=== PATIENT | male | born 1970 | race Caucasian/White ===

== ENCOUNTER 2016-07-16 17:02 | Emergency (ER) | payer OTHER ==
[2016-07-16 17:39] VITALS: BP 150/98; PULSE 91; RESP 20; TEMP 98.9
--- NOTE | 2016-07-16 17:49 | ED ---
General Adult HPI - General Chief complaint: Extremity Injury, Lower Stated complaint: DVT right leg Time Seen by Provider: 07/16/16 17:35 Source: patient, RN notes reviewed Mode of arrival: wheelchair Limitations: no limitations - History of Present Illness Initial comments: Patient is a pleasant 45-year-old male presenting to the emergency Department with right calf discomfort. Patient did have surgery on his right foot to corrected toe in the beginning of the month. Patient felt some discomfort in his right calf since yesterday. Patient felt he might just a strained it. On follow-up today with his doctor ordered an outpatient ultrasound which returned positive for DVT. Patient denies any chest discomfort or difficulty in breathing. Patient would prefer to go home. Patient does have a history of DVT once previously approximately 10 years ago after a long car ride. Patient states his doctor did examine his foot and change the bandages just prior to arrival. - Related Data Previous Rx's Medication Instructions Recorded Rivaroxaban [Xarelto Starter Pack] 15 mg PO DIRECTED #42 tab 07/16/16 Allergies Allergy/AdvReac Type Severity Reaction Status Date / Time No Known Allergies Allergy Verified 07/16/16 17:39 Review of Systems ROS Statement: Those systems with pertinent positive or pertinent negative responses have been documented in the HPI. ROS Other: All systems not noted in ROS Statement are negative. Constitutional: Denies: fever Eyes: Denies: eye pain ENT: Denies: ear pain Respiratory: Denies: cough Cardiovascular: Denies: chest pain Endocrine: Denies: fatigue Gastrointestinal: Denies: abdominal pain Genitourinary: Denies: dysuria Musculoskeletal: Denies: back pain Skin: Denies: rash Neurological: Denies: weakness Past Medical History Past Medical History: CVA/TIA, Deep Vein Thrombosis (DVT) History of Any Multi-Drug Resistant Organisms: None Reported Past Surgical History: Orthopedic Surgery Additional Past Surgical History / Comment(s): kelby feet, Past Psychological History: Anxiety, Depression Smoking Status: Current every day smoker Past Alcohol Use History: Occasional Past Drug Use History: None Reported General Exam Limitations: no limitations General appearance: alert, in no apparent distress Head exam: Present: atraumatic Eye exam: Present: normal appearance, PERRL ENT exam: Present: normal oropharynx Neck exam: Present: normal inspection Respiratory exam: Present: normal lung sounds bilaterally Cardiovascular Exam: Present: regular rate, normal rhythm GI/Abdominal exam: Present: soft. Absent: tenderness Extremities exam: Present: calf tenderness (On the right), other (Right foot with bandages and postop shoe in place.) Neurological exam: Present: alert Psychiatric exam: Present: normal affect, normal mood Skin exam: Absent: rash Course Vital Signs 07/16/16 17:35 Temperature 98.9 F Pulse Rate 91 Respiratory 20 Rate Blood Pressure 150/98 O2 Sat by Pulse 96 Oximetry Medical Decision Making - Medical Decision Making Case was discussed with practitioner Shirley peña, covering for Dr. Aguilar. She is comfortable with discharge home with eliquis or xarelto prescription. - Radiology Data Radiology results: report reviewed (Ultrasound prior to arrival shows DVT of the right popliteal with extension to the calf) Disposition Clinical Impression: DVT (deep venous thrombosis) Disposition: HOME SELF-CARE Condition: Stable Instructions: Deep Venous Thrombosis (ED) Additional Instructions: Please follow-up with primary care physician tomorrow. Return for increased pain or swelling, chest pain, difficulty breathing, worsening symptoms or any other concerns. Prescriptions: Rivaroxaban [Xarelto Starter Pack] 15 mg PO DIRECTED #42 tab Referrals: Jaspal Kay DO [Primary Care Provider] - 1-2 days
[2016-07-16] MEDS ORDERED: RIVAROXABAN 15 MG TAB PO STA (17:59)
== END 2016-07-16 18:39 | disposition home or self-care (01) ==
LOC: EC 17:02
DX: I82.401 Acute embolism and thrombosis of unspecified deep veins of right lower extremity (principal); Z86.718 Personal history of other venous thrombosis and embolism; Z86.73 Personal history of transient ischemic attack (TIA), and cerebral infarction without residual deficits; F17.200 Nicotine dependence, unspecified, uncomplicated
CPT/HCPCS: 99283

== ENCOUNTER → 2016-07-16 | Outpatient (CLI) | payer OTHER ==
--- NOTE | 2016-07-16 16:28 | US ---
EXAMINATION TYPE: US venous doppler duplex LE RT DATE OF EXAM: 07/16/2016 3:43 PM COMPARISON: NONE CLINICAL HISTORY: M79.604 Pain/swelling in right lower extremity. SIDE PERFORMED: Right VESSELS IMAGED: External Iliac Vein (EIV) Common Femoral Vein Deep Femoral Vein Greater Saphenous Vein * Femoral Vein Popliteal Vein Proximal Calf Veins (* superficial vessels) TECHNOLOGIST IMPRESSION: Right Leg: Positive for DVT, non occlusive thrombus seen distal pop vein extending into the prox rimma f veins Thrombus is evident within the popliteal vein. This extends distally. Some mid right femoral vein thr ombus is not entirely excluded. Pulmonary results were called to the office at the time of imaging. IMPRESSION: 1. Positive deep venous thrombosis right lower extremity.
== END | disposition home or self-care (01) ==
LOC: RADUSWWP 15:37
PROVIDERS: ATTEND Podiatrist Foot & Ankle Surgery
DX: I82.431 Acute embolism and thrombosis of right popliteal vein (principal); I82.4Y1 Acute embolism and thrombosis of unspecified deep veins of right proximal lower extremity

== ENCOUNTER 2016-12-29 01:34 | Inpatient (IN) | payer OTHER ==
[2016-12-29] MEDS ORDERED: ACETAMINOPHEN TAB 500 MG TAB PO STA (01:56)
[2016-12-29] MEDS: SODIUM CHLORIDE 0.9% 500 ML IV SCH ×2 (02:02→02:30)
[2016-12-29] MEDS ORDERED: ALBUTEROL NEBULIZED 2.5 MG/3 ML INHALATION STA (02:09)
[2016-12-29] MEDS ORDERED: SODIUM CHLORIDE 0.9% 1,000 ML IV ONE (02:11)
[2016-12-29 02:12] LABS: Basophils # (A) 0.1 k/uL (0-0.2); Basophils % (A) 1 %; CH 34.3; CHCM 35.9; Eosinophils # (A) 0.1 k/uL (0-0.7); Eosinophils % (A) 1 %; HCT 40.3 % (39.0-53.0); HDW 2.62; HGB 14.3 gm/dL (13.0-17.5); Luc # (Auto) 0.51; Luc % (Auto) 2; Lymphocytes # (A) 4.6 k/uL (1.0-4.8); Lymphocytes % (A) 21 %; MCHC 35.5 g/dL (31.0-37.0); MCV 95.7 fL (80.0-100.0); Mean Platelet Volume 7.9; Monocytes # (A) 1.5 k/uL (0-1.0); Monocytes % (A) 7 %; Neutrophils # (A) 15.2 k/uL (1.3-7.7); Neutrophils % (A) 69 %; RBC 4.21 m/uL (4.30-5.90); WBC (Perox) 20.21
[2016-12-29 02:19] LABS: ALT 34 U/L (21-72); AST 16 U/L (17-59); Alkaline Phosphatase 99 U/L (38-126); Anion Gap 12 mmol/L; Blood Urea Nitrogen 11 mg/dL (9-20); Carbon Dioxide 26 mmol/L (22-30); Chloride 101 mmol/L (98-107); Glucose 111 mg/dL (74-99); Magnesium 1.6 mg/dL (1.6-2.3); Non-African American GFR(MDRD) >60 (>60 ml/min/1.73 sqM); Potassium 3.9 mmol/L (3.5-5.1); Sodium 139 mmol/L (137-145); Total Bilirubin 0.6 mg/dL (0.2-1.3); Total Protein 6.8 g/dL (6.3-8.2)
[2016-12-29 02:21] LABS: INR 1.1 (<1.2); Partial Thromboplastin Time 31.8 sec (22.0-30.0); Prothrombin Time 11.4 sec (9.0-12.0)
[2016-12-29 02:27] LABS: Appearance,Urine Clear (Clear); Bilirubin,Urine Negative (Negative); Glucose,Urine (UA) Negative (Negative); Ketones,Urine Negative (Negative); Leukocyte Esterase,Urine Negative (Negative); Mucus,Urine Rare /hpf; Nitrite,Urine Negative (Negative); PH, Urine 5.5 (5.0-8.0); Particle Count 2344; Protein,Urine Negative (Negative); RBC,Urine 2 /hpf (0-5); Squamous Epithelial Cell,Urine <1 /hpf (0-4); UA Billing (MACRO vs. MICRO) MICRO; Urobilinogen,Urine <2.0 mg/dL (<2.0); WBC,Urine <1 /hpf (0-5)
[2016-12-29 02:30] LABS: Creatine Kinase 31 U/L (55-170)
[2016-12-29] MEDS ORDERED: LEVOFLOXACIN 750MG-D5W PMX 750 MG in DEXTROSE/WATER 1 150ML.BAG IVPB SCH (02:30)
[2016-12-29] MEDS ORDERED: LEVOFLOXACIN 750MG-D5W PMX 750 MG in DEXTROSE/WATER 1 150ML.BAG IVPB STA (02:30)
[2016-12-29] MEDS ORDERED: IV VANCOMYCIN PER PHARMACY 1 EACH MISC MISCELLANE PRN (02:30)
[2016-12-29 02:42] LABS: Creatine Kinase MB <0.2 ng/mL (0.0-2.4); Troponin I <0.012 ng/mL (0.000-0.034)
[2016-12-29] MEDS ORDERED: VANCOMYCIN 1,500 MG in SODIUM CHLORIDE 0.9% 250 ML IVPB STA (02:42)
--- NOTE | 2016-12-29 03:04 | XR ---
EXAM: XR Chest, 2 Views CLINICAL HISTORY: Reason: Chest Pain TECHNIQUE: Frontal and lateral views of the chest. COMPARISON: No relevant prior studies available. FINDINGS: Lungs: Dense airspace disease at the right lower lung. Small moderate right pleural effusion. Discoid atelectasis and/or scarring at the left base. Pleural space: Bullous emphysematous inspected at the right upper lobe. No pneumothorax. Heart: Unremarkable. No cardiomegaly. Mediastinum: Unremarkable. Bones/joints: Unremarkable. IMPRESSION: Right lower lung airspace disease and small to moderate perfusion. Correlate clinically to exclude infectious etiology. Follow to resolution.
[2016-12-29] MEDS ORDERED: PNEUMONIA PROTOCOL UTILIZED 1 EACH MISC PO PRN (03:21)
--- NOTE | 2016-12-29 03:33 | ED ---
General Adult HPI - General Chief complaint: Chest Pain Stated complaint: Chest Pains Time Seen by Provider: 12/29/16 01:53 Source: patient, family, RN notes reviewed Mode of arrival: ambulatory Limitations: no limitations - History of Present Illness Initial comments: 46-year-old male presents for evaluation of fever and cough. Patient states that today he had a temperature of 100.3. Also states he has had a cough for the past 24 hours with no sputum. Also reports right-sided chest pain and shortness of breath. Patient states the chest pain does radiate to his right flank. Denies dysuria. Denies abdominal pain. Denies nausea vomiting or diarrhea. Patient has past medical history of DVT, on xarelto, he is also a current tobacco user, no history of COPD or asthma. - Related Data Home Medications Medication Instructions Recorded Confirmed Aspirin EC [Ecotrin Low Dose] 81 mg PO DAILY 07/16/16 12/29/16 Baclofen 10 mg PO BID 07/16/16 12/29/16 Citalopram Hydrobromide [CeleXA] 40 mg PO DAILY 07/16/16 12/29/16 Esomeprazole Magnesium [NexIUM] 40 mg PO DAILY 07/16/16 12/29/16 Gabapentin [Neurontin] 200 mg PO TID PRN 07/16/16 12/29/16 HYDROcodone/APAP 10-325MG [[place] 1 tab PO Q8H PRN 07/16/16 12/29/16 10-325] Multivitamins, Thera [Multivitamin] 1 tab PO DAILY 07/16/16 12/29/16 Naproxen Sodium [Naproxen Sodium 550 mg PO BID 07/16/16 12/29/16 DS] SUMAtriptan SUCCINATE [Imitrex] 50 mg PO DAILY PRN 07/16/16 12/29/16 Previous Rx's Medication Instructions Recorded Rivaroxaban [Xarelto Starter Pack] 15 mg PO DIRECTED #42 tab 07/16/16 Allergies Allergy/AdvReac Type Severity Reaction Status Date / Time No Known Allergies Allergy Verified 12/29/16 01:40 Review of Systems ROS Statement: Those systems with pertinent positive or pertinent negative responses have been documented in the HPI. ROS Other: All systems not noted in ROS Statement are negative. Past Medical History Past Medical History: CVA/TIA, Deep Vein Thrombosis (DVT) History of Any Multi-Drug Resistant Organisms: None Reported Past Surgical History: Orthopedic Surgery Additional Past Surgical History / Comment(s): kelby feet, Past Psychological History: Anxiety, Depression Smoking Status: Current every day smoker Past Alcohol Use History: Occasional Past Drug Use History: None Reported General Exam Limitations: no limitations General appearance: alert, in distress Head exam: Present: atraumatic, normocephalic Eye exam: Present: normal appearance, PERRL ENT exam: Present: normal exam, mucous membranes dry, other (No pharyngeal erythema) Neck exam: Present: normal inspection, full ROM. Absent: meningismus Respiratory exam: Present: respiratory distress, wheezes Cardiovascular Exam: Present: normal rhythm, tachycardia GI/Abdominal exam: Present: soft, distended, tenderness Extremities exam: Present: normal inspection, normal capillary refill. Absent: pedal edema Back exam: Present: normal inspection, tenderness (Tenderness over the right posterior chest wall) Neurological exam: Present: alert, oriented X3 Psychiatric exam: Present: normal affect, normal mood Skin exam: Present: warm, dry Course Vital Signs 12/29/16 12/29/16 12/29/16 01:37 02:05 02:44 Temperature 101.6 F H Pulse Rate 113 H 105 H 92 Respiratory 20 22 18 Rate Blood Pressure 109/64 105/70 O2 Sat by Pulse 84 L 94 L Oximetry 12/29/16 12/29/16 02:57 03:05 Temperature 98.8 F Pulse Rate 95 93 Respiratory 18 18 Rate Blood Pressure 102/70 O2 Sat by Pulse 94 L Oximetry EKG Findings - EKG Comments: EKG Findings:: EKG shows sinus tachycardia with a ventricular rate of 106, IL interval 136, castration 78, QTC 424 Medical Decision Making - Medical Decision Making 46-year-old male presenting with a one-day history of fever, cough, and difficulty breathing. Patient has pain over the right posterior chest wall. On examination he does have bilateral wheezing, no history of asthma COPD. Laboratory studies reveal episode, 22,000, liver enzymes are unremarkable, urinalysis are no signs of infection. Cardiac enzymes are negative. Patient is febrile, tachycardic, and hypotensive and hypoxic on initial presentation. He is given supplemental oxygen, IV fluids, and Tylenol for his fever. Repeat vital signs have improved. Patient is started on broad-spectrum antibiotics. Sputum culture, blood culture, and culture are pending. Patient will be admitted for IV antibiotics and further evaluation treatment. Diagnosis: Right lower lobe pneumonia, sepsis - Lab Data Result diagrams: 12/29/16 01:50 12/29/16 01:50 Lab Results 12/29/16 12/29/16 12/29/16 Range/Units 01:50 01:50 01:50 WBC 22.0 H (3.8-10.6) k/uL RBC 4.21 L (4.30-5.90) m/uL Hgb 14.3 (13.0-17.5) gm/dL Hct 40.3 (39.0-53.0) % MCV 95.7 (80.0-100.0) fL MCH 34.0 (25.0-35.0) pg MCHC 35.5 (31.0-37.0) g/dL RDW 13.0 (11.5-15.5) % Plt Count 312 (150-450) k/uL Neutrophils % 69 % Lymphocytes % 21 % Monocytes % 7 % Eosinophils % 1 % Basophils % 1 % Neutrophils # 15.2 H (1.3-7.7) k/uL Lymphocytes # 4.6 (1.0-4.8) k/uL Monocytes # 1.5 H (0-1.0) k/uL Eosinophils # 0.1 (0-0.7) k/uL Basophils # 0.1 (0-0.2) k/uL PT (9.0-12.0) sec INR (<1.2) APTT (22.0-30.0) sec Sodium 139 (137-145) mmol/L Potassium 3.9 (3.5-5.1) mmol/L Chloride 101 (98-107) mmol/L Carbon Dioxide 26 (22-30) mmol/L Anion Gap 12 mmol/L BUN 11 (9-20) mg/dL Creatinine 0.90 (0.66-1.25) mg/dL Est GFR (MDRD) Af Amer >60 (>60 ml/min/1.73 sqM) Est GFR (MDRD) Non-Af >60 (>60 ml/min/1.73 sqM) Glucose 111 H (74-99) mg/dL Plasma Lactic Acid Michael (0.7-2.0) mmol/L Calcium 9.0 (8.4-10.2) mg/dL Magnesium 1.6 (1.6-2.3) mg/dL Total Bilirubin 0.6 (0.2-1.3) mg/dL AST 16 L (17-59) U/L ALT 34 (21-72) U/L Alkaline Phosphatase 99 (38-126) U/L Total Creatine Kinase 31 L (55-170) U/L CK-MB (CK-2) <0.2 (0.0-2.4) ng/mL CK-MB (CK-2) Rel Index Troponin I <0.012 (0.000-0.034) ng/mL Total Protein 6.8 (6.3-8.2) g/dL Albumin 3.8 (3.5-5.0) g/dL Urine Color Urine Appearance (Clear) Urine pH (5.0-8.0) Ur Specific [place] (1.001-1.035) Urine Protein (Negative) Urine Glucose (UA) (Negative) Urine Ketones (Negative) Urine Blood (Negative) Urine Nitrite (Negative) Urine Bilirubin (Negative) Urine Urobilinogen (<2.0) mg/dL Ur Leukocyte Esterase (Negative) Urine RBC (0-5) /hpf Urine WBC (0-5) /hpf Ur Squamous Epith Cells (0-4) /hpf Urine Mucus (None) /hpf 12/29/16 12/29/16 12/29/16 Range/Units 01:50 01:50 02:10 WBC (3.8-10.6) k/uL RBC (4.30-5.90) m/uL Hgb (13.0-17.5) gm/dL Hct (39.0-53.0) % MCV (80.0-100.0) fL MCH (25.0-35.0) pg MCHC (31.0-37.0) g/dL RDW (11.5-15.5) % Plt Count (150-450) k/uL Neutrophils % % Lymphocytes % % Monocytes % % Eosinophils % % Basophils % % Neutrophils # (1.3-7.7) k/uL Lymphocytes # (1.0-4.8) k/uL Monocytes # (0-1.0) k/uL Eosinophils # (0-0.7) k/uL Basophils # (0-0.2) k/uL PT 11.4 (9.0-12.0) sec INR 1.1 (<1.2) APTT 31.8 H (22.0-30.0) sec Sodium (137-145) mmol/L Potassium (3.5-5.1) mmol/L Chloride (98-107) mmol/L Carbon Dioxide (22-30) mmol/L Anion Gap mmol/L BUN (9-20) mg/dL Creatinine (0.66-1.25) mg/dL Est GFR (MDRD) Af Amer (>60 ml/min/1.73 sqM) Est GFR (MDRD) Non-Af (>60 ml/min/1.73 sqM) Glucose (74-99) mg/dL Plasma Lactic Acid Michael 1.1 (0.7-2.0) mmol/L Calcium (8.4-10.2) mg/dL Magnesium (1.6-2.3) mg/dL Total Bilirubin (0.2-1.3) mg/dL AST (17-59) U/L ALT (21-72) U/L Alkaline Phosphatase (38-126) U/L Total Creatine Kinase (55-170) U/L CK-MB (CK-2) (0.0-2.4) ng/mL CK-MB (CK-2) Rel Index Troponin I (0.000-0.034) ng/mL Total Protein (6.3-8.2) g/dL Albumin (3.5-5.0) g/dL Urine Color Yellow Urine Appearance Clear (Clear) Urine pH 5.5 (5.0-8.0) Ur Specific [place] 1.010 (1.001-1.035) Urine Protein Negative (Negative) Urine Glucose (UA) Negative (Negative) Urine Ketones Negative (Negative) Urine Blood Small H (Negative) Urine Nitrite Negative (Negative) Urine Bilirubin Negative (Negative) Urine Urobilinogen <2.0 (<2.0) mg/dL Ur Leukocyte Esterase Negative (Negative) Urine RBC 2 (0-5) /hpf Urine WBC <1 (0-5) /hpf Ur Squamous Epith Cells <1 (0-4) /hpf Urine Mucus Rare H (None) /hpf Critical Care Time Critical Care Time: Yes Total Critical Care Time: 35 Disposition Clinical Impression: Pneumonia, Sepsis Disposition: ADMITTED IP TO THIS [facility] Condition: Stable Referrals: Jaspal Kay DO [Primary Care Provider] - 1-2 days Decision to Admit Reason: Admit from EC Decision Date: 12/29/16 Decision Time: 03:33
[2016-12-29] MEDS: HYDROcodone/APAP 10-325MG 1 EACH TAB PO PRN (04:44)
[2016-12-29] MEDS: SODIUM CHLORIDE 0.9% 1,000 ML IV SCH ×2 (07:10→21:54)
[2016-12-29] MEDS: ALBUTEROL NEBULIZED 2.5 MG/3 ML INHALATION PRN ×2 (07:30→11:15)
[2016-12-29] MEDS: VANCOMYCIN 1,750 MG in SODIUM CHLORIDE 0.9% 250 ML IVPB SCH ×2 (08:35→21:55)
[2016-12-29] MEDS: CITALOPRAM HYDROBROMIDE 20 MG TAB PO SCH (08:36)
[2016-12-29] MEDS: ASPIRIN 81 MG CHEW PO SCH ×2 (08:36→10:05)
[2016-12-29] MEDS ORDERED: traMADol 50 MG TAB PO PRN (09:51)
[2016-12-29] MEDS: HYDROmorphone 1 MG/ML 1 ML SYRINGE IVP PRN ×2 (11:01→12:51)
[2016-12-29 11:40] LABS: Glucose,Whole Blood 121 mg/dL (75-99)
[2016-12-29] MEDS ORDERED: RX INFO: IV CONTRAST WAS GIVEN 1 EACH MISC MISCELLANE PRN (11:41)
[2016-12-29 11:57] LABS: Basophils # (A) 0.1 k/uL (0-0.2); Basophils % (A) 0 %; CH 33.6; CHCM 34.6; Eosinophils # (A) 0.1 k/uL (0-0.7); Eosinophils % (A) 1 %; HCT 38.7 % (39.0-53.0); HDW 2.69; HGB 13.6 gm/dL (13.0-17.5); Luc # (Auto) 0.39; Luc % (Auto) 2; Lymphocytes # (A) 2.3 k/uL (1.0-4.8); Lymphocytes % (A) 13 %; MCH 34.4 pg (25.0-35.0); MCHC 35.2 g/dL (31.0-37.0); MCV 97.7 fL (80.0-100.0); Mean Platelet Volume 8.1; Monocytes # (A) 1.2 k/uL (0-1.0); Monocytes % (A) 7 %; Neutrophils # (A) 13.6 k/uL (1.3-7.7); Neutrophils % (A) 77 %; RBC 3.96 m/uL (4.30-5.90); RDW 12.9 % (11.5-15.5); WBC 17.7 k/uL (3.8-10.6)
--- NOTE | 2016-12-29 11:57 | XR ---
EXAMINATION TYPE: XR chest 1V portable DATE OF EXAM: 12/29/2016 Comparison: 12/29/2016 Clinical History: 46-year-old male sob Findings: The heart is normal size. There is bullous emphysema particularly in the right upper lobe. A convexly marginated edge projecting at the right mid lung suspected to be a skinfold and can BE reassessed at short interval follow-up. Increasing small right pleural effusion and continued right greater than l eft bibasilar infiltrates. Impression: 1. A small convexly marginated edge projecting at the right midlung is suspected to represent a skinf old. This can be reassessed at short interval follow-up. 2. Bullous emphysema particularly involving the right upper lobe. 3. Increasing small right pleural effusion with continued right greater than left bibasilar infiltrat es.
[2016-12-29 12:02] LABS: Anion Gap 8 mmol/L; Blood Urea Nitrogen 9 mg/dL (9-20); Calcium 8.7 mg/dL (8.4-10.2); Carbon Dioxide 27 mmol/L (22-30); Chloride 106 mmol/L (98-107); Glucose 111 mg/dL (74-99); Non-African American GFR(MDRD) >60 (>60 ml/min/1.73 sqM); Potassium 4.2 mmol/L (3.5-5.1); Sodium 141 mmol/L (137-145)
[2016-12-29 12:21] LABS: Glucose,Whole Blood 125 mg/dL (75-99)
[2016-12-29 12:29] LABS: ABG Base Excess -1.4 mmol/L; ABG HCO3 23 mmol/L (21-25); ABG Oxygen Saturation 97.5 % (94-97); ABG PCO2 38 mmHg (35-45); ABG PH 7.39 (7.35-7.45); ABG PO2 97 mmHg (83-108); ABG TCO2 24 mmol/L (19-24)
--- NOTE | 2016-12-29 12:33 | CT ---
EXAMINATION TYPE: CT angio thoracic/abd aorta DATE OF EXAM: 12/29/2016 COMPARISON: NONE HISTORY: SOB, severe back pain. PE vs dissection CT DLP: 1780.1 mGycm CONTRAST: CTA thoracic and abdominal aorta with 3-D reconstruction is performed and without and with IV Contras t, patient injected with 100 mL of Omnipaque 350. Contrast CTA of the thoracic and abdominal aorta was performed from the lung apex through the base of the pelvis. 3-D reconstruction imaging obtained at a separate workstation. CT Chest: THORACIC AORTA: There is no evidence for aneurysm. No dissection or mediastinal hematoma. Mild ath eromatous changes are seen. LUNGS: Moderately severe upper lobe emphysematous changes right greater than left. Moderate right-chris ed pleural effusion measuring 7.2 cm AP dimension with associated compressive atelectasis or infiltra te. 1.1 cm nonspecific pulmonary nodule left upper lobe. Basilar parenchymal scar atelectasis. Small left basilar effusion. MEDIASTINUM: The heart is not enlarged. No evidence for mediastinal mass or adenopathy. HILAR STRUCTURES: No evidence for mass. No hilar adenopathy is appreciated. OTHER: No significant abnormality. CONTRAST CT ABDOMEN AND PELVIS ABDOMENAL AORTA: No evidence for abdominal aortic aneurysm. No dissection. Iliac vessels are symmet alicia and patent. LIVER/GB- No significant abnormality is seen. PANCREAS- No significant abnormality is seen. SPLEEN- No significant abnormality is seen. ADRENALS- No significant abnormality is seen. KIDNEYS/BLADDER-2 mm nonobstructing calculus right kidney. BOWEL- No Significant abnormality GENITAL ORGANS: No gross abnormality seen. LYMPH NODES- No greater than 1cm abdominal or pelvic lymph nodes areappreciated. OSSEOUS STRUCTURES- No significant abnormality is seen. OTHER- No significant abnormality is seen. IMPRESSION- 1. No evidence for aneurysm of the thoracic or abdominal aorta. 2. Moderately severe emphysematous changes with a large right-sided pleural effusion and basilar atel ectasis or infiltrate. 3. Nonspecific left upper lobe pulmonary nodule. Follow-up in 4-6 months is advised.
[2016-12-29] MEDS ORDERED: LORazepam 2 MG/ML SYRINGE IV STA (13:07)
[2016-12-29] MEDS: methylPREDNISolone SOD SUCCI 125 MG/2 ML VIAL IV SCH ×2 (13:20→21:54)
[2016-12-29] MEDS ORDERED: PROPOFOL 1,000 MG/100 ML VIAL IV ONE (13:29)
[2016-12-29] MEDS ORDERED: SUCCINYLCHOLINE CHLORIDE 100 MG/5 ML SYR IV ONE (13:32)
[2016-12-29] MEDS ORDERED: PROPOFOL 10 MG/ML 20 ML VIAL IV ONE (13:32)
[2016-12-29] MEDS ORDERED: CISATRACURIUM 2 MG/ML 5 ML VIAL IV ONE ×3 (13:54→14:41)
--- NOTE | 2016-12-29 14:41 | XR ---
EXAMINATION TYPE: XR chest 1V portable DATE OF EXAM: 12/29/2016 Comparison: 12/29/2016 radiograph Clinical History: 46-year-old male intubated Findings: ET tube is satisfactory. NG tube courses below the diaphragm. Slight leftward patient rotation. Increasing opacity at the right mid and lower lung as well as at the left base. A moderate right pleu ral effusion is now evident. Bullous emphysema particularly in the right upper lobe. A convexly jina nated is again noted within right midline. This is compatible with artifact as no pneumothorax was se en on the patient's CT of the same day. Impression: 1. Worsening, moderate right and small left pleural effusions. 2. Worsening bibasilar atelectasis and/or consolidation. 3. Bullous emphysema. 4. Satisfactory ET tube.
[2016-12-29] MEDS ORDERED: IPRATROPIUM-ALBUTEROL 3 ML NEB INHALATION PRN (14:43)
[2016-12-29 14:51] LABS: ABG Base Excess -3.8 mmol/L; ABG HCO3 22 mmol/L (21-25); ABG PCO2 50 mmHg (35-45); ABG PH 7.27 (7.35-7.45); ABG PO2 80 mmHg (83-108); ABG TCO2 24 mmol/L (19-24)
[2016-12-29] MEDS: HYDROmorphone 1 MG/ML 1 ML SYRINGE IM PRN (15:08)
--- NOTE | 2016-12-29 15:12 | XR ---
EXAMINATION TYPE: XR abdomen 1V DATE OF EXAM: 12/29/2016 CLINICAL DATA: 46 year-old male abdominal distention, [facility] COMPARISON: Correlation CT today FINDINGS: Effusions and opacities at the lung bases, right greater than left. NG tube is down. Supine imaging limited for assessment of free air. Scattered air seen throughout small and large bowel. Prominent but nondilated air-filled small bowel loops in the left abdomen measure up to 2.9 cm. A Neely catheter in place. Excreted contrast seen within the distal ureters and bladder. IMPRESSION: 1. Some prominent air-filled small bowel loops in the left abdomen. Correlate for a regional ileus or enteritis. 2. Overall nonobstructive bowel gas pattern.
[2016-12-29] MEDS: CISATRACURIUM 200 MG in SODIUM CHLORIDE 0.9% 180 ML IV SCH (15:29)
[2016-12-29] MEDS: IPRATROPIUM-ALBUTEROL 3 ML NEB INHALATION SCH ×3 (15:50→23:28)
[2016-12-29] MEDS ORDERED: Magnesium Replacement Protocol 1 EACH MISC MISCELLANE PRN (15:57)
[2016-12-29] MEDS ORDERED: RIVAROXABAN 10 MG TAB PO SCH (17:30)
--- NOTE | 2016-12-29 18:06 | P.CNPUL ---
History of Present Illness Consult date: 12/29/16 Reason for consult: pneumonia History of present illness: A 46-year-old male patient who presented emergency department this morning because of severe pleuritic right-sided chest pain, fever and cough that's been going on for the past few days. His temperature today was 100.3. He also stated that he has been having cough for the past 24-48 hours without any significant sputum production. He started of her way having some pleuritic chest pain on the right and the pain got severely worse as the day went by to the point where he was having apparent there was 10 out of 10 this this morning. The patient denies having any hemoptysis. No previous history of pneumonia. The patient has history of DVT and the patient has been maintained on Xarelto on outpatient basis. He is a chronic every day smoker. In the emergency department, the patient was found to have a temperature over 1.6. He was tachycardic with a heart rate of 113. He is supposed pulse ox on 4 L was around 94 percent. He had significant leukocytosis with a white cell count 22, 000 and his chest x-ray showed bullous emphysema involving the right upper lobe and extensive right lung consolidation and possibly a small right-sided pleural effusion. Some limited left basilar infiltrates was also seen. The patient was started on broad-spectrum antibiotics. He was given IV Levaquin and vancomycin and subsequently was admitted to the medical floor. I was asked to develop this patient by Dr. Palma 90 the patient was getting increasingly short of breath and he was having pain over the right side of the chest. He was given Dilaudid for pain control with limited success. Subsequently became more tachypneic, diaphoretic, abdomen was getting progressively more distended, he was brought into the intensive care unit and subsequently was intubated and placed on a mechanical ventilator. At this point in time the patient is sedated with Diprivan, paralyzed on Nimbex, on assist control mode of ventilation at the rate of 26, tidal volume 400, FiO2 of 100% and a PEEP of 5. His blood gases show a pH of 7.27 with a pCO2 of 50 and pO2 of 80. This was done and FiO2 of 100% with a PEEP of 5. His chest x-ray post intubation showed worsening of the right lung consolidation with increased atelectasis and possibly effusion. There is also some infiltration and effusion the left lung base. Bullous emphysema can be seen bilaterally more so on the right upper lobe. A CAT scan of the chest was also done and showed moderate to severe upper lobe emphysematous changes right more than left. A moderate-sized right- sided pleural effusion measuring 7.2 cm in size with compressive atelectasis of the right lung base and consolidation of the right lower lobe. Another 1.1 cm nonspecific pulmonary nodules seen in the left upper lobe and there is a small left-sided pleural effusion. I interviewed the and the mother. Apparently the patient was having a tooth abscess and he had seen a dentist approximately 4 weeks ago. He was placed on antibiotics for total of 2 weeks and he was supposed to have a tooth extraction following that. His been off antibiotics for another 2 weeks for now. He denied having any facial swelling or pain recently. No travel history. No exposure to hot tubs or any other contaminated water sources. No sensory of substance abuse. No alcoholism. No immunosuppression. He has history of depression and possibly component of PTSD as the patient is a . No skin rashes. No other sick contacts. He lives with his and he has no children, dogs at home. Review of Systems ROS unobtainable: due to endotracheal tube Past Medical History Past Medical History: CVA/TIA, Deep Vein Thrombosis (DVT) Additional Past Medical History / Comment(s): 6 TIA approximately 6 years ago without any residual deficits, and recent right foot surgery that was further Combigan by development of a DVT in July 2016 and the patient is been maintained on Xarelto, COPD, chronic smoker, depression, PTSD, tooth abscess treated with antibiotics approximately 4-5 weeks ago, chronic back and neck pain being followed up by Dr. Streeter apparently the patient has had undergone nerve ablation in his neck area for pain control. History of Any Multi-Drug Resistant Organisms: None Reported Past Surgical History: Orthopedic Surgery Additional Past Surgical History / Comment(s): Bilateral feet surgery, cervical and lumbar nerve ablation, injection for pain control. Past Anesthesia/Blood Transfusion Reactions: No Reported Reaction Past Psychological History: Anxiety, Depression Smoking Status: Current every day smoker Past Alcohol Use History: Occasional Additional Past Alcohol Use History / Comment(s): smokes 1 pack a day, started when @ 12 Past Drug Use History: None Reported - Past Family History Father Additional Family Medical History / Comment(s): lung Ca Mother Additional Family Medical History / Comment(s): irregular heart beat Medications and Allergies Home Medications Medication Instructions Recorded Confirmed Type Baclofen 10 mg PO BID 07/16/16 12/29/16 History Citalopram Hydrobromide [CeleXA] 40 mg PO DAILY 07/16/16 12/29/16 History Esomeprazole Magnesium [NexIUM] 40 mg PO DAILY 07/16/16 12/29/16 History Gabapentin [Neurontin] 200 mg PO TID PRN 07/16/16 12/29/16 History HYDROcodone/APAP 10-325MG [Callahan 1 tab PO Q8H PRN 07/16/16 12/29/16 History 10-325] Multivitamins, Thera [Multivitamin] 1 tab PO DAILY 07/16/16 12/29/16 History Acetaminophen [Tylenol Extra 500 mg PO DAILY PRN 12/29/16 12/29/16 History Strength] Ammonium Lactate Cream [Lac-Hydrin 1 applic TOPICAL DAILY PRN 12/29/16 12/29/16 History 12% Cream] Clotrimazole Cream [Lotrimin Cream] 1 applic TOPICAL BID 12/29/16 12/29/16 History Mirtazapine [Remeron] 30 mg PO DAILY 12/29/16 12/29/16 History Rivaroxaban [Xarelto] 20 mg PO DAILY 12/29/16 12/29/16 History Allergies Allergy/AdvReac Type Severity Reaction Status Date / Time No Known Allergies Allergy Verified 12/29/16 09:19 Physical Exam Vitals: Vital Signs Temp Pulse Pulse Resp BP BP Pulse Ox 12/29/16 16:10 97 26 H 99/55 89 L 12/29/16 16:01 100 12/29/16 16:00 100 35 H 83/56 89 L 12/29/16 15:51 100 12/29/16 15:50 100 26 H 97/55 87 L 12/29/16 15:40 101 H 25 H 100/57 87 L 12/29/16 15:30 103 H 25 H 98/54 87 L 12/29/16 15:20 102 H 25 H 99/52 86 L 12/29/16 15:16 103 H 25 H 100/49 86 L 12/29/16 15:00 102 H 25 H 131/59 86 L 12/29/16 14:50 109 H 29 H 107/54 86 L 12/29/16 14:40 119 H 23 100/53 87 L 12/29/16 14:30 112 H 25 H 107/56 92 L 12/29/16 14:20 109 H 26 H 109/56 90 L 12/29/16 14:10 109 H 26 H 113/61 90 L 12/29/16 14:00 112 H 26 H 130/64 91 L 12/29/16 13:50 116 H 23 114/65 93 L 12/29/16 13:40 114 H 18 112/82 94 L 12/29/16 13:30 114 H 39 H 141/80 91 L 12/29/16 13:20 114 H 50 H 141/80 93 L 12/29/16 11:31 100 12/29/16 11:15 100 12/29/16 08:00 97.3 F L 89 20 113/65 90 L 12/29/16 07:46 88 12/29/16 07:31 84 12/29/16 06:30 24 12/29/16 04:16 97.9 F 88 24 108/71 93 L 12/29/16 03:05 98.8 F 93 18 102/70 94 L 12/29/16 02:57 95 18 12/29/16 02:44 92 18 12/29/16 02:05 105 H 22 105/70 94 L 12/29/16 01:37 101.6 F H 113 H 20 109/64 84 L Intake and Output 12/29/16 12/29/16 12/29/16 06:59 14:59 22:59 Intake Total 550 Output Total 250 325 Balance 300 -325 Intake: Intake, IV Titration 550 Amount Levofloxacin 750Mg-D5w 150 Pmx 750 mg In Dextrose/ Water 1 150ml.bag @ 100 mls/hr IVPB Q24H [facility] Rx#: [id number] Sodium Chloride 0.9% 1, 150 000 ml @ 75 mls/hr IV . [id number] [facility] Rx#:[id number] Vancomycin 1,750 mg In 250 Sodium Chloride 0.9% 250 ml @ 125 mls/hr IVPB Q12H [facility] Rx#:[id number] Output: Urine 250 325 Other: Voiding Method Indwelling Catheter Weight 88.9 kg 88.9 kg Patient Weight 12/30/16 06:59 Weight 88.9 kg Intubated on a mechanical ventilator, sedated, paralyzed, orogastric and orotracheal tube are both in place.Head exam was generally normal. There was no scleral icterus or corneal arcus. Mucous membranes were moist.Neck was supple and without jugular venous distension, thyromegaly, or carotid bruits. Carotids were easily palpable bilaterally. There was no adenopathy. Lung sounds are markedly diminished in the right lung base. Breath sounds are within normal and the left lung. No wheezes or rhonchi.Cardiac exam revealed the PMI to be normally situated and sized. The rhythm was regular and no extrasystoles were noted during several minutes of auscultation. The first and second heart sounds were normal and physiologic splitting of the second heart sound was noted. There were no murmurs, rubs, clicks, or gallops.Abdominal exam revealed normal bowel sounds. The abdomen was soft, non-tender, and without masses, organomegaly , or appreciable enlargement of the abdominal aorta. Extremities are nonswollen. Pulses are diminished at the present. No cyanosis or clubbing at this point. Neurologically the patient is sedated. Results - Laboratory Findings CBC and BMP: 12/29/16 11:35 12/29/16 11:35 ABG ABG pH 7.27 (7.35-7.45) L 12/29/16 14:29 ABG pCO2 50 mmHg (35-45) H 12/29/16 14:29 ABG pO2 80 mmHg (83-108) L 12/29/16 14:29 ABG O2 Saturation 94.0 % (94-97) 12/29/16 14:29 PT/INR, D-dimer PT 11.4 sec (9.0-12.0) 12/29/16 01:50 INR 1.1 (<1.2) 12/29/16 01:50 D-Dimer 0.82 mg/L FEU (<0.60) H 12/29/16 11:36 Abnormal lab findings: Abnormal Labs 12/29/16 12/29/16 12/29/16 01:50 01:50 01:50 WBC 22.0 H RBC 4.21 L Hct Neutrophils # 15.2 H Monocytes # 1.5 H APTT D-Dimer ABG pH ABG pCO2 ABG pO2 ABG O2 Saturation Glucose 111 H POC Glucose (mg/dL) AST 16 L Total Creatine Kinase 31 L Urine Blood Urine Mucus 12/29/16 12/29/16 12/29/16 01:50 02:10 11:35 WBC 17.7 H RBC 3.96 L Hct 38.7 L Neutrophils # 13.6 H Monocytes # 1.2 H APTT 31.8 H D-Dimer ABG pH ABG pCO2 ABG pO2 ABG O2 Saturation Glucose POC Glucose (mg/dL) AST Total Creatine Kinase Urine Blood Small H Urine Mucus Rare H 12/29/16 12/29/16 12/29/16 11:35 11:36 11:39 WBC RBC Hct Neutrophils # Monocytes # APTT D-Dimer 0.82 H ABG pH ABG pCO2 ABG pO2 ABG O2 Saturation Glucose 111 H POC Glucose (mg/dL) 121 H AST Total Creatine Kinase Urine Blood Urine Mucus 12/29/16 12/29/16 12/29/16 12:16 12:18 14:29 WBC RBC Hct Neutrophils # Monocytes # APTT D-Dimer ABG pH 7.27 L ABG pCO2 50 H ABG pO2 80 L ABG O2 Saturation 97.5 H Glucose POC Glucose (mg/dL) 125 H AST Total Creatine Kinase Urine Blood Urine Mucus - Diagnostic Findings Chest x-ray: image reviewed CT scan - chest: image reviewed Assessment and Plan Plan: Assessment 1 right lung pneumonia, severe, rapid interval progression with progressive worsening of the consolidation development of a small right-sided pleural effusion with subsequent acute hypoxic respiratory failure, currently intubated on a mechanical ventilator. Rule out pneumococcal pneumonia. Rule out anaerobic pneumonia possibly from a tooth abscess/aspiration. 2 acute hypoxic respiratory failure, intubated on mechanical ventilator. 3 bullous emphysema with upper lobe emphysematous changes right more than left 4 sepsis secondary to right lung pneumonia, leukocytosis, on no pressors and hemodynamically stable at this point 5 nonspecific left upper lobe pulmonary nodule measuring 1.1 cm in size 6 recent DVT post-orthopedic intervention on the foot, maintained on Xarelto 7 TIA, history of without any neurological deficits 8 chronic neck and back pain, under the care of pain management 9 tooth abscess, treated with antibiotics on outpatient basis, being followed up by a local dentist, has not undergone tooth extraction Plan Keep the patient sedated and paralyzed for the next 24 hours. Necessary vent changes were done. The PEEP was increased up to 10 and we'll repeat the blood gas and if possible we'll gradually wean down the FiO2. The peak pressures around 24 static pressures around 16. No significant mucus plugging at this point. A bronchoscopy will be done and the bronchioloalveolar lavage of the right lower lobe will be done for microbial analysis. Blood cultures. Legionella urine antigen. Breasts recommended by his including a combination of Zosyn and Levaquin and vancomycin. A total of 3 L of IV fluid in order been given and the patient was maintained on a maintenance fluid of normal saline at the rate of 100 mL an hour. Urine output is adequate. No pressors. ID consultation. We will insert a triple lumen catheter. We'll insert an outlying catheter. Discontinue the Xarelto and switch this patient on Lovenox 1 mg per KG every 12 hours. Continue bronchodilators. Continue systemic steroids. She'll feeds will be initiated in a.m. Lactic acid levels are not elevated. Echocardiogram in a.m. Computed tomography scan of the jaw and sinuses, rule out tooth abscess. We'll continue to follow. The patient is critical. The family has been updated on his status.
--- NOTE | 2016-12-29 18:12 | P.PCN ---
Date of Procedure: 12/29/16 Preoperative Diagnosis: Right lung pneumonia, respiratory failure Postoperative Diagnosis: Right lung pneumonia, respiratory failure Procedure(s) Performed: Arterial line catheter insertion, right radial artery Implants: Surgeon: Jennifer Riley Analysis Engineer #1: Ada Reeves Condition: critical Disposition: ICU Indications for Procedure: Blood pressure monitoring Operative Findings: Description of Procedure: This procedure was done in the intensive care unit under sterile techniques. The right arm was placed on a bedside table with the rest being extended. The right radial artery was palpated. The area was cleaned using ChloraPrep. The Lalo test was performed also prior to the procedure. Following that, and outline needle was used to cannulate the right radial artery and a guidewire was inserted successfully. The needle was removed and following that an outlying catheter was inserted using the Seldinger technique into the right radial artery. It was removed and the blood return was adequate. The Artline was connected to the monitor and arterial waveform the blood pressure was obtained. The catheter was secured in place and sutured and there was no bedside complications or bleeding.
[2016-12-29 18:37] LABS: ABG Base Excess -2.3 mmol/L; ABG HCO3 24 mmol/L (21-25); ABG PCO2 61 mmHg (35-45); ABG PH 7.23 (7.35-7.45); ABG PO2 72 mmHg (83-108); ABG TCO2 26 mmol/L (19-24)
--- NOTE | 2016-12-29 18:45 | XR ---
EXAMINATION TYPE: XR chest 1V portable DATE OF EXAM: 12/29/2016 COMPARISON: 12/29/2016 at 2:12 PM HISTORY: Line placement TECHNIQUE: Single upright frontal view of the chest is obtained. FINDINGS: Endotracheal tube tip superimposed over the mid trachea. NG tube present. Right IJ central line has been placed in the interim, with tip superimposed over the distal SVC. There is no definite pneumothorax. However, it is noted that there are large bleb formations in the r ight hemithorax; noncontrast CT can be best utilized to characterize the lung parenchyma versus the p leural spaces if and when clinically indicated. There again appears to be moderate pleural effusion on the right, similar to the prior study. Neither the right lower lobe nor the left lower lobe are well inflated on the current study. Cardiomediastinal silhouette and soft tissues and skeletal structures are unremarkable. IMPRESSION: STATUS POST CENTRAL LINE PLACEMENT WITHOUT DEFINITE PNEUMOTHORAX, DISCUSSED ABOVE.
[2016-12-29] MEDS: PIPERACILLIN-TAZOBACTAM 3.375 GM in DEXTROSE/WATER 1 50ML.BAG IVPB SCH (19:13)
[2016-12-29] MEDS: ENOXAPARIN 100 MG/ML SYRINGE SQ SCH (19:14)
[2016-12-29] MEDS: MAGNESIUM SULFATE-D5W PMX 1 GM in DEXTROSE/WATER 1 100ML.BAG IVPB SCH ×2 (21:54→23:09)
[2016-12-29] MEDS: CHLORHEXIDINE GLUCONATE 15 ML CUP MUCOUS MEM SCH (21:55)
--- NOTE | 2016-12-29 22:27 | P.CONS ---
History of Present Illness - Reason for Consult Consult date: 12/29/16 - Chief Complaint Shortness of breath - History of Present Illness 46-year-old male who has a presumptive diagnosis of underlying emphysema presents to the hospital with a relatively short-term of increasing shortness of breath. The patient relates over the weekend he started to get short of breath. He developed cough and increasing shortness of breath. He then had significant fever and increasing pain to his right chest. The pain became so severe that he no longer was able to hold out at home and presented to the emergency center. There he was evidence of a pain a 10 out of 10 and evidence of significant respiratory distress. Imaging studies revealed evidence of a significant pneumonia as well as a large bleb to the right chest. Effusion was seen. No evidence of pulmonary embolus or of aortic dissection was seen. The patient was brought to the intensive care unit where he is required some sedation for placement of BiPAP. BiPAP has been placed the patient appears to be feeling this. We'll likely be intubated soon. The patient had a significant AA gradient despite the BiPAP. The family does relate to the difficulty with his oral cavity. He apparently has been antibiotic therapy was that of a tooth extraction for an abscess the family denies a history of injection drug use. Significant alcohol use. PTSD from his experience in [place]. No severe illnesses while he was overseas. Review of Systems Review of systems slightly limited due to his significant shortness of breath HEENT:Denies headache or acute visual change. Denies sinus or mouth discomforts. Denies neck stiffness or pain. Denies significant oral cavity pain. Denies difficulty on swallowing. Lungs: Very short of breath cough severe pleuritic right-sided chest pain Cardiovascular: Denies syncope profound dyspnea Gastrointestinal:Denies nausea, vomiting, diarrhea, constipation, hematemesis, melena, hematochezia. No no significant change of bowel habit noticed. Musculoskeletal: denies significant myalgias or arthralgias. No new joint swelling. Denies new back pain. Skin: Denies new rash or lesions. No new ulcers or wounds are related.. Neuro: Denies headache or visual change. Denies any new onset weakness or difficulty with ambulation. Denies falls or seizures. Psychiatric:Denies anxiety or depression. Endocrine: Denies significant fatigue, denies significant weight loss or weight gain. Past Medical History Past Medical History: CVA/TIA, Deep Vein Thrombosis (DVT) Additional Past Medical History / Comment(s): 6 TIA approximately 6 years ago without any residual deficits, and recent right foot surgery that was further [place] by development of a DVT in July 2016 and the patient is been maintained on Xarelto, COPD, chronic smoker, depression, PTSD, tooth abscess treated with antibiotics approximately 4-5 weeks ago, chronic back and neck pain being followed up by Dr. Streeter apparently the patient has had undergone nerve ablation in his neck area for pain control. History of Any Multi-Drug Resistant Organisms: None Reported Past Surgical History: Orthopedic Surgery Additional Past Surgical History / Comment(s): Bilateral feet surgery, cervical and lumbar nerve ablation, injection for pain control. 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 No alcohol or recreational drug use. Was in the in [place]. No specific illnesses while he was overseas. No change in the current home environment. 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 Smoking Status: Current every day smoker Past Alcohol Use History: Occasional Additional Past Alcohol Use History / Comment(s): smokes 1 pack a day, started when @ 12 Past Drug Use History: None Reported - Past Family History Father Additional Family Medical History / Comment(s): lung Ca Mother Additional Family Medical History / Comment(s): irregular heart beat Medications and Allergies Home Medications and Allergies Comment(s): Current Medications Hydrocodone Bitart/Acetaminophen ([place] 10) 1 each PO Q8H PRN PRN Reason: Pain Last Admin: 12/29/16 04:44 Dose: 1 each Albuterol Sulfate (Ventolin Nebulized) 2.5 mg INHALATION RT-Q4H PRN PRN Reason: Shortness Of Breath Or Wheezing Last Admin: 12/29/16 11:15 Dose: 2.5 mg Albuterol/Ipratropium (Duoneb 0.5 Mg-3 Mg/3 Ml Soln) 3 ml INHALATION RT-Q4H [facility] Last Admin: 12/29/16 20:29 Dose: 3 ml Albuterol/Ipratropium (Duoneb 0.5 Mg-3 Mg/3 Ml Soln) 3 ml INHALATION RT-Q2H PRN PRN Reason: Shortness Of Breath Or Wheezing Aspirin (Aspirin) 81 mg PO DAILY [facility] Last Admin: 12/29/16 10:05 Dose: Not Given Chlorhexidine Gluconate (Peridex) 15 ml MUCOUS MEM BID [facility] Last Admin: 12/29/16 21:55 Dose: 15 ml Citalopram Hydrobromide (Celexa) 40 mg PO DAILY [facility] Last Admin: 12/29/16 08:36 Dose: 40 mg Enoxaparin Sodium (Lovenox) 90 mg SQ Q12HR [facility] Last Admin: 12/29/16 19:14 Dose: 90 mg Hydromorphone HCl (Dilaudid) 0.5 mg IVP Q4HR PRN PRN Reason: Breakthrough Pain Last Admin: 12/29/16 12:51 Dose: 0.5 mg Hydromorphone HCl (Dilaudid) 1 mg IM Q3HR PRN PRN Reason: Pain Last Admin: 12/29/16 15:08 Dose: 1 mg Sodium Chloride (Saline 0.9%) 1,000 mls @ 100 mls/hr IV .Q10H [facility] Last Admin: 12/29/16 21:54 Dose: 100 mls/hr Levofloxacin 750 mg/ IV (Solution) 150 mls @ 100 mls/hr IVPB Q24H [facility] Vancomycin HCl 1,750 mg/ (Sodium Chloride) 250 mls @ 125 mls/hr IVPB Q12H [facility] Last Admin: 12/29/16 21:55 Dose: 125 mls/hr Piperacillin/Tazobactam/ (Dextrose 3.375 gm/ IV Solution) 50 mls @ 12.5 mls/hr IVPB Q8HR [facility] Last Admin: 12/29/16 19:13 Dose: 12.5 mls/hr Cisatracurium Besylate 200 mg/ (Sodium Chloride) 200 mls @ 5.33 mls/hr IV .Q24H [facility]; 1 MCG/KG/MIN PRN Reason: Protocol Last Admin: 12/29/16 15:29 Dose: 2 mcg/kg/min, 10.66 mls/hr Propofol (Diprivan) 1,000 mg in 100 mls @ 0 mls/hr IV .Q0M [facility]; Titrate PRN Reason: Protocol Methylprednisolone Sodium Succinate (Solu-Medrol) 60 mg IV Q6HR [facility] Last Admin: 12/29/16 21:54 Dose: 60 mg Miscellaneous Information (Pneumonia Protocol Utilized) 1 each PO ONCE PRN PRN Reason: Per Protocol Miscellaneous Information (Rx Info: Iv Contrast Was Given) 1 each MISCELLANE DAILY PRN PRN Reason: Per Protocol Stop: 12/31/16 11:42 Miscellaneous Information (Magnesium Per Protocol) 1 each MISCELLANE DAILY PRN ; Protocol PRN Reason: Per Protocol Tramadol HCl (Ultram) 50 mg PO Q6H PRN PRN Reason: Moderate Pain Home Medications Medication Instructions Recorded Confirmed Type Baclofen 10 mg PO BID 07/16/16 12/29/16 History Citalopram Hydrobromide [CeleXA] 40 mg PO DAILY 07/16/16 12/29/16 History Esomeprazole Magnesium [NexIUM] 40 mg PO DAILY 07/16/16 12/29/16 History Gabapentin [Neurontin] 200 mg PO TID PRN 07/16/16 12/29/16 History HYDROcodone/APAP 10-325MG [[place] 1 tab PO Q8H PRN 07/16/16 12/29/16 History 10-325] Multivitamins, Thera [Multivitamin] 1 tab PO DAILY 07/16/16 12/29/16 History Acetaminophen [Tylenol Extra 500 mg PO DAILY PRN 12/29/16 12/29/16 History Strength] Ammonium Lactate Cream [Lac-Hydrin 1 applic TOPICAL DAILY PRN 12/29/16 12/29/16 History 12% Cream] Clotrimazole Cream [Lotrimin Cream] 1 applic TOPICAL BID 12/29/16 12/29/16 History Mirtazapine [Remeron] 30 mg PO DAILY 12/29/16 12/29/16 History Rivaroxaban [Xarelto] 20 mg PO DAILY 12/29/16 12/29/16 History Allergies Allergy/AdvReac Type Severity Reaction Status Date / Time No Known Allergies Allergy Verified 12/29/16 09:19 Physical Exam Vitals: Vital Signs Temp Pulse Pulse Resp BP BP Pulse Ox 12/29/16 20:44 102 H 12/29/16 20:35 100 12/29/16 19:00 93 25 H 119/73 88 L 12/29/16 18:50 95 25 H 119/73 88 L 12/29/16 18:40 89 25 H 124/68 88 L 12/29/16 18:30 90 25 H 124/68 88 L 12/29/16 18:20 92 25 H 124/68 89 L 12/29/16 18:10 91 25 H 113/68 89 L 12/29/16 18:00 89 25 H 113/68 89 L 12/29/16 17:50 83 25 H 113/68 91 L 12/29/16 17:40 84 25 H 108/67 92 L 12/29/16 17:30 88 25 H 124/59 95 12/29/16 17:20 87 23 94/56 92 L 12/29/16 17:10 91 25 H 100/61 89 L 12/29/16 17:00 91 26 H 106/55 90 L 12/29/16 16:50 91 26 H 97/55 90 L 12/29/16 16:40 94 25 H 99/55 89 L 12/29/16 16:30 94 26 H 93/55 89 L 12/29/16 16:20 96 25 H 100/51 89 L 12/29/16 16:10 97 26 H 99/55 89 L 12/29/16 16:01 100 12/29/16 16:00 100 35 H 83/56 89 L 12/29/16 15:51 100 12/29/16 15:50 100 26 H 97/55 87 L 12/29/16 15:40 101 H 25 H 100/57 87 L 12/29/16 15:30 103 H 25 H 98/54 87 L 12/29/16 15:20 102 H 25 H 99/52 86 L 12/29/16 15:16 103 H 25 H 100/49 86 L 12/29/16 15:00 102 H 25 H 131/59 86 L 12/29/16 14:50 109 H 29 H 107/54 86 L 12/29/16 14:40 119 H 23 100/53 87 L 12/29/16 14:30 112 H 25 H 107/56 92 L 12/29/16 14:20 109 H 26 H 109/56 90 L 12/29/16 14:10 109 H 26 H 113/61 90 L 12/29/16 14:00 112 H 26 H 130/64 91 L 12/29/16 13:50 116 H 23 114/65 93 L 12/29/16 13:40 114 H 18 112/82 94 L 07/25/17 13:30 114 H 39 H 141/80 91 L 12/29/16 13:20 114 H 50 H 141/80 93 L 12/29/16 13:00 26 H 12/29/16 11:31 100 12/29/16 11:15 100 12/29/16 08:00 97.3 F L 89 20 113/65 90 L 12/29/16 07:46 88 12/29/16 07:31 84 12/29/16 06:30 24 12/29/16 04:16 97.9 F 88 24 108/71 93 L 12/29/16 03:05 98.8 F 93 18 102/70 94 L 12/29/16 02:57 95 18 12/29/16 02:44 92 18 12/29/16 02:05 105 H 22 105/70 94 L 12/29/16 01:37 101.6 F H 113 H 20 109/64 84 L Intake and Output 12/29/16 12/29/16 12/29/16 06:59 14:59 22:59 Intake Total 550 1100 500 Output Total 250 325 910 Balance 300 775 -410 Intake: IV 500 Sodium Chloride 0.9% 1, 500 000 ml @ 100 mls/hr IV . Q10H [facility] Rx#:[id number] Intake, IV Titration 550 1100 Amount Levofloxacin 750Mg-D5w 150 Pmx 750 mg In Dextrose/ Water 1 150ml.bag @ 100 mls/hr IVPB Q24H [facility] Rx#: [id number] Levofloxacin 750Mg-D5w 1000 Pmx 750 mg In Dextrose/ Water 1 150ml.bag @ 100 mls/hr IVPB Q24H [facility] Rx#: [id number] Sodium Chloride 0.9% 1, 150 000 ml @ 100 mls/hr IV . Q10H [facility] Rx#:[id number] Sodium Chloride 0.9% 1, 100 000 ml @ 999 mls/hr IV . Q1H1M [facility] Rx#:[id number] Vancomycin 1,750 mg In 250 Sodium Chloride 0.9% 250 ml @ 125 mls/hr IVPB Q12H [facility] Rx#:[id number] Output: Urine 250 325 910 Other: Voiding Method Indwelling Catheter Indwelling Catheter Weight 88.9 kg 88.9 kg Patient Weight 12/30/16 06:59 Weight 88.9 kg ABP, PAP, CO, CI - Last 8 Hours Arterial Blood Pressure 150/73 Arterial Blood Pressure 150/72 Arterial Blood Pressure 149/73 Arterial Blood Pressure 151/71 Arterial Blood Pressure 154/77 Arterial Blood Pressure 165/81 46-year-old male who is profoundly short of breath respiratory rate is 50. BiPAP is being applied HEENT: Anicteric conjunctiva are pink and moist nasal mucosa grossly intact without significant lesions, there is no thrush. Neck: The neck is supple without significant lymphadenopathy or thyromegaly. Lungs: There is symmetrical air entry. Markedly diminished breath sounds in the right base. Dullness the right base. Severe tenderness to the right lateral chest. Minimal right upper quadrant tenderness Heart: Regular rate and rhythm with an audible S1-S2, no S3 no S4. There is no significant murmur click or rub, PMI was nondisplaced. Abdomen: Positive bowel sounds soft and nontender without palpable masses or organomegaly. There was no guarding or rebound. Abdomen is not rigid Extremities: The upper extremities have excellent pulses they are symmetric, no significant petechiae or telangiectasia. No splinter hemorrhages were noted. The lower extremities are free from significant edema. The peripheral pulses were 2+ and symmetric. Neuro: Awake alert oriented to person place and time. There are no acute new gross focal sensory motor deficits. Patient however in respiratory distress Results CBC & Chem 7: 12/29/16 11:35 12/29/16 11:35 Labs: Abnormal Lab Results - Last 24 Hours (Table) 12/29/16 12/29/16 12/29/16 Range/Units 01:50 01:50 01:50 WBC 22.0 H (3.8-10.6) k/uL RBC 4.21 L (4.30-5.90) m/uL Hct (39.0-53.0) % Neutrophils # 15.2 H (1.3-7.7) k/uL Monocytes # 1.5 H (0-1.0) k/uL APTT (22.0-30.0) sec D-Dimer (<0.60) mg/L FEU ABG pH (7.35-7.45) ABG pCO2 (35-45) mmHg ABG pO2 (83-108) mmHg ABG Total CO2 (19-24) mmol/L ABG O2 Saturation (94-97) % Glucose 111 H (74-99) mg/dL POC Glucose (mg/dL) (75-99) mg/dL AST 16 L (17-59) U/L Total Creatine Kinase 31 L (55-170) U/L Urine Blood (Negative) Urine Mucus (None) /hpf 12/29/16 12/29/16 12/29/16 Range/Units 01:50 02:10 11:35 WBC 17.7 H (3.8-10.6) k/uL RBC 3.96 L (4.30-5.90) m/uL Hct 38.7 L (39.0-53.0) % Neutrophils # 13.6 H (1.3-7.7) k/uL Monocytes # 1.2 H (0-1.0) k/uL APTT 31.8 H (22.0-30.0) sec D-Dimer (<0.60) mg/L FEU ABG pH (7.35-7.45) ABG pCO2 (35-45) mmHg ABG pO2 (83-108) mmHg ABG Total CO2 (19-24) mmol/L ABG O2 Saturation (94-97) % Glucose (74-99) mg/dL POC Glucose (mg/dL) (75-99) mg/dL AST (17-59) U/L Total Creatine Kinase (55-170) U/L Urine Blood Small H (Negative) Urine Mucus Rare H (None) /hpf 12/29/16 12/29/16 12/29/16 Range/Units 11:35 11:36 11:39 WBC (3.8-10.6) k/uL RBC (4.30-5.90) m/uL Hct (39.0-53.0) % Neutrophils # (1.3-7.7) k/uL Monocytes # (0-1.0) k/uL APTT (22.0-30.0) sec D-Dimer 0.82 H (<0.60) mg/L FEU ABG pH (7.35-7.45) ABG pCO2 (35-45) mmHg ABG pO2 (83-108) mmHg ABG Total CO2 (19-24) mmol/L ABG O2 Saturation (94-97) % Glucose 111 H (74-99) mg/dL POC Glucose (mg/dL) 121 H (75-99) mg/dL AST (17-59) U/L Total Creatine Kinase (55-170) U/L Urine Blood (Negative) Urine Mucus (None) /hpf 12/29/16 12/29/16 12/29/16 Range/Units 12:16 12:18 14:29 WBC (3.8-10.6) k/uL RBC (4.30-5.90) m/uL Hct (39.0-53.0) % Neutrophils # (1.3-7.7) k/uL Monocytes # (0-1.0) k/uL APTT (22.0-30.0) sec D-Dimer (<0.60) mg/L FEU ABG pH 7.27 L (7.35-7.45) ABG pCO2 50 H (35-45) mmHg ABG pO2 80 L (83-108) mmHg ABG Total CO2 (19-24) mmol/L ABG O2 Saturation 97.5 H (94-97) % Glucose (74-99) mg/dL POC Glucose (mg/dL) 125 H (75-99) mg/dL AST (17-59) U/L Total Creatine Kinase (55-170) U/L Urine Blood (Negative) Urine Mucus (None) /hpf 12/29/16 Range/Units 18:18 WBC (3.8-10.6) k/uL RBC (4.30-5.90) m/uL Hct (39.0-53.0) % Neutrophils # (1.3-7.7) k/uL Monocytes # (0-1.0) k/uL APTT (22.0-30.0) sec D-Dimer (<0.60) mg/L FEU ABG pH 7.23 L (7.35-7.45) ABG pCO2 61 H (35-45) mmHg ABG pO2 72 L (83-108) mmHg ABG Total CO2 26 H (19-24) mmol/L ABG O2 Saturation 90.0 L (94-97) % Glucose (74-99) mg/dL POC Glucose (mg/dL) (75-99) mg/dL AST (17-59) U/L Total Creatine Kinase (55-170) U/L Urine Blood (Negative) Urine Mucus (None) /hpf Microbiology - Last 24 Hours (Table) 12/29/16 14:42 Sputum Culture - Preliminary Sputum 12/29/16 02:10 Urine Culture - Preliminary Urine,Voided Laboratory Results WBC 17.7 k/uL (3.8-10.6) H 12/29/16 11:35 RBC 3.96 m/uL (4.30-5.90) L 12/29/16 11:35 Hgb 13.6 gm/dL (13.0-17.5) 12/29/16 11:35 Hct 38.7 % (39.0-53.0) L 12/29/16 11:35 MCV 97.7 fL (80.0-100.0) 12/29/16 11:35 MCH 34.4 pg (25.0-35.0) 12/29/16 11:35 MCHC 35.2 g/dL (31.0-37.0) 12/29/16 11:35 RDW 12.9 % (11.5-15.5) 12/29/16 11:35 Plt Count 279 k/uL (150-450) 12/29/16 11:35 Neutrophils % 77 % 12/29/16 11:35 Lymphocytes % 13 % 12/29/16 11:35 Monocytes % 7 % 12/29/16 11:35 Eosinophils % 1 % 12/29/16 11:35 Basophils % 0 % 12/29/16 11:35 Neutrophils # 13.6 k/uL (1.3-7.7) H 12/29/16 11:35 Lymphocytes # 2.3 k/uL (1.0-4.8) 12/29/16 11:35 Monocytes # 1.2 k/uL (0-1.0) H 12/29/16 11:35 Eosinophils # 0.1 k/uL (0-0.7) 12/29/16 11:35 Basophils # 0.1 k/uL (0-0.2) 12/29/16 11:35 PT 11.4 sec (9.0-12.0) 12/29/16 01:50 INR 1.1 (<1.2) 12/29/16 01:50 APTT 31.8 sec (22.0-30.0) H 12/29/16 01:50 D-Dimer 0.82 mg/L FEU (<0.60) H 12/29/16 11:36 Sample Site CHARLA 12/29/16 18:18 ABG pH 7.23 (7.35-7.45) L 12/29/16 18:18 ABG pCO2 61 mmHg (35-45) H 12/29/16 18:18 ABG pO2 72 mmHg (83-108) L 12/29/16 18:18 ABG HCO3 24 mmol/L (21-25) 12/29/16 18:18 ABG Total CO2 26 mmol/L (19-24) H 12/29/16 18:18 ABG O2 Saturation 90.0 % (94-97) L 12/29/16 18:18 ABG Base Excess -2.3 mmol/L 12/29/16 18:18 FiO2 100 % 12/29/16 18:18 Sodium 141 mmol/L (137-145) 12/29/16 11:35 Potassium 4.2 mmol/L (3.5-5.1) 12/29/16 11:35 Chloride 106 mmol/L (98-107) 12/29/16 11:35 Carbon Dioxide 27 mmol/L (22-30) 12/29/16 11:35 Anion Gap 8 mmol/L 12/29/16 11:35 BUN 9 mg/dL (9-20) 12/29/16 11:35 Creatinine 0.70 mg/dL (0.66-1.25) 12/29/16 11:35 Est GFR (MDRD) Af Amer >60 (>60 ml/min/1.73 sqM) 12/29/16 11:35 Est GFR (MDRD) Non-Af >60 (>60 ml/min/1.73 sqM) 12/29/16 11:35 Glucose 111 mg/dL (74-99) H 12/29/16 11:35 POC Glucose (mg/dL) 125 mg/dL (75-99) H 12/29/16 12:18 POC Glu [employer] Super[employer] ID Keisha Logan 12/29/16 12:18 Plasma Lactic Acid Michael 1.5 mmol/L (0.7-2.0) 12/29/16 11:35 Calcium 8.7 mg/dL (8.4-10.2) 12/29/16 11:35 Magnesium 1.6 mg/dL (1.6-2.3) 12/29/16 01:50 Total Bilirubin 0.6 mg/dL (0.2-1.3) 12/29/16 01:50 AST 16 U/L (17-59) L 12/29/16 01:50 ALT 34 U/L (21-72) 12/29/16 01:50 Alkaline Phosphatase 99 U/L (38-126) 12/29/16 01:50 Total Creatine Kinase 31 U/L (55-170) L 12/29/16 01:50 CK-MB (CK-2) <0.2 ng/mL (0.0-2.4) 12/29/16 01:50 CK-MB (CK-2) Rel Index 12/29/16 01:50 Troponin I <0.012 ng/mL (0.000-0.034) 12/29/16 01:50 Total Protein 6.8 g/dL (6.3-8.2) 12/29/16 01:50 Albumin 3.8 g/dL (3.5-5.0) 12/29/16 01:50 Urine Color Yellow 12/29/16 02:10 Urine Appearance Clear (Clear) 12/29/16 02:10 Urine pH 5.5 (5.0-8.0) 12/29/16 02:10 Ur Specific Melba 1.010 (1.001-1.035) 12/29/16 02:10 Urine Protein Negative (Negative) 12/29/16 02:10 Urine Glucose (UA) Negative (Negative) 12/29/16 02:10 Urine Ketones Negative (Negative) 12/29/16 02:10 Urine Blood Small (Negative) H 12/29/16 02:10 Urine Nitrite Negative (Negative) 12/29/16 02:10 Urine Bilirubin Negative (Negative) 12/29/16 02:10 Urine Urobilinogen <2.0 mg/dL (<2.0) 12/29/16 02:10 Ur Leukocyte Esterase Negative (Negative) 12/29/16 02:10 Urine RBC 2 /hpf (0-5) 12/29/16 02:10 Urine WBC <1 /hpf (0-5) 12/29/16 02:10 Ur Squamous Epith Cells <1 /hpf (0-4) 12/29/16 02:10 Urine Mucus Rare /hpf (None) H 12/29/16 02:10 Microbiology 12/29/16 14:42 Sputum Sputum Culture - Preliminary 12/29/16 02:10 Urine,Voided Urine Culture - Preliminary Assessment and Plan (1) Pneumonia Narrative/Plan: 46-year-old male with history of heavy tobacco use who by imaging studies has a large bleb to the right upper zone is evidence of a significant effusion to the right side and pneumonic infiltration. Patient presents with respiratory failure and sepsis from his pneumonia. Cultures are in process. Broad-spectrum antibiotic therapy with Zosyn and Levaquin and vancomycin are given until cultures are available. The patient does have a history of the recent dental work and concerns to a lung abscess or putrid empyema. The patient has respiratory failure likely be intubated soon since appears to be failing BiPAP. Legionella and Mycoplasma evaluations of be performed given respiratory disease If he is intubated deep specimens will be ideal for culture Blood cultures in process Significant leukocytosis due to his current sepsis Physical exam does not show evidence of significant oral infection. Status: Acute (2) Respiratory failure Status: Acute (3) Empyema of right pleural space Status: Acute
[2016-12-29] MEDS: PROPOFOL 1,000 MG/100 ML VIAL IV SCH (23:49)
[2016-12-30] MEDS: SODIUM CHLORIDE 0.9% 1,000 ML IV SCH ×3 (01:00→23:00)
[2016-12-30] MEDS: PIPERACILLIN-TAZOBACTAM 3.375 GM in DEXTROSE/WATER 1 50ML.BAG IVPB SCH ×3 (01:00→16:42)
[2016-12-30] MEDS: ARTIFICIAL TEARS-HYPROMELLOSE DROPS 15 ML BTL BOTH EYES SCH ×6 (01:01→20:27)
[2016-12-30] MEDS: methylPREDNISolone SOD SUCCI 125 MG/2 ML VIAL IV SCH ×4 (01:02→18:05)
--- NOTE | 2016-12-30 02:31 | CT ---
INDICATION: Clinical concern for tooth abscess TECHNIQUE: CT acquisition is performed through the facial bones. Sagittal and coronal reformatted images provided. No IV contrast is administered. DOSE INFORMATION: CTDIvol 36.60 mGy; DLP 605.90 mGy-cm. One or more of the following dose reduction techniques were used: automated exposure control, adjustment of the mA and/or kV according to patient size, use of iterative reconstruction technique. COMPARISON: None. FINDINGS: Evaluation is limited without intravenous contrast. There is minor mucosal thickening in the ethmoid air cells. The visualized paranasal sinuses and mastoid air cells are otherwise clear. There is no evidence of acute fracture of the facial bones. The orbits, nasal bones, paranasal quevedo, zygomatic arches, pterygoid plates, and mandible are intact. There is mild periapical lucency involving the right first maxillary molar without evidence of adjacent soft tissue abscess. There is thickening of the adenoidal tissues. Endotracheal tube is in place. IMPRESSION: 1. Mild periapical lucency involving the right first maxillary molar, possible periapical abscess. This is confined to the bone. No evidence of adjacent soft tissue abscess.
[2016-12-30 03:07] LABS: Glucose,Whole Blood 202 mg/dL (75-99)
[2016-12-30] MEDS: LEVOFLOXACIN 750MG-D5W PMX 750 MG in DEXTROSE/WATER 1 150ML.BAG IVPB SCH (03:20)
[2016-12-30] MEDS: IPRATROPIUM-ALBUTEROL 3 ML NEB INHALATION SCH ×6 (03:37→23:39)
[2016-12-30] MEDS: PROPOFOL 1,000 MG/100 ML VIAL IV SCH ×6 (03:51→22:56)
[2016-12-30 04:34] LABS: ABG HCO3 25 mmol/L (21-25); ABG PCO2 62 mmHg (35-45); ABG PH 7.24 (7.35-7.45); ABG PO2 76 mmHg (83-108); ABG TCO2 27 mmol/L (19-24)
[2016-12-30 04:35] LABS: ABG Base Excess -1.1 mmol/L; ABG Oxygen Saturation 91.9 % (94-97)
[2016-12-30] MEDS: HYDROmorphone 1 MG/ML 1 ML SYRINGE IM PRN ×4 (04:49→21:05)
--- NOTE | 2016-12-30 05:16 | XR ---
INDICATION: Pneumonia COMPARISON: CXR 12/29/16 FINDINGS: Single frontal view of the chest is provided. Endotracheal tube terminates 4 cm above the heath. Right internal jugular central venous catheter extends to the SVC. Endogastric tube extends to the stomach. No evidence of pneumothorax. Bullous emphysematous changes are suggested in the right lung. Moderate right and small left pleural effusions are again demonstrated. There are bibasilar opacities, similar to prior exam. Heart size and pulmonary vascularity are normal. Regional skeleton is intact. IMPRESSION: 1. Stable support lines and tubes. 2. Persistent moderate right and small left pleural effusions with bibasilar airspace disease, atelectasis versus infiltrates.
[2016-12-30 06:06] LABS: Basophils # (A) 0.1 k/uL (0-0.2); Basophils % (A) 0 %; CH 33.2; CHCM 33.4; Eosinophils # (A) 0.1 k/uL (0-0.7); Eosinophils % (A) 0 %; HCT 29.4 % (39.0-53.0); HDW 2.88; Luc # (Auto) 0.14; Luc % (Auto) 1; Lymphocytes # (A) 0.8 k/uL (1.0-4.8); Lymphocytes % (A) 3 %; MCH 33.7 pg (25.0-35.0); MCHC 33.7 g/dL (31.0-37.0); MCV 99.9 fL (80.0-100.0); Mean Platelet Volume 7.6; Monocytes # (A) 0.8 k/uL (0-1.0); Monocytes % (A) 4 %; Neutrophils # (A) 21.8 k/uL (1.3-7.7); Neutrophils % (A) 92 %; RBC 2.94 m/uL (4.30-5.90); RDW 12.9 % (11.5-15.5); WBC 23.7 k/uL (3.8-10.6); WBC (Perox) 25.17
[2016-12-30 06:07] LABS: Glucose,Whole Blood 208 mg/dL (75-99)
[2016-12-30 06:20] LABS: ALT 32 U/L (21-72); AST 13 U/L (17-59); Alkaline Phosphatase 89 U/L (38-126); Anion Gap 8 mmol/L; Blood Urea Nitrogen 5 mg/dL (9-20); Calcium 8.3 mg/dL (8.4-10.2); Carbon Dioxide 26 mmol/L (22-30); Chloride 102 mmol/L (98-107); Glucose 208 mg/dL (74-99); Magnesium 2.3 mg/dL (1.6-2.3); Non-African American GFR(MDRD) >60 (>60 ml/min/1.73 sqM); Phosphorous 2.8 mg/dL (2.5-4.5); Potassium 4.7 mmol/L (3.5-5.1); Sodium 136 mmol/L (137-145); Total Bilirubin 0.2 mg/dL (0.2-1.3); Total Protein 5.9 g/dL (6.3-8.2)
[2016-12-30 06:27] LABS: HGB 9.9 gm/dL (13.0-17.5)
[2016-12-30] MEDS: INSULIN LISPRO (humaLOG) 300 UNIT/3 ML VIAL SQ SCH ×3 (06:33→18:01)
--- NOTE | 2016-12-30 08:58 | HP ---
DATE OF ADMISSION: 12/29/16 CHIEF COMPLAINT: Chest pain, cough and sputum. HISTORY OF PRESENT ILLNESS: This 46-year-old gentleman with a past medical history of CVA/TIA, history of DVT, history of anxiety, depression, being followed by Dr. Jaspal Kay in the outpatient setting, was admitted with fever, cough, difficulty bleeding. The patient was found to have COPD, exacerbation with right lower lobe pneumonia while in the hospital. The patient took a turn for the worse. The patient became more diaphoretic and the patient emergent CT scan was done showing no evidence of aneurysm, or bleeding but however, right pleural effusion with right pneumonia was suspected. The patient transferred to ICU at this time. There is no history of fever, rigors or chills. No history of headache. There is no history of loss of consciousness or seizures at this time. Past medical history of CVA, TIA, history of DVT, history of DJD. Anxiety, depression. Medications prior to admission are: Home medications are reviewed and include: 1. Tylenol 500 mg prn 2. Xarelto 20 mg daily. 3. Multivitamins one po daily. 4. Remeron 30 mg po daily. 5. [place] 10 mg q8h prn. 6. Neurontin 200 mg t.i.d. 7. Nexium 40 mg po daily. 8. Lotrimin one application b.i.d. 9. Celexa 10 mg daily. 10. Baclofen 10 mg b.i.d. 11. Ammonium lactate. ALLERGIES: None. FAMILY HISTORY: History of lung cancer in the family. SOCIAL HISTORY: History of smoking. No history of alcohol intake. REVIEW OF SYSTEMS: HEENT: No diminished vision. No diminished hearing. Cardiovascular system: No angina or palpitations. Respiratory: As mentioned earlier. GI: Nausea or vomiting. : No dysuria. Nervous system: No numbness, weakness. Allergy/Immunology: No asthma or hayfever. Musculoskeletal: As mentioned earlier. Hematology/oncology: No history of anemia. Endocrine. No history of diabetes. Constitutional: As mentioned earlier. Dermatology: Negative. Rheumatology: Negative. Psychiatry: As mentioned earlier. PHYSICAL EXAMINATION: The patient is alert and oriented times three. Pulse 100. Blood pressure 97/52. Respiratory rate 20, temperature normal. Pulse ox 97% on room air. Breathing efforts markedly increased. HEENT: Conjunctivae normal. NECK: No JVD. Cardiovascular: S1, S2 muffled. Respiratory: Breath sounds diminished at the bases. A few scattered rhonchi and crackles. Respiratory wheezing also present. Abdomen is soft. Mild diffuse distention and also diffuse tenderness in the upper part of the abdomen. Otherwise no masses. No hepatosplenomegaly. No ascites. Legs: No edema. No swelling. Nervous system: Higher functions as mentioned earlier. Moves all four limbs. No focal deficits. Lymphatics: No lymph nodes palpable in the neck, axillae or groin. SKIN: No ulcer, rash or bleeding. LABS: WBC 7.7, hemoglobin 13.7. ABGs noted. ASSESSMENT: 1. Chronic obstructive pulmonary disease exacerbation with right lower lobe pneumonia, possibly gram negative with severe sepsis and acute hypoxic respiratory failure with septic shock. 2. History of nicotine dependence. 3. History of cerebrovascular accident. 4. History of deep venous thrombosis. 6. Anxiety, depression. 7. Continued ongoing nicotine dependence. RECOMMENDATIONS AND DISCUSSION: In this 46-year-old gentleman who presented with multiple complex medical issues, we will monitor the patient closely. Continue the current medications. Continue symptomatic treatment. Otherwise , at this time, I recommend continue current medications. Continue symptomatic treatment. We will recommend IV antibiotics. Pressor support. Transfer to ICU. Possible mechanical ventilation. Dr. Riley will be consulted. ABGs noted. CT scan of the abdomen and pelvis will be done on an emergent basis to rule out possibility of pulmonary embolism, aortic dissection. Otherwise, prognosis is guarded because of the multiple complex medical issues. Further recommendations to follow. CHASTITYD
[2016-12-30] MEDS: VANCOMYCIN 1,750 MG in SODIUM CHLORIDE 0.9% 250 ML IVPB SCH (09:56)
[2016-12-30] MEDS: ASPIRIN 81 MG CHEW PO SCH (09:57)
[2016-12-30] MEDS: ENOXAPARIN 100 MG/ML SYRINGE SQ SCH ×2 (09:57→21:01)
[2016-12-30] MEDS: CITALOPRAM HYDROBROMIDE 20 MG TAB PO SCH (09:57)
[2016-12-30] MEDS: CHLORHEXIDINE GLUCONATE 15 ML CUP MUCOUS MEM SCH ×2 (09:57→21:01)
[2016-12-30 10:23] LABS: Hemoglobin A1C 5.7 % (4.2-6.1)
--- NOTE | 2016-12-30 10:44 | ECHOF ---
Referral Reason:rule out endocarditis MEASUREMENTS -------- HEIGHT: 175.3 cm WEIGHT: 87.1 kg BP: 124/65 RVIDd: 3.4 cm (< 3.3) IVSd: 1.3 cm (0.6 - 1.1) LVIDd: 4.1 cm (3.9 - 5.3) LVPWd: 1.2 cm (0.6 - 1.1) IVSs: 1.5 cm LVIDs: 2.3 cm LVPWs: 1.6 cm LA Diam: 2.5 cm (2.7 - 3.8) Ao Diam: 3.0 cm (2.0 - 3.7) AV Cusp: 2.4 cm (1.5 - 2.6) MV EXCURSION: 19.176 mm (> 18.000) MV EF SLOPE: 77 mm/s (70 - 150) EPSS: 0.6 cm MV E Sonny: 0.96 m/s MV DecT: 193 ms MV A Sonny: 0.75 m/s MV E/A Ratio: 1.29 RAP: 5.00 mmHg RVSP: 28.15 mmHg FINDINGS -------- Sinus rhythm. This was a technically good study. Pt. on a vent. The left ventricular size is normal. There is mild concentric left ventricular hypertrophy. Overall left ventricular systolic function is normal with, an EF between 60 - 65 %. The right ventricle is mildly enlarged. The left atrial size is normal. The right atrium is normal in size. Aortic valve is trileaflet and is mildly thickened. The mitral valve is normal. Mild tricuspid regurgitation present. Right ventricular systolic pressure is normal at < 35 mmHg. The pulmonic valve is normal. The aortic root size is normal. The inferior vena cava is mildly dilated. There is no pericardial effusion. CONCLUSIONS -------- 1. Sinus rhythm. 2. Aortic valve is trileaflet and is mildly thickened. 3. The mitral valve is normal. 4. Mild tricuspid regurgitation present. 5. Right ventricular systolic pressure is normal at < 35 mmHg. 6. The pulmonic valve is normal. 7. The aortic root size is normal. 8. The inferior vena cava is mildly dilated. 9. There is no pericardial effusion. 10. This was a technically good study. 11. Pt. on a vent. 12. The left ventricular size is normal. 13. There is mild concentric left ventricular hypertrophy. 14. Overall left ventricular systolic function is normal with, an EF between 60 - 65 %. 15. The right ventricle is mildly enlarged. 16. The left atrial size is normal. 17. The right atrium is normal in size. HOG GRADER: Grisel Mcintosh RDCS
[2016-12-30 12:32] LABS: Glucose,Whole Blood 201 mg/dL (75-99)
--- NOTE | 2016-12-30 12:34 | PCN ---
PROCEDURE: Insertion of triple lumen catheter. PREOPERATIVE DIAGNOSIS; Pneumonia with sepsis and respiratory failure. POSTOPERATIVE DIAGNOSIS: Pneumonia with sepsis and respiratory failure. SITE OF INSERTION: Right internal jugular vein. No bedside complications or bleeding. Indication: Hemodynamic monitoring/Intravenous access. A time-out was completed verifying correct patient, procedure, site, positioning , and implant(s) or special equipment if applicable. The patient was placed in a dependent position appropriate for triple lumen catheter placement based on the vein to be cannulated. The patients right neck was prepped and draped in sterile fashion. 1% Lidocaine was used to anesthetize the surrounding skin area. A triple lumen 9F Cordis catheter was introduced into the subclavian or internal jugular or common femoral vein using Seldinger technique. The catheter was threaded smoothly over the guide wire and appropriate blood return was obtained. Each lumen of the catheter was evacuated of air and flushed with sterile saline. The catheter was then sutured in place to the skin and a sterile dressing applied. Perfusion to the extremity distal to the point of catheter insertion was checked and found to be adequate. [facility]
--- NOTE | 2016-12-30 12:44 | PCN ---
PREOPERATIVE DIAGNOSIS: Pneumonia, sepsis and respiratory failure. POSTOPERATIVE DIAGNOSIS: Pneumonia, sepsis and respiratory failure. PROCEDURE: Flexible bronchoscopy and bronchoalveolar lavage. This procedure was done in the intensive care unit. The patient was already intubated on mechanical ventilator, sedated and paralyzed with a combination of Diprivan and Nimbex. An adaptor was attached to the orotracheal tube and the patient was placed on 100% FIO2 with a PEEP of 10. As the patient was being oxygenated and ventilated, the flexible bronchoscope was inserted through the orotracheal tube and it was advanced to the lower trachea. The tip of the ET tube was seen around 2 cm above the heath. Airway inspection was completed and the distal trachea was within normal. Heath was sharp in the midline. Bilateral mainstem bronchi were within normal limits and the rest of the airway which was visualized including the right upper lobe bronchus, bronchus intermedius, right middle lobe bronchus, right lower lobe bronchus, left upper lobe bronchus and left lower bronchus along with various segments and subsegments. All of these airways were patent within normal limits. At this point, the bronchoscope was moved to the right lower lobe and bronchoalveolar lavage of the anterior segment of the right lower lobe was done. A total of 120 mL of fluid was infused and around 20 mL was suctioned back. To my surprise , there was not a whole lot of respiratory secretions. The aspirate from the bronchoalveolar lavage was around 20-27 mL. It was nonbloody. No other bronchial tumors, lesions or abnormalities were identified. The bronchoscope was removed and the procedure was terminated and samples were sent for micro analysis. No bedside complications or bleeding and the patient's pulse ox remained above 90% throughout the procedure. [facility]
--- NOTE | 2016-12-30 13:59 | P.PN ---
Subjective A 46-year-old male patient who presented emergency department this morning because of severe pleuritic right-sided chest pain, fever and cough that's been going on for the past few days. His temperature today was 100.3. He also stated that he has been having cough for the past 24-48 hours without any significant sputum production. He started of her way having some pleuritic chest pain on the right and the pain got severely worse as the day went by to the point where he was having apparent there was 10 out of 10 this this morning. The patient denies having any hemoptysis. No previous history of pneumonia. The patient has history of DVT and the patient has been maintained on Xarelto on outpatient basis. He is a chronic every day smoker. In the emergency department, the patient was found to have a temperature over 1.6. He was tachycardic with a heart rate of 113. He is supposed pulse ox on 4 L was around 94 percent. He had significant leukocytosis with a white cell count 22, 000 and his chest x-ray showed bullous emphysema involving the right upper lobe and extensive right lung consolidation and possibly a small right-sided pleural effusion. Some limited left basilar infiltrates was also seen. The patient was started on broad-spectrum antibiotics. He was given IV Levaquin and vancomycin and subsequently was admitted to the medical floor. I was asked to develop this patient by Dr. Palma 90 the patient was getting increasingly short of breath and he was having pain over the right side of the chest. He was given Dilaudid for pain control with limited success. Subsequently became more tachypneic, diaphoretic, abdomen was getting progressively more distended, he was brought into the intensive care unit and subsequently was intubated and placed on a mechanical ventilator. At this point in time the patient is sedated with Diprivan, paralyzed on Nimbex, on assist control mode of ventilation at the rate of 26, tidal volume 400, FiO2 of 100% and a PEEP of 5. His blood gases show a pH of 7.27 with a pCO2 of 50 and pO2 of 80. This was done and FiO2 of 100% with a PEEP of 5. His chest x-ray post intubation showed worsening of the right lung consolidation with increased atelectasis and possibly effusion. There is also some infiltration and effusion the left lung base. Bullous emphysema can be seen bilaterally more so on the right upper lobe. A CAT scan of the chest was also done and showed moderate to severe upper lobe emphysematous changes right more than left. A moderate-sized right- sided pleural effusion measuring 7.2 cm in size with compressive atelectasis of the right lung base and consolidation of the right lower lobe. Another 1.1 cm nonspecific pulmonary nodules seen in the left upper lobe and there is a small left-sided pleural effusion. I interviewed the and the mother. Apparently the patient was having a tooth abscess and he had seen a dentist approximately 4 weeks ago. He was placed on antibiotics for total of 2 weeks and he was supposed to have a tooth extraction following that. His been off antibiotics for another 2 weeks for now. He denied having any facial swelling or pain recently. No travel history. No exposure to hot tubs or any other contaminated water sources. No sensory of substance abuse. No alcoholism. No immunosuppression. He has history of depression and possibly component of PTSD as the patient is a . No skin rashes. No other sick contacts. He lives with his and he has no children, dogs at home. On 12/30/2016 I'm seeing this patient in follow-up. As mentioned earlier, the patient came in with an extensive right lung pneumonia currently is intubated on a mechanical ventilator and is sedated and paralyzed. Earlier this morning the patient was in a Diprivan drip at 50 mics and the patient was also on a Nimbex drip for paralysis. He is an assist-control mode of ventilation at the rate of 26, tidal volume 400, FiO2 was at 100% PEEP at 12. The blood gases from this morning showed a pH of 7.24 with pCO2 of 62 and pO2 of 76. Chest x- ray shows extensive consolidation of the right lower lobe and early pneumonic changes in the left lower lobe. ET tube was in a good location. OG tube was in a good location. Triple-lumen catheter was also noted that location. No evidence of any pneumothorax. Peak pressures around 28. Based on this, increase the PEEP up to 14 and gradually wean down the FiO2 down to 80% and currently is down to 70%. Pulse ox is in the order of 91-92%. Hemodynamically the patient is on normal saline infusion rate of 100 mL an hour. Urine output is adequate in the order of 60 mL an hour, white cell count is elevated at 23.7. Bronchoscopy and bronchial lavage of the right lung was done and the results are still pending for now. Meanwhile, the patient is covered with a combination of Zosyn, vancomycin and Levaquin. ID is on the case. All of the blood cultures are negative for now. He is on no pressors. Artline cath is inserted in the right radial artery. He is on and off requiring Dilaudid for pain control. Objective - Vital Signs Vital signs: Vital Signs Temp 97.8 F 12/30/16 04:00 Pulse 84 12/30/16 13:00 Resp 23 12/30/16 13:00 BP 112/80 12/30/16 13:00 Pulse Ox 94 L 12/30/16 13:00 Intake & Output 12/29/16 12/30/16 12/30/16 18:59 06:59 18:59 Intake Total 1500 2050 1100 Output Total 1235 1845 825 Balance 265 205 275 Weight 88.9 kg 87.2 kg 87.2 kg Intake: IV 400 1950 800 Levofloxacin 750Mg-D5w 150 Pmx 750 mg In Dextrose/ Water 1 150ml.bag @ 100 mls/hr IVPB Q24H [facility] Rx#: [id number] Magnesium Sulfate-D5w Pmx 200 1 gm In Dextrose/Water 1 100ml.bag @ 100 mls/hr IVPB Q1H [facility] Rx#: [id number] Piperacillin-Tazobactam 3 50 50 .375 gm In Dextrose/Water 1 50ml.bag @ 12.5 mls/hr IVPB Q8HR [facility] Rx#: [id number] Sodium Chloride 0.9% 1, 400 1300 500 000 ml @ 50 mls/hr IV . Q20H [facility] Rx#:[id number] Vancomycin 1,750 mg In 250 250 Sodium Chloride 0.9% 250 ml @ 125 mls/hr IVPB Q12H [facility] Rx#:[id number] Intake, IV Titration 1100 100 300 Amount Cisatracurium 200 mg In 200 Sodium Chloride 0.9% 180 ml @ 1 MCG/KG/MIN 5.33 mls/hr IV .Q24H [facility] Rx#: [id number] Levofloxacin 750Mg-D5w 1000 Pmx 750 mg In Dextrose/ Water 1 150ml.bag @ 100 mls/hr IVPB Q24H [facility] Rx#: [id number] Propofol 1,000 mg In 100 100 100 ml @ Titrate IV .Q0M [facility] Rx#:[id number] Sodium Chloride 0.9% 1, 100 000 ml @ 999 mls/hr IV . Q1H1M [facility] Rx#:[id number] Output: Gastric Drainage 650 Urine 1235 1195 825 Other: Voiding Method Indwelling Catheter Indwelling Catheter Indwelling Catheter ABP, PAP, CO, CI - Last Documented Arterial Blood Pressure 101/61 - Exam Sedated, intubated, paralyzed, nonacute distress.Head exam was generally normal. There was no scleral icterus or corneal arcus. Mucous membranes were moist. Neck is supple and the patient has no JVDs no goiter or neck masses. The right IJ triple catheter in place. Orogastric and tracheal tube are both in place. Lung sounds are markedly diminished in lung bases pressure the right lung base. No significant wheezes or rhonchi. No significant orotracheal secretions.Cardiac exam revealed the PMI to be normally situated and sized. The rhythm was regular and no extrasystoles were noted during several minutes of auscultation. The first and second heart sounds were normal and physiologic splitting of the second heart sound was noted. There were no murmurs, rubs, clicks, or gallops.Abdominal exam revealed normal bowel sounds. The abdomen was soft, non-tender, and without masses, organomegaly, or appreciable enlargement of the abdominal aorta.Examination of the extremities revealed easily palpable radial, femoral and pedal pulses. There was no cyanosis, clubbing or edema. - Labs CBC & Chem 7: 12/30/16 06:00 12/30/16 06:00 Labs: Abnormal Lab Results - Last 24 Hours (Table) 12/29/16 12/29/16 12/30/16 Range/Units 14:29 18:18 03:06 WBC (3.8-10.6) k/uL RBC (4.30-5.90) m/uL Hgb (13.0-17.5) gm/dL Hct (39.0-53.0) % Neutrophils # (1.3-7.7) k/uL Lymphocytes # (1.0-4.8) k/uL ABG pH 7.27 L 7.23 L (7.35-7.45) ABG pCO2 50 H 61 H (35-45) mmHg ABG pO2 80 L 72 L (83-108) mmHg ABG Total CO2 26 H (19-24) mmol/L ABG O2 Saturation 90.0 L (94-97) % Sodium (137-145) mmol/L BUN (9-20) mg/dL Creatinine (0.66-1.25) mg/dL Glucose (74-99) mg/dL POC Glucose (mg/dL) 202 H (75-99) mg/dL Calcium (8.4-10.2) mg/dL AST (17-59) U/L Total Protein (6.3-8.2) g/dL Albumin (3.5-5.0) g/dL 12/30/16 12/30/16 12/30/16 Range/Units 04:25 06:00 06:00 WBC 23.7 H (3.8-10.6) k/uL RBC 2.94 L (4.30-5.90) m/uL Hgb 9.9 L D (13.0-17.5) gm/dL Hct 29.4 L (39.0-53.0) % Neutrophils # 21.8 H (1.3-7.7) k/uL Lymphocytes # 0.8 L (1.0-4.8) k/uL ABG pH 7.24 L (7.35-7.45) ABG pCO2 62 H (35-45) mmHg ABG pO2 76 L (83-108) mmHg ABG Total CO2 27 H (19-24) mmol/L ABG O2 Saturation 91.9 L (94-97) % Sodium 136 L (137-145) mmol/L BUN 5 L (9-20) mg/dL Creatinine 0.54 L (0.66-1.25) mg/dL Glucose 208 H (74-99) mg/dL POC Glucose (mg/dL) (75-99) mg/dL Calcium 8.3 L (8.4-10.2) mg/dL AST 13 L (17-59) U/L Total Protein 5.9 L (6.3-8.2) g/dL Albumin 3.0 L (3.5-5.0) g/dL 12/30/16 12/30/16 Range/Units 06:06 12:26 WBC (3.8-10.6) k/uL RBC (4.30-5.90) m/uL Hgb (13.0-17.5) gm/dL Hct (39.0-53.0) % Neutrophils # (1.3-7.7) k/uL Lymphocytes # (1.0-4.8) k/uL ABG pH (7.35-7.45) ABG pCO2 (35-45) mmHg ABG pO2 (83-108) mmHg ABG Total CO2 (19-24) mmol/L ABG O2 Saturation (94-97) % Sodium (137-145) mmol/L BUN (9-20) mg/dL Creatinine (0.66-1.25) mg/dL Glucose (74-99) mg/dL POC Glucose (mg/dL) 208 H 201 H (75-99) mg/dL Calcium (8.4-10.2) mg/dL AST (17-59) U/L Total Protein (6.3-8.2) g/dL Albumin (3.5-5.0) g/dL Microbiology - Last 24 Hours (Table) 12/29/16 14:42 Gram Stain - Final Sputum Sputum Culture - Final 12/29/16 18:42 Gram Stain - Preliminary Sputum Sputum Culture - Preliminary 12/29/16 01:50 Blood Culture - Preliminary Blood No Growth after 24 hours 12/29/16 02:10 Urine Culture - Preliminary Urine,Voided Assessment and Plan Plan: Assessment 1 right lung pneumonia, severe, rapid interval progression with progressive worsening of the consolidation development of a small right-sided pleural effusion with subsequent acute hypoxic respiratory failure, currently intubated on a mechanical ventilator. Rule out pneumococcal pneumonia. Rule out anaerobic pneumonia possibly from a tooth abscess/aspiration. On 12/30/2016 the patient is being seen in follow-up. The patient remains intubated on a mechanical ventilator, sedated and paralyzed. He is on broad- spectrum antibiotics. No microbial diagnoses been established thus far. The patient is post bronchoscopy and bronchial lavage of the right lower lobe. Cultures of been all negative including the bronchioloalveolar lavage and the blood cultures. Necessary vent changes were done. 2 acute hypoxic respiratory failure, intubated on mechanical ventilator. 3 bullous emphysema with upper lobe emphysematous changes right more than left 4 sepsis secondary to right lung pneumonia, leukocytosis, on no pressors and hemodynamically stable at this point 5 nonspecific left upper lobe pulmonary nodule measuring 1.1 cm in size 6 recent DVT post-orthopedic intervention on the foot, maintained on Xarelto 7 TIA, history of without any neurological deficits 8 chronic neck and back pain, under the care of pain management 9 tooth abscess, treated with antibiotics on outpatient basis, being followed up by a local dentist, has not undergone tooth extraction. The patient had a CAT scan of the facial bones that showed mild periapical lucency involving the right first maxillary molar tooth and possibly periapical abscess. This is confined to the bone. No evidence of any soft tissue abscess at this point. Plan We will gradually increase the PEEP and try to wean down the FiO2. The PEEP was raised up to 14. The FiO2 has been drop down to 80% and then down to 70% and when the process of weaning down the FiO2 as tolerated to maintain a saturation above 90%. Meanwhile, keep the patient sedated yet give the patient a paralytic holiday and discontinued the protective the patient is able to tolerate and maintains adequate synchrony with the mechanical ventilator without compromising his oxygenation and ventilation. Broad-spectrum antibiotics will be kept unchanged. Awaiting blood cultures. Awaiting cultures from the bronchioloalveolar lavage. Continue IV fluids at the rate of 100 mL an hour. Continue Diprivan and add Dilaudid for pain control knowing that the patient was having extensive amount of pleuritic chest pain on the right. Initiate tube feeds. Dietary consultation will be updated in that regard. Would also consult dental surgery in regards to the tooth abscess for any further advice or potential management. Continue Lovenox. Continue bronchodilators. Continue systemic steroids. Sliding scale insulin coverage. We'll continue to follow make further conditions based on his progress. I met with the family again including the mother and the and updated them on the condition. Critically care evaluation that was done more than 30 minutes. Time with Patient: Greater than 30
[2016-12-30] MEDS ORDERED: FUROSEMIDE 10 MG/ML 4 ML VIAL IV STA (14:44)
[2016-12-30] MEDS: CISATRACURIUM 200 MG in SODIUM CHLORIDE 0.9% 180 ML IV SCH (14:53)
[2016-12-30] MEDS ORDERED: VANCOMYCIN 1,500 MG in SODIUM CHLORIDE 0.9% 250 ML IVPB SCH (16:00)
--- NOTE | 2016-12-30 16:03 | P.CRDCN ---
History of Present Illness Consult date: 12/30/16 History of present illness: This is a 46-year-old gentleman who was admitted to the hospital with a severe right-sided chest pain, fever and cough that was going on for several days. The chest pain apparently was pleuritic in nature. Patient has history of COPD and also history of previous pulmonary emboli. Patient was noted to have right- sided pneumonia. It appears that patient ventricle respiratory failure and needed intubation. His EKG showed sinus tachycardia. We're asked to see the patient to assess his cardiac status. Patient had an echocardiogram that showed normal LV function . 1 troponin values within normal limits. He and it appears that patient doesn't have any acute cardiac issues at this time. Most of his problems are pulmonary in nature. We'll be seeing him on when necessary basis Review of Systems As per the chart Past Medical History Past Medical History: CVA/TIA, Deep Vein Thrombosis (DVT) Additional Past Medical History / Comment(s): 6 TIA approximately 6 years ago without any residual deficits, and recent right foot surgery that was further [place] by development of a DVT in July 2016 and the patient is been maintained on Xarelto, COPD, chronic smoker, depression, PTSD, tooth abscess treated with antibiotics approximately 4-5 weeks ago, chronic back and neck pain being followed up by Dr. Streeter apparently the patient has had undergone nerve ablation in his neck area for pain control. History of Any Multi-Drug Resistant Organisms: None Reported Past Surgical History: Orthopedic Surgery Additional Past Surgical History / Comment(s): Bilateral feet surgery, cervical and lumbar nerve ablation, injection for pain control. 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 No alcohol or recreational drug use. Was in the in [place]. No specific illnesses while he was overseas. No change in the current home environment. 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 Smoking Status: Current every day smoker Past Alcohol Use History: Occasional Additional Past Alcohol Use History / Comment(s): smokes 1 pack a day, started when @ 12 Past Drug Use History: None Reported - Past Family History Father Additional Family Medical History / Comment(s): lung Ca Mother Additional Family Medical History / Comment(s): irregular heart beat Medications and Allergies Home Medications Medication Instructions Recorded Confirmed Type Baclofen 10 mg PO BID 07/16/16 12/29/16 History Citalopram Hydrobromide [CeleXA] 40 mg PO DAILY 07/16/16 12/29/16 History Esomeprazole Magnesium [NexIUM] 40 mg PO DAILY 07/16/16 12/29/16 History Gabapentin [Neurontin] 200 mg PO TID PRN 07/16/16 12/29/16 History HYDROcodone/APAP 10-325MG [[place] 1 tab PO Q8H PRN 07/16/16 12/29/16 History 10-325] Multivitamins, Thera [Multivitamin] 1 tab PO DAILY 07/16/16 12/29/16 History Acetaminophen [Tylenol Extra 500 mg PO DAILY PRN 12/29/16 12/29/16 History Strength] Ammonium Lactate Cream [Lac-Hydrin 1 applic TOPICAL DAILY PRN 12/29/16 12/29/16 History 12% Cream] Clotrimazole Cream [Lotrimin Cream] 1 applic TOPICAL BID 12/29/16 12/29/16 History Mirtazapine [Remeron] 30 mg PO DAILY 12/29/16 12/29/16 History Rivaroxaban [Xarelto] 20 mg PO DAILY 12/29/16 12/29/16 History Allergies Allergy/AdvReac Type Severity Reaction Status Date / Time No Known Allergies Allergy Verified 12/29/16 09:19 Physical Exam Vitals: Vital Signs Temp Pulse Resp BP Pulse Ox 12/30/16 15:47 90 12/30/16 14:30 85 23 97/45 94 L 12/30/16 14:00 92 21 83/56 92 L 12/30/16 13:30 89 20 113/69 93 L 12/30/16 13:00 84 23 112/80 94 L 12/30/16 12:30 84 24 82/48 95 12/30/16 12:00 89 26 H 81/56 94 L 12/30/16 11:30 85 25 H 102/60 89 L 12/30/16 11:14 83 12/30/16 11:00 91 25 H 164/89 91 L 12/30/16 10:30 84 25 H 126/70 92 L 12/30/16 10:00 80 25 H 134/80 93 L 12/30/16 09:30 83 26 H 114/69 93 L 12/30/16 09:00 81 26 H 94 L 12/30/16 08:30 83 26 H 93 L 12/30/16 08:00 81 26 H 92 L 12/30/16 07:50 82 12/30/16 07:30 84 17 90 L 12/30/16 07:26 80 12/30/16 07:00 80 26 H 91 L 12/30/16 06:30 78 25 H 91 L 12/30/16 06:00 81 25 H 91 L 12/30/16 05:30 81 26 H 90 L 12/30/16 05:00 80 26 H 90 L 12/30/16 04:30 82 25 H 93 L 12/30/16 04:00 97.8 F 85 25 H 92 L 12/30/16 03:59 85 12/30/16 03:38 85 12/30/16 03:30 98 25 H 93 L 12/30/16 03:00 82 26 H 138/69 93 L 12/30/16 02:30 85 26 H 138/69 93 L 12/30/16 02:00 84 26 H 138/69 92 L 12/30/16 01:30 84 26 H 138/69 93 L 12/30/16 01:00 87 26 H 131/74 90 L 12/30/16 00:30 88 25 H 150/78 90 L 12/30/16 00:00 97.8 F 91 25 H 135/77 91 L 12/29/16 23:41 94 12/29/16 23:32 94 12/29/16 23:30 91 25 H 136/81 90 L 12/29/16 23:02 93 25 H 133/69 90 L 12/29/16 23:00 96 25 H 133/69 90 L 12/29/16 22:30 96 25 H 135/72 89 L 12/29/16 22:00 98 26 H 133/79 89 L 12/29/16 21:30 98 25 H 137/72 89 L 12/29/16 21:00 100 25 H 123/71 89 L 12/29/16 20:44 102 H 12/29/16 20:35 100 12/29/16 20:30 97 25 H 132/68 88 L 12/29/16 20:00 97 26 H 129/70 88 L 12/29/16 19:30 92 25 H 124/66 88 L 12/29/16 19:00 93 25 H 119/73 88 L 12/29/16 18:50 95 25 H 119/73 88 L 12/29/16 18:40 89 25 H 124/68 88 L 12/29/16 18:30 90 25 H 124/68 88 L 12/29/16 18:20 92 25 H 124/68 89 L 12/29/16 18:10 91 25 H 113/68 89 L 12/29/16 18:00 89 25 H 113/68 89 L 12/29/16 17:50 83 25 H 113/68 91 L 12/29/16 17:40 84 25 H 108/67 92 L 12/29/16 17:30 88 25 H 124/59 95 12/29/16 17:20 87 23 94/56 92 L 12/29/16 17:10 91 25 H 100/61 89 L 12/29/16 17:00 91 26 H 106/55 90 L 12/29/16 16:50 91 26 H 97/55 90 L 12/29/16 16:40 94 25 H 99/55 89 L 12/29/16 16:30 94 26 H 93/55 89 L 12/29/16 16:20 96 25 H 100/51 89 L 12/29/16 16:10 97 26 H 99/55 89 L 12/29/16 16:01 100 12/29/16 16:00 100 35 H 83/56 89 L Intake and Output 12/30/16 12/30/16 12/30/16 06:59 14:59 22:59 Intake Total 1100 1500.000 9.601 Output Total 1360 940 Balance -260 560.000 9.601 Intake: IV 1000 1100 Levofloxacin 750Mg-D5w 150 Pmx 750 mg In Dextrose/ Water 1 150ml.bag @ 100 mls/hr IVPB Q24H [facility] Rx#: [id number] Magnesium Sulfate-D5w Pmx 100 1 gm In Dextrose/Water 1 100ml.bag @ 100 mls/hr IVPB Q1H [facility] Rx#: [id number] Piperacillin-Tazobactam 3 50 50 .375 gm In Dextrose/Water 1 50ml.bag @ 12.5 mls/hr IVPB Q8HR [facility] Rx#: [id number] Sodium Chloride 0.9% 1, 700 800 000 ml @ 50 mls/hr IV . Q20H [facility] Rx#:[id number] Vancomycin 1,750 mg In 250 Sodium Chloride 0.9% 250 ml @ 125 mls/hr IVPB Q12H [facility] Rx#:[id number] Intake, IV Titration 100 400.000 9.601 Amount Cisatracurium 200 mg In 200 Sodium Chloride 0.9% 180 ml @ 1 MCG/KG/MIN 5.33 mls/hr IV .Q24H [facility] Rx#: [id number] Propofol 1,000 mg In 100 100 200.000 9.601 ml @ Titrate IV .Q0M [facility] Rx#:[id number] Output: Gastric Drainage 650 Urine 710 940 Other: Voiding Method Indwelling Catheter Indwelling Catheter Weight 87.2 kg 87.2 kg Patient Weight 12/31/16 06:59 Weight 87.2 kg ABP, PAP, CO, CI - Last 8 Hours Arterial Blood Pressure 108/61 Arterial Blood Pressure 107/62 Arterial Blood Pressure 110/63 Arterial Blood Pressure 101/61 Arterial Blood Pressure 103/58 Arterial Blood Pressure 99/58 Arterial Blood Pressure 113/60 Arterial Blood Pressure 180/86 Arterial Blood Pressure 161/78 Arterial Blood Pressure 169/81 Arterial Blood Pressure 153/68 Arterial Blood Pressure 122/63 Arterial Blood Pressure 129/65 Arterial Blood Pressure 125/60 GENERAL EXAM: Patient intubated and sedated HEENT: Normocephalic. N NECK: No masses, no nuchal rigidity. CHEST: No chest wall deformity. LUNGS: Diminished breath sounds and some wheezes HEART: S1 and S2 . Distant heart sounds.. ABDOMEN: No hepatosplenomegaly, normal bowel sounds, no guarding or rigidity. SKIN: No rashes CENTRAL NERVOUS SYSTEM: Deferred EXTREMITIES: No cyanosis, clubbing or edema. Results 12/30/16 06:00 12/30/16 06:00 Cardiac Enzymes 12/30/16 Range/Units 06:00 AST 13 L (17-59) U/L CBC 12/30/16 Range/Units 06:00 WBC 23.7 H (3.8-10.6) k/uL RBC 2.94 L (4.30-5.90) m/uL Hgb 9.9 L D (13.0-17.5) gm/dL Hct 29.4 L (39.0-53.0) % Plt Count 218 (150-450) k/uL Comprehensive Metabolic Panel 12/30/16 Range/Units 06:00 Sodium 136 L (137-145) mmol/L Potassium 4.7 (3.5-5.1) mmol/L Chloride 102 (98-107) mmol/L Carbon Dioxide 26 (22-30) mmol/L BUN 5 L (9-20) mg/dL Creatinine 0.54 L (0.66-1.25) mg/dL Glucose 208 H (74-99) mg/dL Calcium 8.3 L (8.4-10.2) mg/dL AST 13 L (17-59) U/L ALT 32 (21-72) U/L Alkaline Phosphatase 89 (38-126) U/L Total Protein 5.9 L (6.3-8.2) g/dL Albumin 3.0 L (3.5-5.0) g/dL Current Medications Generic Name Dose Route Start Last Admin Trade Name Freq PRN Reason Stop Dose Admin Hydrocodone Bitart/Acetaminophen 1 each 12/29/16 03:25 12/29/16 04:44 [place] 10 PO 1 each Q8H PRN Administration Pain Albuterol Sulfate 2.5 mg 12/29/16 03:21 12/29/16 11:15 Ventolin Nebulized INHALATION 2.5 mg RT-Q4H PRN Administration Shortness Of Breath Or Wheezing Albuterol/Ipratropium 3 ml 12/29/16 16:00 12/30/16 15:41 Duoneb 0.5 Mg-3 Mg/3 Ml Soln INHALATION 3 ml RT-Q4H [facility] Administration Albuterol/Ipratropium 3 ml 12/29/16 14:43 Duoneb 0.5 Mg-3 Mg/3 Ml Soln INHALATION RT-Q2H PRN Shortness Of Breath Or Wheezing Artificial Tears 2 drops 12/30/16 00:00 12/30/16 11:41 Artificial Tear Drops BOTH EYES 2 drops Q4HR [facility] Administration Aspirin 81 mg 12/29/16 09:00 12/30/16 09:57 Aspirin PO 81 mg DAILY [facility] Administration Chlorhexidine Gluconate 15 ml 12/29/16 21:00 12/30/16 09:57 Peridex MUCOUS MEM 15 ml BID [facility] Administration Citalopram Hydrobromide 40 mg 12/29/16 09:00 12/30/16 09:57 Celexa PO 40 mg DAILY [facility] Administration Enoxaparin Sodium 90 mg 12/29/16 21:00 12/30/16 09:57 Lovenox SQ 90 mg Q12HR [facility] Administration Hydromorphone HCl 0.5 mg 12/29/16 10:51 12/29/16 12:51 Dilaudid IVP 0.5 mg Q4HR PRN Administration Breakthrough Pain Hydromorphone HCl 1 mg 12/29/16 14:48 12/30/16 10:58 Dilaudid IM 1 mg Q3HR PRN Administration Pain Levofloxacin 750 mg/ IV 150 mls @ 100 mls/hr 12/30/16 03:00 12/30/16 03:20 Solution IVPB 100 mls/hr Q24H [facility] Administration Piperacillin/Tazobactam/ 50 mls @ 12.5 mls/hr 12/29/16 16:00 12/30/16 09:55 Dextrose 3.375 gm/ IV Solution IVPB 12.5 mls/hr Q8HR [facility] Administration Cisatracurium Besylate 200 mg/ 200 mls @ 5.33 mls/hr 12/29/16 14:41 12/30/16 14:53 Sodium Chloride IV Not Given .Q24H [facility] Protocol 1 MCG/KG/MIN Propofol 1,000 mg in 100 mls @ 0 mls/hr 12/29/16 14:45 12/30/16 15:06 Diprivan IV 55 mcg/kg/min .Q0M [facility] 29.337 mls/hr Protocol Titration Titrate Sodium Chloride 1,000 mls @ 100 mls/hr 12/30/16 13:00 12/30/16 13:59 Saline 0.9% IV 100 mls/hr .Q10H [facility] Administration Vancomycin HCl 1,500 mg/ 250 mls @ 125 mls/hr 12/30/16 20:00 Sodium Chloride IVPB Q8H [facility] Insulin Human Lispro 0 unit 12/30/16 06:00 12/30/16 12:27 Humalog SQ 6 unit Q6H [facility] Administration Protocol Lorazepam 1 mg 12/30/16 14:16 Ativan IV Q2HR PRN Anxiety Methylprednisolone Sodium Succinate 60 mg 12/29/16 13:15 12/30/16 11:41 Solu-Medrol IV 60 mg Q6HR [facility] Administration Miscellaneous Information 1 each 12/29/16 03:21 Pneumonia Protocol Utilized PO ONCE PRN Per Protocol Miscellaneous Information 1 each 12/29/16 11:41 Rx Info: Iv Contrast Was Given MISCELLANE 12/31/16 11:42 DAILY PRN Per Protocol Miscellaneous Information 1 each 12/29/16 15:57 Magnesium Per Protocol MISCELLANE DAILY PRN Per Protocol Protocol Miscellaneous Information 0 each 12/31/16 11:00 Vancomycin Trough Due MISCELLANE 12/31/16 11:01 DIRECTED ONE Tramadol HCl 50 mg 12/29/16 09:51 Ultram PO Q6H PRN Moderate Pain Intake and Output 12/30/16 12/30/16 12/30/16 06:59 14:59 22:59 Intake Total 1100 1500.000 9.601 Output Total 1360 940 Balance -260 560.000 9.601 Intake: IV 1000 1100 Levofloxacin 750Mg-D5w 150 Pmx 750 mg In Dextrose/ Water 1 150ml.bag @ 100 mls/hr IVPB Q24H [facility] Rx#: [id number] Magnesium Sulfate-D5w Pmx 100 1 gm In Dextrose/Water 1 100ml.bag @ 100 mls/hr IVPB Q1H [facility] Rx#: [id number] Piperacillin-Tazobactam 3 50 50 .375 gm In Dextrose/Water 1 50ml.bag @ 12.5 mls/hr IVPB Q8HR [facility] Rx#: [id number] Sodium Chloride 0.9% 1, 700 800 000 ml @ 50 mls/hr IV . Q20H [facility] Rx#:[id number] Vancomycin 1,750 mg In 250 Sodium Chloride 0.9% 250 ml @ 125 mls/hr IVPB Q12H [facility] Rx#:[id number] Intake, IV Titration 100 400.000 9.601 Amount Cisatracurium 200 mg In 200 Sodium Chloride 0.9% 180 ml @ 1 MCG/KG/MIN 5.33 mls/hr IV .Q24H [facility] Rx#: [id number] Propofol 1,000 mg In 100 100 200.000 9.601 ml @ Titrate IV .Q0M [facility] Rx#:[id number] Output: Gastric Drainage 650 Urine 710 940 Other: Voiding Method Indwelling Catheter Indwelling Catheter Weight 87.2 kg 87.2 kg Patient Weight 12/31/16 06:59 Weight 87.2 kg 12/30/16 06:00 12/30/16 06:00 EKG Interpretations (text) Sinus tachycardia Assessment and Plan (1) Empyema of right pleural space Status: Acute (2) Pneumonia Status: Acute (3) Respiratory failure Status: Acute (4) Sepsis Status: Acute Plan: Patient doesn't have any acute cardiac issues at this time. Most of his issues are related to pulmonary problems. We'll be seeing him as needed basis
[2016-12-30] MEDS: HYDROmorphone 1 MG/ML 1 ML SYRINGE IVP PRN (17:51)
[2016-12-30 18:04] LABS: Glucose,Whole Blood 197 mg/dL (75-99)
--- NOTE | 2016-12-30 18:10 | CONS ---
HISTORY OF PRESENT ILLNESS: The patient is a 46 -year-old male who presented to the emergency room on 12/29 complaining of difficulty breathing and chest pain in addition to fever and cough. He was admitted to the floor and started on IV antibiotics. The patients condition subsequently worsened and he was admitted to the ICU where he was then intubated and is on the vent. The patient is currently on IV antibiotics which include Levaquin, Vancomycin and Zosyn. A Ct scan of the chest revealed a consolidation and he is currently being treated for pneumonia. In addition, CT scan of the head and neck revealed a small abscess associated with the upper right molar. Reading the chart, it appears the patient had history of pain to the upper right molar in the past and received oral antibiotics for two weeks. Recently he has not complained of any dental pain prior to this acute episode. Review of systems is unobtainable due to the patients sedation and intubation. Past medical history is significant for CVA/TIA, COPD, DVT, anxiety, depression. PAST SURGICAL HISTORY: Significant for orthopedic surgery. He previous had foot surgery in addition to cervical nerve ablation and injections for pain management. PAST SOCIAL HISTORY: The patient is currently a smoker with occasional alcohol use. He smokes approximately one pack per day. His medications include: 1. Baclofen. 2. Celexa. 3. Nexium. 4. Neurontin. 5. Hydrocodone 10 mg. 6. Xarelto. 7. Remeron. 8. Tylenol extra strength. 9. Multivitamins. Physical examination: Vital signs are stable. He is on the vent currently. His white count today was 23,000 which is elevated from the 17.7 on 12/29. Radiographically the CT of the head and neck revealed a small periapical lesion associated with tooth #3. There is no significant swelling associated with this chronic abscess. Physical examination reveals the patient to be on the vent, unresponsive. Head and neck exam revealed no soft tissue swelling of the face or the right buccal space. There is no submandibular space or neck swelling. Intraoral examination reveals no vestibular swelling adjacent to tooth #3. There is no active drainage. There is no pharyngeal swelling. There are no other oral lesions noted. The examination is somewhat limited due to the endotracheal tube. ASSESSMENT: 1. Right lung pneumonia with acute respiratory failure. 2. Leukocytosis secondary to pneumonia. 3. History of transient ischemic attack and deep venous thrombosis. 4. Chronic neck and back pain. 5. Chronic abscess on tooth #3. PLAN: Tooth #3 has a chronic periapical lesion. I do not believe this is contributing to his current pneumonia. The IV antibiotics that he is currently on should help manage the dental infection. Once the patient is stable, tooth # 3 can be extracted in the outpatient setting. [place]
[2016-12-30] MEDS: VANCOMYCIN 1,500 MG in SODIUM CHLORIDE 0.9% 250 ML IVPB SCH (20:28)
--- NOTE | 2016-12-30 20:42 | P.PN ---
Subjective Principal diagnosis: respiratory failure 46-year-old male who has a presumptive diagnosis of underlying emphysema presents to the hospital with a relatively short-term of increasing shortness of breath. The patient relates over the weekend he started to get short of breath. He developed cough and increasing shortness of breath. He then had significant fever and increasing pain to his right chest. The pain became so severe that he no longer was able to hold out at home and presented to the emergency center. There he was evidence of a pain a 10 out of 10 and evidence of significant respiratory distress. Imaging studies revealed evidence of a significant pneumonia as well as a large bleb to the right chest. Effusion was seen. No evidence of pulmonary embolus or of aortic dissection was seen. The patient was brought to the intensive care unit where he is required some sedation for placement of BiPAP. BiPAP has been placed the patient appears to be feeling this. We'll likely be intubated soon. The patient had a significant AA gradient despite the BiPAP. The family does relate to the difficulty with his oral cavity. He apparently has been antibiotic therapy was that of a tooth extraction for an abscess the family denies a history of injection drug use. Significant alcohol use. PTSD from his experience in [place]. No severe illnesses while he was overseas. He has noted the patient developed respiratory failure. Required intubation sedation and mechanical ventilation. He remains intubated he is on a PEEP of 14 and70%FIO2 for his acute lung injury and serious pneumonia Is having some training for a lower blood pressure. Objective - Vital Signs Vital signs: Vital Signs Temp 98.3 F 12/30/16 20:00 Pulse 93 12/30/16 20:00 Resp 21 12/30/16 20:00 BP 74/44 12/30/16 20:00 Pulse Ox 96 12/30/16 20:00 Intake & Output 12/30/16 12/30/16 12/31/16 06:59 18:59 06:59 Intake Total 2049 2089.000 200 Output Total 184 2425 83 Balance 205 -335.000 117 Weight 87.2 kg 89.8 kg Intake: IV 1950 1450 180 Levofloxacin 750Mg-D5w 150 Pmx 750 mg In Dextrose/ Water 1 150ml.bag @ 100 mls/hr IVPB Q24H [facility] Rx#: [id number] Magnesium Sulfate-D5w Pmx 200 1 gm In Dextrose/Water 1 100ml.bag @ 100 mls/hr IVPB Q1H [facility] Rx#: [id number] Piperacillin-Tazobactam 3 50 100 .375 gm In Dextrose/Water 1 50ml.bag @ 12.5 mls/hr IVPB Q8HR [facility] Rx#: [id number] Sodium Chloride 0.9% 1, 1300 1100 180 000 ml @ 50 mls/hr IV . Q20H [facility] Rx#:[id number] Vancomycin 1,750 mg In 250 250 Sodium Chloride 0.9% 250 ml @ 125 mls/hr IVPB Q12H [facility] Rx#:[id number] Intake, IV Titration 100 600.000 Amount Cisatracurium 200 mg In 200 Sodium Chloride 0.9% 180 ml @ 1 MCG/KG/MIN 5.33 mls/hr IV .Q24H [facility] Rx#: [id number] Propofol 1,000 mg In 100 100 300.000 ml @ Titrate IV .Q0M [facility] Rx#:[id number] Sodium Chloride 0.9% 1, 100 000 ml @ 50 mls/hr IV . Q20H [facility] Rx#:[id number] Tube Feeding 40 20 Output: Gastric Drainage 650 Urine 1195 2425 83 Other: Voiding Method Indwelling Catheter Indwelling Catheter ABP, PAP, CO, CI - Last Documented Arterial Blood Pressure 96/53 - Exam 46-year-old male who is now intubated sedated and mechanically ventilated HEENT: Anicteric conjunctiva are pink and moist nasal mucosa grossly intact without significant lesions, there is no thrush. Neck: The neck is supple without significant lymphadenopathy or thyromegaly. Lungs: There is symmetrical air entry. Markedly diminished breath sounds in the right base. Dullness the right base. Heart: Regular rate and rhythm with an audible S1-S2, no S3 no S4. There is no significant murmur click or rub, PMI was nondisplaced. Abdomen: Positive bowel sounds soft and nontender without palpable masses or organomegaly. There was no guarding or rebound. Abdomen is not rigid Extremities: The upper extremities have excellent pulses they are symmetric, no significant petechiae or telangiectasia. No splinter hemorrhages were noted. The lower extremities are free from significant edema. The peripheral pulses were 2+ and symmetric. Neuro: Patient is sedated and mechanically ventilated, was paralyzed but no longer is synchronous with the ventilator - Labs CBC & Chem 7: 12/30/16 06:00 12/30/16 06:00 Labs: Abnormal Lab Results - Last 24 Hours (Table) 12/30/16 12/30/16 12/30/16 Range/Units 03:06 04:25 06:00 WBC (3.8-10.6) k/uL RBC (4.30-5.90) m/uL Hgb (13.0-17.5) gm/dL Hct (39.0-53.0) % Neutrophils # (1.3-7.7) k/uL Lymphocytes # (1.0-4.8) k/uL ABG pH 7.24 L (7.35-7.45) ABG pCO2 62 H (35-45) mmHg ABG pO2 76 L (83-108) mmHg ABG Total CO2 27 H (19-24) mmol/L ABG O2 Saturation 91.9 L (94-97) % Sodium 136 L (137-145) mmol/L BUN 5 L (9-20) mg/dL Creatinine 0.54 L (0.66-1.25) mg/dL Glucose 208 H (74-99) mg/dL POC Glucose (mg/dL) 202 H (75-99) mg/dL Calcium 8.3 L (8.4-10.2) mg/dL AST 13 L (17-59) U/L Total Protein 5.9 L (6.3-8.2) g/dL Albumin 3.0 L (3.5-5.0) g/dL 12/30/16 12/30/16 12/30/16 Range/Units 06:00 06:06 12:26 WBC 23.7 H (3.8-10.6) k/uL RBC 2.94 L (4.30-5.90) m/uL Hgb 9.9 L D (13.0-17.5) gm/dL Hct 29.4 L (39.0-53.0) % Neutrophils # 21.8 H (1.3-7.7) k/uL Lymphocytes # 0.8 L (1.0-4.8) k/uL ABG pH (7.35-7.45) ABG pCO2 (35-45) mmHg ABG pO2 (83-108) mmHg ABG Total CO2 (19-24) mmol/L ABG O2 Saturation (94-97) % Sodium (137-145) mmol/L BUN (9-20) mg/dL Creatinine (0.66-1.25) mg/dL Glucose (74-99) mg/dL POC Glucose (mg/dL) 208 H 201 H (75-99) mg/dL Calcium (8.4-10.2) mg/dL AST (17-59) U/L Total Protein (6.3-8.2) g/dL Albumin (3.5-5.0) g/dL 12/30/16 Range/Units 18:01 WBC (3.8-10.6) k/uL RBC (4.30-5.90) m/uL Hgb (13.0-17.5) gm/dL Hct (39.0-53.0) % Neutrophils # (1.3-7.7) k/uL Lymphocytes # (1.0-4.8) k/uL ABG pH (7.35-7.45) ABG pCO2 (35-45) mmHg ABG pO2 (83-108) mmHg ABG Total CO2 (19-24) mmol/L ABG O2 Saturation (94-97) % Sodium (137-145) mmol/L BUN (9-20) mg/dL Creatinine (0.66-1.25) mg/dL Glucose (74-99) mg/dL POC Glucose (mg/dL) 197 H (75-99) mg/dL Calcium (8.4-10.2) mg/dL AST (17-59) U/L Total Protein (6.3-8.2) g/dL Albumin (3.5-5.0) g/dL Microbiology - Last 24 Hours (Table) 12/29/16 02:10 Urine Culture - Final Urine,Voided 12/29/16 14:42 Gram Stain - Final Sputum Sputum Culture - Final 12/29/16 18:42 Gram Stain - Preliminary Sputum Sputum Culture - Preliminary 12/29/16 01:50 Blood Culture - Preliminary Blood No Growth after 24 hours Laboratory Results WBC 23.7 k/uL (3.8-10.6) H 12/30/16 06:00 RBC 2.94 m/uL (4.30-5.90) L 12/30/16 06:00 Hgb 9.9 gm/dL (13.0-17.5) L D 12/30/16 06:00 Hct 29.4 % (39.0-53.0) L 12/30/16 06:00 MCV 99.9 fL (80.0-100.0) 12/30/16 06:00 MCH 33.7 pg (25.0-35.0) 12/30/16 06:00 MCHC 33.7 g/dL (31.0-37.0) 12/30/16 06:00 RDW 12.9 % (11.5-15.5) 12/30/16 06:00 Plt Count 218 k/uL (150-450) 12/30/16 06:00 Neutrophils % 92 % 12/30/16 06:00 Lymphocytes % 3 % 12/30/16 06:00 Monocytes % 4 % 12/30/16 06:00 Eosinophils % 0 % 12/30/16 06:00 Basophils % 0 % 12/30/16 06:00 Neutrophils # 21.8 k/uL (1.3-7.7) H 12/30/16 06:00 Lymphocytes # 0.8 k/uL (1.0-4.8) L 12/30/16 06:00 Monocytes # 0.8 k/uL (0-1.0) 12/30/16 06:00 Eosinophils # 0.1 k/uL (0-0.7) 12/30/16 06:00 Basophils # 0.1 k/uL (0-0.2) 12/30/16 06:00 PT 11.4 sec (9.0-12.0) 12/29/16 01:50 INR 1.1 (<1.2) 12/29/16 01:50 APTT 31.8 sec (22.0-30.0) H 12/29/16 01:50 D-Dimer 0.82 mg/L FEU (<0.60) H 12/29/16 11:36 Sample Site A-LINE 12/30/16 04:25 ABG pH 7.24 (7.35-7.45) L 12/30/16 04:25 ABG pCO2 62 mmHg (35-45) H 12/30/16 04:25 ABG pO2 76 mmHg (83-108) L 12/30/16 04:25 ABG HCO3 25 mmol/L (21-25) 12/30/16 04:25 ABG Total CO2 27 mmol/L (19-24) H 12/30/16 04:25 ABG O2 Saturation 91.9 % (94-97) L 12/30/16 04:25 ABG Base Excess -1.1 mmol/L 12/30/16 04:25 FiO2 100 % 12/30/16 04:25 Sodium 136 mmol/L (137-145) L 12/30/16 06:00 Potassium 4.7 mmol/L (3.5-5.1) 12/30/16 06:00 Chloride 102 mmol/L (98-107) 12/30/16 06:00 Carbon Dioxide 26 mmol/L (22-30) 12/30/16 06:00 Anion Gap 8 mmol/L 12/30/16 06:00 BUN 5 mg/dL (9-20) L 12/30/16 06:00 Creatinine 0.54 mg/dL (0.66-1.25) L 12/30/16 06:00 Est GFR (MDRD) Af Amer >60 (>60 ml/min/1.73 sqM) 12/30/16 06:00 Est GFR (MDRD) Non-Af >60 (>60 ml/min/1.73 sqM) 12/30/16 06:00 Glucose 208 mg/dL (74-99) H 12/30/16 06:00 POC Glucose (mg/dL) 197 mg/dL (75-99) H 12/30/16 18:01 POC Glu [employer] ID Caty Vargas Dal 12/30/16 18:[address] Glu mg/dL 117 mg/dL 12/30/16 06:00 Hemoglobin A1c 5.7 % (4.2-6.1) 12/30/16 06:00 Plasma Lactic Acid M[place] 1.5 mmol/L (0.7-2.0) 12/29/16 11:35 Calcium 8.3 mg/dL (8.4-10.2) L 12/30/16 06:00 Phosphorus 2.8 mg/dL (2.5-4.5) 12/30/16 06:00 Magnesium 2.3 mg/dL (1.6-2.3) 12/30/16 06:00 Total Bilirubin 0.2 mg/dL (0.2-1.3) 12/30/16 06:00 AST 13 U/L (17-59) L 12/30/16 06:00 ALT 32 U/L (21-72) 12/30/16 06:00 Alkaline Phosphatase 89 U/L (38-126) 12/30/16 06:00 Total Creatine Kinase 31 U/L (55-170) L 12/29/16 01:50 CK-MB (CK-2) <0.2 ng/mL (0.0-2.4) 12/29/16 01:50 CK-MB (CK-2) Rel Index 12/29/16 01:50 Troponin I <0.012 ng/mL (0.000-0.034) 12/29/16 01:50 Total Protein 5.9 g/dL (6.3-8.2) L 12/30/16 06:00 Albumin 3.0 g/dL (3.5-5.0) L 12/30/16 06:00 [id number] 212.0 mg/dL (99.0-242.0) 12/29/16 11:36 Urine Color Yellow 12/29/16 02:10 Urine Appearance Clear (Clear) 12/29/16 02:10 Urine pH 5.5 (5.0-8.0) 12/29/16 02:10 Ur Specific [place] 1.010 (1.001-1.035) 12/29/16 02:10 Urine Protein Negative (Negative) 12/29/16 02:10 Urine Glucose (UA) Negative (Negative) 12/29/16 02:10 Urine Ketones Negative (Negative) 12/29/16 02:10 Urine Blood Small (Negative) H 12/29/16 02:10 Urine Nitrite Negative (Negative) 12/29/16 02:10 Urine Bilirubin Negative (Negative) 12/29/16 02:10 Urine Urobilinogen <2.0 mg/dL (<2.0) 12/29/16 02:10 Ur Leukocyte Esterase Negative (Negative) 12/29/16 02:10 Urine RBC 2 /hpf (0-5) 12/29/16 02:10 Urine WBC <1 /hpf (0-5) 12/29/16 02:10 Ur Squamous Epith Cells <1 /hpf (0-4) 12/29/16 02:10 Urine Mucus Rare /hpf (None) H 12/29/16 02:10 Urine Legionella Ag Not detected (Not detected) 12/29/16 14:45 Microbiology 12/29/16 02:10 Urine,Voided Urine Culture - Final 12/29/16 14:42 Sputum Gram Stain - Final 12/29/16 14:42 Sputum Sputum Culture - Final 12/29/16 18:42 Sputum Gram Stain - Preliminary 12/29/16 18:42 Sputum Sputum Culture - Preliminary 12/29/16 01:50 Blood Blood Culture - Preliminary No Growth after 24 hours Assessment and Plan (1) Pneumonia Narrative/Plan: 46-year-old male with history of heavy tobacco use who by imaging studies has a large bleb to the right upper zone is evidence of a significant effusion to the right side and pneumonic infiltration. Patient presents with respiratory failure and sepsis from his pneumonia. Cultures are in process. Broad-spectrum antibiotic therapy with Zosyn and Levaquin and vancomycin are given until cultures are available. The patient does have a history of the recent dental work and concerns to a lung abscess or putrid empyema. The patient has respiratory failure has been intubated and is mechanically ventilated. He has and a high PEEP and high FiO2 Legionella has come back as negative Mycoplasma evaluations in process. Sputum culture in process after his intubation Blood cultures in process Significant leukocytosis due to his current sepsis Physical exam does not show evidence of significant oral infection. Status: Acute (2) Respiratory failure Status: Acute (3) Empyema of right pleural space Status: Acute
[2016-12-30] MEDS ORDERED: NOREPINEPHRIN 16 MG-0.9%NS PMX 16 MG/250 ML ML IV SCH (21:30)
[2016-12-30] MEDS: LORazepam 2 MG/ML SYRINGE IV PRN (22:56)
[2016-12-30 23:41] LABS: Glucose,Whole Blood 196 mg/dL (75-99)
[2016-12-31] MEDS: methylPREDNISolone SOD SUCCI 125 MG/2 ML VIAL IV SCH ×4 (00:01→18:20)
[2016-12-31] MEDS: INSULIN LISPRO (humaLOG) 300 UNIT/3 ML VIAL SQ SCH ×6 (00:01→21:20)
[2016-12-31] MEDS: ARTIFICIAL TEARS-HYPROMELLOSE DROPS 15 ML BTL BOTH EYES SCH ×6 (00:01→21:20)
[2016-12-31] MEDS: PIPERACILLIN-TAZOBACTAM 3.375 GM in DEXTROSE/WATER 1 50ML.BAG IVPB SCH ×3 (00:02→16:33)
[2016-12-31] MEDS: HYDROmorphone 1 MG/ML 1 ML SYRINGE IM PRN ×2 (00:49→03:49)
[2016-12-31] MEDS: PROPOFOL 1,000 MG/100 ML VIAL IV SCH ×7 (02:22→22:24)
[2016-12-31] MEDS: LEVOFLOXACIN 750MG-D5W PMX 750 MG in DEXTROSE/WATER 1 150ML.BAG IVPB SCH (02:28)
[2016-12-31] MEDS: LORazepam 2 MG/ML SYRINGE IV PRN ×4 (03:03→21:55)
[2016-12-31] MEDS: IPRATROPIUM-ALBUTEROL 3 ML NEB INHALATION SCH ×6 (03:18→23:18)
[2016-12-31] MEDS: VANCOMYCIN 1,500 MG in SODIUM CHLORIDE 0.9% 250 ML IVPB SCH ×2 (03:55→16:37)
[2016-12-31 05:14] LABS: ABG PCO2 44 mmHg (35-45); ABG PH 7.35 (7.35-7.45)
[2016-12-31 05:15] LABS: Basophils % (A) 0 %; CH 33.1; Eosinophils % (A) 0 %; HCT 31.6 % (39.0-53.0); HDW 2.92; HGB 11.2 gm/dL (13.0-17.5); Luc # (Auto) 0.26; Luc % (Auto) 1; Lymphocytes # (A) 0.8 k/uL (1.0-4.8); Lymphocytes % (A) 3 %; MCH 34.6 pg (25.0-35.0); MCHC 35.4 g/dL (31.0-37.0); MCV 97.7 fL (80.0-100.0); Mean Platelet Volume 8.4; Monocytes # (A) 1.4 k/uL (0-1.0); Monocytes % (A) 5 %; Neutrophils # (A) 25.3 k/uL (1.3-7.7); Neutrophils % (A) 91 %; RBC 3.23 m/uL (4.30-5.90); RDW 12.5 % (11.5-15.5); WBC (Perox) 29.02
[2016-12-31 05:15] LABS: ABG Base Excess -0.8 mmol/L; ABG HCO3 24 mmol/L (21-25); ABG Oxygen Saturation 96.4 % (94-97); ABG PO2 89 mmHg (83-108); ABG TCO2 25 mmol/L (19-24)
[2016-12-31 05:18] LABS: WBC 27.9 k/uL (3.8-10.6)
[2016-12-31 05:35] LABS: ALT 27 U/L (21-72); AST 12 U/L (17-59); Alkaline Phosphatase 78 U/L (38-126); Blood Urea Nitrogen 20 mg/dL (9-20); Calcium 8.7 mg/dL (8.4-10.2); Carbon Dioxide 23 mmol/L (22-30); Chloride 103 mmol/L (98-107); Glucose 196 mg/dL (74-99); Non-African American GFR(MDRD) 59 (>60 ml/min/1.73 sqM); Total Bilirubin 0.2 mg/dL (0.2-1.3); Total Protein 5.4 g/dL (6.3-8.2)
[2016-12-31 05:36] LABS: Anion Gap 10 mmol/L; Potassium 3.7 mmol/L (3.5-5.1); Sodium 136 mmol/L (137-145)
[2016-12-31 06:26] LABS: Glucose,Whole Blood 181 mg/dL (75-99)
[2016-12-31] MEDS ORDERED: POTASSIUM CHLORIDE ORAL LIQUID 40 MEQ/30 ML CUP NG-TUBE SCH (07:00)
--- NOTE | 2016-12-31 07:03 | XR ---
EXAMINATION TYPE: XR chest 1V DATE OF EXAM: 12/31/2016 CLINICAL HISTORY: Difficulty breathing progress study. Pneumonia and sepsis. TECHNIQUE: Single AP portable upright view of the chest is obtained. COMPARISON: Chest x-ray from one day earlier. CTA aorta 2 days earlier. FINDINGS: An endotracheal tube, orogastric tube, and right internal jugular central venous catheter are all stable in appearance. There is persistent small to moderate-sized right pleural effusion. There is persistent right greater than left bibasilar atelectasis and/or infiltrate. There is persistent emphysematous change with lar ge bulla and blebs in the right upper lung. Cardiac silhouette size is stable and within normal limit s. Osseous structures are intact. IMPRESSION: Overall stable findings, chronic emphysematous change with small to moderate-sized righ t pleural effusion and right greater than left bibasilar infiltrate and/or atelectasis all redemonstr ated.
--- NOTE | 2016-12-31 07:59 | PN ---
DATE OF SERVICE: 12/30/2016 This 46 -year-old gentleman who was admitted with pneumonia also had septic shock and change in mental status and multiple other medical problems with acute hypoxic respiratory failure also. The patient on mechanical ventilator at this time, 450 70% FIO2 with 40 of PEEP. The patient is being closely monitored in the ICU at this time. The patient on broad spectrum IV antibiotics. The patient also had some right sided pleural effusion also and bolus also. CT scan of the face was also done. Possible right maxillary abscess was suspected. A 2D echo done by cardiology showed ejection fraction 60 -65%. The patient is mechanically sedated. Past medical history reviewed. Review of system could not be taken, the patient is mechanically sedated. Current medications include: 1. Sauquoit 10 mg. 2. Ventolin. 3. DuoNeb. 4. Aspirin. 5. Peridex. 6. Lovenox. 7. Celexa. 8. Dilaudid. 9. Levaquin. 10. Solu-Medrol. 11. Zosyn IV. PHYSICAL EXAMINATION: The patient is mechanically sedated. Pulse 96. Blood pressure 119/76. Respiratory rate 20. Temperature normal. Pulse ox 98% on mechanical ventilation. Settings are noted. HEENT: Conjunctivae normal. NECK: No JVD. Cardiovascular: S1, S2 muffled. Respiratory: Breath sounds diminished at the bases. A few scattered rhonchi and crackles. Abdomen soft. Nontender. Legs, no edema. No swelling. Nervous system: Mechanically sedated. Labs: WBC ntd , hemoglobin 9.9, ABGs are noted. ASSESSMENT: 1. Chronic obstructive pulmonary disease acute exacerbation with right lower lobe pneumonia, possibly gram negative. Possible aspiration with severe sepsis and acute hypoxic respiratory failure and septic shock present on admission. 2. Change in mental status, metabolic encephalopathy. 3. History of nicotine dependence. 4. History of cerebrovascular incident. 5. History of deep venous thrombosis. 6. History of anxiety, depression. 7. Continued, ongoing nicotine dependence. RECOMMENDATIONS AND DISCUSSION: Recommend to continue the current medications. Continue with symptomatic treatment. Continue bronchodilators and empiric antibiotics. Continue with mechanical ventilation. Prognosis guarded. Follow with cultures. Further recommendations to follow. Discussed with staff. [facility]
[2016-12-31] MEDS: ENOXAPARIN 100 MG/ML SYRINGE SQ SCH (09:00)
[2016-12-31] MEDS: CHLORHEXIDINE GLUCONATE 15 ML CUP MUCOUS MEM SCH ×2 (09:00→21:19)
[2016-12-31] MEDS: ASPIRIN 81 MG CHEW PO SCH (09:00)
[2016-12-31] MEDS: CITALOPRAM HYDROBROMIDE 20 MG TAB PO SCH (09:00)
[2016-12-31 09:14] LABS: Glucose,Whole Blood 175 mg/dL (75-99)
[2016-12-31] MEDS: HYDROmorphone 1 MG/ML 1 ML SYRINGE IVP PRN ×4 (09:50→22:22)
[2016-12-31] MEDS: fentaNYL (PF) 2,500 MCG in SODIUM CHLORIDE 0.9% 200 ML IV SCH (10:43)
[2016-12-31] MEDS: SODIUM CHLORIDE 0.9% 1,000 ML IV SCH ×2 (10:53→18:20)
[2016-12-31 11:57] LABS: Glucose,Whole Blood 173 mg/dL (75-99)
--- NOTE | 2016-12-31 12:27 | P.PN ---
Subjective A 46-year-old male patient who presented emergency department this morning because of severe pleuritic right-sided chest pain, fever and cough that's been going on for the past few days. His temperature today was 100.3. He also stated that he has been having cough for the past 24-48 hours without any significant sputum production. He started of her way having some pleuritic chest pain on the right and the pain got severely worse as the day went by to the point where he was having apparent there was 10 out of 10 this this morning. The patient denies having any hemoptysis. No previous history of pneumonia. The patient has history of DVT and the patient has been maintained on Xarelto on outpatient basis. He is a chronic every day smoker. In the emergency department, the patient was found to have a temperature over 1.6. He was tachycardic with a heart rate of 113. He is supposed pulse ox on 4 L was around 94 percent. He had significant leukocytosis with a white cell count 22, 000 and his chest x-ray showed bullous emphysema involving the right upper lobe and extensive right lung consolidation and possibly a small right-sided pleural effusion. Some limited left basilar infiltrates was also seen. The patient was started on broad-spectrum antibiotics. He was given IV Levaquin and vancomycin and subsequently was admitted to the medical floor. I was asked to develop this patient by Dr. Palma 90 the patient was getting increasingly short of breath and he was having pain over the right side of the chest. He was given Dilaudid for pain control with limited success. Subsequently became more tachypneic, diaphoretic, abdomen was getting progressively more distended, he was brought into the intensive care unit and subsequently was intubated and placed on a mechanical ventilator. At this point in time the patient is sedated with Diprivan, paralyzed on Nimbex, on assist control mode of ventilation at the rate of 26, tidal volume 400, FiO2 of 100% and a PEEP of 5. His blood gases show a pH of 7.27 with a pCO2 of 50 and pO2 of 80. This was done and FiO2 of 100% with a PEEP of 5. His chest x-ray post intubation showed worsening of the right lung consolidation with increased atelectasis and possibly effusion. There is also some infiltration and effusion the left lung base. Bullous emphysema can be seen bilaterally more so on the right upper lobe. A CAT scan of the chest was also done and showed moderate to severe upper lobe emphysematous changes right more than left. A moderate-sized right- sided pleural effusion measuring 7.2 cm in size with compressive atelectasis of the right lung base and consolidation of the right lower lobe. Another 1.1 cm nonspecific pulmonary nodules seen in the left upper lobe and there is a small left-sided pleural effusion. I interviewed the and the mother. Apparently the patient was having a tooth abscess and he had seen a dentist approximately 4 weeks ago. He was placed on antibiotics for total of 2 weeks and he was supposed to have a tooth extraction following that. His been off antibiotics for another 2 weeks for now. He denied having any facial swelling or pain recently. No travel history. No exposure to hot tubs or any other contaminated water sources. No sensory of substance abuse. No alcoholism. No immunosuppression. He has history of depression and possibly component of PTSD as the patient is a . No skin rashes. No other sick contacts. He lives with his and he has no children, dogs at home. On 12/30/2016 I'm seeing this patient in follow-up. As mentioned earlier, the patient came in with an extensive right lung pneumonia currently is intubated on a mechanical ventilator and is sedated and paralyzed. Earlier this morning the patient was in a Diprivan drip at 50 mics and the patient was also on a Nimbex drip for paralysis. He is an assist-control mode of ventilation at the rate of 26, tidal volume 400, FiO2 was at 100% PEEP at 12. The blood gases from this morning showed a pH of 7.24 with pCO2 of 62 and pO2 of 76. Chest x- ray shows extensive consolidation of the right lower lobe and early pneumonic changes in the left lower lobe. ET tube was in a good location. OG tube was in a good location. Triple-lumen catheter was also noted that location. No evidence of any pneumothorax. Peak pressures around 28. Based on this, increase the PEEP up to 14 and gradually wean down the FiO2 down to 80% and currently is down to 70%. Pulse ox is in the order of 91-92%. Hemodynamically the patient is on normal saline infusion rate of 100 mL an hour. Urine output is adequate in the order of 60 mL an hour, white cell count is elevated at 23.7. Bronchoscopy and bronchial lavage of the right lung was done and the results are still pending for now. Meanwhile, the patient is covered with a combination of Zosyn, vancomycin and Levaquin. ID is on the case. All of the blood cultures are negative for now. He is on no pressors. Artline cath is inserted in the right radial artery. He is on and off requiring Dilaudid for pain control. On 12/31/2016 the patient is being seen in follow-up. Not much of a change in his condition in general over the past 24 hours. He did have a drop in his urine output and his creatinine doubled it up to 1.3. Note that his blood pressure was also fluctuating and he became borderline hypotensive. Based on that, the patient was given levo fed and currently norepinephrine infusion is running at 1-2 mics to maintain a mean artery pressure above 65. Meanwhile, his urine output improved and is currently producing more than 30 mL an hour. He is still on mechanical ventilator on assist control with the same vent settings. The FiO2 was dropped down to 60% and is still on a tidal volume 400 today rate of 26 and a PEEP of 14. The chest x-ray a is essentially unchanged. There is an extensive consolidation of the right lower lobe, limited infiltration of the left lung base, a large bullous disease involving the right upper lobe and its tube is in a good location. The patient's became a pressures ranging between 28-32. No significant orotracheal secretions. Legionella urine antigen was negative. Bronchioloalveolar lavage and the blood cultures of been all negative thus far. The patient remains on a combination of Zosyn, Levaquin and vancomycin. Lactic acid level from this morning's at 2.6. White cell count is at 27.9. He remains on bronchodilators and systemic steroids. Is tolerating his tube feeds. He is sedated with Diprivan. On and off he becomes asynchronous with a mechanical ventilator and for that reason he was given Dilaudid 1 mg which is requiring every 1-2 hours. Based on that I have ordered a fentanyl drip. We'll try to avoid paralytics if possible. Objective - Vital Signs Vital signs: Vital Signs Temp 98.9 F 12/31/16 08:00 Pulse 79 12/31/16 12:00 Resp 11 L 12/31/16 12:00 BP 95/59 12/31/16 12:00 Pulse Ox 92 L 12/31/16 12:00 Intake & Output 12/30/16 12/31/16 12/31/16 18:59 06:59 18:59 Intake Total 2090.000 2223.675 1030 Output Total 2425 538 230 Balance -753.666 2125.675 800 Weight 89.8 kg 90.5 kg Intake: IV 1450 1505 550 Levofloxacin 750Mg-D5w 150 Pmx 750 mg In Dextrose/ Water 1 150ml.bag @ 100 mls/hr IVPB Q24H [facility] Rx#: [id number] Piperacillin-Tazobactam 3 100 50 50 .375 gm In Dextrose/Water 1 50ml.bag @ 12.5 mls/hr IVPB Q8HR [facility] Rx#: [id number] Sodium Chloride 0.9% 1, 1100 1180 500 000 ml @ 50 mls/hr IV . Q20H [facility] Rx#:[id number] Vancomycin 1,750 mg In 250 125 Sodium Chloride 0.9% 250 ml @ 125 mls/hr IVPB Q12H [facility] Rx#:[id number] Intake, IV Titration 600.000 318.675 250 Amount Cisatracurium 200 mg In 200 Sodium Chloride 0.9% 180 ml @ 1 MCG/KG/MIN 5.33 mls/hr IV .Q24H [facility] Rx#: [id number] Norepinephrin 16 mg-0.9% 18.675 0 Ns Pmx 16 mg In 250 ml @ Titrate IV .Q0M [facility] Rx#: [id number] Propofol 1,000 mg In 100 300.000 300 200 ml @ Titrate IV .Q0M [facility] Rx#:[id number] Sodium Chloride 0.9% 1, 100 000 ml @ 50 mls/hr IV . Q20H [facility] Rx#:[id number] fentaNYL (PF) 2,500 mcg 50 In Sodium Chloride 0.9% 200 ml @ 50 MCG/HR 5 mls/ hr IV .Q24H [facility] Rx#: [id number] Tube Feeding 40 320 200 Other 80 30 Output: Urine 2425 538 230 Other: Voiding Method Indwelling Catheter Indwelling Catheter Indwelling Catheter ABP, PAP, CO, CI - Last Documented Arterial Blood Pressure 132/71 - Exam Sedated, intubated, paralyzed, nonacute distress.Head exam was generally normal. There was no scleral icterus or corneal arcus. Mucous membranes were moist. Neck is supple and the patient has no JVDs no goiter or neck masses. The right IJ triple catheter in place. Orogastric and tracheal tube are both in place. Lung sounds are markedly diminished in lung bases pressure the right lung base. No significant wheezes or rhonchi. No significant orotracheal secretions.Cardiac exam revealed the PMI to be normally situated and sized. The rhythm was regular and no extrasystoles were noted during several minutes of auscultation. The first and second heart sounds were normal and physiologic splitting of the second heart sound was noted. There were no murmurs, rubs, clicks, or gallops.Abdominal exam revealed normal bowel sounds. The abdomen was soft, non-tender, and without masses, organomegaly, or appreciable enlargement of the abdominal aorta.Examination of the extremities revealed easily palpable radial, femoral and pedal pulses. There was no cyanosis, clubbing or edema. - Labs CBC & Chem 7: 12/31/16 05:00 12/31/16 05:00 Labs: Abnormal Lab Results - Last 24 Hours (Table) 12/30/16 12/30/16 12/30/16 Range/Units 12:26 18:01 23:30 WBC (3.8-10.6) k/uL RBC (4.30-5.90) m/uL Hgb (13.0-17.5) gm/dL Hct (39.0-53.0) % Neutrophils # (1.3-7.7) k/uL Lymphocytes # (1.0-4.8) k/uL Monocytes # (0-1.0) k/uL ABG Total CO2 (19-24) mmol/L ABG Lactic Acid (0.5-1.6) mmol/L Sodium (137-145) mmol/L Creatinine (0.66-1.25) mg/dL Glucose (74-99) mg/dL POC Glucose (mg/dL) 201 H 197 H 196 H (75-99) mg/dL AST (17-59) U/L Total Protein (6.3-8.2) g/dL Albumin (3.5-5.0) g/dL 12/31/16 12/31/16 12/31/16 Range/Units 04:58 05:00 05:00 WBC 27.9 H* (3.8-10.6) k/uL RBC 3.23 L (4.30-5.90) m/uL Hgb 11.2 L (13.0-17.5) gm/dL Hct 31.6 L (39.0-53.0) % Neutrophils # 25.3 H (1.3-7.7) k/uL Lymphocytes # 0.8 L (1.0-4.8) k/uL Monocytes # 1.4 H (0-1.0) k/uL ABG Total CO2 25 H (19-24) mmol/L ABG Lactic Acid (0.5-1.6) mmol/L Sodium 136 L (137-145) mmol/L Creatinine 1.30 H (0.66-1.25) mg/dL Glucose 196 H (74-99) mg/dL POC Glucose (mg/dL) (75-99) mg/dL AST 12 L (17-59) U/L Total Protein 5.4 L (6.3-8.2) g/dL Albumin 2.6 L (3.5-5.0) g/dL 12/31/16 12/31/16 12/31/16 Range/Units 05:30 06:24 09:06 WBC (3.8-10.6) k/uL RBC (4.30-5.90) m/uL Hgb (13.0-17.5) gm/dL Hct (39.0-53.0) % Neutrophils # (1.3-7.7) k/uL Lymphocytes # (1.0-4.8) k/uL Monocytes # (0-1.0) k/uL ABG Total CO2 (19-24) mmol/L ABG Lactic Acid 2.6 H* (0.5-1.6) mmol/L Sodium (137-145) mmol/L Creatinine (0.66-1.25) mg/dL Glucose (74-99) mg/dL POC Glucose (mg/dL) 181 H 175 H (75-99) mg/dL AST (17-59) U/L Total Protein (6.3-8.2) g/dL Albumin (3.5-5.0) g/dL 12/31/16 Range/Units 11:54 WBC (3.8-10.6) k/uL RBC (4.30-5.90) m/uL Hgb (13.0-17.5) gm/dL Hct (39.0-53.0) % Neutrophils # (1.3-7.7) k/uL Lymphocytes # (1.0-4.8) k/uL Monocytes # (0-1.0) k/uL ABG Total CO2 (19-24) mmol/L ABG Lactic Acid (0.5-1.6) mmol/L Sodium (137-145) mmol/L Creatinine (0.66-1.25) mg/dL Glucose (74-99) mg/dL POC Glucose (mg/dL) 173 H (75-99) mg/dL AST (17-59) U/L Total Protein (6.3-8.2) g/dL Albumin (3.5-5.0) g/dL Microbiology - Last 24 Hours (Table) 12/29/16 18:42 Gram Stain - Preliminary Sputum Sputum Culture - Preliminary 12/29/16 14:42 Gram Stain - Final Sputum Sputum Culture - Final 12/29/16 01:50 Blood Culture - Preliminary Blood No Growth after 48 hours 12/29/16 02:10 Urine Culture - Final Urine,Voided Assessment and Plan Plan: Assessment 1 right lung pneumonia, severe, rapid interval progression with progressive worsening of the consolidation development of a small right-sided pleural effusion with subsequent acute hypoxic respiratory failure, currently intubated on a mechanical ventilator. Rule out pneumococcal pneumonia. Rule out anaerobic pneumonia possibly from a tooth abscess/aspiration. On 12/30/2016 the patient is being seen in follow-up. The patient remains intubated on a mechanical ventilator, sedated and paralyzed. He is on broad- spectrum antibiotics. No microbial diagnoses been established thus far. The patient is post bronchoscopy and bronchial lavage of the right lower lobe. Cultures of been all negative including the bronchioloalveolar lavage and the blood cultures. Necessary vent changes were done. On 12/31/2016, the patient is in a PEEP of 14 with an FiO2 of 60%. There has been only a modest improvement in his oxygenation and the chest x-ray findings remains essentially unchanged over the cultures of been negative thus far. Remains sedated yet not paralyzed. 2 acute hypoxic respiratory failure, intubated on mechanical ventilator. 3 bullous emphysema with upper lobe emphysematous changes right more than left 4 sepsis secondary to right lung pneumonia, leukocytosis, 5 nonspecific left upper lobe pulmonary nodule measuring 1.1 cm in size 6 recent DVT post-orthopedic intervention on the foot, maintained on Xarelto, currently on Lovenox and Xarelto is on hold 7 TIA, history of without any neurological deficits 8 chronic neck and back pain, under the care of pain management 9 tooth abscess, treated with antibiotics on outpatient basis, being followed up by a local dentist, has not undergone tooth extraction. The patient had a CAT scan of the facial bones that showed mild periapical lucency involving the right first maxillary molar tooth and possibly periapical abscess. This is confined to the bone. No evidence of any soft tissue abscess at this point. This was further checked by the dental surgeon and there is no need for any intervention at this point 10 acute kidney injury, nonoliguric. Creatinine is up to 1.3. Next 11 enteral feeding for nutritional support which the patient is tolerating without any major difficulties. Plan Continue sedation with Diprivan. At fentanyl drip for sedation and secondarily mechanical ventilation. We'll try to avoid paralytics if possible. Drop the FiO2 as tolerated to maintain a saturation above 90%. Continue same antibiotic coverage. We will consider repeating the CAT scan of the chest to further correct at abnormalities in the right lower lobe and assess for development of any pleural effusion or abscess. Continue tube feeds. Monitor renal function. Pressors as needed to maintain a mean artery pressure above 65. Continue rest of the supportive care. ID is on the case. We'll continue to follow. Critical care evaluation. Family has been updated on his condition. More than 30 minutes.
[2016-12-31 13:28] LABS: ABG Base Excess -1.5 mmol/L; ABG HCO3 23 mmol/L (21-25); ABG PCO2 38 mmHg (35-45); ABG PH 7.39 (7.35-7.45); ABG PO2 66 mmHg (83-108); ABG TCO2 24 mmol/L (19-24)
--- NOTE | 2016-12-31 14:18 | CT ---
EXAMINATION TYPE: CT ChestAbdPelvis wo con DATE OF EXAM: 12/31/2016 COMPARISON: 12/29/2016 HISTORY: Short of breath-vented CT DLP: 1334.80mGycm Unenhanced CT of the Chest, Abdomen and Pelvis Unenhanced CT of the chest ,abdomen and pelvis is performed. The lack of intravenous contrast limits evaluation of the solid and hollow viscera. Oral contrast: None CT Chest: Endotracheal and NG tubes are unchanged in position. LUNGS: Severe emphysematous changes greatest within the right lung apex. Large right sided pleural ef fusion extending to the right lung apex. Right basilar atelectasis and/or infiltrate. Persistent nodu lar density periphery left upper lobe. Small left-sided effusion and left basilar compressive atelect asis. MEDIASTINUM: Thoracic aorta is of normal caliber. The heart is not enlarged. No evidence for mediastinal mass or adenopathy. HILAR STRUCTURES: No evidence for mass. No hilar adenopathy is appreciated. OTHER: No significant abnormality. CONTRAST CT ABDOMEN AND PELVIS: LIVER/GB: No calcified gallstones. No space occupying hepatic lesion. Biliary tree is of normal ca liber. PANCREAS: No inflammation. No distinct mass. SPLEEN: No splenic enlargement. No lesion seen. ADRENALS: No nodule. No thickening. KIDNEYS/BLADDER: No hydronephrosis. Tiny nonobstructing renal calculi noted. No disctinct renal mass . BOWEL: Normal appendix. Normal bowel caliber. No inflammation. GENITAL ORGANS: No gross abnormality. LYMPH NODES: No greater than 1cm abdominal or pelvic lymph nodes areappreciated. AORTA: Scattered atheromatous change of the bowel aorta without evidence for aneurysm. OSSEOUS STRUCTURES: No significant abnormality is seen. OTHER: No significant additional abnormality is seen. IMPRESSION: 1. No significant interval change is appreciated. 2. Emphysematous changes with large right-sided pleural effusion and moderately large area of atelect asis or infiltrate right lower lobe. Trace left-sided pleural effusion. 2. No evidence for acute intra-abdominal or intrapelvic process.
--- NOTE | 2016-12-31 15:49 | PN ---
DATE OF SERVICE: 12/31/16 This 46-year-old gentleman admitted with pneumonia, septic shock and change in mental status being closely monitored. The patient has acute hypoxic respiratory failure also. The patient is on mechanical ventilation. The patient also has a bullae on the right upper chest. Infectious disease as well pulmonology following the patient closely. Dr. Gregorio from dental also saw the patient. CT scan of the and pelvis showed emphysematous changes with large right subpleural effusion, moderate, large area of consolidation and infiltrate. No evidence of any acute intraabdominal process noted. Past medical history reviewed. REVIEW OF SYSTEMS: Could not be obtained. The patient is mechanically ventilated and sedated. Current medications are reviewed and include: 1. [place] 10 mg q8h prn. 2. Ventolin 2.5 q.i.d. and prn. 3. DuoNeb. 4. Peridex. 5. Celexa. 6. Fentanyl patch. 7. Humalog. 8. Levaquin. 9. Solu-Medrol. 10. Zosyn. PHYSICAL EXAMINATION: The patient is alert and oriented times three. Pulse 80. Blood pressure 107/60. Respiratory rate 7. Temperature normal. Pulse ox 91 % 50% mechanical ventilation. Vent settings noted. PEEP 14. HEENT: Conjunctivae normal. Oral mucosa moist. NECK: No JVD. No carotid bruit. No lymph node enlargement. No thyroid enlargement. Cardiovascular: S1, S2 muffled. Respiratory: Breath sounds diminished at the bases. Bilateral scattered rhonchi and crackles. The patient is on mechanical ventilation. Abdomen soft. Nontender. Mild diffuse distention. Legs, no edema. No swelling. Nervous system: The patient is mechanically ventilated and sedated. Labs: ABGs noted. Otherwise, WBC 27.9. Hemoglobin 11.2. ASSESSMENT: 1. Chronic obstructive pulmonary disease, acute exacerbation with right lower lobe pneumonia, possibly gram negative with severe sepsis and acute hypoxic respiratory failure, possibly aspiration. 2. Right pleural effusion. 3. Change in mental status, metabolic encephalopathy. 4. History of nicotine dependence. 5. Cerebrovascular incident. 6. History of deep venous thrombosis. 7. History of anxiety/depression. 8. Continued ongoing nicotine dependence. RECOMMENDATIONS AND DISCUSSION: Recommend to continue the current medications. Continue with monitoring and symptomatic treatment. Otherwise, at this time , I would recommend continue the broad spectrum IV antibiotics. Continue lactic acid 2.6. CT scan reviewed. Discussed at length with the family. Closely follow with Dr. Riley. Continue to follow the cultures. Continue to monitor with infectious disease and pulmonary. Prognosis guarded because of multiple complex medical issues. Further recommendations to follow. MTDD
[2016-12-31] MEDS ORDERED: CISATRACURIUM 2 MG/ML 5 ML VIAL IV ONE (15:56)
[2016-12-31] MEDS ORDERED: CISATRACURIUM 10 MG/ML 20 ML VIAL IV SCH (16:00)
[2016-12-31] MEDS: CISATRACURIUM 200 MG in SODIUM CHLORIDE 0.9% 180 ML IV SCH (16:35)
[2016-12-31 16:54] LABS: Glucose,Whole Blood 145 mg/dL (75-99)
[2016-12-31 21:16] LABS: Glucose,Whole Blood 180 mg/dL (75-99)
--- NOTE | 2016-12-31 21:23 | P.PN ---
Subjective Principal diagnosis: respiratory failure 46-year-old male who has a presumptive diagnosis of underlying emphysema presents to the hospital with a relatively short-term of increasing shortness of breath. The patient relates over the weekend he started to get short of breath. He developed cough and increasing shortness of breath. He then had significant fever and increasing pain to his right chest. The pain became so severe that he no longer was able to hold out at home and presented to the emergency center. There he was evidence of a pain a 10 out of 10 and evidence of significant respiratory distress. Imaging studies revealed evidence of a significant pneumonia as well as a large bleb to the right chest. Effusion was seen. No evidence of pulmonary embolus or of aortic dissection was seen. The patient was brought to the intensive care unit where he is required some sedation for placement of BiPAP. BiPAP has been placed the patient appears to be feeling this. We'll likely be intubated soon. The patient had a significant AA gradient despite the BiPAP. The family does relate to the difficulty with his oral cavity. He apparently has been antibiotic therapy was that of a tooth extraction for an abscess the family denies a history of injection drug use. Significant alcohol use. PTSD from his experience in [place]. No severe illnesses while he was overseas. He has noted the patient developed respiratory failure. Required intubation sedation and mechanical ventilation. He remains intubated he is on a PEEP of 14 and50%FIO2 for his acute lung injury and serious pneumonia The patient is now paralyzed. He required vasopressor therapy. He is also required fentanyl intravenous. The nursing staff relates to a very anxious today. More settled this time. Objective - Vital Signs Vital signs: Vital Signs Temp 97.5 F L 12/31/16 20:00 Pulse 90 12/31/16 21:00 Resp 26 H 12/31/16 21:00 BP 132/76 12/31/16 21:00 Pulse Ox 91 L 12/31/16 21:00 Intake & Output 12/31/16 12/31/16 01/01/17 06:59 18:59 06:59 Intake Total 2223.675 2396.437 566.688 Output Total 538 835 250 Balance 3473.146 0365.437 316.688 Weight 90.5 kg Intake: IV 1505 1300 300 Levofloxacin 750Mg-D5w 150 Pmx 750 mg In Dextrose/ Water 1 150ml.bag @ 100 mls/hr IVPB Q24H [facility] Rx#: [id number] Piperacillin-Tazobactam 3 50 100 .375 gm In Dextrose/Water 1 50ml.bag @ 12.5 mls/hr IVPB Q8HR [facility] Rx#: [id number] Sodium Chloride 0.9% 1, 200 000 ml @ 100 mls/hr IV . Q10H [facility] Rx#:[id number] Sodium Chloride 0.9% 1, 1180 1200 100 000 ml @ 50 mls/hr IV . Q20H [facility] Rx#:[id number] Vancomycin 1,750 mg In 125 Sodium Chloride 0.9% 250 ml @ 125 mls/hr IVPB Q12H [facility] Rx#:[id number] Intake, IV Titration 318.675 588.437 116.688 Amount Cisatracurium 200 mg In 0.089 Sodium Chloride 0.9% 180 ml @ 1 MCG/KG/MIN 5.33 mls/hr IV .Q24H [facility] Rx#: [id number] Norepinephrin 16 mg-0.9% 18.675 28.348 16.688 Ns Pmx 16 mg In 250 ml @ Titrate IV .Q0M [facility] Rx#: [id number] Propofol 1,000 mg In 100 300 300 100 ml @ Titrate IV .Q0M [facility] Rx#:[id number] Vancomycin 1,500 mg In 250 Sodium Chloride 0.9% 250 ml @ 125 mls/hr IVPB Q8H [facility] Rx#:[id number] fentaNYL (PF) 2,500 mcg 10 In Sodium Chloride 0.9% 200 ml @ 50 MCG/HR 5 mls/ hr IV .Q24H [facility] Rx#: [id number] Tube Feeding 320 478 120 Other 80 30 30 Output: Urine 538 835 250 Other: Voiding Method Indwelling Catheter Indwelling Catheter ABP, PAP, CO, CI - Last Documented Arterial Blood Pressure 159/80 - Exam 46-year-old male who is now intubated sedated and mechanically ventilated HEENT: Anicteric conjunctiva are pink and moist nasal mucosa grossly intact without significant lesions, there is no thrush. Neck: The neck is supple without significant lymphadenopathy or thyromegaly. Lungs: There is symmetrical air entry. Markedly diminished breath sounds in the right base. Dullness the right base. Heart: Regular rate and rhythm with an audible S1-S2, no S3 no S4. There is no significant murmur click or rub, PMI was nondisplaced. Abdomen: Positive bowel sounds soft and nontender without palpable masses or organomegaly. There was no guarding or rebound. Abdomen is not rigid Extremities: The upper extremities have excellent pulses they are symmetric, no significant petechiae or telangiectasia. No splinter hemorrhages were noted. The lower extremities are free from significant edema. The peripheral pulses were 2+ and symmetric. Neuro: Patient is sedated and mechanically ventilated, was paralyzed but no longer is synchronous with the ventilator - Labs CBC & Chem 7: 12/31/16 05:00 12/31/16 05:00 Labs: Abnormal Lab Results - Last 24 Hours (Table) 12/30/16 12/31/16 12/31/16 Range/Units 23:30 04:58 05:00 WBC (3.8-10.6) k/uL RBC (4.30-5.90) m/uL Hgb (13.0-17.5) gm/dL Hct (39.0-53.0) % Neutrophils # (1.3-7.7) k/uL Lymphocytes # (1.0-4.8) k/uL Monocytes # (0-1.0) k/uL ABG pO2 (83-108) mmHg ABG Total CO2 25 H (19-24) mmol/L ABG O2 Saturation (94-97) % ABG Lactic Acid (0.5-1.6) mmol/L Sodium 136 L (137-145) mmol/L Creatinine 1.30 H (0.66-1.25) mg/dL Glucose 196 H (74-99) mg/dL POC Glucose (mg/dL) 196 H (75-99) mg/dL AST 12 L (17-59) U/L Total Protein 5.4 L (6.3-8.2) g/dL Albumin 2.6 L (3.5-5.0) g/dL 12/31/16 12/31/16 12/31/16 Range/Units 05:00 05:30 06:24 WBC 27.9 H* (3.8-10.6) k/uL RBC 3.23 L (4.30-5.90) m/uL Hgb 11.2 L (13.0-17.5) gm/dL Hct 31.6 L (39.0-53.0) % Neutrophils # 25.3 H (1.3-7.7) k/uL Lymphocytes # 0.8 L (1.0-4.8) k/uL Monocytes # 1.4 H (0-1.0) k/uL ABG pO2 (83-108) mmHg ABG Total CO2 (19-24) mmol/L ABG O2 Saturation (94-97) % ABG Lactic Acid 2.6 H* (0.5-1.6) mmol/L Sodium (137-145) mmol/L Creatinine (0.66-1.25) mg/dL Glucose (74-99) mg/dL POC Glucose (mg/dL) 181 H (75-99) mg/dL AST (17-59) U/L Total Protein (6.3-8.2) g/dL Albumin (3.5-5.0) g/dL 12/31/16 12/31/16 12/31/16 Range/Units 09:06 11:54 13:20 WBC (3.8-10.6) k/uL RBC (4.30-5.90) m/uL Hgb (13.0-17.5) gm/dL Hct (39.0-53.0) % Neutrophils # (1.3-7.7) k/uL Lymphocytes # (1.0-4.8) k/uL Monocytes # (0-1.0) k/uL ABG pO2 66 L (83-108) mmHg ABG Total CO2 (19-24) mmol/L ABG O2 Saturation 93.0 L (94-97) % ABG Lactic Acid (0.5-1.6) mmol/L Sodium (137-145) mmol/L Creatinine (0.66-1.25) mg/dL Glucose (74-99) mg/dL POC Glucose (mg/dL) 175 H 173 H (75-99) mg/dL AST (17-59) U/L Total Protein (6.3-8.2) g/dL Albumin (3.5-5.0) g/dL 12/31/16 12/31/16 Range/Units 16:51 21:14 WBC (3.8-10.6) k/uL RBC (4.30-5.90) m/uL Hgb (13.0-17.5) gm/dL Hct (39.0-53.0) % Neutrophils # (1.3-7.7) k/uL Lymphocytes # (1.0-4.8) k/uL Monocytes # (0-1.0) k/uL ABG pO2 (83-108) mmHg ABG Total CO2 (19-24) mmol/L ABG O2 Saturation (94-97) % ABG Lactic Acid (0.5-1.6) mmol/L Sodium (137-145) mmol/L Creatinine (0.66-1.25) mg/dL Glucose (74-99) mg/dL POC Glucose (mg/dL) 145 H 180 H (75-99) mg/dL AST (17-59) U/L Total Protein (6.3-8.2) g/dL Albumin (3.5-5.0) g/dL Microbiology - Last 24 Hours (Table) 12/29/16 18:42 Gram Stain - Preliminary Sputum Sputum Culture - Preliminary 12/29/16 14:42 Gram Stain - Final Sputum Sputum Culture - Final 12/29/16 01:50 Blood Culture - Preliminary Blood No Growth after 48 hours Laboratory Results WBC 27.9 k/uL (3.8-10.6) H* 12/31/16 05:00 RBC 3.23 m/uL (4.30-5.90) L 12/31/16 05:00 Hgb 11.2 gm/dL (13.0-17.5) L 12/31/16 05:00 Hct 31.6 % (39.0-53.0) L 12/31/16 05:00 MCV 97.7 fL (80.0-100.0) 12/31/16 05:00 MCH 34.6 pg (25.0-35.0) 12/31/16 05:00 MCHC 35.4 g/dL (31.0-37.0) 12/31/16 05:00 RDW 12.5 % (11.5-15.5) 12/31/16 05:00 Plt Count 277 k/uL (150-450) 12/31/16 05:00 Neutrophils % 91 % 12/31/16 05:00 Lymphocytes % 3 % 12/31/16 05:00 Monocytes % 5 % 12/31/16 05:00 Eosinophils % 0 % 12/31/16 05:00 Basophils % 0 % 12/31/16 05:00 Neutrophils # 25.3 k/uL (1.3-7.7) H 12/31/16 05:00 Lymphocytes # 0.8 k/uL (1.0-4.8) L 12/31/16 05:00 Monocytes # 1.4 k/uL (0-1.0) H 12/31/16 05:00 Eosinophils # 0.0 k/uL (0-0.7) 12/31/16 05:00 Basophils # 0.0 k/uL (0-0.2) 12/31/16 05:00 PT 11.4 sec (9.0-12.0) 12/29/16 01:50 INR 1.1 (<1.2) 12/29/16 01:50 APTT 31.8 sec (22.0-30.0) H 12/29/16 01:50 D-Dimer 0.82 mg/L FEU (<0.60) H 12/29/16 11:36 Sample Site CHARLA 12/31/16 13:20 ABG pH 7.39 (7.35-7.45) 12/31/16 13:20 ABG pCO2 38 mmHg (35-45) 12/31/16 13:20 ABG pO2 66 mmHg (83-108) L 12/31/16 13:20 ABG HCO3 23 mmol/L (21-25) 12/31/16 13:20 ABG Total CO2 24 mmol/L (19-24) 12/31/16 13:20 ABG O2 Saturation 93.0 % (94-97) L 12/31/16 13:20 ABG Base Excess -1.5 mmol/L 12/31/16 13:20 ABG Lactic Acid 2.6 mmol/L (0.5-1.6) H* 12/31/16 05:30 FiO2 50 % 12/31/16 13:20 Sodium 136 mmol/L (137-145) L 12/31/16 05:00 Potassium 3.7 mmol/L (3.5-5.1) 12/31/16 05:00 Chloride 103 mmol/L (98-107) 12/31/16 05:00 Carbon Dioxide 23 mmol/L (22-30) 12/31/16 05:00 Anion Gap 10 mmol/L 12/31/16 05:00 BUN 20 mg/dL (9-20) 12/31/16 05:00 Creatinine 1.30 mg/dL (0.66-1.25) H 12/31/16 05:00 Est GFR (MDRD) Af Amer >60 (>60 ml/min/1.73 sqM) 12/31/16 05:00 Est GFR (MDRD) Non-Af 59 (>60 ml/min/1.73 sqM) 12/31/16 05:00 Glucose 196 mg/dL (74-99) H 12/31/16 05:00 POC Glucose (mg/dL) 180 mg/dL (75-99) H 12/31/16 21:14 POC Glu Pediatric Clinical Dietician ID Crow Baptiste 12/31/16 21:[address] Glu mg/dL 117 mg/dL 12/30/16 06:00 Hemoglobin A1c 5.7 % (4.2-6.1) 12/30/16 06:00 Plasma Lactic Acid Michael 1.5 mmol/L (0.7-2.0) 12/29/16 11:35 Calcium 8.7 mg/dL (8.4-10.2) 12/31/16 05:00 Phosphorus 2.8 mg/dL (2.5-4.5) 12/30/16 06:00 Magnesium 2.3 mg/dL (1.6-2.3) 12/30/16 06:00 Total Bilirubin 0.2 mg/dL (0.2-1.3) 12/31/16 05:00 AST 12 U/L (17-59) L 12/31/16 05:00 ALT 27 U/L (21-72) 12/31/16 05:00 Alkaline Phosphatase 78 U/L (38-126) 12/31/16 05:00 Total Creatine Kinase 31 U/L (55-170) L 12/29/16 01:50 CK-MB (CK-2) <0.2 ng/mL (0.0-2.4) 12/29/16 01:50 CK-MB (CK-2) Rel Index 12/29/16 01:50 Troponin I <0.012 ng/mL (0.000-0.034) 12/29/16 01:50 Total Protein 5.4 g/dL (6.3-8.2) L 12/31/16 05:00 Albumin 2.6 g/dL (3.5-5.0) L 12/31/16 05:00 [id number] 212.0 mg/dL (99.0-242.0) 12/29/16 11:36 Urine Color Yellow 12/29/16 02:10 Urine Appearance Clear (Clear) 12/29/16 02:10 Urine pH 5.5 (5.0-8.0) 12/29/16 02:10 Ur Specific Rector 1.010 (1.001-1.035) 12/29/16 02:10 Urine Protein Negative (Negative) 12/29/16 02:10 Urine Glucose (UA) Negative (Negative) 12/29/16 02:10 Urine Ketones Negative (Negative) 12/29/16 02:10 Urine Blood Small (Negative) H 12/29/16 02:10 Urine Nitrite Negative (Negative) 12/29/16 02:10 Urine Bilirubin Negative (Negative) 12/29/16 02:10 Urine Urobilinogen <2.0 mg/dL (<2.0) 12/29/16 02:10 Ur Leukocyte Esterase Negative (Negative) 12/29/16 02:10 Urine RBC 2 /hpf (0-5) 12/29/16 02:10 Urine WBC <1 /hpf (0-5) 12/29/16 02:10 Ur Squamous Epith Cells <1 /hpf (0-4) 12/29/16 02:10 Urine Mucus Rare /hpf (None) H 12/29/16 02:10 Urine Legionella Ag Not detected (Not detected) 12/29/16 14:45 Microbiology 12/29/16 18:42 Sputum Gram Stain - Preliminary 12/29/16 18:42 Sputum Sputum Culture - Preliminary 12/29/16 14:42 Sputum Gram Stain - Final 12/29/16 14:42 Sputum Sputum Culture - Final 12/29/16 01:50 Blood Blood Culture - Preliminary No Growth after 48 hours 07/25/17 02:10 Urine,Voided Urine Culture - Final Assessment and Plan (1) Pneumonia Narrative/Plan: 46-year-old male with history of heavy tobacco use who by imaging studies has a large bleb to the right upper zone is evidence of a significant effusion to the right side and pneumonic infiltration. Patient presents with respiratory failure and sepsis from his pneumonia. Cultures are in process. Broad-spectrum antibiotic therapy with Zosyn and Levaquin and vancomycin are given until cultures are available. The patient does have a history of the recent dental work and concerns to a lung abscess or putrid empyema. The patient has respiratory failure has been intubated and is mechanically ventilated. He has and a high PEEP and high FiO2 Legionella has come back as negative Mycoplasma evaluations in process. Sputum culture in process after his intubation and is negative at this time. Blood cultures in process and are negative at this time. Significant leukocytosis due to his current sepsis and the utilization of Solu- Medrol for his pulmonary status. Physical exam does not show evidence of significant oral infection. Status: Acute (2) Respiratory failure Status: Acute (3) Empyema of right pleural space Status: Acute
[2017-01-01] MEDS: ARTIFICIAL TEARS-HYPROMELLOSE DROPS 15 ML BTL BOTH EYES SCH ×7 (00:06→23:19)
[2017-01-01] MEDS: PIPERACILLIN-TAZOBACTAM 3.375 GM in DEXTROSE/WATER 1 50ML.BAG IVPB SCH ×4 (00:07→23:25)
[2017-01-01] MEDS: methylPREDNISolone SOD SUCCI 125 MG/2 ML VIAL IV SCH ×5 (00:07→23:20)
[2017-01-01] MEDS: INSULIN LISPRO (humaLOG) 300 UNIT/3 ML VIAL SQ SCH ×6 (00:08→20:44)
[2017-01-01 00:09] LABS: Glucose,Whole Blood 174 mg/dL (75-99)
[2017-01-01] MEDS: PROPOFOL 1,000 MG/100 ML VIAL IV SCH ×8 (00:46→22:27)
[2017-01-01] MEDS: HYDROmorphone 1 MG/ML 1 ML SYRINGE IVP PRN ×5 (02:26→23:19)
[2017-01-01] MEDS: LEVOFLOXACIN 750MG-D5W PMX 750 MG in DEXTROSE/WATER 1 150ML.BAG IVPB SCH (03:25)
[2017-01-01] MEDS: IPRATROPIUM-ALBUTEROL 3 ML NEB INHALATION SCH ×6 (03:56→23:30)
[2017-01-01] MEDS: VANCOMYCIN 1,500 MG in SODIUM CHLORIDE 0.9% 250 ML IVPB SCH ×2 (04:21→10:38)
[2017-01-01 04:30] LABS: Glucose,Whole Blood 186 mg/dL (75-99)
[2017-01-01 05:02] LABS: Basophils % (A) 0 %; CH 32.9; CHCM 33.3; Eosinophils # (A) 0.1 k/uL (0-0.7); Eosinophils % (A) 0 %; HCT 29.8 % (39.0-53.0); HDW 2.97; HGB 10.4 gm/dL (13.0-17.5); Luc # (Auto) 0.22; Luc % (Auto) 1; Lymphocytes # (A) 0.9 k/uL (1.0-4.8); Lymphocytes % (A) 4 %; MCH 34.7 pg (25.0-35.0); MCHC 34.9 g/dL (31.0-37.0); MCV 99.5 fL (80.0-100.0); Mean Platelet Volume 7.4; Monocytes % (A) 4 %; Neutrophils # (A) 21.7 k/uL (1.3-7.7); Neutrophils % (A) 91 %; RDW 12.7 % (11.5-15.5); WBC 23.9 k/uL (3.8-10.6); WBC (Perox) 24.89
[2017-01-01] MEDS: SODIUM CHLORIDE 0.9% 1,000 ML IV SCH ×2 (05:22→17:09)
[2017-01-01 05:32] LABS: ABG HCO3 22 mmol/L (21-25); ABG PCO2 41 mmHg (35-45); ABG PH 7.36 (7.35-7.45); ABG PO2 74 mmHg (83-108); ABG TCO2 24 mmol/L (19-24)
[2017-01-01 05:33] LABS: ALT 27 U/L (21-72); AST 18 U/L (17-59); Alkaline Phosphatase 79 U/L (38-126); Anion Gap 9 mmol/L; Blood Urea Nitrogen 29 mg/dL (9-20); Calcium 8.9 mg/dL (8.4-10.2); Carbon Dioxide 21 mmol/L (22-30); Chloride 110 mmol/L (98-107); Glucose 182 mg/dL (74-99); Non-African American GFR(MDRD) >60 (>60 ml/min/1.73 sqM); Sodium 140 mmol/L (137-145); Total Bilirubin 0.3 mg/dL (0.2-1.3); Total Protein 5.3 g/dL (6.3-8.2)
[2017-01-01 05:33] LABS: ABG Base Excess -2.3 mmol/L
[2017-01-01 05:57] LABS: Mycoplasma IgG Antibody (EIA) 1.65 INDEX (<=0.90); Mycoplasma IgM Antibody 0.56 INDEX (<=0.90)
[2017-01-01 06:46] LABS: INR 0.9 (<1.2); Prothrombin Time 9.5 sec (9.0-12.0)
--- NOTE | 2017-01-01 07:26 | XR ---
EXAMINATION TYPE: XR chest 1V DATE OF EXAM: 01/01/2017 HISTORY: pneumonia. REFERENCE: Previous study dated 12/31/2016. FINDINGS: The patient's NG tube, ET tube and right internal jugular catheter remain in place, unchang ed in appearance. There is continuing right basilar airspace disease. There is a right-sided effusion. The left lung is clear. The heart size is obscured. IMPRESSION: 1. RIGHT BASILAR AIRSPACE DISEASE. 2. RIGHT-SIDED EFFUSION. THESE FINDINGS ARE ESSENTIALLY UNCHANGED FROM PREVIOUS.
[2017-01-01 08:48] LABS: Glucose,Whole Blood 151 mg/dL (75-99)
[2017-01-01] MEDS: CITALOPRAM HYDROBROMIDE 20 MG TAB PO SCH (09:16)
[2017-01-01] MEDS: CHLORHEXIDINE GLUCONATE 15 ML CUP MUCOUS MEM SCH ×2 (09:16→20:31)
[2017-01-01] MEDS: CISATRACURIUM 200 MG in SODIUM CHLORIDE 0.9% 180 ML IV SCH (10:39)
--- NOTE | 2017-01-01 11:27 | US ---
FLUOROSCOPY 36 seconds of fluoroscopy time were utilized during internal fixation of the right shoulder. 2 images document the procedure.
--- NOTE | 2017-01-01 11:31 | P.PN ---
Subjective A 46-year-old male patient who presented emergency department this morning because of severe pleuritic right-sided chest pain, fever and cough that's been going on for the past few days. His temperature today was 100.3. He also stated that he has been having cough for the past 24-48 hours without any significant sputum production. He started of her way having some pleuritic chest pain on the right and the pain got severely worse as the day went by to the point where he was having apparent there was 10 out of 10 this this morning. The patient denies having any hemoptysis. No previous history of pneumonia. The patient has history of DVT and the patient has been maintained on Xarelto on outpatient basis. He is a chronic every day smoker. In the emergency department, the patient was found to have a temperature over 1.6. He was tachycardic with a heart rate of 113. He is supposed pulse ox on 4 L was around 94 percent. He had significant leukocytosis with a white cell count 22, 000 and his chest x-ray showed bullous emphysema involving the right upper lobe and extensive right lung consolidation and possibly a small right-sided pleural effusion. Some limited left basilar infiltrates was also seen. The patient was started on broad-spectrum antibiotics. He was given IV Levaquin and vancomycin and subsequently was admitted to the medical floor. I was asked to develop this patient by Dr. Palma 90 the patient was getting increasingly short of breath and he was having pain over the right side of the chest. He was given Dilaudid for pain control with limited success. Subsequently became more tachypneic, diaphoretic, abdomen was getting progressively more distended, he was brought into the intensive care unit and subsequently was intubated and placed on a mechanical ventilator. At this point in time the patient is sedated with Diprivan, paralyzed on Nimbex, on assist control mode of ventilation at the rate of 26, tidal volume 400, FiO2 of 100% and a PEEP of 5. His blood gases show a pH of 7.27 with a pCO2 of 50 and pO2 of 80. This was done and FiO2 of 100% with a PEEP of 5. His chest x-ray post intubation showed worsening of the right lung consolidation with increased atelectasis and possibly effusion. There is also some infiltration and effusion the left lung base. Bullous emphysema can be seen bilaterally more so on the right upper lobe. A CAT scan of the chest was also done and showed moderate to severe upper lobe emphysematous changes right more than left. A moderate-sized right- sided pleural effusion measuring 7.2 cm in size with compressive atelectasis of the right lung base and consolidation of the right lower lobe. Another 1.1 cm nonspecific pulmonary nodules seen in the left upper lobe and there is a small left-sided pleural effusion. I interviewed the and the mother. Apparently the patient was having a tooth abscess and he had seen a dentist approximately 4 weeks ago. He was placed on antibiotics for total of 2 weeks and he was supposed to have a tooth extraction following that. His been off antibiotics for another 2 weeks for now. He denied having any facial swelling or pain recently. No travel history. No exposure to hot tubs or any other contaminated water sources. No sensory of substance abuse. No alcoholism. No immunosuppression. He has history of depression and possibly component of PTSD as the patient is a . No skin rashes. No other sick contacts. He lives with his and he has no children, dogs at home. On 12/30/2016 I'm seeing this patient in follow-up. As mentioned earlier, the patient came in with an extensive right lung pneumonia currently is intubated on a mechanical ventilator and is sedated and paralyzed. Earlier this morning the patient was in a Diprivan drip at 50 mics and the patient was also on a Nimbex drip for paralysis. He is an assist-control mode of ventilation at the rate of 26, tidal volume 400, FiO2 was at 100% PEEP at 12. The blood gases from this morning showed a pH of 7.24 with pCO2 of 62 and pO2 of 76. Chest x- ray shows extensive consolidation of the right lower lobe and early pneumonic changes in the left lower lobe. ET tube was in a good location. OG tube was in a good location. Triple-lumen catheter was also noted that location. No evidence of any pneumothorax. Peak pressures around 28. Based on this, increase the PEEP up to 14 and gradually wean down the FiO2 down to 80% and currently is down to 70%. Pulse ox is in the order of 91-92%. Hemodynamically the patient is on normal saline infusion rate of 100 mL an hour. Urine output is adequate in the order of 60 mL an hour, white cell count is elevated at 23.7. Bronchoscopy and bronchial lavage of the right lung was done and the results are still pending for now. Meanwhile, the patient is covered with a combination of Zosyn, vancomycin and Levaquin. ID is on the case. All of the blood cultures are negative for now. He is on no pressors. Artline cath is inserted in the right radial artery. He is on and off requiring Dilaudid for pain control. On 12/31/2016 the patient is being seen in follow-up. Not much of a change in his condition in general over the past 24 hours. He did have a drop in his urine output and his creatinine doubled it up to 1.3. Note that his blood pressure was also fluctuating and he became borderline hypotensive. Based on that, the patient was given levo fed and currently norepinephrine infusion is running at 1-2 mics to maintain a mean artery pressure above 65. Meanwhile, his urine output improved and is currently producing more than 30 mL an hour. He is still on mechanical ventilator on assist control with the same vent settings. The FiO2 was dropped down to 60% and is still on a tidal volume 400 today rate of 26 and a PEEP of 14. The chest x-ray a is essentially unchanged. There is an extensive consolidation of the right lower lobe, limited infiltration of the left lung base, a large bullous disease involving the right upper lobe and its tube is in a good location. The patient's became a pressures ranging between 28-32. No significant orotracheal secretions. Legionella urine antigen was negative. Bronchioloalveolar lavage and the blood cultures of been all negative thus far. The patient remains on a combination of Zosyn, Levaquin and vancomycin. Lactic acid level from this morning's at 2.6. White cell count is at 27.9. He remains on bronchodilators and systemic steroids. Is tolerating his tube feeds. He is sedated with Diprivan. On and off he becomes asynchronous with a mechanical ventilator and for that reason he was given Dilaudid 1 mg which is requiring every 1-2 hours. Based on that I have ordered a fentanyl drip. We'll try to avoid paralytics if possible. On 01/01/2017 I'm seeing this patient in follow-up. He remains intubated on a mechanical ventilator. He is on a PEEP of 14 and FiO2 of 50% with unable to wean down the FiO2 any further. Based on that I performed another CAT scan of the chest yesterday and it showed severe emphysematous changes greater in the right lung apex. In addition there is a large right-sided pleural effusion extending to the right apex. Right basilar atelectasis/infiltrates still seen. Nodular density in the left upper lobe. Based on this, I discussed the case with interventional radiology and this morning the patient will be having a pigtail catheter inserted into the right hemithorax to evacuate the right-sided pleural effusion. Unfortunately no microbial culture has been established on this patient and all of the cultures of been negative. He remains on broad- spectrum antibiotics. On his blood gases there is no much room to wean down his FiO2 or his PEEP any further. His blood gases was reviewed. Chest x-ray stable and showing was emphysema in the right upper lobe and persistent chronic right-sided pleural effusion/infiltrate in the right lung base. Limited infiltration seen in the left which is unchanged. Tolerating tube feeds. Unfortunately is been asynchronous with a mechanical ventilator. He had been sedated aggressively with a combination of Diprivan, fentanyl got added and overnight he had to be also paralyzed to improve his synchrony. At this point in time he remains sedated and paralyzed. Urine output is adequate. On no pressors. Tolerating his tube feeds. Objective - Vital Signs Vital signs: Vital Signs Temp 97.2 F L 01/01/17 08:00 Pulse 94 01/01/17 10:00 Resp 26 H 01/01/17 10:00 BP 153/82 01/01/17 10:00 Pulse Ox 90 L 01/01/17 10:00 Intake & Output 12/31/16 01/01/17 01/01/17 18:59 06:59 18:59 Intake Total 2396.437 2262.709 1109.824 Output Total 835 1115 470 Balance 0128.786 2773.709 639.824 Weight 93.1 kg 93.1 kg Intake: IV 1300 1250 400 Piperacillin-Tazobactam 3 100 50 .375 gm In Dextrose/Water 1 50ml.bag @ 12.5 mls/hr IVPB Q8HR [facility] Rx#: [id number] Sodium Chloride 0.9% 1, 1100 400 000 ml @ 100 mls/hr IV . Q10H [facility] Rx#:[id number] Sodium Chloride 0.9% 1, 1200 100 000 ml @ 50 mls/hr IV . Q20H [facility] Rx#:[id number] Intake, IV Titration 588.437 482.709 549.824 Amount Cisatracurium 200 mg In 0.089 174.824 Sodium Chloride 0.9% 180 ml @ 1 MCG/KG/MIN 5.33 mls/hr IV .Q24H [facility] Rx#: [id number] Norepinephrin 16 mg-0.9% 28.348 16.688 Ns Pmx 16 mg In 250 ml @ Titrate IV .Q0M [facility] Rx#: [id number] Propofol 1,000 mg In 100 300 466.021 ml @ Titrate IV .Q0M [facility] Rx#:[id number] Propofol 1,000 mg In 100 225 ml As IV .[facility] Rx# :[id number] Vancomycin 1,500 mg In 250 Sodium Chloride 0.9% 250 ml @ 125 mls/hr IVPB Q8H [facility] Rx#:[id number] fentaNYL (PF) 2,500 mcg 10 150 In Sodium Chloride 0.9% 200 ml @ 50 MCG/HR 5 mls/ hr IV .Q24H [facility] Rx#: [id number] Tube Feeding 478 440 160 Other 30 90 Output: Urine 835 1115 470 Other: Voiding Method Indwelling Catheter Indwelling Catheter Indwelling Catheter # Bowel Movements 0 ABP, PAP, CO, CI - Last Documented Arterial Blood Pressure 152/69 - Exam Sedated, intubated, paralyzed, nonacute distress.Head exam was generally normal. There was no scleral icterus or corneal arcus. Mucous membranes were moist. Neck is supple and the patient has no JVDs no goiter or neck masses. The right IJ triple catheter in place. Orogastric and tracheal tube are both in place. Lung sounds are markedly diminished in lung bases pressure the right lung base. No significant wheezes or rhonchi. No significant orotracheal secretions.Cardiac exam revealed the PMI to be normally situated and sized. The rhythm was regular and no extrasystoles were noted during several minutes of auscultation. The first and second heart sounds were normal and physiologic splitting of the second heart sound was noted. There were no murmurs, rubs, clicks, or gallops.Abdominal exam revealed normal bowel sounds. The abdomen was soft, non-tender, and without masses, organomegaly, or appreciable enlargement of the abdominal aorta.Examination of the extremities revealed easily palpable radial, femoral and pedal pulses. There was no cyanosis, clubbing or edema. - Labs CBC & Chem 7: 01/01/17 04:55 01/01/17 04:55 Labs: Abnormal Lab Results - Last 24 Hours (Table) 12/29/16 12/31/16 12/31/16 Range/Units 11:36 11:54 13:20 WBC (3.8-10.6) k/uL RBC (4.30-5.90) m/uL Hgb (13.0-17.5) gm/dL Hct (39.0-53.0) % Neutrophils # (1.3-7.7) k/uL Lymphocytes # (1.0-4.8) k/uL ABG pO2 66 L (83-108) mmHg ABG O2 Saturation 93.0 L (94-97) % Chloride (98-107) mmol/L Carbon Dioxide (22-30) mmol/L BUN (9-20) mg/dL Glucose (74-99) mg/dL POC Glucose (mg/dL) 173 H (75-99) mg/dL Magnesium (1.6-2.3) mg/dL Total Protein (6.3-8.2) g/dL Albumin (3.5-5.0) g/dL Mycoplasma pneumon IgG 1.65 H (<=0.90) INDEX 12/31/16 12/31/16 01/01/17 Range/Units 16:51 21:14 00:07 WBC (3.8-10.6) k/uL RBC (4.30-5.90) m/uL Hgb (13.0-17.5) gm/dL Hct (39.0-53.0) % Neutrophils # (1.3-7.7) k/uL Lymphocytes # (1.0-4.8) k/uL ABG pO2 (83-108) mmHg ABG O2 Saturation (94-97) % Chloride (98-107) mmol/L Carbon Dioxide (22-30) mmol/L BUN (9-20) mg/dL Glucose (74-99) mg/dL POC Glucose (mg/dL) 145 H 180 H 174 H (75-99) mg/dL Magnesium (1.6-2.3) mg/dL Total Protein (6.3-8.2) g/dL Albumin (3.5-5.0) g/dL Mycoplasma pneumon IgG (<=0.90) INDEX 01/01/17 01/01/17 01/01/17 Range/Units 04:27 04:55 04:55 WBC 23.9 H (3.8-10.6) k/uL RBC 3.00 L (4.30-5.90) m/uL Hgb 10.4 L (13.0-17.5) gm/dL Hct 29.8 L (39.0-53.0) % Neutrophils # 21.7 H (1.3-7.7) k/uL Lymphocytes # 0.9 L (1.0-4.8) k/uL ABG pO2 (83-108) mmHg ABG O2 Saturation (94-97) % Chloride 110 H (98-107) mmol/L Carbon Dioxide 21 L (22-30) mmol/L BUN 29 H (9-20) mg/dL Glucose 182 H (74-99) mg/dL POC Glucose (mg/dL) 186 H (75-99) mg/dL Magnesium (1.6-2.3) mg/dL Total Protein 5.3 L (6.3-8.2) g/dL Albumin 2.6 L (3.5-5.0) g/dL Mycoplasma pneumon IgG (<=0.90) INDEX 01/01/17 01/01/17 01/01/17 Range/Units 04:55 05:00 08:46 WBC (3.8-10.6) k/uL RBC (4.30-5.90) m/uL Hgb (13.0-17.5) gm/dL Hct (39.0-53.0) % Neutrophils # (1.3-7.7) k/uL Lymphocytes # (1.0-4.8) k/uL ABG pO2 74 L (83-108) mmHg ABG O2 Saturation (94-97) % Chloride (98-107) mmol/L Carbon Dioxide (22-30) mmol/L BUN (9-20) mg/dL Glucose (74-99) mg/dL POC Glucose (mg/dL) 151 H (75-99) mg/dL Magnesium 2.7 H (1.6-2.3) mg/dL Total Protein (6.3-8.2) g/dL Albumin (3.5-5.0) g/dL Mycoplasma pneumon IgG (<=0.90) INDEX Microbiology - Last 24 Hours (Table) 12/29/16 18:42 Gram Stain - Final Sputum Sputum Culture - Final 12/29/16 01:50 Blood Culture - Preliminary Blood No Growth after 72 hours 12/29/16 14:42 Gram Stain - Final Sputum Sputum Culture - Final Assessment and Plan Plan: Assessment 1 right lung pneumonia, severe, rapid interval progression with progressive worsening of the consolidation development of a small right-sided pleural effusion with subsequent acute hypoxic respiratory failure, currently intubated on a mechanical ventilator. Rule out pneumococcal pneumonia. Rule out anaerobic pneumonia possibly from a tooth abscess/aspiration. On 12/30/2016 the patient is being seen in follow-up. The patient remains intubated on a mechanical ventilator, sedated and paralyzed. He is on broad- spectrum antibiotics. No microbial diagnoses been established thus far. The patient is post bronchoscopy and bronchial lavage of the right lower lobe. Cultures of been all negative including the bronchioloalveolar lavage and the blood cultures. Necessary vent changes were done. On 12/31/2016, the patient is in a PEEP of 14 with an FiO2 of 60%. There has been only a modest improvement in his oxygenation and the chest x-ray findings remains essentially unchanged over the cultures of been negative thus far. Remains sedated yet not paralyzed. On 01/01/2017, the patient remains intubated sedated and paralyzed. The plan is to proceed with a pigtail catheter insertion and evacuation of a right-sided pleural effusion with seems to be somewhat loculated. The pleural fluid will be also sent for analysis and I'm hoping that it can be some improvement in his oxygenation and expansion of the right lung with the evacuation of right-sided pleural fluid. He remains on broad-spectrum antibiotics to no microbial cultures of been established at this point. Lovenox is on hold pending the procedure. 2 acute hypoxic respiratory failure, intubated on mechanical ventilator. 3 bullous emphysema with upper lobe emphysematous changes right more than left 4 sepsis secondary to right lung pneumonia, leukocytosis, 5 nonspecific left upper lobe pulmonary nodule measuring 1.1 cm in size 6 recent DVT post-orthopedic intervention on the foot, on Lovenox 7 TIA, history of without any neurological deficits 8 chronic neck and back pain, under the care of pain management 9 tooth abscess, treated with antibiotics on outpatient basis, being followed up by a local dentist, has not undergone tooth extraction. The patient had a CAT scan of the facial bones that showed mild periapical lucency involving the right first maxillary molar tooth and possibly periapical abscess. This is confined to the bone. No evidence of any soft tissue abscess at this point. This was further checked by the dental surgeon and there is no need for any intervention at this point 10 acute kidney injury, nonoliguric. Creatinine is stable at 1.2 Plan Continue sedation with Diprivan. Continue the fentanyl drip. May try to give this patient another paralytic holiday. We'll insert the pigtail catheter. We' ll evacuated the right-sided pleural effusion. We'll send the fluid for Gram stain and culture. Repeat chest x-ray post tube insertion. Assess today lung expansion. Continue antibiotics. Continue steroids. Continue bronchodilators. We'll continue tube feeds. Continue supportive care. Condition remains quite critical at this point. Evaluation was done and more than 30 minutes and the family has been updated on his condition. Lovenox will be restarted after insertion of a pigtail catheter. Time with Patient: Greater than 30
[2017-01-01 12:50] LABS: Glucose,Whole Blood 119 mg/dL (75-99)
[2017-01-01] MEDS: ASPIRIN 81 MG CHEW PO SCH (13:14)
[2017-01-01] MEDS: fentaNYL (PF) 2,500 MCG in SODIUM CHLORIDE 0.9% 200 ML IV SCH (13:14)
--- NOTE | 2017-01-01 13:15 | XR ---
EXAMINATION TYPE: XR chest 1V DATE OF EXAM: 01/01/2017 HISTORY: chest tube placement. REFERENCE: Previous study dated 01/01/2017. FINDINGS: The patient is ET tube, NG tube and right internal jugular catheter remain in place, unchan ged in appearance. There has been interval placement of a pigtail catheter in the right pleural space . The heart remains enlarged. There continues to be right basilar airspace disease. There is a right-si ded effusion. There may be slight improved aeration at the right lung base. IMPRESSION: 1. INTERVAL PLACEMENT OF A PIGTAIL CATHETER IN THE RIGHT PLEURAL SPACE. 2. CONTINUING RIGHT BASILAR AIRSPACE DISEASE. 3. RIGHT-SIDED EFFUSION. 4. CARDIOMEGALY.
[2017-01-01 14:14] LABS: RBC, Body Fluid 15650 /uL
[2017-01-01] MEDS ORDERED: VANCOMYCIN TROUGH DUE 1 EACH MISC MISCELLANE ONE (15:00)
[2017-01-01 16:43] LABS: Glucose,Whole Blood 149 mg/dL (75-99)
--- NOTE | 2017-01-01 17:05 | P.PN ---
Subjective Principal diagnosis: respiratory failure 46-year-old male who has a presumptive diagnosis of underlying emphysema presents to the hospital with a relatively short-term of increasing shortness of breath. The patient relates over the weekend he started to get short of breath. He developed cough and increasing shortness of breath. He then had significant fever and increasing pain to his right chest. The pain became so severe that he no longer was able to hold out at home and presented to the emergency center. There he was evidence of a pain a 10 out of 10 and evidence of significant respiratory distress. Imaging studies revealed evidence of a significant pneumonia as well as a large bleb to the right chest. Effusion was seen. No evidence of pulmonary embolus or of aortic dissection was seen. The patient was brought to the intensive care unit where he is required some sedation for placement of BiPAP. BiPAP has been placed the patient appears to be feeling this. We'll likely be intubated soon. The patient had a significant AA gradient despite the BiPAP. The family does relate to the difficulty with his oral cavity. He apparently has been antibiotic therapy was that of a tooth extraction for an abscess the family denies a history of injection drug use. Significant alcohol use. PTSD from his experience in [place]. No severe illnesses while he was overseas. He has noted the patient developed respiratory failure. Required intubation sedation and mechanical ventilation. He remains intubated he is on a PEEP of 14 and50%FIO2 for his acute lung injury and serious pneumonia The patient is now paralyzed. He required vasopressor therapy that has now resolved. Overall he is with more stability but continues to have extensive pulmonary illness. He is also required fentanyl intravenous. With his pulmonary issues requires significant sedation and paralysis for adequate ventilation. Objective - Vital Signs Vital signs: Vital Signs Temp 97.0 F L 01/01/17 13:00 Pulse 103 H 01/01/17 16:30 Resp 25 H 01/01/17 16:30 BP 164/92 01/01/17 16:30 Pulse Ox 95 01/01/17 16:30 Intake & Output 12/31/16 01/01/17 01/01/17 18:59 06:59 18:59 Intake Total 2396.437 2262.709 2918.723 Output Total 835 1115 2004 Balance 3190.311 7380.709 913.723 Weight 93.1 kg 93.1 kg Intake: IV 1300 1250 1300 Piperacillin-Tazobactam 3 100 50 50 .375 gm In Dextrose/Water 1 50ml.bag @ 12.5 mls/hr IVPB Q8HR [facility] Rx#: [id number] Sodium Chloride 0.9% 1, 1100 1000 000 ml @ 100 mls/hr IV . Q10H [facility] Rx#:[id number] Sodium Chloride 0.9% 1, 1200 100 000 ml @ 50 mls/hr IV . Q20H [facility] Rx#:[id number] Vancomycin 1,500 mg In 250 Sodium Chloride 0.9% 250 ml @ 125 mls/hr IVPB Q12H [facility] Rx#:[id number] Intake, IV Titration 588.437 738.428 4729.723 Amount Cisatracurium 200 mg In 0.089 189.304 Sodium Chloride 0.9% 180 ml @ 1 MCG/KG/MIN 5.33 mls/hr IV .Q24H [facility] Rx#: [id number] Norepinephrin 16 mg-0.9% 28.348 16.688 Ns Pmx 16 mg In 250 ml @ Titrate IV .Q0M [facility] Rx#: [id number] Propofol 1,000 mg In 100 300 466.021 116.669 ml @ Titrate IV .Q0M [facility] Rx#:[id number] Propofol 1,000 mg In 100 600 ml As IV .[facility] Rx# :[id number] Vancomycin 1,500 mg In 250 Sodium Chloride 0.9% 250 ml @ 125 mls/hr IVPB Q8H [facility] Rx#:[id number] fentaNYL (PF) 2,500 mcg 10 332.750 In Sodium Chloride 0.9% 200 ml @ 50 MCG/HR 5 mls/ hr IV .Q24H [facility] Rx#: [id number] Tube Feeding 478 440 320 Other 30 90 60 Output: Chest Tube Drainage 820 Chest Tube Right Lateral 820 Chest Urine 835 1115 1185 Other: Voiding Method Indwelling Catheter Indwelling Catheter Indwelling Catheter # Bowel Movements 0 ABP, PAP, CO, CI - Last Documented Arterial Blood Pressure 152/69 - Exam 46-year-old male who is now intubated sedated and mechanically ventilated HEENT: Anicteric conjunctiva are pink and moist nasal mucosa grossly intact without significant lesions, there is no thrush. Neck: The neck is supple without significant lymphadenopathy or thyromegaly. Lungs: There is symmetrical air entry. Markedly diminished breath sounds in the right base. Dullness the right base. Heart: Regular rate and rhythm with an audible S1-S2, no S3 no S4. There is no significant murmur click or rub, PMI was nondisplaced. Abdomen: Positive bowel sounds soft and nontender without palpable masses or organomegaly. There was no guarding or rebound. Abdomen is not rigid Extremities: The upper extremities have excellent pulses they are symmetric, no significant petechiae or telangiectasia. No splinter hemorrhages were noted. The lower extremities are free from significant edema. The peripheral pulses were 2+ and symmetric. Neuro: Patient is sedated and mechanically ventilated, is again paralyzed with extensive sedation. - Labs CBC & Chem 7: 01/01/17 04:55 01/01/17 04:55 Labs: Abnormal Lab Results - Last 24 Hours (Table) 12/29/16 12/31/16 01/01/17 Range/Units 11:36 21:14 00:07 WBC (3.8-10.6) k/uL RBC (4.30-5.90) m/uL Hgb (13.0-17.5) gm/dL Hct (39.0-53.0) % Neutrophils # (1.3-7.7) k/uL Lymphocytes # (1.0-4.8) k/uL ABG pO2 (83-108) mmHg Chloride (98-107) mmol/L Carbon Dioxide (22-30) mmol/L BUN (9-20) mg/dL Glucose (74-99) mg/dL POC Glucose (mg/dL) 180 H 174 H (75-99) mg/dL Magnesium (1.6-2.3) mg/dL Total Protein (6.3-8.2) g/dL Albumin (3.5-5.0) g/dL Mycoplasma pneumon IgG 1.65 H (<=0.90) INDEX 01/01/17 01/01/17 01/01/17 Range/Units 04:27 04:55 04:55 WBC 23.9 H (3.8-10.6) k/uL RBC 3.00 L (4.30-5.90) m/uL Hgb 10.4 L (13.0-17.5) gm/dL Hct 29.8 L (39.0-53.0) % Neutrophils # 21.7 H (1.3-7.7) k/uL Lymphocytes # 0.9 L (1.0-4.8) k/uL ABG pO2 (83-108) mmHg Chloride 110 H (98-107) mmol/L Carbon Dioxide 21 L (22-30) mmol/L BUN 29 H (9-20) mg/dL Glucose 182 H (74-99) mg/dL POC Glucose (mg/dL) 186 H (75-99) mg/dL Magnesium (1.6-2.3) mg/dL Total Protein 5.3 L (6.3-8.2) g/dL Albumin 2.6 L (3.5-5.0) g/dL Mycoplasma pneumon IgG (<=0.90) INDEX 01/01/17 01/01/17 01/01/17 Range/Units 04:55 05:00 08:46 WBC (3.8-10.6) k/uL RBC (4.30-5.90) m/uL Hgb (13.0-17.5) gm/dL Hct (39.0-53.0) % Neutrophils # (1.3-7.7) k/uL Lymphocytes # (1.0-4.8) k/uL ABG pO2 74 L (83-108) mmHg Chloride (98-107) mmol/L Carbon Dioxide (22-30) mmol/L BUN (9-20) mg/dL Glucose (74-99) mg/dL POC Glucose (mg/dL) 151 H (75-99) mg/dL Magnesium 2.7 H (1.6-2.3) mg/dL Total Protein (6.3-8.2) g/dL Albumin (3.5-5.0) g/dL Mycoplasma pneumon IgG (<=0.90) INDEX 01/01/17 01/01/17 Range/Units 12:47 16:41 WBC (3.8-10.6) k/uL RBC (4.30-5.90) m/uL Hgb (13.0-17.5) gm/dL Hct (39.0-53.0) % Neutrophils # (1.3-7.7) k/uL Lymphocytes # (1.0-4.8) k/uL ABG pO2 (83-108) mmHg Chloride (98-107) mmol/L Carbon Dioxide (22-30) mmol/L BUN (9-20) mg/dL Glucose (74-99) mg/dL POC Glucose (mg/dL) 119 H 149 H (75-99) mg/dL Magnesium (1.6-2.3) mg/dL Total Protein (6.3-8.2) g/dL Albumin (3.5-5.0) g/dL Mycoplasma pneumon IgG (<=0.90) INDEX Microbiology - Last 24 Hours (Table) 12/29/16 18:42 Gram Stain - Final Sputum Sputum Culture - Final 12/29/16 01:50 Blood Culture - Preliminary Blood No Growth after 72 hours Laboratory Results WBC 23.9 k/uL (3.8-10.6) H 01/01/17 04:55 RBC 3.00 m/uL (4.30-5.90) L 01/01/17 04:55 Hgb 10.4 gm/dL (13.0-17.5) L 01/01/17 04:55 Hct 29.8 % (39.0-53.0) L 01/01/17 04:55 MCV 99.5 fL (80.0-100.0) 01/01/17 04:55 MCH 34.7 pg (25.0-35.0) 01/01/17 04:55 MCHC 34.9 g/dL (31.0-37.0) 01/01/17 04:55 RDW 12.7 % (11.5-15.5) 01/01/17 04:55 Plt Count 300 k/uL (150-450) 01/01/17 04:55 Neutrophils % 91 % 01/01/17 04:55 Lymphocytes % 4 % 01/01/17 04:55 Monocytes % 4 % 01/01/17 04:55 Eosinophils % 0 % 01/01/17 04:55 Basophils % 0 % 01/01/17 04:55 Neutrophils # 21.7 k/uL (1.3-7.7) H 01/01/17 04:55 Lymphocytes # 0.9 k/uL (1.0-4.8) L 01/01/17 04:55 Monocytes # 1.0 k/uL (0-1.0) 01/01/17 04:55 Eosinophils # 0.1 k/uL (0-0.7) 01/01/17 04:55 Basophils # 0.0 k/uL (0-0.2) 01/01/17 04:55 PT 9.5 sec (9.0-12.0) 01/01/17 06:15 INR 0.9 (<1.2) 01/01/17 06:15 APTT 31.8 sec (22.0-30.0) H 12/29/16 01:50 D-Dimer 0.82 mg/L FEU (<0.60) H 12/29/16 11:36 Sample Site A-LINE 01/01/17 05:00 ABG pH 7.36 (7.35-7.45) 01/01/17 05:00 ABG pCO2 41 mmHg (35-45) 01/01/17 05:00 ABG pO2 74 mmHg (83-108) L 01/01/17 05:00 ABG HCO3 22 mmol/L (21-25) 01/01/17 05:00 ABG Total CO2 24 mmol/L (19-24) 01/01/17 05:00 ABG O2 Saturation 94.0 % (94-97) 01/01/17 05:00 ABG Base Excess -2.3 mmol/L 01/01/17 05:00 ABG Lactic Acid 2.6 mmol/L (0.5-1.6) H* 12/31/16 05:30 FiO2 50 % 01/01/17 05:00 Sodium 140 mmol/L (137-145) 01/01/17 04:55 Potassium 4.0 mmol/L (3.5-5.1) 01/01/17 04:55 Chloride 110 mmol/L (98-107) H 01/01/17 04:55 Carbon Dioxide 21 mmol/L (22-30) L 01/01/17 04:55 Anion Gap 9 mmol/L 01/01/17 04:55 BUN 29 mg/dL (9-20) H 01/01/17 04:55 Creatinine 1.20 mg/dL (0.66-1.25) 01/01/17 04:55 Est GFR (MDRD) Af Amer >60 (>60 ml/min/1.73 sqM) 01/01/17 04:55 Est GFR (MDRD) Non-Af >60 (>60 ml/min/1.73 sqM) 01/01/17 04:55 Glucose 182 mg/dL (74-99) H 01/01/17 04:55 POC Glucose (mg/dL) 149 mg/dL (75-99) H 01/01/17 16:41 POC Glu Crank Hand ID [email or web address] [email or web address] 01/01/17 16:[address] Glu mg/dL 117 mg/dL 12/30/16 06:00 Hemoglobin A1c 5.7 % (4.2-6.1) 12/30/16 06:00 Plasma Lactic Acid Michael 1.5 mmol/L (0.7-2.0) 12/29/16 11:35 Calcium 8.9 mg/dL (8.4-10.2) 01/01/17 04:55 Phosphorus 3.0 mg/dL (2.5-4.5) 01/01/17 04:55 Magnesium 2.7 mg/dL (1.6-2.3) H 01/01/17 04:55 Total Bilirubin 0.3 mg/dL (0.2-1.3) 01/01/17 04:55 AST 18 U/L (17-59) 01/01/17 04:55 ALT 27 U/L (21-72) 01/01/17 04:55 Alkaline Phosphatase 79 U/L (38-126) 01/01/17 04:55 Total Creatine Kinase 31 U/L (55-170) L 12/29/16 01:50 CK-MB (CK-2) <0.2 ng/mL (0.0-2.4) 12/29/16 01:50 CK-MB (CK-2) Rel Index 12/29/16 01:50 Troponin I <0.012 ng/mL (0.000-0.034) 12/29/16 01:50 Total Protein 5.3 g/dL (6.3-8.2) L 01/01/17 04:55 Albumin 2.6 g/dL (3.5-5.0) L 01/01/17 04:55 [id number] 212.0 mg/dL (99.0-242.0) 12/29/16 11:36 Urine Color Yellow 12/29/16 02:10 Urine Appearance Clear (Clear) 12/29/16 02:10 Urine pH 5.5 (5.0-8.0) 12/29/16 02:10 Ur Specific [place] 1.010 (1.001-1.035) 12/29/16 02:10 Urine Protein Negative (Negative) 12/29/16 02:10 Urine Glucose (UA) Negative (Negative) 12/29/16 02:10 Urine Ketones Negative (Negative) 12/29/16 02:10 Urine Blood Small (Negative) H 12/29/16 02:10 Urine Nitrite Negative (Negative) 12/29/16 02:10 Urine Bilirubin Negative (Negative) 12/29/16 02:10 Urine Urobilinogen <2.0 mg/dL (<2.0) 12/29/16 02:10 Ur Leukocyte Esterase Negative (Negative) 12/29/16 02:10 Urine RBC 2 /hpf (0-5) 12/29/16 02:10 Urine WBC <1 /hpf (0-5) 12/29/16 02:10 Ur Squamous Epith Cells <1 /hpf (0-4) 12/29/16 02:10 Urine Mucus Rare /hpf (None) H 12/29/16 02:10 Fluid Source Pleural 01/01/17 11:15 Fluid Appearance Blood Tinged 01/01/17 11:15 Fluid RBC 52480 /uL 01/01/17 11:15 Fluid Nucleated Cells 71948 /uL 01/01/17 11:15 Fluid Polynuclear WBCs 82 % 01/01/17 11:15 Fluid Mononuclear WBCs 18 % 01/01/17 11:15 Urine Legionella Ag Not detected (Not detected) 12/29/16 14:45 Mycoplasma pneumon IgG 1.65 INDEX (<=0.90) H 12/29/16 11:36 Mycoplasma pneumon IgM 0.56 INDEX (<=0.90) 12/29/16 11:36 Microbiology 12/29/16 18:42 Sputum Gram Stain - Final 12/29/16 18:42 Sputum Sputum Culture - Final 12/29/16 01:50 Blood Blood Culture - Preliminary No Growth after 72 hours 12/29/16 14:42 Sputum Gram Stain - Final 12/29/16 14:42 Sputum Sputum Culture - Final 12/29/16 02:10 Urine,Voided Urine Culture - Final Assessment and Plan (1) Pneumonia Narrative/Plan: 46-year-old male with history of heavy tobacco use who by imaging studies has a large bleb to the right upper zone is evidence of a significant effusion to the right side and pneumonic infiltration. Patient presents with respiratory failure and sepsis from his pneumonia. Cultures are in process. Broad-spectrum antibiotic therapy with Zosyn and Levaquin and vancomycin are given until cultures are available. The patient does have a history of the recent dental work and concerns to a lung abscess or putrid empyema. The patient has had a chest tube placed and is draining a large amount of effusion The patient has respiratory failure has been intubated and is mechanically ventilated. 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 Sputum culture in process after his intubation and is negative at this time. Blood cultures in process and are negative at this time. Significant leukocytosis due to his current sepsis and the utilization of Solu- Medrol for his pulmonary status. Physical exam does not show evidence of significant oral infection. Status: Acute (2) Respiratory failure Status: Acute (3) Empyema of right pleural space Status: Acute
[2017-01-01 19:12] LABS: Cholesterol,BF Source Pleural Fluid; Glucose, BF Source Pleural Fluid
--- NOTE | 2017-01-01 19:45 | PN ---
DATE OF SERVICE: 01/01/2017 This 46-year-old gentleman who was admitted with pneumonia and sepsis also had right pleural effusion. The patient underwent chest tube drainage by Interventional Radiology. The post-procedure chest x-ray showed continuing right basilar airspace disease and right-sided pleural effusion also. Past medical history reviewed. Review of systems could not be taken. Current medications are reviewed and include: 1. [place] 10 mg q.8. 2. Ventolin 2.5 q.i.d. and p.r.n. 3. Aspirin 81 mg daily. 4. Peridex. 5. Celexa. 6. Fentanyl patch. 7. Dilaudid. 8. Ativan. 9. Solu-Medrol 60 IV q.6. 10. Zosyn IV. 11. Vancomycin IV. PHYSICAL EXAM: Patient is mechanically ventilated and sedated. Pulse 100, blood pressure 158/97, respiration 20, temperature normal, pulse ox 95% on 50% FIO2. HEENT: Conjunctivae normal. Oral mucosa moist. NECK: No jugular venous distention. No carotid bruit. No lymph node enlargement. CARDIOVASCULAR: S1, S2 muffled. RESPIRATORY: Breath sounds diminished at the bases. A few scattered rhonchi and crackles. Patient is on mechanical ventilation. ABDOMEN: Soft, non-tender. No mass palpable. LEGS: No edema. No swelling. NERVOUS SYSTEM: Patient is mechanically ventilated and sedated. SKIN: No ulcer, rash, bleeding. LABS AT THIS TIME: WBC 23.9, hemoglobin 10.4. The pleural fluid is mostly WBC. Mycoplasma IgG is elevated. ASSESSMENT: 1. Chronic obstructive pulmonary disease, acute exacerbation, with right lobe pneumonia, possibly mycoplasma pneumonia with severe sepsis and acute hypoxic respiratory failure, possibly aspiration. 2. Acute right pleural effusion, possibly empyema. 3. Status post chest tube drainage. 4. Change in mental status, metabolic encephalopathy. 5. History of nicotine dependence. 6. Cerebrovascular accident history. 7. History of deep vein thrombosis. 8. History of anxiety, depression. 9. Continued ongoing nicotine dependence. RECOMMENDATIONS AND DISCUSSION: I recommend to continue the current medications , continue the monitoring and symptomatic treatment. Continue the chest tube drainage. Continue with mechanical ventilation. Continue with the broad- spectrum IV antibiotics. Prognosis guarded. Discussed with Dr. Riley. Discussed with family. See orders for further details. Further recommendations to follow. MTDD
[2017-01-01 20:34] LABS: Glucose,Whole Blood 173 mg/dL (75-99)
[2017-01-01] MEDS ORDERED: VANCOMYCIN 1,500 MG in SODIUM CHLORIDE 0.9% 250 ML IVPB SCH (22:00)
[2017-01-01 23:46] LABS: Glucose,Whole Blood 140 mg/dL (75-99)
[2017-01-02] MEDS: PROPOFOL 1,000 MG/100 ML VIAL IV SCH ×10 (01:43→23:42)
[2017-01-02] MEDS: SODIUM CHLORIDE 0.9% 1,000 ML IV SCH ×3 (01:44→13:58)
[2017-01-02] MEDS: INSULIN LISPRO (humaLOG) 300 UNIT/3 ML VIAL SQ SCH ×7 (01:44→23:42)
[2017-01-02] MEDS: fentaNYL (PF) 2,500 MCG in SODIUM CHLORIDE 0.9% 200 ML IV SCH (02:16)
[2017-01-02] MEDS: LEVOFLOXACIN 750MG-D5W PMX 750 MG in DEXTROSE/WATER 1 150ML.BAG IVPB SCH (02:19)
[2017-01-02] MEDS: IPRATROPIUM-ALBUTEROL 3 ML NEB INHALATION SCH ×6 (03:17→23:12)
[2017-01-02] MEDS: HYDROmorphone 1 MG/ML 1 ML SYRINGE IVP PRN ×10 (03:28→23:02)
[2017-01-02] MEDS: ARTIFICIAL TEARS-HYPROMELLOSE DROPS 15 ML BTL BOTH EYES SCH ×6 (03:35→23:42)
[2017-01-02 03:37] LABS: Glucose,Whole Blood 160 mg/dL (75-99)
[2017-01-02] MEDS: methylPREDNISolone SOD SUCCI 125 MG/2 ML VIAL IV SCH ×4 (05:07→23:43)
[2017-01-02 05:18] LABS: CH 32.6; CHCM 32.1; HCT 34.3 % (39.0-53.0); HDW 2.93; HGB 11.9 gm/dL (13.0-17.5); Immature Gran Flag Moderate; MCH 35.3 pg (25.0-35.0); MCHC 34.6 g/dL (31.0-37.0); Macrocytosis Slight; Mean Platelet Volume 7.3; RBC 3.36 m/uL (4.30-5.90); RDW 12.9 % (11.5-15.5); WBC (Perox) 27.93
[2017-01-02 05:21] LABS: WBC 27.1 k/uL (3.8-10.6)
[2017-01-02 05:29] LABS: ALT 44 U/L (21-72); AST 25 U/L (17-59); Alkaline Phosphatase 94 U/L (38-126); Anion Gap 10 mmol/L; Blood Urea Nitrogen 36 mg/dL (9-20); Carbon Dioxide 23 mmol/L (22-30); Chloride 110 mmol/L (98-107); Glucose 148 mg/dL (74-99); Magnesium 2.7 mg/dL (1.6-2.3); Non-African American GFR(MDRD) >60 (>60 ml/min/1.73 sqM); Potassium 4.9 mmol/L (3.5-5.1); Sodium 143 mmol/L (137-145); Total Bilirubin 0.4 mg/dL (0.2-1.3)
[2017-01-02 05:30] LABS: INR 0.9 (<1.2); Partial Thromboplastin Time 25.1 sec (22.0-30.0); Prothrombin Time 9.5 sec (9.0-12.0)
[2017-01-02 05:35] LABS: Add Differential Manual Differential
[2017-01-02 05:36] LABS: ABG Base Excess -0.8 mmol/L; ABG HCO3 26 mmol/L (21-25); ABG PCO2 63 mmHg (35-45); ABG PH 7.23 (7.35-7.45); ABG PO2 79 mmHg (83-108); ABG TCO2 28 mmol/L (19-24)
[2017-01-02 05:39] LABS: Manual Review Performed; Nucleated Red Blood Cells 0 /100 WBC (0-0); Total Cells Counted 200
[2017-01-02 05:41] LABS: Toxic Granulation Present
[2017-01-02] MEDS ORDERED: IV VANCOMYCIN PER PHARMACY 1 EACH MISC MISCELLANE PRN (06:35)
--- NOTE | 2017-01-02 07:34 | XR ---
EXAMINATION TYPE: XR chest 1V DATE OF EXAM: 01/02/2017 COMPARISON: Prior chest x-ray 01/01/2017 HISTORY: Chest tube, pneumonia TECHNIQUE: Single frontal view of the chest is obtained. FINDINGS: Endotracheal tube, right jugular central venous catheter, NG tube, right-sided pigtail cat heter are all again noted and are overlying appropriate positions. Emphysematous changes are noted, a s are atelectatic changes again seen. Heart size is stable. Patient is rotated. IMPRESSION: Basilar atelectasis versus pneumonia.
[2017-01-02 08:16] LABS: Glucose,Whole Blood 149 mg/dL (75-99)
[2017-01-02] MEDS: ASPIRIN 81 MG CHEW PO SCH (08:55)
[2017-01-02] MEDS: PIPERACILLIN-TAZOBACTAM 3.375 GM in DEXTROSE/WATER 1 50ML.BAG IVPB SCH ×3 (08:55→23:44)
[2017-01-02] MEDS: CITALOPRAM HYDROBROMIDE 20 MG TAB PO SCH (08:56)
[2017-01-02] MEDS: CHLORHEXIDINE GLUCONATE 15 ML CUP MUCOUS MEM SCH ×2 (08:56→20:17)
[2017-01-02] MEDS ORDERED: VANCOMYCIN TROUGH DUE 1 EACH MISC MISCELLANE ONE (09:00)
[2017-01-02] MEDS: LORazepam 2 MG/ML SYRINGE IV PRN ×2 (09:21→15:07)
--- NOTE | 2017-01-02 11:46 | P.GSCN ---
History of Present Illness Consult date: 01/02/17 Reason for Consult: Placement of tracheostomy and percutaneous endoscopic gastrostomy tube. Requesting physician: Jennifer Riley History of present illness: This is a 46-year-old gentleman who is followed by Dr. Jaspal Sharpe on an outpatient basis. Patient has a past medical history of DVT and takes Xarelto, CVA/TIA, depression, posttraumatic stress disorder and chronic nicotine dependence. He presented to the emergency department here at [facility] on December 24 with complaints of fever of 100.3, a persistent nonproductive cough, right-sided chest pain and shortness of breath. The patient underwent a 2 view chest x-ray which showed right lower lung airspace disease and a small to moderate right pleural effusion. For further evaluation the patient underwent a CT angiogram of his thoracic/abdominal aorta. The CTA showed no evidence of aneurysm of the Thoracic or abdominal aorta, a moderately severe emphysematous changes with a large right sided pleural effusion and basilar atelectasis, and a nonspecific left upper lobe pulmonary nodule measuring 1.1 cm. The patient was subsequently admitted to the hospital for further workup and evaluation and was started on IV antibiotic treatment. The patient became diaphoretic and developed some acute respiratory distress and was subsequently intubated and transferred to the intensive care unit for further medical management and observation. The patient remains intubated at this time and is sedated and paralyzed with propofol, Nimbex and fentanyl drips. The patient also has a history of a tooth abscess and was seen by a dentist about 4 weeks prior to his hospitalization. On an outpatient basis the patient was on oral antibiotics and was scheduled for a tooth extraction. The patient was seen and examined by Dr. Gregorio from oral surgery. The patient also had a pigtail catheter placed to his right pleural space and a right-sided pleural effusion was evacuated. A consultation has been placed for Dr. Gutierrez from cardiothoracic surgery to place a tracheostomy and PEG tube. Review of Systems Review of systems is unobtainable to to the patients sedation and intubation with mechanical ventilator support. Past Medical History Past Medical History: CVA/TIA, Deep Vein Thrombosis (DVT) Additional Past Medical History / Comment(s): 5 TIA approximately 6 years ago without any residual deficits, and recent right foot surgery that was further [place] by development of a DVT in July 2016 and the patient is been maintained on Xarelto, COPD, chronic smoker, depression, PTSD, tooth abscess treated with antibiotics approximately 4-5 weeks ago, chronic back and neck pain being followed up by Dr. Streeter apparently the patient has had undergone nerve ablation in his neck area for pain control. History of Any Multi-Drug Resistant Organisms: None Reported Past Surgical History: Orthopedic Surgery Additional Past Surgical History / Comment(s): Bilateral feet surgery, cervical and lumbar nerve ablation, injection for pain control. 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 No alcohol or recreational drug use. Was in the in [place]. No specific illnesses while he was overseas. No change in the current home environment. 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 Smoking Status: Current every day smoker Past Alcohol Use History: Occasional Additional Past Alcohol Use History / Comment(s): smokes 1 pack a day, started when @ 12 Past Drug Use History: None Reported - Past Family History Father Additional Family Medical History / Comment(s): lung Ca Mother Additional Family Medical History / Comment(s): irregular heart beat Medications and Allergies Home Medications Medication Instructions Recorded Confirmed Type Baclofen 10 mg PO BID 07/16/16 12/29/16 History Citalopram Hydrobromide [CeleXA] 40 mg PO DAILY 07/16/16 12/29/16 History Esomeprazole Magnesium [NexIUM] 40 mg PO DAILY 07/16/16 12/29/16 History Gabapentin [Neurontin] 200 mg PO TID PRN 07/16/16 12/29/16 History HYDROcodone/APAP 10-325MG [[place] 1 tab PO Q8H PRN 07/16/16 12/29/16 History 10-325] Multivitamins, Thera [Multivitamin] 1 tab PO DAILY 07/16/16 12/29/16 History Acetaminophen [Tylenol Extra 500 mg PO DAILY PRN 12/29/16 12/29/16 History Strength] Ammonium Lactate Cream [Lac-Hydrin 1 applic TOPICAL DAILY PRN 12/29/16 12/29/16 History 12% Cream] Clotrimazole Cream [Lotrimin Cream] 1 applic TOPICAL BID 12/29/16 12/29/16 History Mirtazapine [Remeron] 30 mg PO DAILY 12/29/16 12/29/16 History Rivaroxaban [Xarelto] 20 mg PO DAILY 12/29/16 12/29/16 History Allergies Allergy/AdvReac Type Severity Reaction Status Date / Time No Known Allergies Allergy Verified 12/29/16 09:19 Surgical - Exam Vital Signs Temp Pulse Resp BP Pulse Ox 101.6 F H 113 H 20 109/64 84 L 12/29/16 01:37 12/29/16 01:37 12/29/16 01:37 12/29/16 01:37 12/29/16 01:37 - General Patient is currently intubated with mechanical ventilator support. He sedated and paralyzed with Diprivan, fentanyl, and Nimbex. Last documented train-of- four was 2 out of 4. well developed, well nourished - Eyes PERRL - Neck Right IJ triple-lumen in place. no masses, no bruits, trachea midline, no lymphadectomy, no venous distension - Respiratory Lungs are essentially clear throughout, diminished bilateral bases right greater than left. Respirations are symmetrical and unlabored with mechanical ventilator support. Patient remains intubated his current mechanical ventilator settings are AC 26, TV 400, FiO2 50%, PEEP 12. Oxygen saturations are 96% with mechanical ventilator support. Right pigtail catheter in placed to his right chest evacuating thin serosanguineous drainage to a bedside oasis collection device. - Cardiovascular S1-S2, negative for S3, gallop or murmur. Regular rhythm and rate, bedside telemetry showing normal sinus rhythm heart rate 93. - Abdomen Soft, nondistended, no masses or organomegaly. Bowel sounds were positive and hypoactive in all 4 abdominal quadrants. OG tube in place with vital 1.2 Case tube feeding infusing at 40 mL per hour. - Genitourinary Urine is clear yellow, Neely catheter in place for accurate I&O. - Rectum Deferred - Integumentary No cyanosis clubbing or edema. Knee-high DANIEL hose and sequential compression devices in place to his bilateral lower extremities. no rash, no growths, no abnormal pigmentation - Neurologic Currently sedated on propofol and fentanyl drips. Results - Labs 01/02/17 04:55 01/02/17 04:55 Abnormal Lab Results - Last 24 Hours (Table) 01/01/17 01/01/17 01/01/17 Range/Units 12:47 16:41 20:33 WBC (3.8-10.6) k/uL RBC (4.30-5.90) m/uL Hgb (13.0-17.5) gm/dL Hct (39.0-53.0) % MCV (80.0-100.0) fL MCH (25.0-35.0) pg Neutrophils # (Manual) (1.3-7.7) k/uL Monocytes # (Manual) (0-1.0) k/uL ABG pH (7.35-7.45) ABG pCO2 (35-45) mmHg ABG pO2 (83-108) mmHg ABG HCO3 (21-25) mmol/L ABG Total CO2 (19-24) mmol/L ABG O2 Saturation (94-97) % Chloride (98-107) mmol/L BUN (9-20) mg/dL Glucose (74-99) mg/dL POC Glucose (mg/dL) 119 H 149 H 173 H (75-99) mg/dL Phosphorus (2.5-4.5) mg/dL Magnesium (1.6-2.3) mg/dL Total Protein (6.3-8.2) g/dL Albumin (3.5-5.0) g/dL Vancomycin Trough ug/mL 01/01/17 01/02/17 01/02/17 Range/Units 23:43 03:36 04:55 WBC (3.8-10.6) k/uL RBC (4.30-5.90) m/uL Hgb (13.0-17.5) gm/dL Hct (39.0-53.0) % MCV (80.0-100.0) fL MCH (25.0-35.0) pg Neutrophils # (Manual) (1.3-7.7) k/uL Monocytes # (Manual) (0-1.0) k/uL ABG pH (7.35-7.45) ABG pCO2 (35-45) mmHg ABG pO2 (83-108) mmHg ABG HCO3 (21-25) mmol/L ABG Total CO2 (19-24) mmol/L ABG O2 Saturation (94-97) % Chloride 110 H (98-107) mmol/L BUN 36 H (9-20) mg/dL Glucose 148 H (74-99) mg/dL POC Glucose (mg/dL) 140 H 160 H (75-99) mg/dL Phosphorus (2.5-4.5) mg/dL Magnesium 2.7 H (1.6-2.3) mg/dL Total Protein 6.0 L (6.3-8.2) g/dL Albumin 2.9 L (3.5-5.0) g/dL Vancomycin Trough ug/mL 01/02/17 01/02/17 01/02/17 Range/Units 04:55 04:55 04:55 WBC 27.1 H* (3.8-10.6) k/uL RBC 3.36 L (4.30-5.90) m/uL Hgb 11.9 L (13.0-17.5) gm/dL Hct 34.3 L (39.0-53.0) % MCV 102.0 H (80.0-100.0) fL MCH 35.3 H (25.0-35.0) pg Neutrophils # (Manual) 22.0 H (1.3-7.7) k/uL Monocytes # (Manual) 1.9 H (0-1.0) k/uL ABG pH (7.35-7.45) ABG pCO2 (35-45) mmHg ABG pO2 (83-108) mmHg ABG HCO3 (21-25) mmol/L ABG Total CO2 (19-24) mmol/L ABG O2 Saturation (94-97) % Chloride (98-107) mmol/L BUN (9-20) mg/dL Glucose (74-99) mg/dL POC Glucose (mg/dL) (75-99) mg/dL Phosphorus 4.6 H (2.5-4.5) mg/dL Magnesium (1.6-2.3) mg/dL Total Protein (6.3-8.2) g/dL Albumin (3.5-5.0) g/dL Vancomycin Trough 41.0 H* ug/mL 01/02/17 01/02/17 Range/Units 05:26 08:14 WBC (3.8-10.6) k/uL RBC (4.30-5.90) m/uL Hgb (13.0-17.5) gm/dL Hct (39.0-53.0) % MCV (80.0-100.0) fL MCH (25.0-35.0) pg Neutrophils # (Manual) (1.3-7.7) k/uL Monocytes # (Manual) (0-1.0) k/uL ABG pH 7.23 L (7.35-7.45) ABG pCO2 63 H (35-45) mmHg ABG pO2 79 L (83-108) mmHg ABG HCO3 26 H (21-25) mmol/L ABG Total CO2 28 H (19-24) mmol/L ABG O2 Saturation 93.0 L (94-97) % Chloride (98-107) mmol/L BUN (9-20) mg/dL Glucose (74-99) mg/dL POC Glucose (mg/dL) 149 H (75-99) mg/dL Phosphorus (2.5-4.5) mg/dL Magnesium (1.6-2.3) mg/dL Total Protein (6.3-8.2) g/dL Albumin (3.5-5.0) g/dL Vancomycin Trough ug/mL Microbiology - Last 24 Hours (Table) 01/01/17 11:15 Gram Stain - Preliminary Pleural Fluid Body Fluid Culture - Preliminary 12/29/16 01:50 Blood Culture - Preliminary Blood No Growth after 96 hours 01/01/17 11:24 Acid Fast Bacilli Culture - Preliminary Pleural Fluid 12/29/16 18:42 Gram Stain - Final Sputum Sputum Culture - Final Diabetes panel 01/02/17 Range/Units 04:55 Sodium 143 (137-145) mmol/L Potassium 4.9 (3.5-5.1) mmol/L Chloride 110 H (98-107) mmol/L Carbon Dioxide 23 (22-30) mmol/L BUN 36 H (9-20) mg/dL Creatinine 1.10 (0.66-1.25) mg/dL Glucose 148 H (74-99) mg/dL Calcium 9.0 (8.4-10.2) mg/dL AST 25 (17-59) U/L ALT 44 (21-72) U/L Alkaline Phosphatase 94 (38-126) U/L Total Protein 6.0 L (6.3-8.2) g/dL Albumin 2.9 L (3.5-5.0) g/dL Calcium panel 01/02/17 01/02/17 Range/Units 04:55 04:55 Calcium 9.0 (8.4-10.2) mg/dL Phosphorus 4.6 H (2.5-4.5) mg/dL Albumin 2.9 L (3.5-5.0) g/dL Pituitary panel 01/02/17 Range/Units 04:55 Sodium 143 (137-145) mmol/L Potassium 4.9 (3.5-5.1) mmol/L Chloride 110 H (98-107) mmol/L Carbon Dioxide 23 (22-30) mmol/L BUN 36 H (9-20) mg/dL Creatinine 1.10 (0.66-1.25) mg/dL Glucose 148 H (74-99) mg/dL Calcium 9.0 (8.4-10.2) mg/dL Adrenal panel 01/02/17 Range/Units 04:55 Sodium 143 (137-145) mmol/L Potassium 4.9 (3.5-5.1) mmol/L Chloride 110 H (98-107) mmol/L Carbon Dioxide 23 (22-30) mmol/L BUN 36 H (9-20) mg/dL Creatinine 1.10 (0.66-1.25) mg/dL Glucose 148 H (74-99) mg/dL Calcium 9.0 (8.4-10.2) mg/dL Total Bilirubin 0.4 (0.2-1.3) mg/dL AST 25 (17-59) U/L ALT 44 (21-72) U/L Alkaline Phosphatase 94 (38-126) U/L Total Protein 6.0 L (6.3-8.2) g/dL Albumin 2.9 L (3.5-5.0) g/dL - Imaging Chest x-ray: report reviewed, image reviewed CT scan - chest: report reviewed, image reviewed Assessment and Plan (1) Acute respiratory failure with hypoxia Status: Acute (2) History of DVT of lower extremity Status: Acute (3) History of TIA (transient ischemic attack) Status: Acute (4) Abscessed tooth Status: Acute (5) Acute kidney injury Status: Acute (6) Chronic neck and back pain Status: Acute (7) Pneumonia Status: Acute (8) Sepsis Status: Acute Plan: Patient was seen and examined. His chart and diagnostics were reviewed. We will plan for a placement of tracheostomy and PEG tube for 01/04/2017. Comorbid conditions per primary care recommendations. Antibiotic management per infectious disease and pulmonary management per pulmonary medicine recommendations. GI and DVT prophylaxis in place. We will hold his Lovenox prior to his tracheostomy and PEG tube placement on Wednesday morning 01/04/2017. We will place him nothing by mouth after midnight on Wednesday. Time with Patient: Greater than 30
[2017-01-02 12:00] LABS: Glucose,Whole Blood 150 mg/dL (75-99)
--- NOTE | 2017-01-02 12:03 | P.PN ---
Subjective A 46-year-old male patient who presented emergency department this morning because of severe pleuritic right-sided chest pain, fever and cough that's been going on for the past few days. His temperature today was 100.3. He also stated that he has been having cough for the past 24-48 hours without any significant sputum production. He started of her way having some pleuritic chest pain on the right and the pain got severely worse as the day went by to the point where he was having apparent there was 10 out of 10 this this morning. The patient denies having any hemoptysis. No previous history of pneumonia. The patient has history of DVT and the patient has been maintained on Xarelto on outpatient basis. He is a chronic every day smoker. In the emergency department, the patient was found to have a temperature over 1.6. He was tachycardic with a heart rate of 113. He is supposed pulse ox on 4 L was around 94 percent. He had significant leukocytosis with a white cell count 22, 000 and his chest x-ray showed bullous emphysema involving the right upper lobe and extensive right lung consolidation and possibly a small right-sided pleural effusion. Some limited left basilar infiltrates was also seen. The patient was started on broad-spectrum antibiotics. He was given IV Levaquin and vancomycin and subsequently was admitted to the medical floor. I was asked to develop this patient by Dr. Palma 90 the patient was getting increasingly short of breath and he was having pain over the right side of the chest. He was given Dilaudid for pain control with limited success. Subsequently became more tachypneic, diaphoretic, abdomen was getting progressively more distended, he was brought into the intensive care unit and subsequently was intubated and placed on a mechanical ventilator. At this point in time the patient is sedated with Diprivan, paralyzed on Nimbex, on assist control mode of ventilation at the rate of 26, tidal volume 400, FiO2 of 100% and a PEEP of 5. His blood gases show a pH of 7.27 with a pCO2 of 50 and pO2 of 80. This was done and FiO2 of 100% with a PEEP of 5. His chest x-ray post intubation showed worsening of the right lung consolidation with increased atelectasis and possibly effusion. There is also some infiltration and effusion the left lung base. Bullous emphysema can be seen bilaterally more so on the right upper lobe. A CAT scan of the chest was also done and showed moderate to severe upper lobe emphysematous changes right more than left. A moderate-sized right- sided pleural effusion measuring 7.2 cm in size with compressive atelectasis of the right lung base and consolidation of the right lower lobe. Another 1.1 cm nonspecific pulmonary nodules seen in the left upper lobe and there is a small left-sided pleural effusion. I interviewed the and the mother. Apparently the patient was having a tooth abscess and he had seen a dentist approximately 4 weeks ago. He was placed on antibiotics for total of 2 weeks and he was supposed to have a tooth extraction following that. His been off antibiotics for another 2 weeks for now. He denied having any facial swelling or pain recently. No travel history. No exposure to hot tubs or any other contaminated water sources. No sensory of substance abuse. No alcoholism. No immunosuppression. He has history of depression and possibly component of PTSD as the patient is a . No skin rashes. No other sick contacts. He lives with his and he has no children, dogs at home. On 12/30/2016 I'm seeing this patient in follow-up. As mentioned earlier, the patient came in with an extensive right lung pneumonia currently is intubated on a mechanical ventilator and is sedated and paralyzed. Earlier this morning the patient was in a Diprivan drip at 50 mics and the patient was also on a Nimbex drip for paralysis. He is an assist-control mode of ventilation at the rate of 26, tidal volume 400, FiO2 was at 100% PEEP at 12. The blood gases from this morning showed a pH of 7.24 with pCO2 of 62 and pO2 of 76. Chest x- ray shows extensive consolidation of the right lower lobe and early pneumonic changes in the left lower lobe. ET tube was in a good location. OG tube was in a good location. Triple-lumen catheter was also noted that location. No evidence of any pneumothorax. Peak pressures around 28. Based on this, increase the PEEP up to 14 and gradually wean down the FiO2 down to 80% and currently is down to 70%. Pulse ox is in the order of 91-92%. Hemodynamically the patient is on normal saline infusion rate of 100 mL an hour. Urine output is adequate in the order of 60 mL an hour, white cell count is elevated at 23.7. Bronchoscopy and bronchial lavage of the right lung was done and the results are still pending for now. Meanwhile, the patient is covered with a combination of Zosyn, vancomycin and Levaquin. ID is on the case. All of the blood cultures are negative for now. He is on no pressors. Artline cath is inserted in the right radial artery. He is on and off requiring Dilaudid for pain control. On 12/31/2016 the patient is being seen in follow-up. Not much of a change in his condition in general over the past 24 hours. He did have a drop in his urine output and his creatinine doubled it up to 1.3. Note that his blood pressure was also fluctuating and he became borderline hypotensive. Based on that, the patient was given levo fed and currently norepinephrine infusion is running at 1-2 mics to maintain a mean artery pressure above 65. Meanwhile, his urine output improved and is currently producing more than 30 mL an hour. He is still on mechanical ventilator on assist control with the same vent settings. The FiO2 was dropped down to 60% and is still on a tidal volume 400 today rate of 26 and a PEEP of 14. The chest x-ray a is essentially unchanged. There is an extensive consolidation of the right lower lobe, limited infiltration of the left lung base, a large bullous disease involving the right upper lobe and its tube is in a good location. The patient's became a pressures ranging between 28-32. No significant orotracheal secretions. Legionella urine antigen was negative. Bronchioloalveolar lavage and the blood cultures of been all negative thus far. The patient remains on a combination of Zosyn, Levaquin and vancomycin. Lactic acid level from this morning's at 2.6. White cell count is at 27.9. He remains on bronchodilators and systemic steroids. Is tolerating his tube feeds. He is sedated with Diprivan. On and off he becomes asynchronous with a mechanical ventilator and for that reason he was given Dilaudid 1 mg which is requiring every 1-2 hours. Based on that I have ordered a fentanyl drip. We'll try to avoid paralytics if possible. On 01/01/2017 I'm seeing this patient in follow-up. He remains intubated on a mechanical ventilator. He is on a PEEP of 14 and FiO2 of 50% with unable to wean down the FiO2 any further. Based on that I performed another CAT scan of the chest yesterday and it showed severe emphysematous changes greater in the right lung apex. In addition there is a large right-sided pleural effusion extending to the right apex. Right basilar atelectasis/infiltrates still seen. Nodular density in the left upper lobe. Based on this, I discussed the case with interventional radiology and this morning the patient will be having a pigtail catheter inserted into the right hemithorax to evacuate the right-sided pleural effusion. Unfortunately no microbial culture has been established on this patient and all of the cultures of been negative. He remains on broad- spectrum antibiotics. On his blood gases there is no much room to wean down his FiO2 or his PEEP any further. His blood gases was reviewed. Chest x-ray stable and showing was emphysema in the right upper lobe and persistent chronic right-sided pleural effusion/infiltrate in the right lung base. Limited infiltration seen in the left which is unchanged. Tolerating tube feeds. Unfortunately is been asynchronous with a mechanical ventilator. He had been sedated aggressively with a combination of Diprivan, fentanyl got added and overnight he had to be also paralyzed to improve his synchrony. At this point in time he remains sedated and paralyzed. Urine output is adequate. On no pressors. Tolerating his tube feeds. Patient is seen again today 01/02/2017 in follow-up in the intensive care unit. He remains intubated and on the mechanical ventilator. Current settings are assist control of 26, tidal volume 400, FiO2 of 50% and a PEEP of 12. Morning arterial blood gases revealed a O2 of 79, pCO2 63 and a pH of 7.23. His chest x -ray reveals basilar atelectasis. Nodular density in the left upper lobe. He remains sedated on propofol 75 mcg/kg/m, fentanyl at 75 mcg/h and Nimbex at 2 g/ kg/m. He is also requiring intermittent Dilaudid and Ativan. He has a 0.9 normal saline at 100 mL per hour. Not requiring any pressors. He's been somewhat hypertensive. He is tolerating his tube feedings of Vital at 40 mL per hour which is goal. The right chest pigtail catheter drainage at approximately 1 L in total. His urine output remains adequate greater than 100 MLS per hour. Cultures of the blood urine and sputum thus far are showing no growth. Pleural fluid results are pending. Cytology pending. White count 27.1. He has been afebrile. He is continued on Zosyn, Levaquin and vancomycin. Objective - Vital Signs Vital signs: Vital Signs Temp 98.5 F 01/02/17 09:00 Pulse 93 01/02/17 11:46 Resp 26 H 01/02/17 11:00 BP 158/84 01/02/17 11:00 Pulse Ox 95 01/02/17 11:00 Intake & Output 01/01/17 01/02/17 01/02/17 18:59 06:59 18:59 Intake Total 3498.723 2336.838 890 Output Total 2250 1882 660 Balance 1248.723 454.838 230 Weight 93.1 kg 92.7 kg Intake: IV 1550 1200 550 Piperacillin-Tazobactam 3 100 50 .375 gm In Dextrose/Water 1 50ml.bag @ 12.5 mls/hr IVPB Q8HR [facility] Rx#: [id number] Sodium Chloride 0.9% 1, 1100 1200 500 000 ml @ 100 mls/hr IV . Q10H [facility] Rx#:[id number] Sodium Chloride 0.9% 1, 100 000 ml @ 50 mls/hr IV . Q20H [facility] Rx#:[id number] Vancomycin 1,500 mg In 250 Sodium Chloride 0.9% 250 ml @ 125 mls/hr IVPB Q12H [facility] Rx#:[id number] Intake, IV Titration 1488.723 576.838 100 Amount Cisatracurium 200 mg In 189.304 23.985 Sodium Chloride 0.9% 180 ml @ 1 MCG/KG/MIN 5.33 mls/hr IV .Q24H [facility] Rx#: [id number] Propofol 1,000 mg In 100 216.669 455.353 100 ml @ Titrate IV .Q0M [facility] Rx#:[id number] Propofol 1,000 mg In 100 750 ml As IV .[facility] Rx# :[id number] fentaNYL (PF) 2,500 mcg 332.750 97.5 In Sodium Chloride 0.9% 200 ml @ 50 MCG/HR 5 mls/ hr IV .Q24H [facility] Rx#: [id number] Tube Feeding 400 560 240 Other 60 Output: Chest Tube Drainage 890 560 30 Chest Tube Right Lateral 890 560 30 Chest Urine 1360 1322 630 Other: Voiding Method Indwelling Catheter Indwelling Catheter Indwelling Catheter # Bowel Movements 0 ABP, PAP, CO, CI - Last Documented Arterial Blood Pressure 152/69 - Exam Sedated, intubated, paralyzed, nonacute distress.Head exam was generally normal. There was no scleral icterus or corneal arcus. Mucous membranes were moist. Neck is supple and the patient has no JVDs no goiter or neck masses. The right IJ triple catheter in place. Orogastric and tracheal tube are both in place. Lung sounds are markedly diminished in lung bases pressure the right lung base. No significant wheezes or rhonchi. No significant orotracheal secretions.Cardiac exam revealed the PMI to be normally situated and sized. The rhythm was regular and no extrasystoles were noted during several minutes of auscultation. The first and second heart sounds were normal and physiologic splitting of the second heart sound was noted. There were no murmurs, rubs, clicks, or gallops.Abdominal exam revealed normal bowel sounds. The abdomen was soft, non-tender, and without masses, organomegaly, or appreciable enlargement of the abdominal aorta.Examination of the extremities revealed easily palpable radial, femoral and pedal pulses. There was no cyanosis, clubbing or edema. - Labs CBC & Chem 7: 01/02/17 04:55 01/02/17 04:55 Labs: Abnormal Lab Results - Last 24 Hours (Table) 01/01/17 01/01/17 01/01/17 Range/Units 12:47 16:41 20:33 WBC (3.8-10.6) k/uL RBC (4.30-5.90) m/uL Hgb (13.0-17.5) gm/dL Hct (39.0-53.0) % MCV (80.0-100.0) fL MCH (25.0-35.0) pg Neutrophils # (Manual) (1.3-7.7) k/uL Monocytes # (Manual) (0-1.0) k/uL ABG pH (7.35-7.45) ABG pCO2 (35-45) mmHg ABG pO2 (83-108) mmHg ABG HCO3 (21-25) mmol/L ABG Total CO2 (19-24) mmol/L ABG O2 Saturation (94-97) % Chloride (98-107) mmol/L BUN (9-20) mg/dL Glucose (74-99) mg/dL POC Glucose (mg/dL) 119 H 149 H 173 H (75-99) mg/dL Phosphorus (2.5-4.5) mg/dL Magnesium (1.6-2.3) mg/dL Total Protein (6.3-8.2) g/dL Albumin (3.5-5.0) g/dL Vancomycin Trough ug/mL 01/01/17 01/02/17 01/02/17 Range/Units 23:43 03:36 04:55 WBC (3.8-10.6) k/uL RBC (4.30-5.90) m/uL Hgb (13.0-17.5) gm/dL Hct (39.0-53.0) % MCV (80.0-100.0) fL MCH (25.0-35.0) pg Neutrophils # (Manual) (1.3-7.7) k/uL Monocytes # (Manual) (0-1.0) k/uL ABG pH (7.35-7.45) ABG pCO2 (35-45) mmHg ABG pO2 (83-108) mmHg ABG HCO3 (21-25) mmol/L ABG Total CO2 (19-24) mmol/L ABG O2 Saturation (94-97) % Chloride 110 H (98-107) mmol/L BUN 36 H (9-20) mg/dL Glucose 148 H (74-99) mg/dL POC Glucose (mg/dL) 140 H 160 H (75-99) mg/dL Phosphorus (2.5-4.5) mg/dL Magnesium 2.7 H (1.6-2.3) mg/dL Total Protein 6.0 L (6.3-8.2) g/dL Albumin 2.9 L (3.5-5.0) g/dL Vancomycin Trough ug/mL 01/02/17 01/02/17 01/02/17 Range/Units 04:55 04:55 04:55 WBC 27.1 H* (3.8-10.6) k/uL RBC 3.36 L (4.30-5.90) m/uL Hgb 11.9 L (13.0-17.5) gm/dL Hct 34.3 L (39.0-53.0) % MCV 102.0 H (80.0-100.0) fL MCH 35.3 H (25.0-35.0) pg Neutrophils # (Manual) 22.0 H (1.3-7.7) k/uL Monocytes # (Manual) 1.9 H (0-1.0) k/uL ABG pH (7.35-7.45) ABG pCO2 (35-45) mmHg ABG pO2 (83-108) mmHg ABG HCO3 (21-25) mmol/L ABG Total CO2 (19-24) mmol/L ABG O2 Saturation (94-97) % Chloride (98-107) mmol/L BUN (9-20) mg/dL Glucose (74-99) mg/dL POC Glucose (mg/dL) (75-99) mg/dL Phosphorus 4.6 H (2.5-4.5) mg/dL Magnesium (1.6-2.3) mg/dL Total Protein (6.3-8.2) g/dL Albumin (3.5-5.0) g/dL Vancomycin Trough 41.0 H* ug/mL 01/02/17 01/02/17 Range/Units 05:26 08:14 WBC (3.8-10.6) k/uL RBC (4.30-5.90) m/uL Hgb (13.0-17.5) gm/dL Hct (39.0-53.0) % MCV (80.0-100.0) fL MCH (25.0-35.0) pg Neutrophils # (Manual) (1.3-7.7) k/uL Monocytes # (Manual) (0-1.0) k/uL ABG pH 7.23 L (7.35-7.45) ABG pCO2 63 H (35-45) mmHg ABG pO2 79 L (83-108) mmHg ABG HCO3 26 H (21-25) mmol/L ABG Total CO2 28 H (19-24) mmol/L ABG O2 Saturation 93.0 L (94-97) % Chloride (98-107) mmol/L BUN (9-20) mg/dL Glucose (74-99) mg/dL POC Glucose (mg/dL) 149 H (75-99) mg/dL Phosphorus (2.5-4.5) mg/dL Magnesium (1.6-2.3) mg/dL Total Protein (6.3-8.2) g/dL Albumin (3.5-5.0) g/dL Vancomycin Trough ug/mL Microbiology - Last 24 Hours (Table) 01/01/17 11:15 Gram Stain - Preliminary Pleural Fluid Body Fluid Culture - Preliminary 12/29/16 01:50 Blood Culture - Preliminary Blood No Growth after 96 hours 01/01/17 11:24 Acid Fast Bacilli Culture - Preliminary Pleural Fluid 12/29/16 18:42 Gram Stain - Final Sputum Sputum Culture - Final Assessment and Plan Plan: Assessment 1 right lung pneumonia, severe, rapid interval progression with progressive worsening of the consolidation development of a small right-sided pleural effusion with subsequent acute hypoxic respiratory failure, currently intubated on a mechanical ventilator. Rule out pneumococcal pneumonia. Rule out anaerobic pneumonia possibly from a tooth abscess/aspiration. On 12/30/2016 the patient is being seen in follow-up. The patient remains intubated on a mechanical ventilator, sedated and paralyzed. He is on broad- spectrum antibiotics. No microbial diagnoses been established thus far. The patient is post bronchoscopy and bronchial lavage of the right lower lobe. Cultures of been all negative including the bronchioloalveolar lavage and the blood cultures. Necessary vent changes were done. On 12/31/2016, the patient is in a PEEP of 14 with an FiO2 of 60%. There has been only a modest improvement in his oxygenation and the chest x-ray findings remains essentially unchanged over the cultures of been negative thus far. Remains sedated yet not paralyzed. On 01/01/2017, the patient remains intubated sedated and paralyzed. The plan is to proceed with a pigtail catheter insertion and evacuation of a right-sided pleural effusion with seems to be somewhat loculated. The pleural fluid will be also sent for analysis and I'm hoping that it can be some improvement in his oxygenation and expansion of the right lung with the evacuation of right-sided pleural fluid. He remains on broad-spectrum antibiotics to no microbial cultures of been established at this point. Lovenox is on hold pending the procedure. On 01/02/2017, the patient remains intubated sedated and paralyzed. He did receive a pigtail catheter insertion to the right sided pleural effusion with approximate 1 L removed. Fluid analysis and cytology are pending. Lovenox resumed. 2 acute hypoxic respiratory failure, intubated on mechanical ventilator. 3 bullous emphysema with upper lobe emphysematous changes right more than left 4 sepsis secondary to right lung pneumonia, leukocytosis, 5 nonspecific left upper lobe pulmonary nodule measuring 1.1 cm in size 6 recent DVT post-orthopedic intervention on the foot, on Lovenox 7 TIA, history of without any neurological deficits 8 chronic neck and back pain, under the care of pain management 9 tooth abscess, treated with antibiotics on outpatient basis, being followed up by a local dentist, has not undergone tooth extraction. The patient had a CAT scan of the facial bones that showed mild periapical lucency involving the right first maxillary molar tooth and possibly periapical abscess. This is confined to the bone. No evidence of any soft tissue abscess at this point. This was further checked by the dental surgeon and there is no need for any intervention at this point 10 acute kidney injury, nonoliguric. Creatinine is stable at 1.1 Plan The patient was seen and evaluated by Dr. Stephenson. His chest x-ray and labs were reviewed. We'll continue with his current medications for now. The patient continues to require high amounts of propofol, fentanyl and Nimbex to allow for synchrony with the vent. His pO2 is improved today as compared to yesterday. Will continue with the pigtail to suction to continue to drain the right lower lobe pleural effusion. We'll await further culture results. ID is on the case as well. If there is no significant improvement the plan is for tracheostomy tube placement and PEG tube placement. The family was updated again today. Critical care care time 35 minutes.
[2017-01-02 12:15] LABS: LDH, Body Fluid Source Pleural Fluid; T. Protein, Body Fluid Source Pleural Fluid; Total Protein, Body Fluid 3800 mg/dL
[2017-01-02] MEDS: ENOXAPARIN 40 MG/0.4 ML SYRINGE SQ SCH (13:01)
[2017-01-02] MEDS: ESOMEPRAZOLE 20 MG in SODIUM CHLORIDE 0.9% 50 ML IVPB SCH (13:02)
[2017-01-02] MEDS ORDERED: FUROSEMIDE 10 MG/ML 2 ML VIAL IV ONE (13:41)
[2017-01-02 16:17] LABS: Glucose,Whole Blood 172 mg/dL (75-99)
--- NOTE | 2017-01-02 19:04 | PN ---
DATE OF SERVICE: This 46-year-old gentleman who was admitted with pneumonia, sepsis, also had empyema also. The patient had chest tube drainage. The patient on mechanical ventilation. The patient on broad spectrum IV antibiotics. IgG is positive. Past medical history reviewed. Review of system: Could not be obtained. The patient mechanically ventilated and sedated. The patient on PEEP of 10. Current medications are reviewed and include and doses reviewed: 1. [place] 10 mg q.8h prn 2. Ventolin. 3. DuoNeb q.i.d. and prn. 4. Aspirin 81 mg daily. 5. Peridex 15 mL daily. 6. Nimbex. 7. Celexa 40 mg daily. 8. Lovenox 40 mg subcu daily. 9. Nexium 20 mg daily. 10. Fentanyl patch. 12. Dilaudid. 13. Levaquin. 14. Solu-Medrol 60 IV q6h. 15. Replacement protocols. 16. Zosyn IV. PHYSICAL EXAMINATION: The patient mechanically ventilated and sedated. Pulse 86. Blood pressure 129/74, respiratory rate 24, Temperature 97.4. Pulse ox 97 % on 50% mechanical ventilation. Vent settings noted that is 450, 10 of PEEP. HEENT: Conjunctivae normal. Oral mucosa moist. NECK: No JVD. No carotid bruit. No lymph node enlargement. Cardiovascular: S1, S2 muffled. Respiratory : Breath sounds diminished at the bases. A few scattered rhonchi and crackles. Expiratory wheezing also present. Abdomen soft. Mild diffuse distention. Legs, no edema. No swelling. Nervous system: No focal deficits. Labs: WBC 27.9, hemoglobin 11.9. ASSESSMENT: 1. Chronic obstructive pulmonary disease acute exacerbation with right lower lobe pneumonia, possibly community acquired with severe sepsis and acute hypoxic respiratory failure with possible aspiration. 2. Mechanical ventilation. 3. Acute right pleural effusion, possible empyema, status post chest tube drainage. 4. Change in mental status, metabolic encephalopathy. 5. History of nicotine dependence. 6. History of cerebrovascular accident. 7. Deep venous thrombosis. 8. Anxiety depression. 9. Continued ongoing nicotine dependence. RECOMMENDATIONS AND DISCUSSION: Recommend to continue the current medications. Continue with monitoring and symptomatic treatment. Otherwise, at this time, I would recommend continue with mechanical ventilation. Continue with antibiotics. Mycoplasma IgG is positive. Further recommendations to follow. MTDD
[2017-01-02 20:17] LABS: Glucose,Whole Blood 172 mg/dL (75-99)
[2017-01-02] MEDS: CISATRACURIUM 200 MG in SODIUM CHLORIDE 0.9% 180 ML IV SCH (20:17)
[2017-01-02] MEDS: LABETALOL 5 MG/ML VIAL MDV IVP PRN (22:59)
[2017-01-02 23:42] LABS: Glucose,Whole Blood 153 mg/dL (75-99)
[2017-01-03] MEDS: fentaNYL (PF) 2,500 MCG in SODIUM CHLORIDE 0.9% 200 ML IV SCH ×2 (00:33→22:27)
[2017-01-03] MEDS: HYDROmorphone 1 MG/ML 1 ML SYRINGE IVP PRN ×8 (01:35→21:27)
[2017-01-03] MEDS: PROPOFOL 1,000 MG/100 ML VIAL IV SCH ×9 (02:04→22:27)
[2017-01-03] MEDS: LORazepam 2 MG/ML SYRINGE IV PRN ×3 (02:19→21:27)
[2017-01-03] MEDS: LEVOFLOXACIN 750MG-D5W PMX 750 MG in DEXTROSE/WATER 1 150ML.BAG IVPB SCH (02:51)
[2017-01-03] MEDS: LABETALOL 5 MG/ML VIAL MDV IVP PRN ×4 (02:51→19:20)
[2017-01-03] MEDS: IPRATROPIUM-ALBUTEROL 3 ML NEB INHALATION SCH ×6 (03:35→23:02)
[2017-01-03 04:31] LABS: Glucose,Whole Blood 173 mg/dL (75-99)
[2017-01-03] MEDS: INSULIN LISPRO (humaLOG) 300 UNIT/3 ML VIAL SQ SCH ×5 (04:31→21:45)
[2017-01-03] MEDS: ARTIFICIAL TEARS-HYPROMELLOSE DROPS 15 ML BTL BOTH EYES SCH ×5 (04:31→21:27)
[2017-01-03 04:46] LABS: CHCM 32.6; HCT 36.1 % (39.0-53.0); HDW 2.86; HGB 12.2 gm/dL (13.0-17.5); Immature Gran Flag Marked; MCH 34.3 pg (25.0-35.0); MCHC 33.7 g/dL (31.0-37.0); MCV 101.8 fL (80.0-100.0); Macrocytosis Slight; Mean Platelet Volume 7.9; RBC 3.54 m/uL (4.30-5.90); RDW 13.4 % (11.5-15.5); WBC 24.1 k/uL (3.8-10.6); WBC (Perox) 23.58
[2017-01-03 05:01] LABS: ALT 47 U/L (21-72); AST 33 U/L (17-59); Alkaline Phosphatase 96 U/L (38-126); Anion Gap 11 mmol/L; Blood Urea Nitrogen 45 mg/dL (9-20); Calcium 9.4 mg/dL (8.4-10.2); Carbon Dioxide 24 mmol/L (22-30); Chloride 110 mmol/L (98-107); Glucose 167 mg/dL (74-99); Magnesium 2.7 mg/dL (1.6-2.3); Non-African American GFR(MDRD) >60 (>60 ml/min/1.73 sqM); Phosphorous 3.5 mg/dL (2.5-4.5); Potassium 4.6 mmol/L (3.5-5.1); Sodium 145 mmol/L (137-145); Total Bilirubin 0.4 mg/dL (0.2-1.3); Total Protein 5.9 g/dL (6.3-8.2)
[2017-01-03 05:09] LABS: ABG Base Excess 2.3 mmol/L; ABG HCO3 27 mmol/L (21-25); ABG PCO2 47 mmHg (35-45); ABG PH 7.38 (7.35-7.45); ABG PO2 66 mmHg (83-108); ABG TCO2 28 mmol/L (19-24)
[2017-01-03 05:55] LABS: Add Differential Manual Differential
[2017-01-03] MEDS: methylPREDNISolone SOD SUCCI 125 MG/2 ML VIAL IV SCH ×3 (05:56→17:57)
[2017-01-03 06:00] LABS: Band Neutrophils % 7.5 %; Myelocytes % 0.5 %; Nucleated Red Blood Cells 0 /100 WBC (0-0); Total Cells Counted 200
[2017-01-03 06:01] LABS: Polychromasia Present
[2017-01-03 06:07] LABS: Toxic Granulation Present
--- NOTE | 2017-01-03 07:19 | XR ---
EXAMINATION TYPE: XR chest 1V DATE OF EXAM: 01/03/2017 COMPARISON: Prior chest x-ray 01/02/2017 HISTORY: Chest tube, intubated TECHNIQUE: Single frontal view of the chest is obtained. FINDINGS: Endotracheal tube, NG tube, right jugular central venous catheter, right-sided pigtail cat heter all remain in place. There is some persistent increased attenuation at the right lung base. Api rimma bullous disease again noted. Interstitium is prominent on the left. No evident pneumothorax. IMPRESSION: There may be basilar pneumonia, correlate. Follow-up recommended.
[2017-01-03] MEDS: PIPERACILLIN-TAZOBACTAM 3.375 GM in DEXTROSE/WATER 1 50ML.BAG IVPB SCH ×2 (07:35→16:46)
[2017-01-03] MEDS: VANCOMYCIN 1,250 MG in SODIUM CHLORIDE 0.9% 250 ML IVPB SCH (07:46)
[2017-01-03 08:08] LABS: Glucose,Whole Blood 149 mg/dL (75-99)
[2017-01-03] MEDS: ASPIRIN 81 MG CHEW PO SCH (08:16)
[2017-01-03] MEDS: CITALOPRAM HYDROBROMIDE 20 MG TAB PO SCH (08:16)
[2017-01-03] MEDS: ENOXAPARIN 40 MG/0.4 ML SYRINGE SQ SCH (08:16)
[2017-01-03] MEDS: CHLORHEXIDINE GLUCONATE 15 ML CUP MUCOUS MEM SCH ×2 (08:40→21:28)
[2017-01-03] MEDS ORDERED: HEPARIN SODIUM,PORCINE/D5W PMX 25,000 UNIT in DEXTROSE/WATER 1 500ML.BAG IV SCH (08:44)
[2017-01-03] MEDS ORDERED: HEPARIN SODIUM,PORCINE 5,000 UNIT/ML 1 ML VIAL IV PRN (08:44)
[2017-01-03] MEDS ORDERED: HEPARIN SODIUM,PORCINE 10,000 UNIT/ML 1 ML VIAL IV ONE (08:44)
[2017-01-03] MEDS ORDERED: RX INFO: IV CONTRAST WAS GIVEN 1 EACH MISC MISCELLANE PRN (08:45)
[2017-01-03 09:01] LABS: INR 0.9 (<1.2); Prothrombin Time 9.5 sec (9.0-12.0)
[2017-01-03 09:18] LABS: Partial Thromboplastin Time 24.3 sec (22.0-30.0)
--- NOTE | 2017-01-03 09:49 | P.PN ---
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 This 46-year-old gentleman who presented to the hospital with complaints of a cough, shortness of breath, right lower chest pain, and a fever of 100.3F. Subsequently admitted to the hospital and developed some acute respiratory distress and was subsequently intubated with mechanical ventilator support. He also had a right pleural effusion and had a pigtail catheter placed to his right chest by interventional radiology. He also underwent underwent a flexible bronchoscopy with bronchoalveolar lavage by Dr. Riley. He remains intubated with mechanical ventilator support and is currently sedated on fentanyl and Diprivan drip and his nimbex is on hold this am for ventilator weaning attempt. His is at his bedside. The patient is desaturating into the mid 80s with mechanical ventilator support. Dr. Stephenson is currently at his bedside. Objective - Vital Signs Vital signs: Vital Signs Temp 97.9 F 01/03/17 08:00 Pulse 93 01/03/17 08:08 Resp 26 H 01/03/17 08:00 BP 162/97 01/03/17 08:00 Pulse Ox 90 L 01/03/17 08:00 Intake & Output 01/02/17 01/03/17 01/03/17 18:59 06:59 18:59 Intake Total 1125.979 3705.046 216.008 Output Total 2480 1355 320 Balance -575.123 121.046 -103.992 Weight 92.7 kg 94.6 kg Intake: IV 820 240 40 .9 KVO 240 40 Piperacillin-Tazobactam 3 100 .375 gm In Dextrose/Water 1 50ml.bag @ 12.5 mls/hr IVPB Q8HR [facility] Rx#: [id number] Sodium Chloride 0.9% 1, 720 000 ml @ 100 mls/hr IV . Q10H [facility] Rx#:[id number] Intake, IV Titration 534.877 466.046 66.008 Amount Cisatracurium 200 mg In 161.535 Sodium Chloride 0.9% 180 ml @ 1 MCG/KG/MIN 5.33 mls/hr IV .Q24H [facility] Rx#: [id number] Propofol 1,000 mg In 100 373.342 466.046 66.008 ml @ Titrate IV .Q0M [facility] Rx#:[id number] Tube Feeding 520 680 80 Other 30 90 30 Output: Chest Tube Drainage 100 60 Chest Tube Right Lateral 100 60 Chest Urine 2380 1355 260 Other: Voiding Method Indwelling Catheter Indwelling Catheter Indwelling Catheter ABP, PAP, CO, CI - Last Documented Arterial Blood Pressure 152/69 - Constitutional Constitutional Comment(s): He is currently sedated on Diprivan and fentanyl drips, and remains intubated on mechanical ventilator support. He is not responding to any verbal commands but does remove from noxious stimuli. - EENT Eyes: Present: PERRLA, normal appearance - Neck Details: Right IJ triple lumen in place, no JVD. - Respiratory Details: Essentially clear throughout, diminished bilateral bases right greater than left. Remains intubated with mechanical and I support, current ventilator settings are as follows: AC 26, TV 450, FiO2 60%, PEEP of 5. His current oxygen saturations are 86% on these ventilator settings. Pigtail catheter remains in place to his right chest and is draining thin cloudy serosanguineous drainage. No airleak noted, remains to continuous wall suction at -20 cm H2O. Respirations are symmetrical and unlabored with mechanical ventilator support. - Cardiovascular Details: Regular rhythm and rate, S1 and S2 present, negative for S3, gallop or murmur. Bedside telemetry showing normal sinus rhythm heart rate 93. No edema present. - Gastrointestinal Gastrointestinal Comment(s): Abdomen is soft, and nondistended. OG tube in place with vital 1.2 Case to feeding infusing at 40 mL per hour. Positive bowel sounds all 4 abdominal quadrants. - Genitourinary Genitourinary Comment(s): Neely catheter for accurate I&O, clear yellow urine. Adequate urine output. - Neurologic Neurologic Comment(s): Remains sedated on Diprivan and fentanyl drips. - Psychiatric Psychiatric Comment(s): Remians Sedated with Diprivan and Fentanyl drips. - Allied health notes Allied health notes reviewed: nursing - Labs CBC & Chem 7: 01/03/17 04:34 01/03/17 04:34 Labs: Abnormal Lab Results - Last 24 Hours (Table) 01/02/17 01/02/17 01/02/17 Range/Units 11:58 16:15 20:16 WBC (3.8-10.6) k/uL RBC (4.30-5.90) m/uL Hgb (13.0-17.5) gm/dL Hct (39.0-53.0) % MCV (80.0-100.0) fL Neutrophils # (Manual) (1.3-7.7) k/uL ABG pCO2 (35-45) mmHg ABG pO2 (83-108) mmHg ABG HCO3 (21-25) mmol/L ABG Total CO2 (19-24) mmol/L ABG O2 Saturation (94-97) % Chloride (98-107) mmol/L BUN (9-20) mg/dL Glucose (74-99) mg/dL POC Glucose (mg/dL) 150 H 172 H 172 H (75-99) mg/dL Magnesium (1.6-2.3) mg/dL Total Protein (6.3-8.2) g/dL Albumin (3.5-5.0) g/dL 01/02/17 01/03/17 01/03/17 Range/Units 23:40 04:29 04:34 WBC (3.8-10.6) k/uL RBC (4.30-5.90) m/uL Hgb (13.0-17.5) gm/dL Hct (39.0-53.0) % MCV (80.0-100.0) fL Neutrophils # (Manual) (1.3-7.7) k/uL ABG pCO2 (35-45) mmHg ABG pO2 (83-108) mmHg ABG HCO3 (21-25) mmol/L ABG Total CO2 (19-24) mmol/L ABG O2 Saturation (94-97) % Chloride 110 H (98-107) mmol/L BUN 45 H (9-20) mg/dL Glucose 167 H (74-99) mg/dL POC Glucose (mg/dL) 153 H 173 H (75-99) mg/dL Magnesium 2.7 H (1.6-2.3) mg/dL Total Protein 5.9 L (6.3-8.2) g/dL Albumin 2.8 L (3.5-5.0) g/dL 01/03/17 01/03/17 01/03/17 Range/Units 04:34 05:08 08:07 WBC 24.1 H (3.8-10.6) k/uL RBC 3.54 L (4.30-5.90) m/uL Hgb 12.2 L (13.0-17.5) gm/dL Hct 36.1 L (39.0-53.0) % MCV 101.8 H (80.0-100.0) fL Neutrophils # (Manual) 21.4 H (1.3-7.7) k/uL ABG pCO2 47 H (35-45) mmHg ABG pO2 66 L (83-108) mmHg ABG HCO3 27 H (21-25) mmol/L ABG Total CO2 28 H (19-24) mmol/L ABG O2 Saturation 92.0 L (94-97) % Chloride (98-107) mmol/L BUN (9-20) mg/dL Glucose (74-99) mg/dL POC Glucose (mg/dL) 149 H (75-99) mg/dL Magnesium (1.6-2.3) mg/dL Total Protein (6.3-8.2) g/dL Albumin (3.5-5.0) g/dL Microbiology - Last 24 Hours (Table) 12/29/16 01:50 Blood Culture - Preliminary Blood No Growth after 120 hours 01/01/17 11:24 Acid Fast Bacilli Smear - Final Pleural Fluid Acid Fast Bacilli Culture - Preliminary 01/01/17 11:15 Gram Stain - Preliminary Pleural Fluid Body Fluid Culture - Preliminary - Imaging and Cardiology Chest x-ray: report reviewed, image reviewed Assessment and Plan (1) Acute respiratory failure with hypoxia Status: Acute (2) History of DVT of lower extremity Status: Acute (3) History of TIA (transient ischemic attack) Status: Acute (4) Abscessed tooth Status: Acute (5) Acute kidney injury Status: Acute (6) Chronic neck and back pain Status: Acute (7) Pneumonia Status: Acute (8) Sepsis Status: Acute Plan: 1. If there is no sick significant improvement with pinning of his mechanical ventilator support, the plan is for tracheostomy and PEG tube placement tomorrow. 2. Pulmonary management per Dr. Stephenson's recommendations. 3. Comorbid conditions per primary care recommendations. 4. Antibiotics per infectious disease management. 5. GI and DVT prophylaxis in place. Dr. Stephenson is starting the patient on a heparin drip this a.m. 6. Patient's is at the bedside has been updated on the plan of care. 7. We will hold the heparin drip 2 hours prior to tracheostomy and PEG tube placement. Nothing by mouth after midnight for tracheostomy and PEG tube placement. 8. Further recommendations as patient progresses. Time with Patient: Greater than 30
--- NOTE | 2017-01-03 10:19 | CT ---
EXAMINATION TYPE: CT chest angio for PE DATE OF EXAM: 01/03/2017 COMPARISON: Prior chest CT 12/31/2016 HISTORY: Pneumonia, sepsis CT DLP: 795.5 mGycm Automated exposure control for dose reduction was used. CONTRAST: CT Chest for pulmonary embolism performed with with IV Contrast, patient injected with 100 mL of Omni paque 350. Three-dimensional reconstructions performed on an alternate workstation. FINDINGS: LUNGS: Bilateral lung consolidation present at the lung bases, there are associated air bronchograms. Pleural effusion present on the right. Pleural pigtail catheter present on the right. NG tube, endot ryan tube are in place in appropriate position. Extensive emphysematous changes are present, apica l bullous disease right greater than left. MEDIASTINUM: There is less than satisfactory enhancement of the segmental pulmonary arteries, some ce ntral low attenuation present in left lower lobe segmental arteries is thought to be artifactual guzman vijay difficult to exclude pulmonary embolism on the basis of this exam. There are no greater than 1 c m hilar or mediastinal lymph nodes. No pericardial effusion is seen. AORTA: Ascending aorta is 4.1 cm. No evident dissection.. OTHER: No additional significant abnormality is seen. IMPRESSION: Correlate for pneumonia. Extensive emphysema. Difficult to exclude pulmonary embolism as described. A ortic aneurysm.
[2017-01-03] MEDS: ESOMEPRAZOLE 20 MG in SODIUM CHLORIDE 0.9% 50 ML IVPB SCH (10:28)
--- NOTE | 2017-01-03 11:35 | P.PN ---
Subjective Principal diagnosis: Acute hypoxic respiratory failure secondary to pneumonia, parapneumonic effusion , COPD. A 46-year-old male patient who presented emergency department this morning because of severe pleuritic right-sided chest pain, fever and cough that's been going on for the past few days. His temperature today was 100.3. He also stated that he has been having cough for the past 24-48 hours without any significant sputum production. He started of her way having some pleuritic chest pain on the right and the pain got severely worse as the day went by to the point where he was having apparent there was 10 out of 10 this this morning. The patient denies having any hemoptysis. No previous history of pneumonia. The patient has history of DVT and the patient has been maintained on Xarelto on outpatient basis. He is a chronic every day smoker. In the emergency department, the patient was found to have a temperature over 1.6. He was tachycardic with a heart rate of 113. He is supposed pulse ox on 4 L was around 94 percent. He had significant leukocytosis with a white cell count 22, 000 and his chest x-ray showed bullous emphysema involving the right upper lobe and extensive right lung consolidation and possibly a small right-sided pleural effusion. Some limited left basilar infiltrates was also seen. The patient was started on broad-spectrum antibiotics. He was given IV Levaquin and vancomycin and subsequently was admitted to the medical floor. I was asked to develop this patient by Dr. Palma 90 the patient was getting increasingly short of breath and he was having pain over the right side of the chest. He was given Dilaudid for pain control with limited success. Subsequently became more tachypneic, diaphoretic, abdomen was getting progressively more distended, he was brought into the intensive care unit and subsequently was intubated and placed on a mechanical ventilator. At this point in time the patient is sedated with Diprivan, paralyzed on Nimbex, on assist control mode of ventilation at the rate of 26, tidal volume 400, FiO2 of 100% and a PEEP of 5. His blood gases show a pH of 7.27 with a pCO2 of 50 and pO2 of 80. This was done and FiO2 of 100% with a PEEP of 5. His chest x-ray post intubation showed worsening of the right lung consolidation with increased atelectasis and possibly effusion. There is also some infiltration and effusion the left lung base. Bullous emphysema can be seen bilaterally more so on the right upper lobe. A CAT scan of the chest was also done and showed moderate to severe upper lobe emphysematous changes right more than left. A moderate-sized right- sided pleural effusion measuring 7.2 cm in size with compressive atelectasis of the right lung base and consolidation of the right lower lobe. Another 1.1 cm nonspecific pulmonary nodules seen in the left upper lobe and there is a small left-sided pleural effusion. I interviewed the and the mother. Apparently the patient was having a tooth abscess and he had seen a dentist approximately 4 weeks ago. He was placed on antibiotics for total of 2 weeks and he was supposed to have a tooth extraction following that. His been off antibiotics for another 2 weeks for now. He denied having any facial swelling or pain recently. No travel history. No exposure to hot tubs or any other contaminated water sources. No sensory of substance abuse. No alcoholism. No immunosuppression. He has history of depression and possibly component of PTSD as the patient is a . No skin rashes. No other sick contacts. He lives with his and he has no children, dogs at home. On 12/30/2016 I'm seeing this patient in follow-up. As mentioned earlier, the patient came in with an extensive right lung pneumonia currently is intubated on a mechanical ventilator and is sedated and paralyzed. Earlier this morning the patient was in a Diprivan drip at 50 mics and the patient was also on a Nimbex drip for paralysis. He is an assist-control mode of ventilation at the rate of 26, tidal volume 400, FiO2 was at 100% PEEP at 12. The blood gases from this morning showed a pH of 7.24 with pCO2 of 62 and pO2 of 76. Chest x- ray shows extensive consolidation of the right lower lobe and early pneumonic changes in the left lower lobe. ET tube was in a good location. OG tube was in a good location. Triple-lumen catheter was also noted that location. No evidence of any pneumothorax. Peak pressures around 28. Based on this, increase the PEEP up to 14 and gradually wean down the FiO2 down to 80% and currently is down to 70%. Pulse ox is in the order of 91-92%. Hemodynamically the patient is on normal saline infusion rate of 100 mL an hour. Urine output is adequate in the order of 60 mL an hour, white cell count is elevated at 23.7. Bronchoscopy and bronchial lavage of the right lung was done and the results are still pending for now. Meanwhile, the patient is covered with a combination of Zosyn, vancomycin and Levaquin. ID is on the case. All of the blood cultures are negative for now. He is on no pressors. Artline cath is inserted in the right radial artery. He is on and off requiring Dilaudid for pain control. On 12/31/2016 the patient is being seen in follow-up. Not much of a change in his condition in general over the past 24 hours. He did have a drop in his urine output and his creatinine doubled it up to 1.3. Note that his blood pressure was also fluctuating and he became borderline hypotensive. Based on that, the patient was given levo fed and currently norepinephrine infusion is running at 1-2 mics to maintain a mean artery pressure above 65. Meanwhile, his urine output improved and is currently producing more than 30 mL an hour. He is still on mechanical ventilator on assist control with the same vent settings. The FiO2 was dropped down to 60% and is still on a tidal volume 400 today rate of 26 and a PEEP of 14. The chest x-ray a is essentially unchanged. There is an extensive consolidation of the right lower lobe, limited infiltration of the left lung base, a large bullous disease involving the right upper lobe and its tube is in a good location. The patient's became a pressures ranging between 28-32. No significant orotracheal secretions. Legionella urine antigen was negative. Bronchioloalveolar lavage and the blood cultures of been all negative thus far. The patient remains on a combination of Zosyn, Levaquin and vancomycin. Lactic acid level from this morning's at 2.6. White cell count is at 27.9. He remains on bronchodilators and systemic steroids. Is tolerating his tube feeds. He is sedated with Diprivan. On and off he becomes asynchronous with a mechanical ventilator and for that reason he was given Dilaudid 1 mg which is requiring every 1-2 hours. Based on that I have ordered a fentanyl drip. We'll try to avoid paralytics if possible. On 01/01/2017 I'm seeing this patient in follow-up. He remains intubated on a mechanical ventilator. He is on a PEEP of 14 and FiO2 of 50% with unable to wean down the FiO2 any further. Based on that I performed another CAT scan of the chest yesterday and it showed severe emphysematous changes greater in the right lung apex. In addition there is a large right-sided pleural effusion extending to the right apex. Right basilar atelectasis/infiltrates still seen. Nodular density in the left upper lobe. Based on this, I discussed the case with interventional radiology and this morning the patient will be having a pigtail catheter inserted into the right hemithorax to evacuate the right-sided pleural effusion. Unfortunately no microbial culture has been established on this patient and all of the cultures of been negative. He remains on broad- spectrum antibiotics. On his blood gases there is no much room to wean down his FiO2 or his PEEP any further. His blood gases was reviewed. Chest x-ray stable and showing was emphysema in the right upper lobe and persistent chronic right-sided pleural effusion/infiltrate in the right lung base. Limited infiltration seen in the left which is unchanged. Tolerating tube feeds. Unfortunately is been asynchronous with a mechanical ventilator. He had been sedated aggressively with a combination of Diprivan, fentanyl got added and overnight he had to be also paralyzed to improve his synchrony. At this point in time he remains sedated and paralyzed. Urine output is adequate. On no pressors. Tolerating his tube feeds. Patient is seen again today 01/02/2017 in follow-up in the intensive care unit. He remains intubated and on the mechanical ventilator. Current settings are assist control of 26, tidal volume 400, FiO2 of 50% and a PEEP of 12. Morning arterial blood gases revealed a O2 of 79, pCO2 63 and a pH of 7.23. His chest x -ray reveals basilar atelectasis. Nodular density in the left upper lobe. He remains sedated on propofol 75 mcg/kg/m, fentanyl at 75 mcg/h and Nimbex at 2 g/ kg/m. He is also requiring intermittent Dilaudid and Ativan. He has a 0.9 normal saline at 100 mL per hour. Not requiring any pressors. He's been somewhat hypertensive. He is tolerating his tube feedings of Vital at 40 mL per hour which is goal. The right chest pigtail catheter drainage at approximately 1 L in total. His urine output remains adequate greater than 100 MLS per hour. Cultures of the blood urine and sputum thus far are showing no growth. Pleural fluid results are pending. Cytology pending. White count 27.1. He has been afebrile. He is continued on Zosyn, Levaquin and vancomycin. Reevaluated today on 01/03/2017, patient remains on mechanical ventilation, in the ICU. Upon my arrival, patient was noted to be desaturating down to the mid 80s in spite of FiO2 of 60%. Hence the patient was placed on 100% FiO2, reviewed the chest x-ray which clearly shows significant airspace disease involving the right lower lobe. But considering the sudden change, and considering the patient had previous history of deep vein thrombosis, I recommended a stat CT angiogram of the chest, it came back negative for pulmonary embolism, however it showed significant airspace disease in lower lobes bilaterally right more so than left, it also showed significant emphysematous changes in the right lung more so compared to the left lung. In the meantime the patient was placed on FiO2 of 100%, PEEP was increased to 8, and I recommended restarting the patient on Nimbex. Clearly the patient is not going to be weaned easily, and he is scheduled to undergo tracheostomy in the morning. Discussed his condition with his at bedside. Patient remains on multiple drips as noted above. Remains on Nimbex, remains on propofol and on fentanyl drip. Requiring significant amount of sedation to keep him calm and saturating properly. Vent settings were reviewed again, and I will go ahead and titrate his FiO2 down to keep his saturation above 92%. Patient is not requiring any pressors, and Gram stain from the pleural effusion remains negative. WBC count is 24.1 hemoglobin is 12.2. ABG this morning showed a pO2 of 66 pCO2 of 47 pH of 7.38. And this was earlier today on 50% FiO2 and PEEP of 5. BUN is 45 creatinine is 1.0. Objective - Vital Signs Vital signs: Vital Signs Temp 97.9 F 01/03/17 08:00 Pulse 84 01/03/17 10:30 Resp 26 H 01/03/17 10:30 BP 150/88 01/03/17 10:30 Pulse Ox 99 01/03/17 10:30 Intake & Output 01/02/17 01/03/17 01/03/17 18:59 06:59 18:59 Intake Total 1871.701 8841.046 571.008 Output Total 2480 1355 590 Balance -575.123 121.046 -18.992 Weight 92.7 kg 94.6 kg Intake: IV 820 240 315.0 .9 KVO 240 40 Piperacillin-Tazobactam 3 100 25.0 .375 gm In Dextrose/Water 1 50ml.bag @ 12.5 mls/hr IVPB Q8HR [facility] Rx#: [id number] Sodium Chloride 0.9% 1, 720 000 ml @ 100 mls/hr IV . Q10H [facility] Rx#:[id number] Vancomycin 1,250 mg In 250 Sodium Chloride 0.9% 250 ml @ 125 mls/hr IVPB Q24H [facility] Rx#:[id number] Intake, IV Titration 534.877 466.046 66.008 Amount Cisatracurium 200 mg In 161.535 Sodium Chloride 0.9% 180 ml @ 1 MCG/KG/MIN 5.33 mls/hr IV .Q24H [facility] Rx#: [id number] Propofol 1,000 mg In 100 373.342 466.046 66.008 ml @ Titrate IV .Q0M [facility] Rx#:[id number] Tube Feeding 520 680 160 Other 30 90 30 Output: Chest Tube Drainage 100 130 Chest Tube Right Lateral 100 130 Chest Urine 2380 1355 460 Other: Voiding Method Indwelling Catheter Indwelling Catheter Indwelling Catheter ABP, PAP, CO, CI - Last Documented Arterial Blood Pressure 152/69 - Exam Sedated, intubated, paralyzed, nonacute distress.Head exam was generally normal. There was no scleral icterus or corneal arcus. Mucous membranes were moist. Neck is supple and the patient has no JVDs no goiter or neck masses. The right IJ triple catheter in place. Orogastric and tracheal tube are both in place. Lung sounds are markedly diminished in lung bases pressure the right lung base. No significant wheezes or rhonchi. No significant orotracheal secretions.Cardiac exam revealed the PMI to be normally situated and sized. The rhythm was regular and no extrasystoles were noted during several minutes of auscultation. The first and second heart sounds were normal and physiologic splitting of the second heart sound was noted. There were no murmurs, rubs, clicks, or gallops.Abdominal exam revealed normal bowel sounds. The abdomen was soft, non-tender, and without masses, organomegaly, or appreciable enlargement of the abdominal aorta.Examination of the extremities revealed easily palpable radial, femoral and pedal pulses. There was no cyanosis, clubbing or edema. - Labs CBC & Chem 7: 01/03/17 04:34 01/03/17 04:34 Labs: Abnormal Lab Results - Last 24 Hours (Table) 01/02/17 01/02/17 01/02/17 Range/Units 11:58 16:15 20:16 WBC (3.8-10.6) k/uL RBC (4.30-5.90) m/uL Hgb (13.0-17.5) gm/dL Hct (39.0-53.0) % MCV (80.0-100.0) fL Neutrophils # (Manual) (1.3-7.7) k/uL ABG pCO2 (35-45) mmHg ABG pO2 (83-108) mmHg ABG HCO3 (21-25) mmol/L ABG Total CO2 (19-24) mmol/L ABG O2 Saturation (94-97) % Chloride (98-107) mmol/L BUN (9-20) mg/dL Glucose (74-99) mg/dL POC Glucose (mg/dL) 150 H 172 H 172 H (75-99) mg/dL Magnesium (1.6-2.3) mg/dL Total Protein (6.3-8.2) g/dL Albumin (3.5-5.0) g/dL 01/02/17 01/03/17 01/03/17 Range/Units 23:40 04:29 04:34 WBC (3.8-10.6) k/uL RBC (4.30-5.90) m/uL Hgb (13.0-17.5) gm/dL Hct (39.0-53.0) % MCV (80.0-100.0) fL Neutrophils # (Manual) (1.3-7.7) k/uL ABG pCO2 (35-45) mmHg ABG pO2 (83-108) mmHg ABG HCO3 (21-25) mmol/L ABG Total CO2 (19-24) mmol/L ABG O2 Saturation (94-97) % Chloride 110 H (98-107) mmol/L BUN 45 H (9-20) mg/dL Glucose 167 H (74-99) mg/dL POC Glucose (mg/dL) 153 H 173 H (75-99) mg/dL Magnesium 2.7 H (1.6-2.3) mg/dL Total Protein 5.9 L (6.3-8.2) g/dL Albumin 2.8 L (3.5-5.0) g/dL 01/03/17 01/03/17 01/03/17 Range/Units 04:34 05:08 08:07 WBC 24.1 H (3.8-10.6) k/uL RBC 3.54 L (4.30-5.90) m/uL Hgb 12.2 L (13.0-17.5) gm/dL Hct 36.1 L (39.0-53.0) % MCV 101.8 H (80.0-100.0) fL Neutrophils # (Manual) 21.4 H (1.3-7.7) k/uL ABG pCO2 47 H (35-45) mmHg ABG pO2 66 L (83-108) mmHg ABG HCO3 27 H (21-25) mmol/L ABG Total CO2 28 H (19-24) mmol/L ABG O2 Saturation 92.0 L (94-97) % Chloride (98-107) mmol/L BUN (9-20) mg/dL Glucose (74-99) mg/dL POC Glucose (mg/dL) 149 H (75-99) mg/dL Magnesium (1.6-2.3) mg/dL Total Protein (6.3-8.2) g/dL Albumin (3.5-5.0) g/dL Microbiology - Last 24 Hours (Table) 12/29/16 01:50 Blood Culture - Preliminary Blood No Growth after 120 hours 01/01/17 11:24 Acid Fast Bacilli Smear - Final Pleural Fluid Acid Fast Bacilli Culture - Preliminary 01/01/17 11:15 Gram Stain - Preliminary Pleural Fluid Body Fluid Culture - Preliminary Assessment and Plan Plan: 1 right lung pneumonia, severe, rapid interval progression with progressive worsening of the consolidation development of a small right-sided pleural effusion with subsequent acute hypoxic respiratory failure, currently intubated on a mechanical ventilator. Rule out pneumococcal pneumonia. Rule out anaerobic pneumonia possibly from a tooth abscess/aspiration. On 12/30/2016 the patient is being seen in follow-up. The patient remains intubated on a mechanical ventilator, sedated and paralyzed. He is on broad- spectrum antibiotics. No microbial diagnoses been established thus far. The patient is post bronchoscopy and bronchial lavage of the right lower lobe. Cultures of been all negative including the bronchioloalveolar lavage and the blood cultures. Necessary vent changes were done. On 12/31/2016, the patient is in a PEEP of 14 with an FiO2 of 60%. There has been only a modest improvement in his oxygenation and the chest x-ray findings remains essentially unchanged over the cultures of been negative thus far. Remains sedated yet not paralyzed. On 01/01/2017, the patient remains intubated sedated and paralyzed. The plan is to proceed with a pigtail catheter insertion and evacuation of a right-sided pleural effusion with seems to be somewhat loculated. The pleural fluid will be also sent for analysis and I'm hoping that it can be some improvement in his oxygenation and expansion of the right lung with the evacuation of right-sided pleural fluid. He remains on broad-spectrum antibiotics to no microbial cultures of been established at this point. Lovenox is on hold pending the procedure. On 01/02/2017, the patient remains intubated sedated and paralyzed. He did receive a pigtail catheter insertion to the right sided pleural effusion with approximate 1 L removed. Fluid analysis and cytology are pending. Lovenox resumed. On 01/03/2017, patient desaturated down hence a stat CT angiogram of the chest was done, I reviewed the CT of the chest, and the findings are mostly findings of severe emphysema involving mostly the right lung, and significant airspace disease involving the lower lobes right more so than left. Hence patient will be placed back on Lovenox subcu, and I plan to check his venous Doppler before heparin is shut off. Considering the findings on the CT of the chest, I believe it would be best to pursue and proceed with plans of tracheostomy in a.m. 2 acute hypoxic respiratory failure, intubated on mechanical ventilator. 3 bullous emphysema with upper lobe emphysematous changes right more than left 4 sepsis secondary to right lung pneumonia, leukocytosis, 5 nonspecific left upper lobe pulmonary nodule measuring 1.1 cm in size 6 recent DVT post-orthopedic intervention on the foot, on Lovenox 7 TIA, history of without any neurological deficits 8 chronic neck and back pain, under the care of pain management 9 tooth abscess, treated with antibiotics on outpatient basis, being followed up by a local dentist, has not undergone tooth extraction. The patient had a CAT scan of the facial bones that showed mild periapical lucency involving the right first maxillary molar tooth and possibly periapical abscess. This is confined to the bone. No evidence of any soft tissue abscess at this point. This was further checked by the dental surgeon and there is no need for any intervention at this point 10 acute kidney injury, nonoliguric. Improved Recommendation: Continue present supportive care measures, discussed his clinical condition with the at bedside earlier today, continue to proceed with tracheostomy in the morning, continue antibiotics, bronchodilators, steroids, continue pigtail catheter for now. Final cultures on the fluid is pending, but the Gram stain is negative. Tracheostomy and PEG tube placement in a.m. Venous Doppler of both lower extremities was ordered. Critical care time is 35 minutes. Time with Patient: Greater than 30
[2017-01-03 12:08] LABS: Glucose,Whole Blood 150 mg/dL (75-99)
--- NOTE | 2017-01-03 12:57 | US ---
EXAMINATION TYPE: US venous doppler duplex LE BI DATE OF EXAM: 01/03/2017 11:26 AM COMPARISON: 07/16/2016 CLINICAL HISTORY: 46-year-old male rule out DVT. Leg swelling, exam done portable in ICU SIDE PERFORMED: Bilateral TECHNIQUE: The lower extremity deep venous system is examined utilizing real time linear array sonog amy with graded compression, doppler sonography and color-flow sonography. FINDINGS: VESSELS IMAGED: External Iliac Vein (EIV) Common Femoral Vein Deep Femoral Vein Greater Saphenous Vein * Femoral Vein Popliteal Vein Small Saphenous Vein * Proximal Calf Veins (* superficial vessels) Right Leg: Appears negative for DVT. Previously seen nonocclusive thrombus in the lower popliteal ve in is no longer apparent. Left Leg: Appears negative for DVT IMPRESSION: No evidence for DVT within the bilateral lower extremities imaged from the groin to the upper calves.
[2017-01-03] MEDS: CISATRACURIUM 200 MG in SODIUM CHLORIDE 0.9% 180 ML IV SCH (16:37)
[2017-01-03] MEDS: SODIUM CHLORIDE 0.9% 1,000 ML IV SCH (16:38)
[2017-01-03 16:43] LABS: Glucose,Whole Blood 160 mg/dL (75-99)
--- NOTE | 2017-01-03 19:40 | PN ---
DATE OF SERVICE: 01/03/17 This 46-year-old gentleman admitted with COPD and pneumonia, acute exacerbation , had right sided pleural effusion and also empyema also. The patient had chest tube drainage. The patient also on PEEP of 8 at this time, the patient mechanically ventilated and sedated. The patient on broad spectrum IV antibiotics. Ultrasound ordered by Dr. Stephenson did not show any acute changes at this time. Past medical history is reviewed. Review of systems could not be taken. The patient is mechanically ventilated and sedated. Current medications are reviewed and include: 1. [place] 10 mg prn. 2. Ventolin 2.5 q4h prn. 3. DuoNeb q.i.d. and prn. 4. Artificial tears. 5. Aspirin 81 mg daily. 6. Peridex. 7. Nimbex. 8. Celexa 40 mg daily. 9. Lovenox 40 mg subcu daily. 10. Dilaudid prn. 11. Humalog. 12. Trandate. 13. Levaquin. 14. Solu-Medrol 60 IV q6h. 15. Levophed drip. 16. Zosyn 3.375. 17. Ultram. 18. Vancomycin. PHYSICAL EXAMINATION: The patient is mechanically ventilated and sedated. Pulse 79. Blood pressure 158/103. Respiratory rate 25. Temperature normal. Pulse ox 93% on mechanical ventilation. Vent settings are noted. HEENT: Conjunctivae normal. Oral mucosa moist. NECK: No JVD. No carotid bruit. No lymph node enlargement. CARDIOVASCULAR: S1, S2 muffled. RESPIRATORY: Breath sounds diminished at the bases. A few scattered rhonchi and crackles. ABDOMEN: Soft, nontender. No mass palpable. LEGS: No edema. No swelling. LYMPHATICS: No lymph nodes palpable in the neck, axillae or groin. SKIN: No ulcer, rash or bleeding. LABS: WBC 24.9, hemoglobin 12.2. Glucose noted. ASSESSMENT: 1. Chronic obstructive pulmonary disease acute exacerbation with acute right lower lobe pneumonia, possible community acquired with severe sepsis, with acute hypoxic respiratory failure with possible aspiration. 2. Mechanical ventilation. 3. Acute right pleural effusion, possible status post chest tube drainage. 4. Change in mental status, metabolic encephalopathy. Acute. 5. History of nicotine dependence. 6. History of cerebrovascular accident. 7. History of deep venous thrombosis. 8. History of anxiety and depression. 9. Continued ongoing nicotine dependence. RECOMMENDATIONS AND DISCUSSION: Continue the current medications, continue with symptomatic treatment. Otherwise, at this time, we recommend continue the broad spectrum IV antibiotics. Follow the cultures. Guarded prognosis because of multiple complex medical issues. Further recommendations to follow. [facility]
[2017-01-03] MEDS ORDERED: BISACODYL 10 MG SUPP RECTAL PRN (20:08)
[2017-01-03 21:45] LABS: Glucose,Whole Blood 148 mg/dL (75-99)
[2017-01-04 00:33] LABS: Glucose,Whole Blood 128 mg/dL (75-99)
[2017-01-04] MEDS: PIPERACILLIN-TAZOBACTAM 3.375 GM in DEXTROSE/WATER 1 50ML.BAG IVPB SCH ×3 (00:37→15:45)
[2017-01-04] MEDS: INSULIN LISPRO (humaLOG) 300 UNIT/3 ML VIAL SQ SCH ×6 (00:37→20:35)
[2017-01-04] MEDS: methylPREDNISolone SOD SUCCI 125 MG/2 ML VIAL IV SCH ×4 (00:37→17:07)
[2017-01-04] MEDS: ARTIFICIAL TEARS-HYPROMELLOSE DROPS 15 ML BTL BOTH EYES SCH ×6 (00:37→21:09)
[2017-01-04] MEDS: PROPOFOL 1,000 MG/100 ML VIAL IV SCH ×7 (01:09→21:16)
[2017-01-04] MEDS: LABETALOL 5 MG/ML VIAL MDV IVP PRN ×5 (01:10→18:11)
[2017-01-04] MEDS: HYDROmorphone 1 MG/ML 1 ML SYRINGE IVP PRN ×8 (01:12→21:31)
[2017-01-04] MEDS: IPRATROPIUM-ALBUTEROL 3 ML NEB INHALATION SCH ×6 (03:06→23:13)
[2017-01-04] MEDS ORDERED: FUROSEMIDE 10 MG/ML 4 ML VIAL IV STA (03:29)
[2017-01-04] MEDS: LEVOFLOXACIN 750MG-D5W PMX 750 MG in DEXTROSE/WATER 1 150ML.BAG IVPB SCH (03:54)
[2017-01-04 04:00] LABS: Glucose,Whole Blood 123 mg/dL (75-99)
[2017-01-04 04:57] LABS: CH 32.7; CHCM 32.1; HCT 39.7 % (39.0-53.0); HDW 2.68; HGB 12.8 gm/dL (13.0-17.5); Immature Gran Flag Marked; MCH 33.1 pg (25.0-35.0); MCHC 32.3 g/dL (31.0-37.0); MCV 102.5 fL (80.0-100.0); Macrocytosis Slight; Mean Platelet Volume 8.2; RBC 3.87 m/uL (4.30-5.90); RDW 13.7 % (11.5-15.5); WBC (Perox) 26.66
[2017-01-04 05:00] LABS: Anion Gap 10 mmol/L; Calcium 9.4 mg/dL (8.4-10.2); Carbon Dioxide 26 mmol/L (22-30); Chloride 109 mmol/L (98-107); Glucose 117 mg/dL (74-99); Non-African American GFR(MDRD) >60 (>60 ml/min/1.73 sqM); Sodium 145 mmol/L (137-145); Total Bilirubin 0.5 mg/dL (0.2-1.3); WBC 26.2 k/uL (3.8-10.6)
[2017-01-04 05:22] LABS: Blood Urea Nitrogen 51 mg/dL (9-20); Magnesium 2.9 mg/dL (1.6-2.3); Phosphorous 5.2 mg/dL (2.5-4.5); Potassium 5.7 mmol/L (3.5-5.1)
[2017-01-04 05:23] LABS: ALT 50 U/L (21-72); AST 27 U/L (17-59); Alkaline Phosphatase 71 U/L (38-126)
[2017-01-04 05:27] LABS: Add Differential Manual Differential
[2017-01-04 05:37] LABS: Manual Review Performed; Nucleated Red Blood Cells 0 /100 WBC (0-0); Total Cells Counted 200
--- NOTE | 2017-01-04 07:34 | XR ---
EXAMINATION TYPE: XR chest 1V portable DATE OF EXAM: 01/04/2017 CLINICAL HISTORY: Difficulty breathing and chest tube progress study. TECHNIQUE: Single AP portable semiupright view of the chest is obtained. COMPARISON: Chest x-ray and CTA chest from one day earlier FINDINGS: There is persistent small caliber right-sided chest tube. There is an endotracheal tube, o rogastric tube, and right internal jugular central venous catheter are all redemonstrated. There is background chronic emphysematous change most prominent right upper lobe. There is persistent right basilar infiltrate and/or atelectasis with small right pleural fluid collection. There is pers istent diffuse left lung infiltrate and/or edema increased in prominence in the left lung base, new s mall left effusion is not excluded. No sizable pneumothorax or mediastinal shift is seen. IMPRESSION: Overall stable findings, advanced emphysematous change with bibasilar infiltrate and/or atelectasis and small bilateral pleural effusions with right-sided chest tube and diffuse left lung edema and/or infiltrates all redemonstrated.
[2017-01-04 08:18] LABS: Glucose,Whole Blood 145 mg/dL (75-99)
[2017-01-04] MEDS: CISATRACURIUM 200 MG in SODIUM CHLORIDE 0.9% 180 ML IV SCH (08:20)
[2017-01-04 08:23] LABS: Prothrombin Time 10.1 sec (9.0-12.0)
[2017-01-04] MEDS: VANCOMYCIN 1,250 MG in SODIUM CHLORIDE 0.9% 250 ML IVPB SCH (08:23)
[2017-01-04 08:40] LABS: ABG PCO2 51 mmHg (35-45); ABG PH 7.36 (7.35-7.45); ABG PO2 71 mmHg (83-108)
[2017-01-04 08:41] LABS: ABG Base Excess 3.4 mmol/L; ABG HCO3 28 mmol/L (21-25); ABG TCO2 30 mmol/L (19-24)
[2017-01-04] MEDS: CHLORHEXIDINE GLUCONATE 15 ML CUP MUCOUS MEM SCH ×2 (08:58→21:10)
[2017-01-04] MEDS ORDERED: MIDAZOLAM 2 MG/2 ML VIAL ONE (09:39)
[2017-01-04] MEDS ORDERED: fentaNYL (PF) 50 MCG/ML 2 ML AMP ONE (09:39)
[2017-01-04] MEDS ORDERED: CISATRACURIUM 2 MG/ML 5 ML VIAL IV ONE (09:39)
--- NOTE | 2017-01-04 10:20 | P.PCN ---
Date of Procedure: 01/04/17 Preoperative Diagnosis: Respiratory failure, inability to wean from vent Postoperative Diagnosis: Same Procedure(s) Performed: Tracheostomy Implants: Anesthesia: ANDRADEA Surgeon: Devan Gutierrez Estimated Blood Loss (ml): 20 Pathology: none sent Condition: stable Disposition: no change Indications for Procedure: Patient has multiple medical comorbidities and is unable to wean from the vent Operative Findings: No abnormalities were seen on tracheostomy Description of Procedure: With the patient supine position, under benefit of IV sedation, we prepped and draped in standard fashion. We made a transverse incision 2 fingerbreadths above the sternal notch. We incised suprafascial fascias transversely and split strap muscles in midline. We divided the isthmus of the thyroid with electrocautery. We established that hemostasis at this point was excellent. We incised the second through fourth tracheal rings longitudinally. We dilated the opening and inserted a #8 Bivona foam cuff tube. The balloon auto inflated. The ET tube had already been taken above this opening. We ventilated through the trach tube easily. We then removed the ET tube the rest of the way. We closed the corners of the incision with 3-0 nylon. These sutures were also used to secure the wings of the flange. Sterile dressings were applied. The patient tolerated the procedure well. We then proceeded with PEG tube placement.
--- NOTE | 2017-01-04 10:23 | P.PCN ---
Date of Procedure: 01/04/17 Preoperative Diagnosis: Inability to swallow secondary to vent dependency Postoperative Diagnosis: Same Procedure(s) Performed: Insertion of PEG tube Implants: Anesthesia: ANDRADEA Surgeon: Devan Gutierrez Estimated Blood Loss (ml): 5 Pathology: none sent Condition: stable Disposition: ICU Indications for Procedure: The patient is unable to swallow secondary to that dependency. He requires nutrition. Operative Findings: No abnormalities were seen on placing the PEG Description of Procedure: With the patient supine position, under benefit of IV sedation, we prepped and draped in standard fashion. We passed the endoscope under direct visualization. We traversed the esophagus and entered the stomach. It was insufflated. We isolated an area on the anterior abdominal wall corresponding the anterior wall of stomach. We made a quarter inch transverse incision here. Needle and trocar were placed through this is incision and into the stomach. A guidewire was placed through this after removing the trocar. It was grasped with a snare and brought out through the mouth. Retrograde over this we placed the PEG tube. We followed it down as we varun it and with traction. We follow with the scope until it abutted the gastric mucosa. We removed all possible air and removed the scope. Appropriate adapters were placed on the PEG tube. Sterile dressings were applied. The patient tolerated the procedure well. He was then taken to intensive care in stable condition.
[2017-01-04] MEDS: ENOXAPARIN 40 MG/0.4 ML SYRINGE SQ SCH (11:35)
[2017-01-04] MEDS: ASPIRIN 81 MG CHEW PO SCH (11:35)
[2017-01-04] MEDS: CITALOPRAM HYDROBROMIDE 20 MG TAB PO SCH (11:35)
[2017-01-04] MEDS: ESOMEPRAZOLE 20 MG in SODIUM CHLORIDE 0.9% 50 ML IVPB SCH (11:36)
--- NOTE | 2017-01-04 11:44 | XR ---
EXAMINATION TYPE: XR chest 1V portable DATE OF EXAM: 01/04/2017 CLINICAL HISTORY: Hypoxia. TECHNIQUE: Single AP portable semiupright view of the chest is obtained. COMPARISON: Chest x-ray from earlier today FINDINGS: There is interval removal of endotracheal and orogastric tubes. New tracheostomy tube is n oted. Position is felt satisfactory. There is right midlung small caliber chest tube redemonstrated. There is stable right internal jugular central venous catheter. Patient is more rotated on current study making evaluation suboptimal. There is underlying emphysemat ous change redemonstrated most prominent right upper lobe. There is diffuse mild left lung edema and/ or infiltrates with more prominent bibasilar infiltrate and/or atelectasis and probable small bilater al pleural effusions all redemonstrated. Cardiac silhouette size is stable and within normal limits. No sizable pneumothorax is evident bilaterally. IMPRESSION: Interval tracheostomy. Other findings stable as there is advanced emphysematous change wi th bibasilar infiltrate and/or atelectasis and suspected small bilateral pleural effusions with right -sided chest tube and mild diffuse left lung edema and/or infiltrates all redemonstrated.
[2017-01-04 12:08] LABS: Glucose,Whole Blood 122 mg/dL (75-99)
--- NOTE | 2017-01-04 13:22 | PN ---
This patient was admitted way back on the 29 of December and intubated on the 29 of December. This is a patient with the history of severe hypoxemic respiratory failure secondary to pneumonia as well as a history of bolus emphysema, sepsis, left upper lobe pulmonary nodule, recent DVT, TIA, chronic neck and back pain, dental abscess and acute kidney injury. The patient is actually going for a trach and PEG today with Dr. Gutierrez on [id number] of January. He has really made no progress and actually had some steps backward. [facility] specialty needs to be consulted on him. The patient is currently on the assist control mode rate of 26, tidal volume 450 , FIO2 100%, PEEP of 10. Blood gases on those settings show a PO2 of 74, PCO2 of 41, pH 7.36. The patient is getting an IV of 0.9 at 20 mL an hour, Diprivan at 75 mcg/kg/minute, Nimbex at 2 mcg/kg/minute, Fentanyl at 100 mcg/hr and tube feeds which are on hold for the trach and PEG. He was on Vital 1.2 at 40 with a goal of 40. The patient was briefly examined prior to him going down for his trach and PEG. Currently sedated, paralyzed. Current vital signs include temperature 97.2, heart rate 77, respiratory rate 26 , blood pressure 172/103 and a saturation of 98%. The patient is currently sedated and paralyzed. Appears in no acute distress. HEENT: Grossly unremarkable. There is an orally placed endotracheal tube and NG tube. NECK: Supple. CARDIOVASCULAR: Reveals regular rhythm and rate. Heart rate about 70. LUNGS: Reveal coarse rhonchi. Breath sounds diminished. There are some wheezes noted. ABDOMEN: Soft. Bowel sounds are heard. EXTREMITIES: Intact. Mild edema. SKIN: Without rash. NEUROLOGIC: Could not be performed given the fact that he is heavily sedated and paralyzed. Current laboratory data is reviewed. White count 26.2, hemoglobin 12.8, hematocrit 39.7, platelet count 300,000. PT and INR was 10.1 and 1.0 respectively. Blood gases today show a PO2 of 71, PCO2 51, pH 7.36. Sodium 145 , potassium 5.7, chloride 109, CO2 of 26, anion gap of 10. BUN and creatinine were 51 and 1.0. The rest of the labs are reviewed. Chest x-ray shows stable findings with advanced emphysematous changes and bibasilar infiltrates. There are bilateral pleural effusions. Microbiology is reviewed. Everything thus far is negative. Medications are reviewed. Venous Dopplers of the lower extremities done yesterday reveal negative for DVT bilaterally. IMPRESSION: 1. Hypoxemic respiratory failure with lobsterman intubation mechanical ventilation beginning on December 29 without any significant progress. This was caused primarily by severe emphysema, pneumonia with significant bibasilar air space disease and pleural effusion status post pigtail catheter insertion. 2. Bullous emphysema. 3. Pneumonia with sepsis. 4. Nonspecific left upper lobe pulmonary nodule. 5. Recent deep venous thrombosis. 6. Transient ischemic attack. 7. Chronic neck and back pain. 8. Dental abscess. 9. Acute kidney injury. PLAN: The patient is going for a tracheostomy and PEG tube placement today. It will be done by Dr. Gutierrez. We will see if we can't lessen some of his sedatives, hypnotics and other medications including paralytics. Additional recommendations and suggestions are forthcoming. We will see if we can't get the patient evaluated by select specialty. Will continue to follow. Prognosis is poor. All meds, labs, x-rays are all reviewed. Critical care time 42 minutes. CASPER
[2017-01-04] MEDS: SODIUM CHLORIDE 0.9% 1,000 ML IV SCH (14:10)
[2017-01-04 15:48] LABS: Glucose,Whole Blood 117 mg/dL (75-99)
--- NOTE | 2017-01-04 19:06 | P.PN ---
Subjective Principal diagnosis: respiratory failure 46-year-old male who has a presumptive diagnosis of underlying emphysema presents to the hospital with a relatively short-term of increasing shortness of breath. The patient relates over the weekend he started to get short of breath. He developed cough and increasing shortness of breath. He then had significant fever and increasing pain to his right chest. The pain became so severe that he no longer was able to hold out at home and presented to the emergency center. There he was evidence of a pain a 10 out of 10 and evidence of significant respiratory distress. Imaging studies revealed evidence of a significant pneumonia as well as a large bleb to the right chest. Effusion was seen. No evidence of pulmonary embolus or of aortic dissection was seen. The patient was brought to the intensive care unit where he is required some sedation for placement of BiPAP. BiPAP has been placed the patient appears to be feeling this. We'll likely be intubated soon. The patient had a significant AA gradient despite the BiPAP. The family does relate to the difficulty with his oral cavity. He apparently has been antibiotic therapy was that of a tooth extraction for an abscess the family denies a history of injection drug use. Significant alcohol use. PTSD from his experience in [place]. No severe illnesses while he was overseas. He has noted the patient developed respiratory failure. Required intubation sedation and mechanical ventilation. He remains intubated he is on a PEEP of 14 and50%FIO2 for his acute lung injury and serious pneumonia The patient is now paralyzed. He required vasopressor therapy that has now resolved. Overall he is with more stability but continues to have extensive pulmonary illness. He is also required fentanyl intravenous. With his pulmonary issues requires significant sedation and paralysis for adequate ventilation. Trach and PEG now placed. Objective - Vital Signs Vital signs: Vital Signs Temp 98.1 F 01/04/17 12:00 Pulse 89 01/04/17 18:00 Resp 26 H 01/04/17 18:00 BP 188/114 01/04/17 18:00 Pulse Ox 95 01/04/17 18:00 Intake & Output 01/04/17 01/04/17 01/05/17 06:59 18:59 06:59 Intake Total 1490.243 972.336 Output Total 1492 3116 Balance -1.214 -6314.781 Weight 91.2 kg 91.2 kg Intake: IV 405.0 570 .9 KVO 230 220 Levofloxacin 750Mg-D5w 100 Pmx 750 mg In Dextrose/ Water 1 150ml.bag @ 100 mls/hr IVPB Q24H [facility] Rx#: [id number] Piperacillin-Tazobactam 3 75.0 100 .375 gm In Dextrose/Water 1 50ml.bag @ 12.5 mls/hr IVPB Q8HR [facility] Rx#: [id number] Vancomycin 1,250 mg In 250 Sodium Chloride 0.9% 250 ml @ 125 mls/hr IVPB Q24H [facility] Rx#:[id number] Intake, IV Titration 705.243 402.336 Amount Cisatracurium 200 mg In 61.561 102.336 Sodium Chloride 0.9% 180 ml @ 1 MCG/KG/MIN 5.33 mls/hr IV .Q24H [facility] Rx#: [id number] Propofol 1,000 mg In 100 424.682 300 ml @ Titrate IV .Q0M [facility] Rx#:[id number] fentaNYL (PF) 2,500 mcg 219 In Sodium Chloride 0.9% 200 ml @ 100 MCG/HR 10 mls/hr IV .Q24H [facility] Rx#: [id number] Tube Feeding 320 0 Other 60 Output: Chest Tube Drainage 10 30 Chest Tube Right Lateral 10 30 Chest Urine 1480 3075 Stool 2 1 Estimated Blood Loss 10 Other: Voiding Method Indwelling Catheter Indwelling Catheter # Bowel Movements 1 1 ABP, PAP, CO, CI - Last Documented Arterial Blood Pressure 152/69 - Exam 46-year-old male who had trach sedated and mechanically ventilated HEENT: Anicteric conjunctiva are pink and moist nasal mucosa grossly intact without significant lesions, there is no thrush. Neck: The neck is supple without significant lymphadenopathy or thyromegaly. trach site without bleeding Lungs: There is symmetrical air entry. Markedly diminished breath sounds in the right base. Dullness the right base. Heart: Regular rate and rhythm with an audible S1-S2, no S3 no S4. There is no significant murmur click or rub, PMI was nondisplaced. Abdomen: Positive bowel sounds soft and nontender without palpable masses or organomegaly. There was no guarding or rebound. Abdomen is not rigid Extremities: The upper extremities have excellent pulses they are symmetric, no significant petechiae or telangiectasia. No splinter hemorrhages were noted. The lower extremities are free from significant edema. The peripheral pulses were 2+ and symmetric. Neuro: Patient is sedated and mechanically ventilated, is again paralyzed with extensive sedation. - Labs CBC & Chem 7: 01/04/17 04:21 01/04/17 04:21 Labs: Abnormal Lab Results - Last 24 Hours (Table) 01/01/17 01/03/17 01/04/17 Range/Units 11:20 21:44 00:31 WBC (3.8-10.6) k/uL RBC (4.30-5.90) m/uL Hgb (13.0-17.5) gm/dL MCV (80.0-100.0) fL Neutrophils # (Manual) (1.3-7.7) k/uL ABG pCO2 (35-45) mmHg ABG pO2 (83-108) mmHg ABG HCO3 (21-25) mmol/L ABG Total CO2 (19-24) mmol/L ABG O2 Saturation (94-97) % Potassium (3.5-5.1) mmol/L Chloride (98-107) mmol/L BUN (9-20) mg/dL Glucose (74-99) mg/dL POC Glucose (mg/dL) 148 H 128 H (75-99) mg/dL Phosphorus (2.5-4.5) mg/dL Magnesium (1.6-2.3) mg/dL Total Protein (6.3-8.2) g/dL Albumin (3.5-5.0) g/dL Pleur Adenosine Deamin 16.4 H (0.0-9.4) U/L 01/04/17 01/04/17 01/04/17 Range/Units 03:58 04:21 04:21 WBC 26.2 H* (3.8-10.6) k/uL RBC 3.87 L (4.30-5.90) m/uL Hgb 12.8 L (13.0-17.5) gm/dL MCV 102.5 H (80.0-100.0) fL Neutrophils # (Manual) 20.7 H (1.3-7.7) k/uL ABG pCO2 (35-45) mmHg ABG pO2 (83-108) mmHg ABG HCO3 (21-25) mmol/L ABG Total CO2 (19-24) mmol/L ABG O2 Saturation (94-97) % Potassium 5.7 H (3.5-5.1) mmol/L Chloride 109 H (98-107) mmol/L BUN 51 H (9-20) mg/dL Glucose 117 H (74-99) mg/dL POC Glucose (mg/dL) 123 H (75-99) mg/dL Phosphorus 5.2 H (2.5-4.5) mg/dL Magnesium 2.9 H (1.6-2.3) mg/dL Total Protein 6.0 L (6.3-8.2) g/dL Albumin 3.0 L (3.5-5.0) g/dL Pleur Adenosine Deamin (0.0-9.4) U/L 01/04/17 01/04/17 01/04/17 Range/Units 07:34 08:16 12:06 WBC (3.8-10.6) k/uL RBC (4.30-5.90) m/uL Hgb (13.0-17.5) gm/dL MCV (80.0-100.0) fL Neutrophils # (Manual) (1.3-7.7) k/uL ABG pCO2 51 H (35-45) mmHg ABG pO2 71 L (83-108) mmHg ABG HCO3 28 H (21-25) mmol/L ABG Total CO2 30 H (19-24) mmol/L ABG O2 Saturation 93.0 L (94-97) % Potassium (3.5-5.1) mmol/L Chloride (98-107) mmol/L BUN (9-20) mg/dL Glucose (74-99) mg/dL POC Glucose (mg/dL) 145 H 122 H (75-99) mg/dL Phosphorus (2.5-4.5) mg/dL Magnesium (1.6-2.3) mg/dL Total Protein (6.3-8.2) g/dL Albumin (3.5-5.0) g/dL Pleur Adenosine Deamin (0.0-9.4) U/L 01/04/17 Range/Units 15:46 WBC (3.8-10.6) k/uL RBC (4.30-5.90) m/uL Hgb (13.0-17.5) gm/dL MCV (80.0-100.0) fL Neutrophils # (Manual) (1.3-7.7) k/uL ABG pCO2 (35-45) mmHg ABG pO2 (83-108) mmHg ABG HCO3 (21-25) mmol/L ABG Total CO2 (19-24) mmol/L ABG O2 Saturation (94-97) % Potassium (3.5-5.1) mmol/L Chloride (98-107) mmol/L BUN (9-20) mg/dL Glucose (74-99) mg/dL POC Glucose (mg/dL) 117 H (75-99) mg/dL Phosphorus (2.5-4.5) mg/dL Magnesium (1.6-2.3) mg/dL Total Protein (6.3-8.2) g/dL Albumin (3.5-5.0) g/dL Pleur Adenosine Deamin (0.0-9.4) U/L Microbiology - Last 24 Hours (Table) 01/01/17 11:15 Gram Stain - Preliminary Pleural Fluid Body Fluid Culture - Preliminary 12/29/16 01:50 Blood Culture - Final Blood No Growth after 144 hours Laboratory Results WBC 26.2 k/uL (3.8-10.6) H* 01/04/17 04:21 RBC 3.87 m/uL (4.30-5.90) L 01/04/17 04:21 Hgb 12.8 gm/dL (13.0-17.5) L 01/04/17 04:21 Hct 39.7 % (39.0-53.0) 01/04/17 04:21 MCV 102.5 fL (80.0-100.0) H 01/04/17 04:21 MCH 33.1 pg (25.0-35.0) 01/04/17 04:21 MCHC 32.3 g/dL (31.0-37.0) 01/04/17 04:21 RDW 13.7 % (11.5-15.5) 01/04/17 04:21 Plt Count 300 k/uL (150-450) 01/04/17 04:21 Neutrophils % 91 % 01/01/17 04:55 Neutrophils % (Manual) 75.0 % 01/04/17 04:21 Band Neutrophils % 4.0 % 01/04/17 04:21 Lymphocytes % 4 % 01/01/17 04:55 Lymphocytes % (Manual) 4.0 % 01/04/17 04:21 Monocytes % 4 % 01/01/17 04:55 Monocytes % (Manual) 4.0 % 01/04/17 04:21 Eosinophils % 0 % 01/01/17 04:55 Eosinophils % (Manual) 1.0 % 01/04/17 04:21 Basophils % 0 % 01/01/17 04:55 Metamyelocytes % 8.0 % 01/04/17 04:21 Myelocytes % 3.0 % 01/04/17 04:21 Promyelocytes % 1.0 % 01/04/17 04:21 Neutrophils # 21.7 k/uL (1.3-7.7) H 01/01/17 04:55 Neutrophils # (Manual) 20.7 k/uL (1.3-7.7) H 01/04/17 04:21 Lymphocytes # 0.9 k/uL (1.0-4.8) L 01/01/17 04:55 Lymphocytes # (Manual) 1.0 k/uL (1.0-4.8) 01/04/17 04:21 Monocytes # 1.0 k/uL (0-1.0) 01/01/17 04:55 Monocytes # (Manual) 1.0 k/uL (0-1.0) 01/04/17 04:21 Eosinophils # 0.1 k/uL (0-0.7) 01/01/17 04:55 Eosinophils # (Manual) 0.3 k/uL (0-0.7) 01/04/17 04:21 Basophils # 0.0 k/uL (0-0.2) 01/01/17 04:55 Nucleated RBCs 0 /100 WBC (0-0) 01/04/17 04:21 Manual Slide Review Performed 01/04/17 04:21 Toxic Granulation Present 01/03/17 04:34 Polychromasia Present 01/03/17 04:34 Poikilocytosis (manual Present 01/03/17 04:34 Anisocytosis (manual) Present 01/03/17 04:34 Macrocytosis Slight 01/04/17 04:21 PT 10.1 sec (9.0-12.0) 01/04/17 04:21 INR 1.0 (<1.2) 01/04/17 04:21 APTT 24.3 sec (22.0-30.0) 01/03/17 04:34 D-Dimer 0.82 mg/L FEU (<0.60) H 12/29/16 11:36 Sample Site lrad 01/04/17 07:34 ABG pH 7.36 (7.35-7.45) 01/04/17 07:34 ABG pCO2 51 mmHg (35-45) H 01/04/17 07:34 ABG pO2 71 mmHg (83-108) L 01/04/17 07:34 ABG HCO3 28 mmol/L (21-25) H 01/04/17 07:34 ABG Total CO2 30 mmol/L (19-24) H 01/04/17 07:34 ABG O2 Saturation 93.0 % (94-97) L 01/04/17 07:34 ABG Base Excess 3.4 mmol/L 01/04/17 07:34 ABG Lactic Acid 2.6 mmol/L (0.5-1.6) H* 12/31/16 05:30 FiO2 100 % 01/04/17 07:34 Sodium 145 mmol/L (137-145) 01/04/17 04:21 Potassium 5.7 mmol/L (3.5-5.1) H 01/04/17 04:21 Chloride 109 mmol/L (98-107) H 01/04/17 04:21 Carbon Dioxide 26 mmol/L (22-30) 01/04/17 04:21 Anion Gap 10 mmol/L 01/04/17 04:21 BUN 51 mg/dL (9-20) H 01/04/17 04:21 Creatinine 1.00 mg/dL (0.66-1.25) 01/04/17 04:21 Est GFR (MDRD) Af Amer >60 (>60 ml/min/1.73 sqM) 01/04/17 04:21 Est GFR (MDRD) Non-Af >60 (>60 ml/min/1.73 sqM) 01/04/17 04:21 Glucose 117 mg/dL (74-99) H 01/04/17 04:21 POC Glucose (mg/dL) 117 mg/dL (75-99) H 01/04/17 15:46 POC Glu Mohel Meghna Leiva 01/04/17 15:[address] Glu mg/dL 117 mg/dL 12/30/16 06:00 Hemoglobin A1c 5.7 % (4.2-6.1) 12/30/16 06:00 Plasma Lactic Acid Michael 1.5 mmol/L (0.7-2.0) 12/29/16 11:35 Calcium 9.4 mg/dL (8.4-10.2) 01/04/17 04:21 Phosphorus 5.2 mg/dL (2.5-4.5) H 01/04/17 04:21 Magnesium 2.9 mg/dL (1.6-2.3) H 01/04/17 04:21 Total Bilirubin 0.5 mg/dL (0.2-1.3) 01/04/17 04:21 AST 27 U/L (17-59) 01/04/17 04:21 ALT 50 U/L (21-72) 01/04/17 04:21 Alkaline Phosphatase 71 U/L (38-126) 01/04/17 04:21 Total Creatine Kinase 31 U/L (55-170) L 12/29/16 01:50 CK-MB (CK-2) <0.2 ng/mL (0.0-2.4) 12/29/16 01:50 CK-MB (CK-2) Rel Index 12/29/16 01:50 Troponin I <0.012 ng/mL (0.000-0.034) 12/29/16 01:50 Total Protein 6.0 g/dL (6.3-8.2) L 01/04/17 04:21 Albumin 3.0 g/dL (3.5-5.0) L 01/04/17 04:21 [id number] 212.0 mg/dL (99.0-242.0) 12/29/16 11:36 Urine Color Yellow 12/29/16 02:10 Urine Appearance Clear (Clear) 12/29/16 02:10 Urine pH 5.5 (5.0-8.0) 12/29/16 02:10 Ur Specific [place] 1.010 (1.001-1.035) 12/29/16 02:10 Urine Protein Negative (Negative) 12/29/16 02:10 Urine Glucose (UA) Negative (Negative) 12/29/16 02:10 Urine Ketones Negative (Negative) 12/29/16 02:10 Urine Blood Small (Negative) H 12/29/16 02:10 Urine Nitrite Negative (Negative) 12/29/16 02:10 Urine Bilirubin Negative (Negative) 12/29/16 02:10 Urine Urobilinogen <2.0 mg/dL (<2.0) 12/29/16 02:10 Ur Leukocyte Esterase Negative (Negative) 12/29/16 02:10 Urine RBC 2 /hpf (0-5) 12/29/16 02:10 Urine WBC <1 /hpf (0-5) 12/29/16 02:10 Ur Squamous Epith Cells <1 /hpf (0-4) 12/29/16 02:10 Urine Mucus Rare /hpf (None) H 12/29/16 02:10 Fluid Source Pleural 01/01/17 11:15 Fluid Appearance Blood Tinged 01/01/17 11:15 Fluid RBC 39783 /uL 01/01/17 11:15 Fluid Nucleated Cells 24987 /uL 01/01/17 11:15 Fluid Polynuclear WBCs 82 % 01/01/17 11:15 Fluid Mononuclear WBCs 18 % 01/01/17 11:15 Body Fluid Glucose Source Pleural Fluid 01/01/17 11:15 Fluid Glucose 65 mg/dL 01/01/17 11:15 Body Fluid Protein Source Pleural Fluid 01/01/17 11:15 Fluid Total Protein 3800 mg/dL 01/01/17 11:15 Body Fluid LDH Source Pleural Fluid 01/01/17 11:15 Fluid LDH 1483 U/L 01/01/17 11:15 Body Fluid Amylase Source Pleural Fluid 01/01/17 11:15 Fluid Amylase 18 U/L 01/01/17 11:15 Fluid Cholesterol 105 mg/dL 01/01/17 11:15 Fl Cholesterol Source Pleural Fluid 01/01/17 11:15 Pleur Adenosine Deamin 16.4 U/L (0.0-9.4) H 01/01/17 11:20 Vancomycin Trough 41.0 ug/mL H* 01/02/17 04:55 Random Vancomycin 19.8 ug/mL 01/03/17 04:34 Urine Legionella Ag Not detected (Not detected) 12/29/16 14:45 Mycoplasma pneumon IgG 1.65 INDEX (<=0.90) H 12/29/16 11:36 Mycoplasma pneumon IgM 0.56 INDEX (<=0.90) 12/29/16 11:36 Microbiology 01/01/17 11:15 Pleural Fluid Gram Stain - Preliminary 01/01/17 11:15 Pleural Fluid Body Fluid Culture - Preliminary 12/29/16 01:50 Blood Blood Culture - Final No Growth after 144 hours 01/01/17 11:24 Pleural Fluid Acid Fast Bacilli Smear - Final 01/01/17 11:24 Pleural Fluid Acid Fast Bacilli Culture - Preliminary 12/29/16 18:42 Sputum Gram Stain - Final 12/29/16 18:42 Sputum Sputum Culture - Final 12/29/16 14:42 Sputum Gram Stain - Final 12/29/16 14:42 Sputum Sputum Culture - Final 12/29/16 02:10 Urine,Voided Urine Culture - Final Assessment and Plan (1) Pneumonia Narrative/Plan: 46-year-old male with history of heavy tobacco use who by imaging studies has a large bleb to the right upper zone is evidence of a significant effusion to the right side and pneumonic infiltration. Patient presents with respiratory failure and sepsis from his pneumonia. Cultures are in process. Broad-spectrum antibiotic therapy with Zosyn and Levaquin and vancomycin are given until cultures are available. The patient does have a history of the recent dental work and concerns to a lung abscess or putrid empyema. The patient has had a chest tube placed and is draining a large amount of effusion The patient has respiratory failure has been intubated and is mechanically ventilated. 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 Sputum culture in process after his intubation and is negative at this time. Blood cultures in process and are negative at this time. Significant leukocytosis due to his current sepsis and the utilization of Solu- Medrol for his pulmonary status. Trach and PEG tube and placed and he is hemodynamically stable at this time. Status: Acute (2) Respiratory failure Status: Acute (3) Empyema of right pleural space Status: Acute
[2017-01-04 20:32] LABS: Glucose,Whole Blood 122 mg/dL (75-99)
[2017-01-04] MEDS: fentaNYL (PF) 2,500 MCG in SODIUM CHLORIDE 0.9% 200 ML IV SCH (23:06)
[2017-01-05] MEDS: PROPOFOL 1,000 MG/100 ML VIAL IV SCH ×9 (00:01→22:58)
[2017-01-05] MEDS: HYDROmorphone 1 MG/ML 1 ML SYRINGE IVP PRN ×14 (01:06→22:42)
[2017-01-05] MEDS: ARTIFICIAL TEARS-HYPROMELLOSE DROPS 15 ML BTL BOTH EYES SCH ×3 (01:10→07:48)
[2017-01-05] MEDS: methylPREDNISolone SOD SUCCI 125 MG/2 ML VIAL IV SCH ×4 (01:11→17:02)
[2017-01-05] MEDS: PIPERACILLIN-TAZOBACTAM 3.375 GM in DEXTROSE/WATER 1 50ML.BAG IVPB SCH ×3 (01:12→17:07)
[2017-01-05] MEDS: INSULIN LISPRO (humaLOG) 300 UNIT/3 ML VIAL SQ SCH ×6 (01:17→20:24)
[2017-01-05 01:18] LABS: Glucose,Whole Blood 106 mg/dL (75-99)
[2017-01-05] MEDS: LABETALOL 5 MG/ML VIAL MDV IVP PRN ×2 (03:01→09:14)
[2017-01-05] MEDS: IPRATROPIUM-ALBUTEROL 3 ML NEB INHALATION SCH ×6 (03:04→22:55)
[2017-01-05] MEDS: LEVOFLOXACIN 750MG-D5W PMX 750 MG in DEXTROSE/WATER 1 150ML.BAG IVPB SCH (03:12)
[2017-01-05 04:40] LABS: Glucose,Whole Blood 105 mg/dL (75-99)
[2017-01-05] MEDS: LORazepam 2 MG/ML SYRINGE IV PRN (04:53)
[2017-01-05 06:01] LABS: ABG Base Excess 2.5 mmol/L; ABG HCO3 27 mmol/L (21-25); ABG PCO2 49 mmHg (35-45); ABG PH 7.37 (7.35-7.45); ABG PO2 77 mmHg (83-108); ABG TCO2 29 mmol/L (19-24)
[2017-01-05] MEDS: CISATRACURIUM 200 MG in SODIUM CHLORIDE 0.9% 180 ML IV SCH (06:03)
[2017-01-05] MEDS ORDERED: VANCOMYCIN TROUGH DUE 1 EACH MISC MISCELLANE ONE (07:00)
[2017-01-05 07:41] LABS: Anion Gap 8 mmol/L; Blood Urea Nitrogen 58 mg/dL (9-20); Calcium 8.6 mg/dL (8.4-10.2); Carbon Dioxide 26 mmol/L (22-30); Chloride 109 mmol/L (98-107); Glucose 103 mg/dL (74-99); Magnesium 2.8 mg/dL (1.6-2.3); Non-African American GFR(MDRD) 57 (>60 ml/min/1.73 sqM); Phosphorous 5.4 mg/dL (2.5-4.5); Potassium 5.6 mmol/L (3.5-5.1); Sodium 143 mmol/L (137-145)
[2017-01-05] MEDS: VANCOMYCIN 1,250 MG in SODIUM CHLORIDE 0.9% 250 ML IVPB SCH (07:52)
--- NOTE | 2017-01-05 08:36 | PN ---
DATE OF SERVICE: 01/04/2017 This 46-year-old gentleman admitted with chronic obstructive pulmonary disease acute exacerbation, pneumonia acute respiratory failure, is being closely monitored. Patient is on mechanical ventilation. The patient underwent PEG tube and tracheostomy by Dr. Gutierrez. The patient has been closely monitored at this time in ICU. PAST MEDICAL HISTORY: Reviewed. Review of systems could not be taken because the patient is mechanically ventilated and sedated. PHYSICAL EXAMINATION: The patient mechanically ventilated and sedated. Pulse is 77, blood pressure 144/99, respirations 26, temperature is normal, pulse ox 93% on mechanical ventilation. Vent settings noted. HEENT: Conjunctivae normal. NECK: Tracheostomy present. CARDIOVASCULAR: S1, S2. No S3 or S4. RESPIRATORY: Breath sounds diminished at the bases. Bilateral scattered rhonchi and crackles. ABDOMEN: Soft, obese, nontender, no mass palpable. LEGS: No edema, no swelling. NERVOUS SYSTEM: Higher function as mentioned. Moves all four limbs. No focal motor sensory deficits. LYMPHATICS: No lymphadenopathy in the neck, axillae or groin. SKIN: No rash, ulcer or bleeding. LABS: WBC 10.6, hemoglobin 12.8, and potassium 5.7. ASSESSMENT: 1. Chronic obstructive pulmonary disease acute exacerbation with acute right lower lobe pneumonia possibly community acquired with severe sepsis with acute hypoxic respiratory failure and possible aspiration on mechanical ventilation. 2. History of PEG tube and tracheostomy. 3. Acute right pleural effusion, possibly empyema status post chest tube drainage. 4. Change in mental, status metabolic encephalopathy acute. 5. History of nicotine dependence. RECOMMENDATIONS AND DISCUSSION: In this 46-year-old gentleman who presented with multiple complex medical issues, we well monitor the patient closely. Continue the current medications. Continue symptomatic treatment. Continue bronchodilators, continue empiric antibiotics. Follow the cultures. Continue the chest tube drainage. Dr. Elliott input appreciated. We will continue to monitor. Cultures are negative so far. Continue to monitor. Further weaning attempts per Dr. Patel. Further recommendations to follow. [facility]
[2017-01-05] MEDS: ENOXAPARIN 40 MG/0.4 ML SYRINGE SQ SCH (09:26)
[2017-01-05] MEDS: CHLORHEXIDINE GLUCONATE 15 ML CUP MUCOUS MEM SCH ×2 (09:26→20:25)
[2017-01-05] MEDS: ESOMEPRAZOLE 20 MG in SODIUM CHLORIDE 0.9% 50 ML IVPB SCH (09:27)
[2017-01-05] MEDS: CITALOPRAM HYDROBROMIDE 20 MG TAB PO SCH (09:27)
[2017-01-05] MEDS: ASPIRIN 81 MG CHEW PO SCH (09:27)
[2017-01-05] MEDS: BACLOFEN 10 MG TAB PO PRN ×2 (09:29→20:23)
[2017-01-05 09:32] LABS: Glucose,Whole Blood 129 mg/dL (75-99)
[2017-01-05] MEDS ORDERED: NICOTINE 14MG/24HR PATCH TRANSDERM STA (09:37)
--- NOTE | 2017-01-05 10:34 | P.PN ---
Subjective Principal diagnosis: Acute hypoxic respiratory failure secondary to pneumonia, parapneumonic effusion , COPD. 46-year-old male patient who presented emergency department this morning because of severe pleuritic right-sided chest pain, fever and cough that's been going on for the past few days. His temperature today was 100.3. He also stated that he has been having cough for the past 24-48 hours without any significant sputum production. He started of her way having some pleuritic chest pain on the right and the pain got severely worse as the day went by to the point where he was having apparent there was 10 out of 10 this this morning. The patient denies having any hemoptysis. No previous history of pneumonia. The patient has history of DVT and the patient has been maintained on Xarelto on outpatient basis. He is a chronic every day smoker. In the emergency department, the patient was found to have a temperature over 1.6. He was tachycardic with a heart rate of 113. He is supposed pulse ox on 4 L was around 94 percent. He had significant leukocytosis with a white cell count 22, 000 and his chest x-ray showed bullous emphysema involving the right upper lobe and extensive right lung consolidation and possibly a small right-sided pleural effusion. Some limited left basilar infiltrates was also seen. The patient was started on broad-spectrum antibiotics. He was given IV Levaquin and vancomycin and subsequently was admitted to the medical floor. I was asked to develop this patient by Dr. Palma 90 the patient was getting increasingly short of breath and he was having pain over the right side of the chest. He was given Dilaudid for pain control with limited success. Subsequently became more tachypneic, diaphoretic, abdomen was getting progressively more distended, he was brought into the intensive care unit and subsequently was intubated and placed on a mechanical ventilator. At this point in time the patient is sedated with Diprivan, paralyzed on Nimbex, on assist control mode of ventilation at the rate of 26, tidal volume 400, FiO2 of 100% and a PEEP of 5. His blood gases show a pH of 7.27 with a pCO2 of 50 and pO2 of 80. This was done and FiO2 of 100% with a PEEP of 5. His chest x-ray post intubation showed worsening of the right lung consolidation with increased atelectasis and possibly effusion. There is also some infiltration and effusion the left lung base. Bullous emphysema can be seen bilaterally more so on the right upper lobe. A CAT scan of the chest was also done and showed moderate to severe upper lobe emphysematous changes right more than left. A moderate-sized right- sided pleural effusion measuring 7.2 cm in size with compressive atelectasis of the right lung base and consolidation of the right lower lobe. Another 1.1 cm nonspecific pulmonary nodules seen in the left upper lobe and there is a small left-sided pleural effusion. I interviewed the and the mother. Apparently the patient was having a tooth abscess and he had seen a dentist approximately 4 weeks ago. He was placed on antibiotics for total of 2 weeks and he was supposed to have a tooth extraction following that. His been off antibiotics for another 2 weeks for now. He denied having any facial swelling or pain recently. No travel history. No exposure to hot tubs or any other contaminated water sources. No sensory of substance abuse. No alcoholism. No immunosuppression. He has history of depression and possibly component of PTSD as the patient is a . No skin rashes. No other sick contacts. He lives with his and he has no children, dogs at home. On 12/30/2016 I'm seeing this patient in follow-up. As mentioned earlier, the patient came in with an extensive right lung pneumonia currently is intubated on a mechanical ventilator and is sedated and paralyzed. Earlier this morning the patient was in a Diprivan drip at 50 mics and the patient was also on a Nimbex drip for paralysis. He is an assist-control mode of ventilation at the rate of 26, tidal volume 400, FiO2 was at 100% PEEP at 12. The blood gases from this morning showed a pH of 7.24 with pCO2 of 62 and pO2 of 76. Chest x- ray shows extensive consolidation of the right lower lobe and early pneumonic changes in the left lower lobe. ET tube was in a good location. OG tube was in a good location. Triple-lumen catheter was also noted that location. No evidence of any pneumothorax. Peak pressures around 28. Based on this, increase the PEEP up to 14 and gradually wean down the FiO2 down to 80% and currently is down to 70%. Pulse ox is in the order of 91-92%. Hemodynamically the patient is on normal saline infusion rate of 100 mL an hour. Urine output is adequate in the order of 60 mL an hour, white cell count is elevated at 23.7. Bronchoscopy and bronchial lavage of the right lung was done and the results are still pending for now. Meanwhile, the patient is covered with a combination of Zosyn, vancomycin and Levaquin. ID is on the case. All of the blood cultures are negative for now. He is on no pressors. Artline cath is inserted in the right radial artery. He is on and off requiring Dilaudid for pain control. On 12/31/2016 the patient is being seen in follow-up. Not much of a change in his condition in general over the past 24 hours. He did have a drop in his urine output and his creatinine doubled it up to 1.3. Note that his blood pressure was also fluctuating and he became borderline hypotensive. Based on that, the patient was given levo fed and currently norepinephrine infusion is running at 1-2 mics to maintain a mean artery pressure above 65. Meanwhile, his urine output improved and is currently producing more than 30 mL an hour. He is still on mechanical ventilator on assist control with the same vent settings. The FiO2 was dropped down to 60% and is still on a tidal volume 400 today rate of 26 and a PEEP of 14. The chest x-ray a is essentially unchanged. There is an extensive consolidation of the right lower lobe, limited infiltration of the left lung base, a large bullous disease involving the right upper lobe and its tube is in a good location. The patient's became a pressures ranging between 28-32. No significant orotracheal secretions. Legionella urine antigen was negative. Bronchioloalveolar lavage and the blood cultures of been all negative thus far. The patient remains on a combination of Zosyn, Levaquin and vancomycin. Lactic acid level from this morning's at 2.6. White cell count is at 27.9. He remains on bronchodilators and systemic steroids. Is tolerating his tube feeds. He is sedated with Diprivan. On and off he becomes asynchronous with a mechanical ventilator and for that reason he was given Dilaudid 1 mg which is requiring every 1-2 hours. Based on that I have ordered a fentanyl drip. We'll try to avoid paralytics if possible. On 01/01/2017 I'm seeing this patient in follow-up. He remains intubated on a mechanical ventilator. He is on a PEEP of 14 and FiO2 of 50% with unable to wean down the FiO2 any further. Based on that I performed another CAT scan of the chest yesterday and it showed severe emphysematous changes greater in the right lung apex. In addition there is a large right-sided pleural effusion extending to the right apex. Right basilar atelectasis/infiltrates still seen. Nodular density in the left upper lobe. Based on this, I discussed the case with interventional radiology and this morning the patient will be having a pigtail catheter inserted into the right hemithorax to evacuate the right-sided pleural effusion. Unfortunately no microbial culture has been established on this patient and all of the cultures of been negative. He remains on broad- spectrum antibiotics. On his blood gases there is no much room to wean down his FiO2 or his PEEP any further. His blood gases was reviewed. Chest x-ray stable and showing was emphysema in the right upper lobe and persistent chronic right-sided pleural effusion/infiltrate in the right lung base. Limited infiltration seen in the left which is unchanged. Tolerating tube feeds. Unfortunately is been asynchronous with a mechanical ventilator. He had been sedated aggressively with a combination of Diprivan, fentanyl got added and overnight he had to be also paralyzed to improve his synchrony. At this point in time he remains sedated and paralyzed. Urine output is adequate. On no pressors. Tolerating his tube feeds. Patient is seen again today 01/02/2017 in follow-up in the intensive care unit. He remains intubated and on the mechanical ventilator. Current settings are assist control of 26, tidal volume 400, FiO2 of 50% and a PEEP of 12. Morning arterial blood gases revealed a O2 of 79, pCO2 63 and a pH of 7.23. His chest x -ray reveals basilar atelectasis. Nodular density in the left upper lobe. He remains sedated on propofol 75 mcg/kg/m, fentanyl at 75 mcg/h and Nimbex at 2 g/ kg/m. He is also requiring intermittent Dilaudid and Ativan. He has a 0.9 normal saline at 100 mL per hour. Not requiring any pressors. He's been somewhat hypertensive. He is tolerating his tube feedings of Vital at 40 mL per hour which is goal. The right chest pigtail catheter drainage at approximately 1 L in total. His urine output remains adequate greater than 100 MLS per hour. Cultures of the blood urine and sputum thus far are showing no growth. Pleural fluid results are pending. Cytology pending. White count 27.1. He has been afebrile. He is continued on Zosyn, Levaquin and vancomycin. Reevaluated today on 01/03/2017, patient remains on mechanical ventilation, in the ICU. Upon my arrival, patient was noted to be desaturating down to the mid 80s in spite of FiO2 of 60%. Hence the patient was placed on 100% FiO2, reviewed the chest x-ray which clearly shows significant airspace disease involving the right lower lobe. But considering the sudden change, and considering the patient had previous history of deep vein thrombosis, I recommended a stat CT angiogram of the chest, it came back negative for pulmonary embolism, however it showed significant airspace disease in lower lobes bilaterally right more so than left, it also showed significant emphysematous changes in the right lung more so compared to the left lung. In the meantime the patient was placed on FiO2 of 100%, PEEP was increased to 8, and I recommended restarting the patient on Nimbex. Clearly the patient is not going to be weaned easily, and he is scheduled to undergo tracheostomy in the morning. Discussed his condition with his at bedside. Patient remains on multiple drips as noted above. Remains on Nimbex, remains on propofol and on fentanyl drip. Requiring significant amount of sedation to keep him calm and saturating properly. Vent settings were reviewed again, and I will go ahead and titrate his FiO2 down to keep his saturation above 92%. Patient is not requiring any pressors, and Gram stain from the pleural effusion remains negative. WBC count is 24.1 hemoglobin is 12.2. ABG this morning showed a pO2 of 66 pCO2 of 47 pH of 7.38. And this was earlier today on 50% FiO2 and PEEP of 5. BUN is 45 creatinine is 1.0. The patient is seen again today 01/05/2017 in follow-up in the intensive care unit. He remains on the mechanical ventilator at assist control 26, tidal volume 450, FiO2 of 80% and a PEEP of 10. He did undergo tracheostomy tube placement and PEG tube placement yesterday this is postoperative day #1. Morning blood gases reveal a P O2 of 77, pCO2 49, pH 7.37. He remains on a 0.9 normal saline at 20 mL's per hour, propofol at 75 mcg/kg/m, fentanyl at 100 mcg/ h, and Nimbex is off. Tube feedings have remained on hold since PEG tube placement and will be resumed later today. He is receiving Dilaudid as needed. His Baclofen has been reviewed. His chest x-ray continues to show some right- sided pleural effusion, pigtail catheter remains in place. Minimal drainage now. And output has been adequate. He has been afebrile. He has been having ongoing issues with hypertension. Potassium 5.6. BUN 58. Creatinine 1.35. Objective - Vital Signs Vital signs: Vital Signs Temp 98.2 F 01/05/17 08:00 Pulse 103 H 01/05/17 09:00 Resp 26 H 01/05/17 09:00 BP 182/108 01/05/17 09:00 Pulse Ox 93 L 01/05/17 09:00 Intake & Output 01/04/17 01/05/17 01/05/17 18:59 06:59 18:59 Intake Total 763.825 7182.775 667.267 Output Total 3116 1350 635 Balance -2143.664 -254.225 32.267 Weight 91.2 kg 92.3 kg Intake: IV 570 310 360 .9 KVO 220 260 60 Piperacillin-Tazobactam 3 100 50 50 .375 gm In Dextrose/Water 1 50ml.bag @ 12.5 mls/hr IVPB Q8HR [facility] Rx#: [id number] Vancomycin 1,250 mg In 250 250 Sodium Chloride 0.9% 250 ml @ 125 mls/hr IVPB Q24H [facility] Rx#:[id number] Intake, IV Titration 402.336 785.775 307.267 Amount Cisatracurium 200 mg In 102.336 177.934 11.6 Sodium Chloride 0.9% 180 ml @ 1 MCG/KG/MIN 5.33 mls/hr IV .Q24H [facility] Rx#: [id number] Propofol 1,000 mg In 100 300 361.341 200 ml @ Titrate IV .Q0M [facility] Rx#:[id number] fentaNYL (PF) 2,500 mcg 246.5 95.667 In Sodium Chloride 0.9% 200 ml @ 100 MCG/HR 10 mls/hr IV .Q24H [facility] Rx#: [id number] Tube Feeding 0 0 Output: Chest Tube Drainage 30 20 20 Chest Tube Right Lateral 30 20 20 Chest Urine 3075 1330 615 Stool 1 Estimated Blood Loss 10 Other: Voiding Method Indwelling Catheter Indwelling Catheter Indwelling Catheter # Bowel Movements 1 ABP, PAP, CO, CI - Last Documented Arterial Blood Pressure 152/69 - Exam Sedated, intubated, paralyzed, nonacute distress.Head exam was generally normal. There was no scleral icterus or corneal arcus. Mucous membranes were moist. Neck is supple and the patient has no JVDs no goiter or neck masses. Tracheostomy tube secured in place. The right IJ triple catheter in place. Lung sounds are markedly diminished in lung bases pressure the right lung base. No significant wheezes or rhonchi. No significant orotracheal secretions.Cardiac exam revealed the PMI to be normally situated and sized. The rhythm was regular and no extrasystoles were noted during several minutes of auscultation. The first and second heart sounds were normal and physiologic splitting of the second heart sound was noted. There were no murmurs, rubs, clicks, or gallops.Abdominal exam revealed normal bowel sounds. The abdomen was soft, non-tender, and without masses, organomegaly, or appreciable enlargement of the abdominal aorta.Examination of the extremities revealed easily palpable radial, femoral and pedal pulses. There was no cyanosis, clubbing or edema. - Labs CBC & Chem 7: 01/04/17 04:21 01/05/17 06:48 Labs: Abnormal Lab Results - Last 24 Hours (Table) 01/04/17 01/04/17 01/04/17 Range/Units 12:06 15:46 20:30 ABG pCO2 (35-45) mmHg ABG pO2 (83-108) mmHg ABG HCO3 (21-25) mmol/L ABG Total CO2 (19-24) mmol/L Potassium (3.5-5.1) mmol/L Chloride (98-107) mmol/L BUN (9-20) mg/dL Creatinine (0.66-1.25) mg/dL Glucose (74-99) mg/dL POC Glucose (mg/dL) 122 H 117 H 122 H (75-99) mg/dL Phosphorus (2.5-4.5) mg/dL Magnesium (1.6-2.3) mg/dL 01/05/17 01/05/1701/05/17 Range/Units 01:16 04:10 04:37 ABG pCO2 49 H (35-45) mmHg ABG pO2 77 L (83-108) mmHg ABG HCO3 27 H (21-25) mmol/L ABG Total CO2 29 H (19-24) mmol/L Potassium (3.5-5.1) mmol/L Chloride (98-107) mmol/L BUN (9-20) mg/dL Creatinine (0.66-1.25) mg/dL Glucose (74-99) mg/dL POC Glucose (mg/dL) 106 H 105 H (75-99) mg/dL Phosphorus (2.5-4.5) mg/dL Magnesium (1.6-2.3) mg/dL 01/05/17 01/05/17 Range/Units 06:48 09:30 ABG pCO2 (35-45) mmHg ABG pO2 (83-108) mmHg ABG HCO3 (21-25) mmol/L ABG Total CO2 (19-24) mmol/L Potassium 5.6 H (3.5-5.1) mmol/L Chloride 109 H (98-107) mmol/L BUN 58 H (9-20) mg/dL Creatinine 1.35 H (0.66-1.25) mg/dL Glucose 103 H (74-99) mg/dL POC Glucose (mg/dL) 129 H (75-99) mg/dL Phosphorus 5.4 H (2.5-4.5) mg/dL Magnesium 2.8 H (1.6-2.3) mg/dL Microbiology - Last 24 Hours (Table) 01/01/17 11:15 Gram Stain - Preliminary Pleural Fluid Body Fluid Culture - Preliminary Assessment and Plan Plan: Assessment 1 right lung pneumonia, severe, rapid interval progression with progressive worsening of the consolidation development of a small right-sided pleural effusion with subsequent acute hypoxic respiratory failure, currently intubated on a mechanical ventilator. Rule out pneumococcal pneumonia. Rule out anaerobic pneumonia possibly from a tooth abscess/aspiration. On 12/30/2016 the patient is being seen in follow-up. The patient remains intubated on a mechanical ventilator, sedated and paralyzed. He is on broad- spectrum antibiotics. No microbial diagnoses been established thus far. The patient is post bronchoscopy and bronchial lavage of the right lower lobe. Cultures of been all negative including the bronchioloalveolar lavage and the blood cultures. Necessary vent changes were done. On 12/31/2016, the patient is in a PEEP of 14 with an FiO2 of 60%. There has been only a modest improvement in his oxygenation and the chest x-ray findings remains essentially unchanged over the cultures of been negative thus far. Remains sedated yet not paralyzed. On 01/01/2017, the patient remains intubated sedated and paralyzed. The plan is to proceed with a pigtail catheter insertion and evacuation of a right-sided pleural effusion with seems to be somewhat loculated. The pleural fluid will be also sent for analysis and I'm hoping that it can be some improvement in his oxygenation and expansion of the right lung with the evacuation of right-sided pleural fluid. He remains on broad-spectrum antibiotics to no microbial cultures of been established at this point. Lovenox is on hold pending the procedure. On 01/02/2017, the patient remains intubated sedated and paralyzed. He did receive a pigtail catheter insertion to the right sided pleural effusion with approximate 1 L removed. Fluid analysis and cytology are pending. Lovenox resumed. On 01/05/2017 the patient is status post tracheostomy/PEG tube placements in the postoperative day #1.. 2 acute hypoxic respiratory failure, intubated on mechanical ventilator. 3 bullous emphysema with upper lobe emphysematous changes right more than left 4 sepsis secondary to right lung pneumonia, leukocytosis, 5 nonspecific left upper lobe pulmonary nodule measuring 1.1 cm in size 6 recent DVT post-orthopedic intervention on the foot, on Lovenox 7 TIA, history of without any neurological deficits 8 chronic neck and back pain, under the care of pain management 9 tooth abscess, treated with antibiotics on outpatient basis, being followed up by a local dentist, has not undergone tooth extraction. The patient had a CAT scan of the facial bones that showed mild periapical lucency involving the right first maxillary molar tooth and possibly periapical abscess. This is confined to the bone. No evidence of any soft tissue abscess at this point. This was further checked by the dental surgeon and there is no need for any intervention at this point 10 acute kidney injury, nonoliguric. Creatinine is stable at 1.1 Plan The patient was seen and evaluated by Dr. Patel. His chest x-ray and ABGs and labs were reviewed. We will go ahead and increase the assist-control rate to 30 and decrease the tidal 5-400. We'll continue to titrate down the FiO2 as tolerated. We'll keep the O2 saturations greater than 88%. We will discontinue the Nimbex. We could utilize labetalol but will add a clonidine patch for blood pressure control. We may need to switch to cleviprex. We will place the social work consult and have plans for probable transfer to select specialty we'll consult them as well. NicoDerm patch was added. Baclofen was added. We'll continue with his current medications for now. Will continue with the pigtail to suction to continue to drain the right lower lobe pleural effusion. We'll await further culture results. ID is on the case as well. He remains on Levaquin, Zosyn and vancomycin. Critical care care time 36 minutes.
--- NOTE | 2017-01-05 10:51 | XR ---
EXAMINATION TYPE: XR chest 1V portable DATE OF EXAM: 01/05/2017 COMPARISON: 01/04/2017, INDICATION: Short of breath TECHNIQUE: Single frontal view of the chest is obtained. FINDINGS: The heart size is normal. The pulmonary vasculature is normal. There appears to be a large emphysematous changes to the right lung. Suspicious pneumothorax is not i dentified. Right-sided chest tube is present. Right central venous catheter is present with the tip i n the superior vena cava region. Tracheostomy tube is in the midline. EKG leads overlie the chest Atelectasis which is improving is at the right base. Some mild streak atelectasis left base has impro rachna. IMPRESSION: 1. Improving bibasilar atelectasis. 2. Emphysematous changes to the right lung. Residual pneumothorax is not identified.
--- NOTE | 2017-01-05 11:00 | P.PN ---
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 POD #1, tracheostomy and a esophagogastroduodenoscopy with percutaneous endoscopic gastrostomy tube placement. He remains sedated on Diprivan and fentanyl drips, his tracheostomy is midline and intact with mechanical ventilator support. He is not following any verbal commands at this time. His and mother are at his bedside. Questions answered. No acute distress. Objective - Vital Signs Vital signs: Vital Signs Temp 98.2 F 01/05/17 08:00 Pulse 103 H 01/05/17 09:00 Resp 26 H 01/05/17 09:00 BP 182/108 01/05/17 09:00 Pulse Ox 93 L 01/05/17 09:00 Intake & Output 01/04/17 01/05/17 01/05/17 18:59 06:59 18:59 Intake Total 298.908 2852.775 667.267 Output Total 3116 1350 635 Balance -2143.664 -254.225 32.267 Weight 91.2 kg 92.3 kg Intake: IV 570 310 360 .9 KVO 220 260 60 Piperacillin-Tazobactam 3 100 50 50 .375 gm In Dextrose/Water 1 50ml.bag @ 12.5 mls/hr IVPB Q8HR [facility] Rx#: [id number] Vancomycin 1,250 mg In 250 250 Sodium Chloride 0.9% 250 ml @ 125 mls/hr IVPB Q24H [facility] Rx#:[id number] Intake, IV Titration 402.336 785.775 307.267 Amount Cisatracurium 200 mg In 102.336 177.934 11.6 Sodium Chloride 0.9% 180 ml @ 1 MCG/KG/MIN 5.33 mls/hr IV .Q24H [facility] Rx#: [id number] Propofol 1,000 mg In 100 300 361.341 200 ml @ Titrate IV .Q0M [facility] Rx#:[id number] fentaNYL (PF) 2,500 mcg 246.5 95.667 In Sodium Chloride 0.9% 200 ml @ 100 MCG/HR 10 mls/hr IV .Q24H [facility] Rx#: [id number] Tube Feeding 0 0 Output: Chest Tube Drainage 30 20 20 Chest Tube Right Lateral 30 20 20 Chest Urine 3075 1330 615 Stool 1 Estimated Blood Loss 10 Other: Voiding Method Indwelling Catheter Indwelling Catheter Indwelling Catheter # Bowel Movements 1 ABP, PAP, CO, CI - Last Documented Arterial Blood Pressure 152/69 - Constitutional Constitutional Comment(s): He remains sedated with Diprivan and fentanyl drips. He is not following any verbal commands at this time. - EENT Eyes: Present: PERRLA, normal appearance - Neck Details: No JVD, right IJ triple-lumen catheter in place and patent. Tracheostomy is midline and intact, and suture in place, trach secured in place. - Respiratory Details: Few scattered rhonchi and wheezes throughout, diminished bilateral bases right greater than left. Trach is midline with mechanical ventilator support. Current ventilator settings are as follows: AC 26, TV 450, FiO2 70%, peep 10. Oxygen saturations on 70% FiO2 support is 94% at this time. Right pigtail catheter in place and is evacuating thin serosanguineous drainage. - Cardiovascular Details: Regular rhythm and rate, S1 and S2 are normal, negative for S3, gallop or murmur. Bedside telemetry showing normal sinus rhythm heart rate 98. Knee- high DANIEL hose and sequential compression devices in place to bilateral lower extremities. No edema present. - Gastrointestinal Gastrointestinal Comment(s): Abdomen is soft, and nondistended. PEG tube in place, scant serosanguineous drainage around the tube placement site. Positive bowel sounds to all 4 abdominal quadrants. - Genitourinary Genitourinary Comment(s): Adequate, Neely catheter for accurate I&O. Clear yellow urine. - Integumentary Integumentary: Present: normal, normal turgor - Allied health notes Allied health notes reviewed: nursing - Labs CBC & Chem 7: 01/04/17 04:21 01/05/17 06:48 Labs: Abnormal Lab Results - Last 24 Hours (Table) 01/04/17 01/04/17 01/04/17 Range/Units 12:06 15:46 20:30 ABG pCO2 (35-45) mmHg ABG pO2 (83-108) mmHg ABG HCO3 (21-25) mmol/L ABG Total CO2 (19-24) mmol/L Potassium (3.5-5.1) mmol/L Chloride (98-107) mmol/L BUN (9-20) mg/dL Creatinine (0.66-1.25) mg/dL Glucose (74-99) mg/dL POC Glucose (mg/dL) 122 H 117 H 122 H (75-99) mg/dL Phosphorus (2.5-4.5) mg/dL Magnesium (1.6-2.3) mg/dL 01/05/17 01/05/17 01/05/17 Range/Units 01:16 04:10 04:37 ABG pCO2 49 H (35-45) mmHg ABG pO2 77 L (83-108) mmHg ABG HCO3 27 H (21-25) mmol/L ABG Total CO2 29 H (19-24) mmol/L Potassium (3.5-5.1) mmol/L Chloride (98-107) mmol/L BUN (9-20) mg/dL Creatinine (0.66-1.25) mg/dL Glucose (74-99) mg/dL POC Glucose (mg/dL) 106 H 105 H (75-99) mg/dL Phosphorus (2.5-4.5) mg/dL Magnesium (1.6-2.3) mg/dL 01/05/17 01/05/17 Range/Units 06:48 09:30 ABG pCO2 (35-45) mmHg ABG pO2 (83-108) mmHg ABG HCO3 (21-25) mmol/L ABG Total CO2 (19-24) mmol/L Potassium 5.6 H (3.5-5.1) mmol/L Chloride 109 H (98-107) mmol/L BUN 58 H (9-20) mg/dL Creatinine 1.35 H (0.66-1.25) mg/dL Glucose 103 H (74-99) mg/dL POC Glucose (mg/dL) 129 H (75-99) mg/dL Phosphorus 5.4 H (2.5-4.5) mg/dL Magnesium 2.8 H (1.6-2.3) mg/dL Microbiology - Last 24 Hours (Table) 01/01/17 11:15 Gram Stain - Preliminary Pleural Fluid Body Fluid Culture - Preliminary - Imaging and Cardiology Chest x-ray: report reviewed, image reviewed Assessment and Plan (1) Acute respiratory failure with hypoxia Status: Acute (2) History of DVT of lower extremity Status: Acute (3) History of TIA (transient ischemic attack) Status: Acute (4) Abscessed tooth Status: Acute (5) Acute kidney injury Status: Acute (6) Chronic neck and back pain Status: Acute (7) Pneumonia Status: Acute (8) Sepsis Status: Acute Plan: 1. We will restart his tube feedings today as per recommendations of the dietitian. 2. Pulmonary management per Dr. Stephenson's recommendations. 3. Comorbid conditions per primary care recommendations. 4. Antibiotics per infectious disease management. 5. GI and DVT prophylaxis in place. 6. Patient's and his mother is at the bedside has been updated on the plan of care. 7. We will follow the patient on an as-needed basis. Time with Patient: Greater than 30 <Devan Gutierrez - Last Filed: 01/05/17 12:14> Subjective Nurse practitioner no reviewed and accepted. Trach and PEG working well. We'll see this patient as needed. Objective - Vital Signs Vital signs: Vital Signs Temp 98.2 F 01/05/17 08:00 Pulse 96 01/05/17 11:47 Resp 29 H 01/05/17 11:00 BP 157/106 01/05/17 11:00 Pulse Ox 93 L 01/05/17 11:00 Intake & Output 01/04/17 01/05/17 01/05/17 18:59 06:59 18:59 Intake Total 976.411 6325.775 698.934 Output Total 3116 1350 835 Balance -2143.664 -254.225 -136.066 Weight 91.2 kg 92.3 kg 92.3 kg Intake: IV 570 310 380 .9 KVO 220 260 80 Piperacillin-Tazobactam 3 100 50 50 .375 gm In Dextrose/Water 1 50ml.bag @ 12.5 mls/hr IVPB Q8HR [facility]PLACED BY [facility] Rx#: [id number] Vancomycin 1,250 mg In 250 250 Sodium Chloride 0.9% 250 ml @ 125 mls/hr IVPB Q24H [facility] Rx#:[id number] Intake, IV Titration 402.336 785.775 318.934 Amount Cisatracurium 200 mg In 102.336 177.934 11.6 Sodium Chloride 0.9% 180 ml @ 1 MCG/KG/MIN 5.33 mls/hr IV .Q24H [facility] Rx#: [id number] Propofol 1,000 mg In 100 300 361.341 200 ml @ Titrate IV .Q0M [facility] Rx#:[id number] fentaNYL (PF) 2,500 mcg 246.5 107.334 In Sodium Chloride 0.9% 200 ml @ 100 MCG/HR 10 mls/hr IV .Q24H [facility] Rx#: [id number] Tube Feeding 0 0 Output: Chest Tube Drainage 30 20 20 Chest Tube Right Lateral 30 20 20 Chest Urine 3075 1330 815 Stool 1 Estimated Blood Loss 10 Other: Voiding Method Indwelling Catheter Indwelling Catheter Indwelling Catheter # Bowel Movements 1 ABP, PAP, CO, CI - Last Documented Arterial Blood Pressure 152/69 - Labs CBC & Chem 7: 01/04/17 04:21 01/05/17 06:48 Labs: Abnormal Lab Results - Last 24 Hours (Table) 01/04/17 01/04/17 01/05/17 Range/Units 15:46 20:30 01:16 ABG pCO2 (35-45) mmHg ABG pO2 (83-108) mmHg ABG HCO3 (21-25) mmol/L ABG Total CO2 (19-24) mmol/L Potassium (3.5-5.1) mmol/L Chloride (98-107) mmol/L BUN (9-20) mg/dL Creatinine (0.66-1.25) mg/dL Glucose (74-99) mg/dL POC Glucose (mg/dL) 117 H 122 H 106 H (75-99) mg/dL Phosphorus (2.5-4.5) mg/dL Magnesium (1.6-2.3) mg/dL 01/05/17 01/05/17 01/05/17 Range/Units 04:10 04:37 06:48 ABG pCO2 49 H (35-45) mmHg ABG pO2 77 L (83-108) mmHg ABG HCO3 27 H (21-25) mmol/L ABG Total CO2 29 H (19-24) mmol/L Potassium 5.6 H (3.5-5.1) mmol/L Chloride 109 H (98-107) mmol/L BUN 58 H (9-20) mg/dL Creatinine 1.35 H (0.66-1.25) mg/dL Glucose 103 H (74-99) mg/dL POC Glucose (mg/dL) 105 H (75-99) mg/dL Phosphorus 5.4 H (2.5-4.5) mg/dL Magnesium 2.8 H (1.6-2.3) mg/dL 01/05/17 Range/Units 09:30 ABG pCO2 (35-45) mmHg ABG pO2 (83-108) mmHg ABG HCO3 (21-25) mmol/L ABG Total CO2 (19-24) mmol/L Potassium (3.5-5.1) mmol/L Chloride (98-107) mmol/L BUN (9-20) mg/dL Creatinine (0.66-1.25) mg/dL Glucose (74-99) mg/dL POC Glucose (mg/dL) 129 H (75-99) mg/dL Phosphorus (2.5-4.5) mg/dL Magnesium (1.6-2.3) mg/dL Microbiology - Last 24 Hours (Table) 01/01/17 11:15 Gram Stain - Final Pleural Fluid Body Fluid Culture - Final
[2017-01-05] MEDS: cloNIDine 0.1 MG/24HR PATCH 1 PATCH PATCH TRANSDERM PRN (11:02)
[2017-01-05 12:59] LABS: Glucose,Whole Blood 124 mg/dL (75-99)
[2017-01-05 16:08] LABS: Glucose,Whole Blood 160 mg/dL (75-99)
[2017-01-05 20:02] LABS: CH 32.8; CHCM 32.3; HCT 40.5 % (39.0-53.0); HDW 2.49; HGB 13.8 gm/dL (13.0-17.5); MCH 34.8 pg (25.0-35.0); MCHC 34.1 g/dL (31.0-37.0); MCV 101.9 fL (80.0-100.0); Macrocytosis Slight; Mean Platelet Volume 8.2; RBC 3.98 m/uL (4.30-5.90)
[2017-01-05 20:03] LABS: WBC 36.3 k/uL (3.8-10.6)
[2017-01-05] MEDS: SODIUM CHLORIDE 0.9% 1,000 ML IV SCH (20:17)
[2017-01-05 20:26] LABS: Glucose,Whole Blood 133 mg/dL (75-99)
[2017-01-06] MEDS: HYDROmorphone 1 MG/ML 1 ML SYRINGE IVP PRN ×10 (00:14→20:03)
[2017-01-06] MEDS: methylPREDNISolone SOD SUCCI 125 MG/2 ML VIAL IV SCH ×5 (00:21→23:29)
[2017-01-06] MEDS: PIPERACILLIN-TAZOBACTAM 3.375 GM in DEXTROSE/WATER 1 50ML.BAG IVPB SCH ×4 (00:24→23:59)
[2017-01-06 00:35] LABS: Glucose,Whole Blood 125 mg/dL (75-99)
[2017-01-06] MEDS: INSULIN LISPRO (humaLOG) 300 UNIT/3 ML VIAL SQ SCH ×7 (01:07→23:40)
[2017-01-06] MEDS: PROPOFOL 1,000 MG/100 ML VIAL IV SCH ×8 (01:28→23:56)
[2017-01-06] MEDS: LEVOFLOXACIN 750MG-D5W PMX 750 MG in DEXTROSE/WATER 1 150ML.BAG IVPB SCH (02:20)
[2017-01-06] MEDS: IPRATROPIUM-ALBUTEROL 3 ML NEB INHALATION SCH ×6 (03:13→23:13)
[2017-01-06 04:21] LABS: Glucose,Whole Blood 130 mg/dL (75-99)
[2017-01-06 05:02] LABS: CHCM 32.5; HCT 40.7 % (39.0-53.0); HDW 2.46; HGB 13.7 gm/dL (13.0-17.5); MCH 34.4 pg (25.0-35.0); MCHC 33.7 g/dL (31.0-37.0); MCV 101.9 fL (80.0-100.0); Macrocytosis Slight; Mean Platelet Volume 8.3; RBC 3.99 m/uL (4.30-5.90); RDW 13.8 % (11.5-15.5)
[2017-01-06 05:15] LABS: Anion Gap 8 mmol/L; Blood Urea Nitrogen 54 mg/dL (9-20); Carbon Dioxide 28 mmol/L (22-30); Chloride 105 mmol/L (98-107); Glucose 124 mg/dL (74-99); Magnesium 2.7 mg/dL (1.6-2.3); Non-African American GFR(MDRD) >60 (>60 ml/min/1.73 sqM); Phosphorous 4.4 mg/dL (2.5-4.5); Potassium 4.9 mmol/L (3.5-5.1); Sodium 141 mmol/L (137-145); WBC 31.9 k/uL (3.8-10.6)
[2017-01-06] MEDS: LORazepam 2 MG/ML SYRINGE IV PRN (05:32)
[2017-01-06 06:00] LABS: ABG Base Excess 1.2 mmol/L; ABG HCO3 26 mmol/L (21-25); ABG PCO2 42 mmHg (35-45); ABG PO2 65 mmHg (83-108); ABG TCO2 27 mmol/L (19-24)
[2017-01-06] MEDS: CLEVIDIPINE BUTYRATE 25 MG in EMPTY BAG 1 BAG IV SCH ×4 (08:13→21:40)
[2017-01-06] MEDS: VANCOMYCIN 1,250 MG in SODIUM CHLORIDE 0.9% 250 ML IVPB SCH (08:14)
[2017-01-06 08:20] LABS: Glucose,Whole Blood 139 mg/dL (75-99)
--- NOTE | 2017-01-06 08:56 | XR ---
EXAMINATION TYPE: XR chest 1V portable DATE OF EXAM: 01/06/2017 COMPARISON: 01/05/2017 HISTORY: Ventilatory dependent respiratory failure TECHNIQUE: Single frontal view of the chest is obtained. FINDINGS: Trace bilateral pleural effusions and bibasilar atelectasis is again minimally improved in the interim. Emphysematous changes are redemonstrated, right lung greater than left as there is no e vidence of visceral pleural line although a pigtail thoracostomy tube overlies the right medial lower lung. Tracheostomy is seen in the midline. Right internal jugular central venous catheter terminates in the superior vena cava/right atrial junction. IMPRESSION: Continued improvement of trace bilateral pleural effusions and bibasilar atelectasis. St able lines and tubes.
[2017-01-06] MEDS: ESOMEPRAZOLE 20 MG in SODIUM CHLORIDE 0.9% 50 ML IVPB SCH (09:29)
[2017-01-06] MEDS: ASPIRIN 81 MG CHEW PO SCH (10:17)
[2017-01-06] MEDS: CHLORHEXIDINE GLUCONATE 15 ML CUP MUCOUS MEM SCH ×2 (10:17→20:06)
[2017-01-06] MEDS: CITALOPRAM HYDROBROMIDE 20 MG TAB PO SCH (10:18)
[2017-01-06] MEDS: BACLOFEN 10 MG TAB PO PRN ×2 (10:19→19:58)
--- NOTE | 2017-01-06 11:07 | P.PN ---
Subjective Principal diagnosis: Acute hypoxic respiratory failure secondary to pneumonia, parapneumonic effusion , COPD. 46-year-old male patient who presented emergency department this morning because of severe pleuritic right-sided chest pain, fever and cough that's been going on for the past few days. His temperature today was 100.3. He also stated that he has been having cough for the past 24-48 hours without any significant sputum production. He started of her way having some pleuritic chest pain on the right and the pain got severely worse as the day went by to the point where he was having apparent there was 10 out of 10 this this morning. The patient denies having any hemoptysis. No previous history of pneumonia. The patient has history of DVT and the patient has been maintained on Xarelto on outpatient basis. He is a chronic every day smoker. In the emergency department, the patient was found to have a temperature over 1.6. He was tachycardic with a heart rate of 113. He is supposed pulse ox on 4 L was around 94 percent. He had significant leukocytosis with a white cell count 22, 000 and his chest x-ray showed bullous emphysema involving the right upper lobe and extensive right lung consolidation and possibly a small right-sided pleural effusion. Some limited left basilar infiltrates was also seen. The patient was started on broad-spectrum antibiotics. He was given IV Levaquin and vancomycin and subsequently was admitted to the medical floor. I was asked to develop this patient by Dr. Palma 90 the patient was getting increasingly short of breath and he was having pain over the right side of the chest. He was given Dilaudid for pain control with limited success. Subsequently became more tachypneic, diaphoretic, abdomen was getting progressively more distended, he was brought into the intensive care unit and subsequently was intubated and placed on a mechanical ventilator. At this point in time the patient is sedated with Diprivan, paralyzed on Nimbex, on assist control mode of ventilation at the rate of 26, tidal volume 400, FiO2 of 100% and a PEEP of 5. His blood gases show a pH of 7.27 with a pCO2 of 50 and pO2 of 80. This was done and FiO2 of 100% with a PEEP of 5. His chest x-ray post intubation showed worsening of the right lung consolidation with increased atelectasis and possibly effusion. There is also some infiltration and effusion the left lung base. Bullous emphysema can be seen bilaterally more so on the right upper lobe. A CAT scan of the chest was also done and showed moderate to severe upper lobe emphysematous changes right more than left. A moderate-sized right- sided pleural effusion measuring 7.2 cm in size with compressive atelectasis of the right lung base and consolidation of the right lower lobe. Another 1.1 cm nonspecific pulmonary nodules seen in the left upper lobe and there is a small left-sided pleural effusion. I interviewed the and the mother. Apparently the patient was having a tooth abscess and he had seen a dentist approximately 4 weeks ago. He was placed on antibiotics for total of 2 weeks and he was supposed to have a tooth extraction following that. His been off antibiotics for another 2 weeks for now. He denied having any facial swelling or pain recently. No travel history. No exposure to hot tubs or any other contaminated water sources. No sensory of substance abuse. No alcoholism. No immunosuppression. He has history of depression and possibly component of PTSD as the patient is a . No skin rashes. No other sick contacts. He lives with his and he has no children, dogs at home. On 12/30/2016 I'm seeing this patient in follow-up. As mentioned earlier, the patient came in with an extensive right lung pneumonia currently is intubated on a mechanical ventilator and is sedated and paralyzed. Earlier this morning the patient was in a Diprivan drip at 50 mics and the patient was also on a Nimbex drip for paralysis. He is an assist-control mode of ventilation at the rate of 26, tidal volume 400, FiO2 was at 100% PEEP at 12. The blood gases from this morning showed a pH of 7.24 with pCO2 of 62 and pO2 of 76. Chest x- ray shows extensive consolidation of the right lower lobe and early pneumonic changes in the left lower lobe. ET tube was in a good location. OG tube was in a good location. Triple-lumen catheter was also noted that location. No evidence of any pneumothorax. Peak pressures around 28. Based on this, increase the PEEP up to 14 and gradually wean down the FiO2 down to 80% and currently is down to 70%. Pulse ox is in the order of 91-92%. Hemodynamically the patient is on normal saline infusion rate of 100 mL an hour. Urine output is adequate in the order of 60 mL an hour, white cell count is elevated at 23.7. Bronchoscopy and bronchial lavage of the right lung was done and the results are still pending for now. Meanwhile, the patient is covered with a combination of Zosyn, vancomycin and Levaquin. ID is on the case. All of the blood cultures are negative for now. He is on no pressors. Artline cath is inserted in the right radial artery. He is on and off requiring Dilaudid for pain control. On 12/31/2016 the patient is being seen in follow-up. Not much of a change in his condition in general over the past 24 hours. He did have a drop in his urine output and his creatinine doubled it up to 1.3. Note that his blood pressure was also fluctuating and he became borderline hypotensive. Based on that, the patient was given levo fed and currently norepinephrine infusion is running at 1-2 mics to maintain a mean artery pressure above 65. Meanwhile, his urine output improved and is currently producing more than 30 mL an hour. He is still on mechanical ventilator on assist control with the same vent settings. The FiO2 was dropped down to 60% and is still on a tidal volume 400 today rate of 26 and a PEEP of 14. The chest x-ray a is essentially unchanged. There is an extensive consolidation of the right lower lobe, limited infiltration of the left lung base, a large bullous disease involving the right upper lobe and its tube is in a good location. The patient's became a pressures ranging between 28-32. No significant orotracheal secretions. Legionella urine antigen was negative. Bronchioloalveolar lavage and the blood cultures of been all negative thus far. The patient remains on a combination of Zosyn, Levaquin and vancomycin. Lactic acid level from this morning's at 2.6. White cell count is at 27.9. He remains on bronchodilators and systemic steroids. Is tolerating his tube feeds. He is sedated with Diprivan. On and off he becomes asynchronous with a mechanical ventilator and for that reason he was given Dilaudid 1 mg which is requiring every 1-2 hours. Based on that I have ordered a fentanyl drip. We'll try to avoid paralytics if possible. On 01/01/2017 I'm seeing this patient in follow-up. He remains intubated on a mechanical ventilator. He is on a PEEP of 14 and FiO2 of 50% with unable to wean down the FiO2 any further. Based on that I performed another CAT scan of the chest yesterday and it showed severe emphysematous changes greater in the right lung apex. In addition there is a large right-sided pleural effusion extending to the right apex. Right basilar atelectasis/infiltrates still seen. Nodular density in the left upper lobe. Based on this, I discussed the case with interventional radiology and this morning the patient will be having a pigtail catheter inserted into the right hemithorax to evacuate the right-sided pleural effusion. Unfortunately no microbial culture has been established on this patient and all of the cultures of been negative. He remains on broad- spectrum antibiotics. On his blood gases there is no much room to wean down his FiO2 or his PEEP any further. His blood gases was reviewed. Chest x-ray stable and showing was emphysema in the right upper lobe and persistent chronic right-sided pleural effusion/infiltrate in the right lung base. Limited infiltration seen in the left which is unchanged. Tolerating tube feeds. Unfortunately is been asynchronous with a mechanical ventilator. He had been sedated aggressively with a combination of Diprivan, fentanyl got added and overnight he had to be also paralyzed to improve his synchrony. At this point in time he remains sedated and paralyzed. Urine output is adequate. On no pressors. Tolerating his tube feeds. Patient is seen again today 01/02/2017 in follow-up in the intensive care unit. He remains intubated and on the mechanical ventilator. Current settings are assist control of 26, tidal volume 400, FiO2 of 50% and a PEEP of 12. Morning arterial blood gases revealed a O2 of 79, pCO2 63 and a pH of 7.23. His chest x -ray reveals basilar atelectasis. Nodular density in the left upper lobe. He remains sedated on propofol 75 mcg/kg/m, fentanyl at 75 mcg/h and Nimbex at 2 g/ kg/m. He is also requiring intermittent Dilaudid and Ativan. He has a 0.9 normal saline at 100 mL per hour. Not requiring any pressors. He's been somewhat hypertensive. He is tolerating his tube feedings of Vital at 40 mL per hour which is goal. The right chest pigtail catheter drainage at approximately 1 L in total. His urine output remains adequate greater than 100 MLS per hour. Cultures of the blood urine and sputum thus far are showing no growth. Pleural fluid results are pending. Cytology pending. White count 27.1. He has been afebrile. He is continued on Zosyn, Levaquin and vancomycin. Reevaluated today on 01/03/2017, patient remains on mechanical ventilation, in the ICU. Upon my arrival, patient was noted to be desaturating down to the mid 80s in spite of FiO2 of 60%. Hence the patient was placed on 100% FiO2, reviewed the chest x-ray which clearly shows significant airspace disease involving the right lower lobe. But considering the sudden change, and considering the patient had previous history of deep vein thrombosis, I recommended a stat CT angiogram of the chest, it came back negative for pulmonary embolism, however it showed significant airspace disease in lower lobes bilaterally right more so than left, it also showed significant emphysematous changes in the right lung more so compared to the left lung. In the meantime the patient was placed on FiO2 of 100%, PEEP was increased to 8, and I recommended restarting the patient on Nimbex. Clearly the patient is not going to be weaned easily, and he is scheduled to undergo tracheostomy in the morning. Discussed his condition with his at bedside. Patient remains on multiple drips as noted above. Remains on Nimbex, remains on propofol and on fentanyl drip. Requiring significant amount of sedation to keep him calm and saturating properly. Vent settings were reviewed again, and I will go ahead and titrate his FiO2 down to keep his saturation above 92%. Patient is not requiring any pressors, and Gram stain from the pleural effusion remains negative. WBC count is 24.1 hemoglobin is 12.2. ABG this morning showed a pO2 of 66 pCO2 of 47 pH of 7.38. And this was earlier today on 50% FiO2 and PEEP of 5. BUN is 45 creatinine is 1.0. The patient is seen again today 01/05/2017 in follow-up in the intensive care unit. He remains on the mechanical ventilator at assist control 26, tidal volume 450, FiO2 of 80% and a PEEP of 10. He did undergo tracheostomy tube placement and PEG tube placement yesterday this is postoperative day #1. Morning blood gases reveal a P O2 of 77, pCO2 49, pH 7.37. He remains on a 0.9 normal saline at 20 mL's per hour, propofol at 75 mcg/kg/m, fentanyl at 100 mcg/ h, and Nimbex is off. Tube feedings have remained on hold since PEG tube placement and will be resumed later today. He is receiving Dilaudid as needed. His Baclofen has been reviewed. His chest x-ray continues to show some right- sided pleural effusion, pigtail catheter remains in place. Minimal drainage now. And output has been adequate. He has been afebrile. He has been having ongoing issues with hypertension. Potassium 5.6. BUN 58. Creatinine 1.35. The patient is seen again today 01/06/2017 in follow-up in the intensive care unit. He continues to remain on the mechanical ventilator with current settings of assist control 36, tidal volume 350, FiO2 50% and a PEEP of 10. Morning blood gases reveal a P O2 of 65, pCO2 42, pH 7.40. His chest x-ray continues to show improvement with trace bilateral pleural effusions and bibasilar atelectasis. He remains in negative balance. No significant drainage from the pigtail right sided chest tube. Current white count 31.9. Currently afebrile. Still having issues with hypertension. He is continued on propofol at 60 mcg/kg/m. He is receiving Nepro tube feedings at 20 MLS per hour which is goal. He does require Dilaudid every hour. Objective - Vital Signs Vital signs: Vital Signs Temp 97.6 F 01/06/17 07:30 Pulse 114 H 01/06/17 10:26 Resp 37 H 01/06/17 10:26 BP 154/84 01/06/17 10:26 Pulse Ox 93 L 01/06/17 10:26 Intake & Output 01/05/17 01/06/17 01/06/17 18:59 06:59 18:59 Intake Total 1128.934 938.376 181.000 Output Total 2060 2014 365 Balance -932.066 -1076.624 -184.000 Weight 92.3 kg 89.04 kg Intake: IV 570 460.0 60 .9 KVO 220 260 60 Levofloxacin 750Mg-D5w 150 Pmx 750 mg In Dextrose/ Water 1 150ml.bag @ 100 mls/hr IVPB Q24H [facility] Rx#: [id number] Piperacillin-Tazobactam 3 100 50.0 .375 gm In Dextrose/Water 1 50ml.bag @ 12.5 mls/hr IVPB Q8HR [facility] Rx#: [id number] Vancomycin 1,250 mg In 250 Sodium Chloride 0.9% 250 ml @ 125 mls/hr IVPB Q24H [facility] Rx#:[id number] Intake, IV Titration 518.934 458.376 101.000 Amount Cisatracurium 200 mg In 11.6 Sodium Chloride 0.9% 180 ml @ 1 MCG/KG/MIN 5.33 mls/hr IV .Q24H [facility] Rx#: [id number] Clevidipine Butyrate 25 1.000 mg In Empty Bag 1 bag @ 1 MG/HR 2 mls/hr IV .Q24H [facility] Rx#:[id number] Propofol 1,000 mg In 100 400 458.376 100.000 ml @ Titrate IV .Q0M [facility] Rx#:[id number] fentaNYL (PF) 2,500 mcg 107.334 In Sodium Chloride 0.9% 200 ml @ 100 MCG/HR 10 mls/hr IV .Q24H [facility] Rx#: [id number] Tube Feeding 40 20 20 Output: Chest Tube Drainage 20 70 Chest Tube Right Lateral 20 70 Chest Urine 2040 1945 365 Stool 1 Other: Voiding Method Indwelling Catheter Indwelling Catheter ABP, PAP, CO, CI - Last Documented Arterial Blood Pressure 152/69 - Exam Sedated, intubated, paralyzed, nonacute distress.Head exam was generally normal. There was no scleral icterus or corneal arcus. Mucous membranes were moist. Neck is supple and the patient has no JVDs no goiter or neck masses. Tracheostomy tube secured in place. The right IJ triple catheter in place. Lung sounds are markedly diminished in lung bases pressure the right lung base. No significant wheezes or rhonchi. No significant orotracheal secretions.Cardiac exam revealed the PMI to be normally situated and sized. The rhythm was regular and no extrasystoles were noted during several minutes of auscultation. The first and second heart sounds were normal and physiologic splitting of the second heart sound was noted. There were no murmurs, rubs, clicks, or gallops.Abdominal exam revealed normal bowel sounds. The abdomen was soft, non-tender, and without masses, organomegaly, or appreciable enlargement of the abdominal aorta.Examination of the extremities revealed easily palpable radial, femoral and pedal pulses. There was no cyanosis, clubbing or edema. - Labs CBC & Chem 7: 01/06/17 04:48 01/06/17 04:48 Labs: Abnormal Lab Results - Last 24 Hours (Table) 01/05/17 01/05/17 01/05/17 Range/Units 12:57 16:06 19:43 WBC 36.3 H* (3.8-10.6) k/uL RBC 3.98 L (4.30-5.90) m/uL MCV 101.9 H (80.0-100.0) fL ABG pO2 (83-108) mmHg ABG HCO3 (21-25) mmol/L ABG Total CO2 (19-24) mmol/L ABG O2 Saturation (94-97) % BUN (9-20) mg/dL Glucose (74-99) mg/dL POC Glucose (mg/dL) 124 H 160 H (75-99) mg/dL Magnesium (1.6-2.3) mg/dL 01/05/17 01/06/17 01/06/17 Range/Units 20:23 00:31 04:19 WBC (3.8-10.6) k/uL RBC (4.30-5.90) m/uL MCV (80.0-100.0) fL ABG pO2 (83-108) mmHg ABG HCO3 (21-25) mmol/L ABG Total CO2 (19-24) mmol/L ABG O2 Saturation (94-97) % BUN (9-20) mg/dL Glucose (74-99) mg/dL POC Glucose (mg/dL) 133 H 125 H 130 H (75-99) mg/dL Magnesium (1.6-2.3) mg/dL 01/06/17 01/06/17 01/06/17 Range/Units 04:41 04:48 04:48 WBC 31.9 H* (3.8-10.6) k/uL RBC 3.99 L (4.30-5.90) m/uL MCV 101.9 H (80.0-100.0) fL ABG pO2 65 L (83-108) mmHg ABG HCO3 26 H (21-25) mmol/L ABG Total CO2 27 H (19-24) mmol/L ABG O2 Saturation 92.0 L (94-97) % BUN 54 H (9-20) mg/dL Glucose 124 H (74-99) mg/dL POC Glucose (mg/dL) (75-99) mg/dL Magnesium 2.7 H (1.6-2.3) mg/dL 01/06/17 Range/Units 08:19 WBC (3.8-10.6) k/uL RBC (4.30-5.90) m/uL MCV (80.0-100.0) fL ABG pO2 (83-108) mmHg ABG HCO3 (21-25) mmol/L ABG Total CO2 (19-24) mmol/L ABG O2 Saturation (94-97) % BUN (9-20) mg/dL Glucose (74-99) mg/dL POC Glucose (mg/dL) 139 H (75-99) mg/dL Magnesium (1.6-2.3) mg/dL Microbiology - Last 24 Hours (Table) 01/01/17 11:15 Gram Stain - Final Pleural Fluid Body Fluid Culture - Final Assessment and Plan Plan: Assessment 1 right lung pneumonia, severe, rapid interval progression with progressive worsening of the consolidation development of a small right-sided pleural effusion with subsequent acute hypoxic respiratory failure, currently intubated on a mechanical ventilator. Rule out pneumococcal pneumonia. Rule out anaerobic pneumonia possibly from a tooth abscess/aspiration. On 12/30/2016 the patient is being seen in follow-up. The patient remains intubated on a mechanical ventilator, sedated and paralyzed. He is on broad- spectrum antibiotics. No microbial diagnoses been established thus far. The patient is post bronchoscopy and bronchial lavage of the right lower lobe. Cultures of been all negative including the bronchioloalveolar lavage and the blood cultures. Necessary vent changes were done. On 12/31/2016, the patient is in a PEEP of 14 with an FiO2 of 60%. There has been only a modest improvement in his oxygenation and the chest x-ray findings remains essentially unchanged over the cultures of been negative thus far. Remains sedated yet not paralyzed. On 01/01/2017, the patient remains intubated sedated and paralyzed. The plan is to proceed with a pigtail catheter insertion and evacuation of a right-sided pleural effusion with seems to be somewhat loculated. The pleural fluid will be also sent for analysis and I'm hoping that it can be some improvement in his oxygenation and expansion of the right lung with the evacuation of right-sided pleural fluid. He remains on broad-spectrum antibiotics to no microbial cultures of been established at this point. Lovenox is on hold pending the procedure. On 01/02/2017, the patient remains intubated sedated and paralyzed. He did receive a pigtail catheter insertion to the right sided pleural effusion with approximate 1 L removed. Fluid analysis and cytology are pending. Lovenox resumed. On 01/05/2017 the patient is status post tracheostomy/PEG tube placements in the postoperative day #1. On 01/06/2017 he remains with current vent settings, chest x-ray shows some improvement with continued small bilateral pleural effusions. 2 acute hypoxic respiratory failure, intubated on mechanical ventilator. 3 bullous emphysema with upper lobe emphysematous changes right more than left 4 sepsis secondary to right lung pneumonia, leukocytosis, 5 nonspecific left upper lobe pulmonary nodule measuring 1.1 cm in size 6 recent DVT post-orthopedic intervention on the foot, on Lovenox 7 TIA, history of without any neurological deficits 8 chronic neck and back pain, under the care of pain management 9 tooth abscess, treated with antibiotics on outpatient basis, being followed up by a local dentist, has not undergone tooth extraction. The patient had a CAT scan of the facial bones that showed mild periapical lucency involving the right first maxillary molar tooth and possibly periapical abscess. This is confined to the bone. No evidence of any soft tissue abscess at this point. This was further checked by the dental surgeon and there is no need for any intervention at this point 10 acute kidney injury, nonoliguric. Creatinine is stable at 1.10 Plan The patient was seen and evaluated by Dr. Patel. His chest x-ray and ABGs and labs were reviewed. Will continue with his current vent settings for now. We' ll initiate Cleviprex for better blood pressure control. We'll have the pigtail catheter removed by interventional radiology. We'll await further culture results. ID is on the case as well. He remains on Levaquin, Zosyn and vancomycin. We'll continue with propofol and Dilaudid. We've resumed his home medications including the Remeron, baclofen, NicoDerm patch and [place] and the patient still has periods of restlessness and asynchrony. We'll continue to monitor him closely here in the intensive care unit. His family has been updated again today. Critical care care time 38 minutes.
--- NOTE | 2017-01-06 11:08 | XR ---
EXAMINATION TYPE: XR chest 1V portable DATE OF EXAM: 01/06/2017 COMPARISON: 01/06/2017 HISTORY: Removal of the right-sided pigtail thoracostomy tube TECHNIQUE: Single frontal view of the chest is obtained. FINDINGS: Emphysematous changes are more pronounced on the right than the left although no visceral pleural line is appreciated to indicate residual pneumothorax. Right-sided pigtail thoracostomy tube has been removed in the interim. There is a similar degree of bibasilar subsegmental atelectasis and trace pleural effusions blunting the costophrenic angles. Right internal jugular central venous catheter and midline tracheostomy are unchanged in position. Ca rdia mediastinal silhouette is stable. IMPRESSION: 1. Interval removal of a right-sided pigtail thoracostomy tube with no residual pneumothorax. Emphyse matous bullous changes are seen of the right lung with no visceral pleural line. 2. Similar bibasilar subsegmental atelectasis, trace pleural effusions and stable lines and tubes.
--- NOTE | 2017-01-06 11:20 | PN ---
DATE OF SERVICE: 01/05/2017 This 46-year-old gentleman who was admitted with COPD acute exacerbation and underwent a tracheostomy an as well as PEG tube insertion. The patient is mechanically sedated, minimal bleeding from the site is noted. Otherwise, the patient is still sedated. Sensorium appears to be slightly improved, though. The has gone down to 60%, multiple encephalopathy. The most recent chest x-ray done today which is reviewed by me showed improving bibasilar atelectasis. PAST MEDICAL HISTORY: Reviewed. REVIEW OF SYSTEMS: Could not be taken because the patient is mechanically ventilated. CURRENT MEDICATIONS: [place] 10 mg q.8 p.r.n, Ventolin, Duo-Neb q.i.d. and p.r.n. , aspirin 81 mg daily, Lioresal 10 mg b.i.d. p.r.n., Dulcolax 10 mg, Reglan, Peridex, Celexa 40 mg p.o.daily, Clevidipine 25 mg 1 mg/h, Clonidine, esomeprazole, Levaquin, Trandate, Solu-Medrol, Ultram, vancomycin. PHYSICAL EXAM: Patient is mechanically sedated. Pulse 91, blood pressure 170/103, respirations 36, temperature normal, pulse ox 98% on 50% FiO2. HEENT: Conjunctivae normal. CARDIOVASCULAR SYSTEM: S1, S2, muffled. RESPIRATORY: Breath sounds diminished at the bases, bilateral scattered rhonchi , no crackles. ABDOMEN: Soft, PEG tube still in place. NERVOUS SYSTEM: Mechanically sedated. Labs are at this time shows WBC 36.3, otherwise other labs are noted. Creatinine 1.35. ASSESSMENT: 1. Chronic obstructive pulmonary disease exacerbation with acute right lobe pneumonia, possibly community-acquired with severe sepsis with acute hypoxic respiratory failure and possible aspiration on mechanical ventilation. 2. Status post PEG tube and tracheostomy. 3. Acute right pleural effusion, possibly empyema, status post chest tube drainage. 4. Change in mental status with metabolic encephalopathy. 5. History of nicotine dependence. RECOMMENDATION: Recommend to continue with the current medication. Continue to monitor and symptomatic treatment. The culture so far is unremarkable. Closely monitor with Infectious Disease. Continue with antibiotics and bronchodilators. Guarded prognosis because of multiple complex medical issues. Further recommendations to follow. [facility]
[2017-01-06] MEDS: NICOTINE 14MG/24HR PATCH TRANSDERM SCH (11:58)
[2017-01-06 12:22] LABS: Glucose,Whole Blood 170 mg/dL (75-99)
[2017-01-06 12:38] LABS: ABG HCO3 26 mmol/L (21-25); ABG PCO2 33 mmHg (35-45); ABG PO2 59 mmHg (83-108)
[2017-01-06 12:39] LABS: ABG Base Excess 2.5 mmol/L; ABG Oxygen Saturation 92.6 % (94-97); ABG TCO2 27 mmol/L (19-24)
[2017-01-06 16:08] LABS: Glucose,Whole Blood 144 mg/dL (75-99)
[2017-01-06] MEDS: SODIUM CHLORIDE 0.9% 1,000 ML IV SCH (19:50)
[2017-01-06 20:47] LABS: Glucose,Whole Blood 121 mg/dL (75-99)
[2017-01-06] MEDS: MIRTAZAPINE 15 MG TAB PO SCH (20:47)
[2017-01-06] MEDS: GABAPENTIN 100 MG CAP PO SCH (20:47)
[2017-01-06 23:40] LABS: Glucose,Whole Blood 124 mg/dL (75-99)
[2017-01-07] MEDS: HYDROmorphone 1 MG/ML 1 ML SYRINGE IVP PRN ×6 (00:03→20:58)
[2017-01-07] MEDS: CLEVIDIPINE BUTYRATE 25 MG in EMPTY BAG 1 BAG IV SCH (00:38)
[2017-01-07] MEDS: PROPOFOL 1,000 MG/100 ML VIAL IV SCH (01:14)
[2017-01-07] MEDS: LEVOFLOXACIN 750MG-D5W PMX 750 MG in DEXTROSE/WATER 1 150ML.BAG IVPB SCH (03:19)
[2017-01-07] MEDS: IPRATROPIUM-ALBUTEROL 3 ML NEB INHALATION SCH ×6 (04:17→23:40)
[2017-01-07 04:27] LABS: Glucose,Whole Blood 150 mg/dL (75-99)
[2017-01-07] MEDS: INSULIN LISPRO (humaLOG) 300 UNIT/3 ML VIAL SQ SCH ×5 (04:27→21:24)
[2017-01-07 04:40] LABS: CH 32.8; CHCM 33.1; HCT 32.8 % (39.0-53.0); HDW 2.39; MCH 33.5 pg (25.0-35.0); MCHC 33.6 g/dL (31.0-37.0); MCV 99.7 fL (80.0-100.0); Mean Platelet Volume 8.5; RBC 3.29 m/uL (4.30-5.90); RDW 13.6 % (11.5-15.5)
[2017-01-07 04:48] LABS: Anion Gap 6 mmol/L; Blood Urea Nitrogen 52 mg/dL (9-20); Calcium 8.4 mg/dL (8.4-10.2); Carbon Dioxide 28 mmol/L (22-30); Chloride 108 mmol/L (98-107); Glucose 142 mg/dL (74-99); Magnesium 2.3 mg/dL (1.6-2.3); Non-African American GFR(MDRD) >60 (>60 ml/min/1.73 sqM); Phosphorous 3.5 mg/dL (2.5-4.5); Potassium 4.2 mmol/L (3.5-5.1); Sodium 142 mmol/L (137-145)
--- NOTE | 2017-01-07 05:44 | PN ---
DATE OF SERVICE: 01/06/2017 This 46-year-old gentleman who was admitted with bilateral pneumonia, respiratory failure is on mechanical ventilation. Patient had tracheostomy and PEG tube placement. The patient is still sedated. The patient also had high elevated blood culture. Also, the patient closely monitored. Dr. Patel is following the patient closely. PAST MEDICAL HISTORY: Reviewed. REVIEW OF SYSTEM: Could not be taken. The patient is mechanical ventilated and sedated. CURRENT MEDICATIONS: 1. [place] 10 mg. 2. Ventolin. 3. Aspirin 81 mg. 4. Lioresal 10 mg b.i.d. p.r.n. 5. Dulcolax. 6. Peridex. 7. Celexa. 8. Catapres. 9. Dilaudid. 10. Trandate. 11. Levaquin. 12. Solu-Medrol. 13. Remeron. 14. Habitrol 14. 15. Ultram. PHYSICAL EXAM: The patient is alert and oriented. Pulse is 112, blood pressure is 137/88, respirations 20, temperature normal. Pulse ox 98% on mechanical ventilation. Otherwise 100% FiO2. HEENT: Conjunctivae normal. NECK: Tracheostomy. CARDIOVASCULAR: S1 and S2 muffed. RESPIRATORY: Breath sounds diminished at the bases. A few scattered rhonchi and crackles. ABDOMEN: Soft. Status post PEG tube. LEGS: No edema, no swelling. NERVOUS SYSTEM: No focal deficits. LABS: WBC 31.9. Otherwise BUN is 54. Glucose 170. ASSESSMENT: 1. Chronic obstructive pulmonary disease, acute exacerbation with acute right lower lobe pneumonia, possibly community acquired with severe sepsis and acute hypoxic respiratory failure with possible aspiration on mechanical ventilation. Status post PEG tube and tracheostomy. 2. Acute right pleural effusion, possibly empyema, status post chest tube drainage. 3. Change in mental status, metabolic encephalopathy. 4. History of nicotine dependence. RECOMMENDATIONS AND DISCUSSION: Recommend to continue current medications. Continue with monitoring and symptomatic treatment. Otherwise at this time I would recommend continue the , continue with antibiotics. Closely follow with Dr. Patel. Follow the cultures. Guarded prognosis. Further recommendations to follow. MTDD
[2017-01-07 06:05] LABS: ABG HCO3 24 mmol/L (21-25); ABG PCO2 27 mmHg (35-45); ABG PH 7.55 (7.35-7.45); ABG PO2 102 mmHg (83-108)
[2017-01-07 06:06] LABS: ABG Base Excess 1.6 mmol/L; ABG TCO2 25 mmol/L (19-24)
[2017-01-07] MEDS: methylPREDNISolone SOD SUCCI 125 MG/2 ML VIAL IV SCH (06:06)
[2017-01-07 08:20] LABS: Glucose,Whole Blood 109 mg/dL (75-99)
[2017-01-07] MEDS: ASPIRIN 81 MG CHEW PO SCH (08:21)
[2017-01-07] MEDS: ENOXAPARIN 40 MG/0.4 ML SYRINGE SQ SCH (08:21)
[2017-01-07] MEDS: CHLORHEXIDINE GLUCONATE 15 ML CUP MUCOUS MEM SCH ×2 (08:21→21:59)
[2017-01-07] MEDS: GABAPENTIN 100 MG CAP PO SCH ×2 (08:22→21:59)
[2017-01-07] MEDS: CITALOPRAM HYDROBROMIDE 20 MG TAB PO SCH (08:22)
[2017-01-07] MEDS: NICOTINE 14MG/24HR PATCH TRANSDERM SCH (08:22)
[2017-01-07] MEDS: HYDROcodone/APAP 10-325MG 1 EACH TAB PO PRN (08:28)
[2017-01-07] MEDS: PIPERACILLIN-TAZOBACTAM 3.375 GM in DEXTROSE/WATER 1 50ML.BAG IVPB SCH ×2 (08:29→16:28)
[2017-01-07] MEDS: VANCOMYCIN 1,250 MG in SODIUM CHLORIDE 0.9% 250 ML IVPB SCH (08:29)
--- NOTE | 2017-01-07 08:30 | XR ---
EXAMINATION TYPE: XR chest 1V portable DATE OF EXAM: 01/07/2017 COMPARISON: Prior chest x-ray 01/06/2017 HISTORY: Emphysema, pneumonia TECHNIQUE: Single frontal view of the chest is obtained. FINDINGS: Tracheostomy tube is in place. Extensive emphysematous changes are again noted. Right jugu lar central venous catheter is present, distal tip near the cavoatrial junction level. There are over lying cardiac leads. No evident pneumothorax. Patchy basilar density persists. IMPRESSION: Emphysema, basilar atelectasis versus pneumonia.
[2017-01-07] MEDS: LORazepam 2 MG/ML SYRINGE IV PRN (08:37)
[2017-01-07] MEDS: ESOMEPRAZOLE 20 MG in SODIUM CHLORIDE 0.9% 50 ML IVPB SCH (09:12)
[2017-01-07 11:46] LABS: Glucose,Whole Blood 132 mg/dL (75-99)
--- NOTE | 2017-01-07 12:55 | PN ---
This is a 46-year-old male who was admitted way back on December 29 with acute hypoxemic respiratory failure secondary to pneumonia. The patient has been seen on a daily basis. Really has not made much progress or any progress in coming off the mechanical ventilator. Two days ago the patient underwent tracheostomy and PEG tube placement by Dr. Gutierrez. I did have a long discussion and have been having long discussions with the . The understands that this patient will need middle or intermediate school principal care. He probably eventually once he is more stable hopefully will get transferred to a retirement acute care facility. The patient has been very uncomfortable on the ventilator and yesterday we switched him to the pressure assist control mode. He is currently on a pressure assist control mode with an inspiratory time of one second, inspiratory pressure of 20 cm of water, a rate of 30, FiO2 50%, PEEP of 10. Blood gases show a pO2 of 102 , pCO2 of 27, pH of 7.55. These gases were done on 60% then Cyndie dropped the FiO2 appropriately down to 50%. The patient is getting a 0.9 IV at 20 mL an hour and Diprivan has been weaned all the way down to 15 mcg/kg per minute. He is getting Nepro at 20 with a goal of 20. That will probably have to be increased since his propofol dose is much lower now. He has been on quite a few drugs. When I came in on Wednesday, he was on propofol at 75 mcg/kg per minute. He was on continuous Nimbex at 2 to 3 mcg/kg per minute for paralysis and also was on a fentanyl drip at 100 mcg per hour. I think we have made some headway with his sedation at this time. He does seem more comfortable on the pressure assist control mode even though it was apparently tried in the past and without much benefit. His chest x-ray today shows emphysematous changes in the right lung. The right lung was hypervoluminous compared to the left lung. There is some either patch atelectasis or infiltrate at the right lung base. The left lung looks relatively clear. Cardiac silhouette is normal size. Tracheostomy is in place. Current vital signs include temperature 99.2, heart rate 100, respiratory rate 28, blood pressure 110/72, mean 84, saturations 96%. Appears in no acute distress. Still a little anxious and he sort of moves about quite a bit, but seems to settle down when he gets his hourly Dilaudid. HEENT examination is grossly unremarkable. EYES: Open. NECK: Supple. Midline tracheostomy. Cardiovascular examination reveals regular rhythm and rate. Heart rate right around 100. Lungs reveal coarse rhonchi. Breath sounds equal. ABDOMEN: Soft. Bowel sounds heard. Extremities are intact. No edema. Some mild diffuse anasarca in the upper extremities. Chest x-ray as mentioned above. Labs are reviewed. His white count is 27, hemoglobin 11, hematocrit 32.8, platelet count 311,000. Blood gases have not mentioned, but his pO2 is 102, pCO2 of 27, pH 7.55. These blood gases are consistent with normoxemia and a respiratory alkalosis. His sodium 142, potassium 4.2, chloride 108, CO2 is 28, BUN and creatinine were 52 and 1.22. Microbiologically, everything thus far has been negative. Blood, urine, sputum, pleural fluid microbiologies also have been negative. Medications are reviewed. They all seem relatively appropriate. I will have our nurse practitioner just review those to make sure everything is what it should be. We did add back Baclofen because we are concerned about Baclofen withdrawal syndrome. We also added back the Remeron and the Neurontin. I believe he is on everything he was on prior. He does have a nicotine patch ordered. He is off the ( ) for blood pressure control. We did add a clonidine patch for both high blood pressure control as well as withdrawal syndrome. Overall, I think he has made some progress. Remains on antibiotics. ID is involved. ASSESSMENT: 1. Hypoxemic respiratory failure secondary to pneumonia, currently intubated and on the mechanical ventilator, status post tracheostomy and PEG tube for failure to wean and prolong mechanical ventilation. The patient will eventually need transfer to a retirement acute care facility and I have expressed that to the and I am going to express that today to the parents. 2. Acute hypoxemic respiratory failure as mentioned above. 3. Bullous emphysema, primarily right lung with significant emphysematous changes within the right lung. 4. Sepsis secondary to right lung pneumonia. 5. Nonspecific left upper lobe pulmonary nodule measuring 1.1 cm. 6. Status post pigtail catheter insertion and subsequently removal from the right chest. 7. Recent deep venous thrombosis, post orthopedic procedure. 8. History of transient ischemic attack. 9. Chronic neck and back pain. 10. Dental abscess. 11. Acute kidney injury. PLAN: The patient's overall prognosis remains very guarded. He has got a long way to go. I am hoping that we can get him off of all the significant medication that we have made some headway. He seems better on pressure assist control than volume assist control. The patient will continue to have the propofol wean. We will continue with hourly or every 2 hour Dilaudid. We will continue monitoring his labs. We will await for the pigtail catheter culture results. ID is on board. He is getting nutrition. Will continue to wean down his FiO2 and PEEP levels. If he is stable on FiO2 50%, will drop the PEEP from 10 to 8 and from 8 to 5. I have already mentioned that to our respiratory therapist. Again, overall prognosis is very guarded. CRITICAL CARE TIME: 38 minutes. Again we will have a discussion with the family today. [facility]
[2017-01-07] MEDS: BACLOFEN 10 MG TAB PO PRN (13:39)
[2017-01-07 16:21] LABS: Glucose,Whole Blood 101 mg/dL (75-99)
[2017-01-07] MEDS: methylPREDNISolone SOD SUCCI 40 MG/ML 1 ML VIAL IV SCH (16:28)
[2017-01-07] MEDS: SODIUM CHLORIDE 0.9% 1,000 ML IV SCH (16:28)
[2017-01-07 21:26] LABS: Glucose,Whole Blood 123 mg/dL (75-99)
[2017-01-07] MEDS: MIRTAZAPINE 15 MG TAB PO SCH (21:59)
[2017-01-07 23:45] LABS: Glucose,Whole Blood 109 mg/dL (75-99)
[2017-01-08] MEDS: INSULIN LISPRO (humaLOG) 300 UNIT/3 ML VIAL SQ SCH ×6 (00:20→23:58)
[2017-01-08] MEDS: PIPERACILLIN-TAZOBACTAM 3.375 GM in DEXTROSE/WATER 1 50ML.BAG IVPB SCH ×4 (00:21→23:58)
[2017-01-08] MEDS: methylPREDNISolone SOD SUCCI 40 MG/ML 1 ML VIAL IV SCH ×2 (00:21→08:14)
[2017-01-08] MEDS: LEVOFLOXACIN 750MG-D5W PMX 750 MG in DEXTROSE/WATER 1 150ML.BAG IVPB SCH (03:41)
[2017-01-08] MEDS: ONDANSETRON 4 MG/2 ML VIAL IVP PRN ×2 (03:51→21:46)
[2017-01-08] MEDS: IPRATROPIUM-ALBUTEROL 3 ML NEB INHALATION SCH ×5 (04:06→20:26)
[2017-01-08] MEDS: HYDROmorphone 1 MG/ML 1 ML SYRINGE IVP PRN ×2 (04:40→11:08)
[2017-01-08 05:28] LABS: ABG Base Excess 2.1 mmol/L; ABG HCO3 24 mmol/L (21-25); ABG PCO2 27 mmHg (35-45); ABG PH 7.56 (7.35-7.45); ABG PO2 81 mmHg (83-108); ABG TCO2 25 mmol/L (19-24)
[2017-01-08 05:28] LABS: Glucose,Whole Blood 114 mg/dL (75-99)
[2017-01-08 06:19] LABS: CHCM 33.5; HCT 31.9 % (39.0-53.0); HDW 2.31; HGB 10.7 gm/dL (13.0-17.5); MCH 33.3 pg (25.0-35.0); MCHC 33.6 g/dL (31.0-37.0); MCV 98.9 fL (80.0-100.0); Mean Platelet Volume 9.4; RBC 3.23 m/uL (4.30-5.90); RDW 13.8 % (11.5-15.5)
[2017-01-08 06:32] LABS: Anion Gap 10 mmol/L; Blood Urea Nitrogen 45 mg/dL (9-20); Calcium 8.7 mg/dL (8.4-10.2); Carbon Dioxide 26 mmol/L (22-30); Chloride 109 mmol/L (98-107); Glucose 112 mg/dL (74-99); Magnesium 2.1 mg/dL (1.6-2.3); Non-African American GFR(MDRD) 59 (>60 ml/min/1.73 sqM); Phosphorous 3.3 mg/dL (2.5-4.5); Potassium 3.1 mmol/L (3.5-5.1); Sodium 145 mmol/L (137-145)
[2017-01-08] MEDS ORDERED: Potassium Replacement Protocol 1 EACH MISC MISCELLANE PRN (06:59)
[2017-01-08] MEDS: cloNIDine 0.1 MG/24HR PATCH 1 PATCH PATCH TRANSDERM PRN (07:03)
[2017-01-08 08:08] LABS: Glucose,Whole Blood 99 mg/dL (75-99)
[2017-01-08] MEDS: ENOXAPARIN 40 MG/0.4 ML SYRINGE SQ SCH (08:08)
[2017-01-08] MEDS: ESOMEPRAZOLE 20 MG in SODIUM CHLORIDE 0.9% 50 ML IVPB SCH (08:08)
[2017-01-08] MEDS: VANCOMYCIN 1,250 MG in SODIUM CHLORIDE 0.9% 250 ML IVPB SCH (08:14)
[2017-01-08] MEDS: GABAPENTIN 100 MG CAP PO SCH ×2 (08:15→20:40)
[2017-01-08] MEDS: CITALOPRAM HYDROBROMIDE 20 MG TAB PO SCH (08:15)
[2017-01-08] MEDS: CHLORHEXIDINE GLUCONATE 15 ML CUP MUCOUS MEM SCH ×2 (08:15→20:40)
[2017-01-08] MEDS: POTASSIUM CHLORIDE ORAL LIQUID 40 MEQ/30 ML CUP NG-TUBE SCH ×2 (08:15→10:28)
[2017-01-08] MEDS: ASPIRIN 81 MG CHEW PO SCH (08:15)
[2017-01-08] MEDS: NICOTINE 14MG/24HR PATCH TRANSDERM SCH (08:15)
--- NOTE | 2017-01-08 08:26 | XR ---
EXAMINATION TYPE: XR chest 1V portable DATE OF EXAM: 01/08/2017 COMPARISON: Prior chest x-ray 01/07/2017 HISTORY: Patient on ventilator, pneumonia TECHNIQUE: Single frontal view of the chest is obtained. FINDINGS: Similar findings to prior exam. Tracheostomy tube is stable. Right jugular central venous catheter remains in place. Extensive emphysematous changes, apical bullous disease noted on the right . Patchy basilar atelectatic change persists, interstitium is prominent on the left. No sizable effus ion. No evident pneumothorax. IMPRESSION: Similar to prior exam. No significant interval change.
--- NOTE | 2017-01-08 08:37 | PN ---
DATE OF SERVICE: 01/07/2017 This 46-year-old gentleman who was admitted with chronic obstructive pulmonary disease acute exacerbation also had right lower lobe pneumonia and the patient also had right pleural effusion. Patient had tracheostomy and PEG tube placement also. [facility] is a possibility. Dr. Patel is following the patient closely. The most recent chest x-ray showed emphysema, bibasilar atelectasis and pneumonia. PAST MEDICAL HISTORY: Reviewed. Review of systems could not be taken. Current medications are reviewed and include: 1. [place] q.8. 2. Ventolin q.i.d and p.r.n 3. Aspirin 81 mg. 4. Lioresal. 5. Dulcolax. 6. Peridex. 7. Celexa 40 mg p.o. daily. 8. Catapres patch 1 daily. 9. Esomeprazole 20 mg. 10. Dilaudid 11. Humalog. 12. Magnesium. 13. Zosyn IV. 14. Vancomycin IV. PHYSICAL EXAMINATION: The patient is mechanically ventilated, more alert, but not able to follow commands. Pulse 110, blood pressure 130/73, respirations 31, temperature 98.4, pulse ox 90% on 2-L. HEENT: Conjunctivae normal. NECK: No jugular venous distention. Status tracheostomy. CARDIOVASCULAR: S1, S2 muffled. RESPIRATORY: Breath sounds diminished at the bases. A few scattered rhonchi and crackles. Expiratory wheezing also present. ABDOMEN: Soft, nontender. Status post PEG tube. LEGS: No edema, no swelling. NERVOUS SYSTEM: No response, otherwise. LABS: WBC 27, ABGs noted. Otherwise glucose noted. ASSESSMENT: 1. Chronic obstructive pulmonary disease acute exacerbation with acute right lower lobe pneumonia possibly community acquired with severe sepsis and acute hypoxic respiratory failure with possible aspiration on mechanical ventilation. 2. Status post PEG tube and tracheostomy. 3. Acute possibly empyema status post chest tube drainage. 4. Change in mental status, metabolic encephalopathy. 5. History of nicotine dependence. RECOMMENDATIONS AND DISCUSSION: In this 46-year-old gentleman who presented with multiple complex medical issues, we will monitor the patient closely. Continue the current medications, continue symptomatic treatment. Otherwise chest x-ray was noted. Discussed with family at length. Follow closely with Dr. Patel. Continue with bronchodilators and other medications. Guarded prognosis. Further recommendations to follow. [facility]
[2017-01-08 11:34] LABS: Glucose,Whole Blood 101 mg/dL (75-99)
--- NOTE | 2017-01-08 13:13 | PN ---
This is a 46-year-old male who was admitted way back on December 29 with acute hypoxemic respiratory failure secondary to pneumonia. The patient has been seen on a daily basis. Has not really made much progress until today. Today, he seems much more awake and alert. Actually he is just getting a 0.9 IV at KVO and he has been off of propofol now since 3 a.m. The patient's tube feeds are on hold because of a large emesis. Yesterday I think we switched him to pressure assist controlled ventilation with an FIO2 of 50%, rate of 30, PEEP of 5, inspiratory pressure of 20 and inspiratory time of 1 second. The patient seems to be much more awake and alert and I think now that he is, we are going to switch him to PSV 10 and CPAP of 5 and see how he does. We might be able to transition him to trach collar today. Again, not on any sedation at home. Looks much, much better. Tube feeds are on hold. Currently his major medical problems include hypoxemic respiratory failure secondary to pneumonia. Failure to wean with status post tracheostomy and PEG tube placement and bullous emphysema primarily involving the right lung. The patient also has a history of abscessed tooth, nonspecific left upper lobe pulmonary nodule measuring 1.1 cm, pigtail catheter insertion in the right chest and subsequent removal, history of DVT secondary to orthopedic procedure, TIA, chronic back and neck pain and acute kidney injury. Currently vital signs include a temperature which is 98.4, heart rate 98, respiratory rate 25, blood pressure 169/101, mean 123, saturations are 99% on 50 % FiO2. Appears in no acute distress. Looks much more away and alert. HEENT examination is grossly unremarkable. Mucous membranes are moist. NECK: Supple. Midline tracheostomy is noted. No adenopathy or thyromegaly. Neck veins are flat. Cardiovascular examination reveals regular rhythm and rate. Heart rate about 90. S1, S2 normal. No murmur. Lungs reveal relatively clear breath sounds. No wheezes or rhonchi. No crackles. ABDOMEN: Soft. Bowel sounds are heard. PEG noted. Extremities are intact. No cyanosis, clubbing or edema. Skin without rash. Chest x-ray is unchanged. Microbiology is all negative. Labs are reviewed. White count 22, hemoglobin 10.7, hematocrit 31.9, platelet count 272,000. On the vent setting previously mentioned, the pO2 is 81, pCO2 of 27, pH 7.56 consistent with respiratory alkalosis. Those vent settings include the pressure assist control mode rated 30, FiO2 of 50% with PEEP of 5 with inspiratory pressure of 20 cm of water and inspiratory time of 1 second. Sodium 145, potassium 3.1, chloride 109, CO2 of 26. BUN and creatinine were 45 and 1.30. The rest of the labs look okay. Medications are reviewed. ASSESSMENT: 1. Hypoxemic respiratory failure secondary to pneumonia, currently intubated and mechanically ventilated, status post tracheostomy and PEG tube placement for failure to wean. 2. History of acute hypoxemic respiratory failure as mentioned above. 3. Bullous emphysema primarily involving the right lung. 4. Sepsis secondary to right lung pneumonia, recovered. 5. Nonspecific left upper lobe pulmonary nodule, measuring 1.1 cm. 6. Status post pigtail catheter insertion, subsequent removal from the right chest. 7. Recent deep venous thrombosis, status post orthopedic procedure. 8. History of transient ischemic attack. 9. Chronic neck and back pain. 10. Dental abscess. 11. Acute kidney injury. PLAN: The patient will be transitioned to PSV 10, CPAP of 5. Will see how he does. Additional recommendations and suggestions are forthcoming. Prognosis is guarded. He does look much improved. We will review all the medications. CRITICAL CARE TIME: 36 minutes. MTDD
[2017-01-08] MEDS: SODIUM CHLORIDE 0.9% 1,000 ML IV SCH (15:27)
[2017-01-08 16:31] LABS: Glucose,Whole Blood 100 mg/dL (75-99)
[2017-01-08 18:05] LABS: Magnesium 2.1 mg/dL (1.6-2.3); Potassium 3.5 mmol/L (3.5-5.1)
[2017-01-08] MEDS: MIRTAZAPINE 15 MG TAB PO SCH (20:40)
[2017-01-08 23:58] LABS: Glucose,Whole Blood 84 mg/dL (75-99)
[2017-01-09] MEDS: IPRATROPIUM-ALBUTEROL 3 ML NEB INHALATION SCH ×6 (00:08→20:20)
[2017-01-09] MEDS: HYDROmorphone 1 MG/ML 1 ML SYRINGE IVP PRN (01:24)
[2017-01-09] MEDS: POTASSIUM CHLORIDE ORAL LIQUID 40 MEQ/30 ML CUP NG-TUBE SCH ×2 (01:24→02:27)
[2017-01-09] MEDS: LEVOFLOXACIN 750MG-D5W PMX 750 MG in DEXTROSE/WATER 1 150ML.BAG IVPB SCH (04:08)
[2017-01-09 04:27] LABS: CH 32.8; CHCM 32.7; HCT 35.3 % (39.0-53.0); HDW 2.31; HGB 11.3 gm/dL (13.0-17.5); MCH 32.1 pg (25.0-35.0); MCHC 31.9 g/dL (31.0-37.0); MCV 100.8 fL (80.0-100.0); Macrocytosis Slight; Mean Platelet Volume 8.8; RBC 3.51 m/uL (4.30-5.90); RDW 13.7 % (11.5-15.5)
[2017-01-09 04:33] LABS: WBC 31.1 k/uL (3.8-10.6)
[2017-01-09 04:47] LABS: Anion Gap 8 mmol/L; Blood Urea Nitrogen 36 mg/dL (9-20); Calcium 8.8 mg/dL (8.4-10.2); Carbon Dioxide 27 mmol/L (22-30); Chloride 112 mmol/L (98-107); Glucose 95 mg/dL (74-99); Non-African American GFR(MDRD) 59 (>60 ml/min/1.73 sqM); Phosphorous 3.6 mg/dL (2.5-4.5); Potassium 4.2 mmol/L (3.5-5.1); Sodium 147 mmol/L (137-145)
--- NOTE | 2017-01-09 06:57 | XR ---
EXAMINATION TYPE: XR chest 1V portable DATE OF EXAM: 01/09/2017 HISTORY: vented. REFERENCE: Previous study dated 01/08/2017. FINDINGS: There is a tracheostomy tube in place. Its tip overlies the tracheal air column in this sin gle frontal projection. There is a right internal jugular catheter in place. Its tip is in the right atrium. There is bullous disease in the right apex. There is right basilar airspace disease which may represe nt pneumonia or compressive atelectasis. There is interstitial airspace disease on the left. This is unchanged. The heart is not enlarged. I could not exclude a small right effusion. IMPRESSION: NO SIGNIFICANT INTERVAL CHANGE IN APPEARANCE OF THE CHEST.
[2017-01-09] MEDS ORDERED: VANCOMYCIN TROUGH DUE 1 EACH MISC MISCELLANE ONE (07:00)
[2017-01-09] MEDS: ONDANSETRON 4 MG/2 ML VIAL IVP PRN (07:02)
[2017-01-09 07:03] LABS: Glucose,Whole Blood 98 mg/dL (75-99)
[2017-01-09] MEDS: INSULIN LISPRO (humaLOG) 300 UNIT/3 ML VIAL SQ SCH ×2 (07:04→11:43)
[2017-01-09] MEDS: ASPIRIN 81 MG CHEW PO SCH (08:18)
[2017-01-09] MEDS: PIPERACILLIN-TAZOBACTAM 3.375 GM in DEXTROSE/WATER 1 50ML.BAG IVPB SCH ×3 (08:18→23:08)
[2017-01-09] MEDS: CITALOPRAM HYDROBROMIDE 20 MG TAB PO SCH (08:18)
[2017-01-09] MEDS: NICOTINE 14MG/24HR PATCH TRANSDERM SCH (08:18)
[2017-01-09] MEDS: VANCOMYCIN 1,250 MG in SODIUM CHLORIDE 0.9% 250 ML IVPB SCH (08:18)
[2017-01-09] MEDS: CHLORHEXIDINE GLUCONATE 15 ML CUP MUCOUS MEM SCH ×2 (08:18→20:37)
[2017-01-09] MEDS: ENOXAPARIN 40 MG/0.4 ML SYRINGE SQ SCH (08:19)
[2017-01-09] MEDS: GABAPENTIN 100 MG CAP PO SCH ×2 (08:19→20:37)
[2017-01-09] MEDS ORDERED: METOCLOPRAMIDE 5 MG/ML 2 ML VIAL ONE (09:04)
[2017-01-09] MEDS: METOCLOPRAMIDE 5 MG/ML 2 ML VIAL IVP SCH ×4 (09:09→23:08)
--- NOTE | 2017-01-09 11:02 | PN ---
DATE OF SERVICE: 01/08/17 This 46-year-old gentleman who was admitted with pneumonia, acute renal failure , sepsis and pleural effusion is being closely monitored. The patient tracheostomy and PEG tube because of failure of weaning. Currently, the improving at this time. The patient is on pressor support. Dr. Patel is following the patient closely. The patient had bolus emphysema as well. Past medical history reviewed. REVIEW OF SYSTEMS: Could not be taken. Current medications are reviewed and include: 1. DuoNeb q.i.d. and prn. 2. Aspirin 81 mg. 3. Lioresal 10 mg b.i.d. prn. 4. Dulcolax. 5. Peridex. 6. Celexa. 7. Catapres TTS 0.1 daily. 9. Dilaudid. 10. Humalog. 11. Replacement protocol. 12. Zosyn 3.37 IV q8. 13. Vancomycin. On exam, the patient is more alert, still nonverbal on mechanical ventilation. Pulse 106, Blood pressure 160/91. Respiratory rate 16. Temperature 98.9 degrees. Pulse ox 93% on trach collar. HEENT: Conjunctivae normal. Oral mucosa moist. NECK: Tracheostomy. CARDIOVASCULAR: S1, S2 muffled. RESPIRATORY: Breath sounds diminished at the bases. Bilateral scattered rhonchi and crackles. Abdomen is soft. Nontender. LEGS: No edema. No swelling. Nervous system: Diffusely weak. LABS: WBC 20, Hemoglobin 10.7, ABG noted. Creatinine 1.30. ASSESSMENT: 1. Chronic obstructive pulmonary disease, acute exacerbation with acute right lower lobe pneumonia, possibly community acquired with severe sepsis and acute hypoxic respiratory failure status post mechanical ventilation. 2. Status post PEG tube and tracheostomy. 3. Bullous emphysema. 4. Right sided empyema status post chest tube drainage. 5. Change in mental status, metabolic encephalopathy. 6. History of nicotine dependence. RECOMMENDATIONS AND DISCUSSION: Continue the current medications. Continue with monitoring and symptomatic treatment. Otherwise, reviewed the chest x- ray personally and closely follow with Dr. Patel. Otherwise, prognosis guarded because of multiple complex medical issues. Continue antibiotics. PT/ OT evaluation. The patient has significant weakness as well. The chest x- ray appears to be improving at this time. Further recommendations to follow. Discussed with the family at length. Closely follow with Dr. Patel. [facility]
[2017-01-09] MEDS: DEXTROSE 5% IN WATER 1,000 ML IV SCH (11:23)
[2017-01-09] MEDS: ESOMEPRAZOLE 20 MG in SODIUM CHLORIDE 0.9% 50 ML IVPB SCH (11:23)
[2017-01-09 11:44] LABS: Glucose,Whole Blood 99 mg/dL (75-99)
[2017-01-09] MEDS: BACLOFEN 10 MG TAB PO PRN (12:51)
[2017-01-09] MEDS: MICAFUNGIN 100 MG in SODIUM CHLORIDE 0.9% 100 ML IVPB SCH (16:48)
[2017-01-09 17:14] LABS: Anion Gap 9 mmol/L; Blood Urea Nitrogen 33 mg/dL (9-20); Calcium 8.6 mg/dL (8.4-10.2); Carbon Dioxide 27 mmol/L (22-30); Chloride 106 mmol/L (98-107); Glucose 118 mg/dL (74-99); Magnesium 1.9 mg/dL (1.6-2.3); Non-African American GFR(MDRD) 59 (>60 ml/min/1.73 sqM); Potassium 3.5 mmol/L (3.5-5.1); Sodium 142 mmol/L (137-145)
[2017-01-09] MEDS ORDERED: Magnesium Replacement Protocol 1 EACH MISC MISCELLANE PRN (18:17)
[2017-01-09] MEDS ORDERED: Potassium Replacement Protocol 1 EACH MISC MISCELLANE PRN (18:17)
--- NOTE | 2017-01-09 18:18 | PN ---
This is a 46 -year-old male who was admitted to the hospital way back December 29 with hypoxemic respiratory failure secondary to pneumonia. The patient has been seen on a daily basis. Updates to the family have been made on a daily basis. More recently though, he was not previously making much progress. Over the last 24 to 48 hours he has had significant improvements. Yesterday he actually spent about 12 hours on Trach collar at 50%. He was placed back on ( ) and CPAP overnight. When he is on PSV CPAP he is on 10 and 5, that is 10 cm water pressure support and 6 cm continue positive airway pressure. The patient is doing well again today, back on trach collar. He is getting an IV at 0.9 at KVO. He is getting ( ) high protein at 10 mL per hour. There has been some issues with a couple episodes of emesis so we have just chosen to use trickle feeding or trophic feeding. We are going to switch is IV to D5W at 75 because of developing hypernatremia. We calculated body water deficit of 2.4 L. Again, doing much better. Currently temperature 97.8. Heart rate 100, respiratory rate 19. Blood pressure 144/89. Mean 93% on trach collar. Appears in no acute distress. Looks ( ). Very weak but he is able to move his arms and legs. HEENT examination is grossly unremarkable. Mucous membranes moist. Neck is supple. Full range of motion. There is midline tracheostomy. Cardiovascular examination reveals regular rhythm and rate. S1, S2 normal. No murmur. No S3, no S4. Heart rate about 90s. Lungs reveal a few scattered rhonchi. No wheezes or crackles. Abdomen is soft. Bowel sounds are heard. Extremities intact. No cyanosis, clubbing or edema. Skin without rash. Neurological difficult to perform. Microbiology showing cultures all to be negative. Labs are reviewed. White count 31.1, hemoglobin 11.3, hematocrit 35.3. Platelet count 369,000. Sodium 147, potassium 4.2, chloride 112. CO2 27, BUN and creatinine were 36 and 1.3. The rest of the labs look okay. Medications are reviewed. ASSESSMENT: 1. Hypoxemia respiratory failure secondary to pneumonia, currently intubated and on trach collar. The patient has made significant progress. 2. History of acute hypoxemic respiratory failure. 3. Bullous emphysema primarily involving the right lung particularly the right apex. 4. Sepsis secondary to right lung pneumonia, recovered. 5. Nonspecific left upper lobe pulmonary nodule measuring 1.1 cm. 6. Status post tracheostomy. 7. Status post PEG tube placement. 8. Status post pigtail catheter insertion and subsequent removal from the right chest. 9. Recent deep venous thrombosis, status post orthopedic procedure. 10. History of transient ischemic attack. 11. Chronic neck and back pain. 12. Dental abscess. 13. Acute kidney injury. PLAN: The patient is doing well. Will continue to use trach collar and when he is not on trach collar, he will go back on pressor support and CPAP. Overall prognosis has improved. Microbiology is all negative. Because of recent temperature elevation, he was recultured. Again medications are reviewed. Critical care time 36 minutes. MTDD
[2017-01-09] MEDS ORDERED: POTASSIUM CHLORIDE 20 MEQ in WATER FOR INJECTION 1 100ML.BAG IVPB ONE (19:00)
[2017-01-09] MEDS: MAGNESIUM SULFATE-D5W PMX 1 GM in DEXTROSE/WATER 1 100ML.BAG IVPB SCH ×2 (19:02→20:35)
[2017-01-09] MEDS: MIRTAZAPINE 15 MG TAB PO SCH (20:37)
[2017-01-10] MEDS: LEVOFLOXACIN 750MG-D5W PMX 750 MG in DEXTROSE/WATER 1 150ML.BAG IVPB SCH (03:12)
[2017-01-10] MEDS: DEXTROSE 5% IN WATER 1,000 ML IV SCH ×2 (03:12→13:40)
[2017-01-10 04:07] LABS: Basophils # (A) 0.1 k/uL (0-0.2); Basophils % (A) 0 %; CHCM 33.1; Eosinophils # (A) 0.3 k/uL (0-0.7); Eosinophils % (A) 1 %; HCT 36.6 % (39.0-53.0); HDW 2.24; HGB 11.9 gm/dL (13.0-17.5); Luc # (Auto) 0.46; Luc % (Auto) 1; Lymphocytes # (A) 2.3 k/uL (1.0-4.8); Lymphocytes % (A) 7 %; MCH 32.6 pg (25.0-35.0); MCHC 32.7 g/dL (31.0-37.0); MCV 99.9 fL (80.0-100.0); Mean Platelet Volume 8.9; Monocytes # (A) 1.8 k/uL (0-1.0); Monocytes % (A) 6 %; Neutrophils % (A) 85 %; RBC 3.66 m/uL (4.30-5.90); RDW 13.6 % (11.5-15.5); WBC (Perox) 33.51
[2017-01-10 04:08] LABS: WBC 31.9 k/uL (3.8-10.6)
[2017-01-10 04:14] LABS: Anion Gap 10 mmol/L; Blood Urea Nitrogen 30 mg/dL (9-20); Calcium 8.7 mg/dL (8.4-10.2); Carbon Dioxide 26 mmol/L (22-30); Chloride 104 mmol/L (98-107); Glucose 133 mg/dL (74-99); Magnesium 2.3 mg/dL (1.6-2.3); Non-African American GFR(MDRD) 59 (>60 ml/min/1.73 sqM); Phosphorous 3.6 mg/dL (2.5-4.5); Potassium 3.6 mmol/L (3.5-5.1); Sodium 140 mmol/L (137-145)
[2017-01-10] MEDS ORDERED: POTASSIUM CHLORIDE ORAL LIQUID 40 MEQ/30 ML CUP NG-TUBE SCH (05:00)
[2017-01-10] MEDS: METOCLOPRAMIDE 5 MG/ML 2 ML VIAL IVP SCH ×4 (06:24→23:57)
--- NOTE | 2017-01-10 07:05 | XR ---
EXAMINATION TYPE: XR chest 1V portable DATE OF EXAM: 01/10/2017 HISTORY: follow up. REFERENCE: Previous study dated 01/09/2017. FINDINGS: There is a tracheostomy tube in place. Its tip overlies the tracheal air column in this sin gle frontal projection. There is a right internal jugular catheter in place. Its tip is at the cavoat rial junction. There is bibasilar atelectasis. This is essentially unchanged from previous. Heart size upper limits of normal. There is a right-sided effusion. IMPRESSION: NO SIGNIFICANT INTERVAL CHANGE IN THE APPEARANCE OF THE CHEST.
[2017-01-10] MEDS: IPRATROPIUM-ALBUTEROL 3 ML NEB INHALATION SCH ×4 (07:22→20:19)
[2017-01-10] MEDS: PIPERACILLIN-TAZOBACTAM 3.375 GM in DEXTROSE/WATER 1 50ML.BAG IVPB SCH ×2 (07:37→16:03)
[2017-01-10] MEDS: NICOTINE 14MG/24HR PATCH TRANSDERM SCH (07:37)
[2017-01-10] MEDS: CHLORHEXIDINE GLUCONATE 15 ML CUP MUCOUS MEM SCH ×2 (07:38→20:23)
[2017-01-10] MEDS: ASPIRIN 81 MG CHEW PO SCH (07:38)
[2017-01-10] MEDS: CITALOPRAM HYDROBROMIDE 20 MG TAB PO SCH (07:38)
[2017-01-10] MEDS: ENOXAPARIN 40 MG/0.4 ML SYRINGE SQ SCH (07:38)
[2017-01-10] MEDS: GABAPENTIN 100 MG CAP PO SCH ×2 (07:39→20:23)
[2017-01-10] MEDS: MICAFUNGIN 100 MG in SODIUM CHLORIDE 0.9% 100 ML IVPB SCH (07:39)
[2017-01-10] MEDS ORDERED: VANCOMYCIN 1,500 MG in SODIUM CHLORIDE 0.9% 250 ML IVPB SCH (08:00)
[2017-01-10] MEDS: ESOMEPRAZOLE 20 MG in SODIUM CHLORIDE 0.9% 50 ML IVPB SCH (09:00)
--- NOTE | 2017-01-10 10:02 | XR ---
EXAMINATION TYPE: XR foot complete LT , 3 VIEWS DATE OF EXAM ORDERED: 01/10/2017 HISTORY: pain in left foot toes and metatarsals. COMPARISON: Previous study dated 04/08/2015. FINDINGS: No fracture, dislocation or other acute osseous lesion is seen. IMPRESSION: NO ACUTE OSSEOUS LESION.
--- NOTE | 2017-01-10 10:03 | PN ---
DATE OF SERVICE: 01/09/17 This 46-year-old gentleman who was admitted with pneumonia, renal failure, also had empyema, started on mechanical ventilation ( ) PEG tube currently extubated. The patient needed ventilation during the nighttime but currently the patient tolerating about 30% trach collar. The final cultures are pending at this time. Past medical history reviewed. Review of systems could not be taken, the patient is still nonverbal. Current medications are reviewed and include: 1. DuoNeb q.i.d. and prn. 2. Aspirin 81 mg. 3. Lioresal 10 mg b.i.d. prn 4. Dulcolax. 5. Peridex. 6. Celexa. 7. Catapres patch. 8. Lovenox. 9. Nexium. 10. Dilaudid. PHYSICAL EXAMINATION: The patient is conscious. Pulse 107. Blood pressure 159 /77. Respiratory rate 18. Temperature normal. Pulse ox 92% on 50% trach collar. HEENT: Conjunctivae normal. Oral mucosa moist. NECK: No JVD. No carotid bruit. No lymph node enlargement. CARDIOVASCULAR: S1. S2. RESPIRATORY: Breath sounds diminished at the bases. A few scattered rhonchi and crackles. ABDOMEN: Soft, obese. PEG tube in situ. LEGS: No edema. No swelling. NERVOUS SYSTEM: Diffusely weak. LABS: WBC 13.1, hemoglobin 11.7, sodium 147. ASSESSMENT: 1. Chronic obstructive pulmonary disease exacerbation with right lower lobe pneumonia, possibly community acquired with severe sepsis and acute hypoxic respiratory failure status post mechanical ventilation. 2. Status post PEG tube . 3. Bolus emphysema. 4. Right sided empyema status post chest tube drainage. 5. Change in mental status, metabolic encephalopathy. 6. History of nicotine dependence. RECOMMENDATIONS AND DISCUSSION: Continue the current medications, continue with symptomatic treatment. Otherwise, at this time, we will monitor the patient closely. Continue bronchodilators. Continue antibiotics. Monitor white count closely. Sensory is improving. However, the patient has multiple complex medical problems as mentioned earlier. MTDD
[2017-01-10] MEDS ORDERED: IV VANCOMYCIN PER PHARMACY 1 EACH MISC MISCELLANE PRN (16:08)
[2017-01-10] MEDS: VANCOMYCIN 1,500 MG in SODIUM CHLORIDE 0.9% 250 ML IVPB SCH (17:14)
[2017-01-10] MEDS: MIRTAZAPINE 15 MG TAB PO SCH (20:23)
[2017-01-11] MEDS: PIPERACILLIN-TAZOBACTAM 3.375 GM in DEXTROSE/WATER 1 50ML.BAG IVPB SCH ×4 (00:08→23:50)
[2017-01-11] MEDS: DEXTROSE 5% IN WATER 1,000 ML IV SCH ×2 (04:21→17:07)
[2017-01-11] MEDS: METOCLOPRAMIDE 5 MG/ML 2 ML VIAL IVP SCH ×4 (05:28→23:44)
--- NOTE | 2017-01-11 06:17 | PN ---
DATE OF SERVICE: 01/09/2017 Reason for followup is persistently elevated white count. INTERVAL HISTORY: The patient is a 46-year-old male who presented to the [facility] ER on 12/29/2016 with a chief complaint of ( ) and shortness of breath, cough and fever. Patient has been diagnosed with right- sided pneumonia. Patient did go into respiratory distress and has to be intubated. The patient did have blood cultures obtained on admission 12/29 that has been negative. Sputum culture on 12/29/2016 has been negative. Patient failed to be weaned off the ventilator. Hence, the patient did get a PEG tube and tracheostomy on 01/04/[address] surgery. Since patient has been treated with broad-spectrum antibiotic in the form of vanco, Zosyn and Levaquin and did receive some steroids as well. I did receive a call this morning by the patient 's RN with concern for the patient's elevated white count at 31.1. Yesterday, his white count was 22, but the patient has been running elevated white count as high as 36.3 on 01/05/2017. Patient currently at the time of my evaluation this afternoon off the vent on a trach collar, he was able to answer some simple questions and did mention that overall breathing has improved with some cough, but no worsening has been noticed. No nausea or vomiting or any diarrhea per the RN. REVIEW OF SYSTEMS: Positive for cough and weakness and no fever. The rest of the systems has been negative. Past medical and surgical histories were reviewed, no change. Medications were reviewed. On examination, blood pressure is 144/92 with a pule of 108, temperature 98. He is 94% on trach collar. General description is a middle-aged male lying in bed in no distress. HEENT EXAMINATION: Slight pallor. No scleral icterus. Oral mucous membranes examination did show evidence of thrush. NECK: ( ) clear. LUNGS: Unlabored breathing with decreased breath sounds at the bases. No wheeze. HEART: S1 and S2, regular rate and rhythm. ABDOMEN: Soft, no tenderness. EXTREMITIES: No edema of feet. LABS: Hemoglobin is11.3 with a white count of 31.1. BUN of 33 with a creatinine of 1.30. Chest x-ray with right lower lobe atelectasis or pneumonia. DIAGNOSTIC IMPRESSION AND PLAN: Patient with elevated white count in a patient admitted to the hospital with acute respiratory failure with source being pneumonia and pleural effusion, status post vent-dependent respiratory failure acute and the patient failed to be weaned off of the vent. Hence, the patient is currently status post trach and PEG placement ( ). The patient did have culture that remained to be negative with elevated white count could be related to steroid effect which is currently being weaned off. Plus, the patient did have evidence of oral thrush as no resistant gram positive has been grown, antibiotic can be narrowed down and with addition of antifungal to see if that will help with his elevated white count. PLAN: 1. We will continue the patient on Zosyn and Levaquin, however, discontinue the vancomycin ( ). 2. Micafungin will be ( ) for the oral thrush, cannot use the Nystatin swish and swallow as the patient is unable to swallow per the RN as he did not have fenestrated trach. 3. ( ) sputum culture has been ordered, which we will follow the result. 4. Will follow up on clinical condition and cultures to further adjust medications if needed. CHASTITYD
[2017-01-11] MEDS ORDERED: Potassium Replacement Protocol 1 EACH MISC MISCELLANE PRN (06:35)
[2017-01-11] MEDS ORDERED: POTASSIUM CHLORIDE ORAL LIQUID 40 MEQ/30 ML CUP NG-TUBE SCH (07:00)
--- NOTE | 2017-01-11 07:25 | XR ---
EXAMINATION TYPE: XR chest 1V portable DATE OF EXAM: 01/11/2017 COMPARISON: 01/09/2017, 01/11/2000 HISTORY: Shortness of breath TECHNIQUE: Single frontal view of the chest is obtained. FINDINGS: There is marked lucency in the right hemithorax with a masslike appearance in the right hi lum. Bilateral basilar consolidation and small effusion. Tracheostomy tube stable. IMPRESSION: 1. Persistent lucency in the right hemithorax may been the basis is asymmetric emphysematous changes. There is a masslike density along the right hilum on today's exam. Previous CT scan does demonstrate severe emphysematous changes. Could not exclude mass or pneumothorax. Recommend stat CT of the chest . Report called to ICU. 2. Bilateral basilar consolidation.
--- NOTE | 2017-01-11 07:42 | PN ---
46 -year-old male admitted back on December 29. He came in with hypoxemic respiratory failure secondary to pneumonia and upper lobe emphysema. The patient has been seen here in the ICU on a daily basis and until recently was doing poorly. Over the last two to three days, he has made significant progress. He has been able to be weaned from mechanical ventilation with pretty significant support to trach collar. He is on trach collar 15 hours a day or at least was on that yesterday. The rest of the time he is on PSV 10, CPAP 5. He is receiving 50% trach collar and when he is back on pressor support he is also on 50%. He looks very well. He today looks a bit better . He is getting D5W at 75 mL an hour to help reverse hypernatremia and he is also getting vital high protein at 30 with goal of 70. He is status post tracheostomy and PEG tube placement by Dr. Gutierrez. All in all doing relatively well. His water deficit was 2.4 L. Current vital signs include, temperature 99.5, heart rate 104, respiratory rate 16, blood pressure 112/80. Mean 90. 50% trach collar saturation 93 to 95% . Appears in no acute distress. Very awake and alert. HEENT examination is grossly unremarkable. Mucous membranes are moist. Neck is supple. Full range of motion. He has midline tracheostomy. Cardiovascular examination reveals regular rhythm and rate. S1, S2 normal. No S3, S4 or murmur. Lungs reveal mostly clear breath sounds, a few scattered rhonchi. No wheezes. No crackles. Abdomen is soft. Bowel sounds are heard. Extremities are intact. Slight edema. Skin without rash. Neurological examination reveals diffuse weakness throughout. This is probably from critical illness polyneuropathy or myopathy. Current laboratory data includes a white count 31.9, hemoglobin 11.9, hematocrit 36.6, platelet count 375,000. Sodium, potassium, chloride and CO2 all normal. BUN and creatinine were 30 and 1.30. Microbiology has been checked on a daily basis. All cultures thus far have been negative. The most recent chest x-ray done this morning shows no evidence of change. There is some bibasilar atelectasis. There is some emphysematous changes in the right upper lobe. There is some infiltrate or atelectasis in the right lung base. Medications are reviewed. ASSESSMENT: 1. Hypoxemic respiratory failure secondary to pneumonia, currently on trach collar for most of the day and for the rest of the day, using pressor support of 10, CPAP 5 at 50%. 2. History of acute hypoxemic respiratory failure which has improved significantly. 3. Bolus emphysema primarily involving the right upper lobe. 4. Sepsis secondary to right lung pneumonia. 5. Nonspecific left upper lobe pulmonary nodule measuring 1.1 cm. 6. Status post tracheostomy and PEG tube placement. 7. Status post pigtail catheter insertion and its subsequent removal from the right chest. 8. Deep venous thrombosis, status post orthopedic procedure. 9. History of transient ischemic attack. 10. Chronic neck and back pain. 11. Dental abscess. 12. Acute kidney injury. PLAN: The patient is doing reasonably well. The patient will continue on trach collar. The nurses know the parameters and we are going to put him back on PSV/ CPAP. He will need discharge planning and possible discharge to a rehab facility in the near future. Critical care time 36 minutes. CASPER
--- NOTE | 2017-01-11 07:50 | XR ---
EXAMINATION TYPE: XR chest 1V portable DATE OF EXAM: 01/11/2017 COMPARISON: 01/11/2017 HISTORY: Abnormal x-ray TECHNIQUE: Single frontal view of the chest is obtained. FINDINGS: Bilateral lower lobe infiltrate again noted. Masslike density along the right hilum not se en on current exam. Emphysematous changes demonstrated by CT scan in the right lung persist. Tiny eff usions noted. IMPRESSION: 1. Density along the right hilum is not present on the current exam. Lucency involving the right julito thorax is been seen by previous CT to represent emphysematous changes. 2. Bilateral lower lobe infiltrate and tiny effusion.
[2017-01-11] MEDS: IPRATROPIUM-ALBUTEROL 3 ML NEB INHALATION SCH ×4 (08:09→19:30)
[2017-01-11] MEDS: ESOMEPRAZOLE 20 MG in SODIUM CHLORIDE 0.9% 50 ML IVPB SCH (08:45)
[2017-01-11] MEDS: CITALOPRAM HYDROBROMIDE 20 MG TAB PO SCH (08:50)
[2017-01-11] MEDS: ASPIRIN 81 MG CHEW PO SCH (08:50)
[2017-01-11] MEDS: ENOXAPARIN 40 MG/0.4 ML SYRINGE SQ SCH (08:50)
[2017-01-11] MEDS: CHLORHEXIDINE GLUCONATE 15 ML CUP MUCOUS MEM SCH ×2 (08:50→21:12)
[2017-01-11] MEDS: GABAPENTIN 100 MG CAP PO SCH ×2 (08:51→21:12)
[2017-01-11] MEDS: NICOTINE 14MG/24HR PATCH TRANSDERM SCH (08:51)
--- NOTE | 2017-01-11 10:17 | P.PN ---
Subjective A 46-year-old male patient , with known history of advanced emphysema, came in and for a right lung pneumonia. The patient subsequently went to respiratory failure, intubated and placed on a mechanical ventilator. He had a prolonged and difficult course here in the intensive care unit. He required high level of sedation and paralytics to control his breathing and respiration. He also required the right lung chest tube insertion, a small bore pigtail catheter was inserted and the right-sided pleural effusion was drained. There was no evidence of any empyema. The pleural fluid was negative for malignancy. He was gradually weaned off the sedation after the patient had his PEG and trach. He was taken off paralytics. He is at the point where is on a trach collar at this point he was taken off the mechanical ventilator. He is on a 50% trach collar. Today's chest x-ray shows residual consolidation/infiltration of the right lung base with a small right-sided pleural effusion. Left lung is clear. He is awake and alert. He is hemodynamically stable. He is conversing. No focal neurological deficits. Is tolerating his tube feeds. He is on 75 mL of D5 water through a peripheral IV. He is also on a high protein enteral feeding at the rate of 70 mL an hour, vital. No wounds or sores. He is quite weak and the plan is to send this patient to select specialty for further recuperation. The right-sided pigtail catheter was removed. Note that all of the cultures are negative. The patient is still on a combination of Vanco, Zosyn, and micafungin GEN. Note that I had bronchoscope this patient and the bronchioloalveolar lavage have yielded no microbial growth. The patient had a sputum analysis that showed Jeane albicans. All of the blood cultures of been negative. Objective - Vital Signs Vital signs: Vital Signs Temp 99.5 F 01/11/17 04:00 Pulse 103 H 01/11/17 08:20 Resp 29 H 01/11/17 07:00 BP 126/82 01/11/17 07:00 Pulse Ox 92 L 01/11/17 07:00 Intake & Output 01/10/17 01/11/17 01/11/17 18:59 06:59 18:59 Intake Total 1920.0 2130.0 Output Total 1692 1695 Balance 228.0 435.0 Weight 81 kg Intake: IV 1130.0 1150.0 .9 KVO 180 100 Dextrose 5% in Water 1, 900 975 000 ml @ 75 mls/hr IV . [id number] [facility] Rx#:[id number] Piperacillin-Tazobactam 3 50.0 75.0 .375 gm In Dextrose/Water 1 50ml.bag @ 12.5 mls/hr IVPB Q8HR [facility] Rx#: [id number] Intake, IV Titration 50 Amount Esomeprazole 20 mg In 50 Sodium Chloride 0.9% 50 ml @ 100 mls/hr IVPB DAILY [facility] Rx#:[id number] Tube Feeding 590 890 Other 150 90 Output: Urine 1690 1695 Stool 2 Other: Voiding Method Indwelling Catheter Indwelling Catheter # Bowel Movements 1 ABP, PAP, CO, CI - Last Documented Arterial Blood Pressure 152/69 - Exam Head exam was generally normal. There was no scleral icterus or corneal arcus. Mucous membranes were moist. Neck is supple and the patient is a tracheostomy tube in place and this is a Shiley #7. Lung sounds are diminished bilaterally especially in lung bases. There is significant breath sound diminishment in the right lung base. No crackles. No wheezes.Cardiac exam revealed the PMI to be normally situated and sized. The rhythm was regular and no extrasystoles were noted during several minutes of auscultation. The first and second heart sounds were normal and physiologic splitting of the second heart sound was noted. There were no murmurs, rubs, clicks, or gallops.Abdominal exam revealed normal bowel sounds. The abdomen was soft, non-tender, and without masses, organomegaly, or appreciable enlargement of the abdominal aorta. PEG tube site is dry clean and intact and there is no erythema or any drainage.Examination of the extremities revealed easily palpable radial, femoral and pedal pulses. There was no cyanosis, clubbing or edema. Neurologically the patient is awake and alert however his got significant motor weakness both in upper and lower extremity. - Labs CBC & Chem 7: 01/10/17 03:45 01/10/17 03:45 Labs: Microbiology - Last 24 Hours (Table) 01/09/17 07:22 Blood Culture - Preliminary Blood No Growth after 48 hours 01/09/17 07:20 Gram Stain - Final Sputum Sputum Culture - Final Jeane albicans 01/10/17 15:35 Catheter Tip Culture - Preliminary Catheter Tip 01/09/17 08:14 Blood Culture - Preliminary Blood No Growth after 24 hours Assessment and Plan Plan: Assessment 1 right lung pneumonia, severe, rapid interval progression with progressive worsening of the consolidation development of a small right-sided pleural effusion with subsequent acute hypoxic respiratory failure, currently intubated on a mechanical ventilator. Rule out pneumococcal pneumonia. Rule out anaerobic pneumonia possibly from a tooth abscess/aspiration. On 01/11/2017, the patient is on a trach collar. He was taken off the mechanical ventilator. He was taken off the sedation and paralysis. He has a tracheostomy tube in place. Is quite weak and he has significant neuromuscular weakness related to critical illness polyneuropathy and myopathy and the patient will be looking to go to select specialty for further recuperation. 2 acute hypoxic respiratory failure, intubated on mechanical ventilator, improved and the patient is currently on a 50% trach collar 3 bullous emphysema with upper lobe emphysematous changes right more than left 4 sepsis secondary to right lung pneumonia, leukocytosis, 5 nonspecific left upper lobe pulmonary nodule measuring 1.1 cm in size 6 recent DVT post-orthopedic intervention on the foot, on Lovenox 7 TIA, history of without any neurological deficits 8 chronic neck and back pain, under the care of pain management 9 tooth abscess, cleared by dental services/dentist 10 acute kidney injury, recovered, creatinine is at 1.3 11 critical illness polyneuropathy and myopathy 12 right-sided pleural effusion status post drainage with a pigtail catheter, the fluid cytology was negative for malignancy 13, leukocytosis and the counts remain elevated today. No obvious source of infection or sepsis at this point. The PICC line was removed and the catheter tip was negative. The rest of the blood culture will negative. Plan We'll keep the patient on trach collar. Aggressive physical therapy. Passive range of motion. Continue enteral feeding for nutritional support. The patient is looking to go to select specialty. Stop all antibiotics if that's okay with infectious disease. Monitor renal function. We'll continue to follow. Condition remains very guarded. I think he will need aggressive physical therapy knowing that the patient has developed significant neuromuscular weakness related to chronic advanced polyneuropathy and myopathy. This evaluation was done in 35 minutes. Time with Patient: Greater than 30
[2017-01-11] MEDS: VANCOMYCIN 1,500 MG in SODIUM CHLORIDE 0.9% 250 ML IVPB SCH (10:24)
[2017-01-11] MEDS: MICAFUNGIN 100 MG in SODIUM CHLORIDE 0.9% 100 ML IVPB SCH (10:47)
[2017-01-11 10:52] LABS: CH 33.2; CHCM 33.5; HCT 32.8 % (39.0-53.0); HDW 2.22; HGB 10.8 gm/dL (13.0-17.5); MCH 32.6 pg (25.0-35.0); MCHC 32.9 g/dL (31.0-37.0); MCV 99.3 fL (80.0-100.0); Mean Platelet Volume 8.9; RDW 13.6 % (11.5-15.5)
[2017-01-11 10:55] LABS: WBC 28.8 k/uL (3.8-10.6)
[2017-01-11 11:07] LABS: Anion Gap 8 mmol/L; Blood Urea Nitrogen 30 mg/dL (9-20); Calcium 8.3 mg/dL (8.4-10.2); Carbon Dioxide 23 mmol/L (22-30); Chloride 105 mmol/L (98-107); Glucose 114 mg/dL (74-99); Magnesium 1.9 mg/dL (1.6-2.3); Non-African American GFR(MDRD) >60 (>60 ml/min/1.73 sqM); Phosphorous 3.4 mg/dL (2.5-4.5); Sodium 136 mmol/L (137-145)
--- NOTE | 2017-01-11 12:23 | PN ---
DATE OF SERVICE: 01/10/2017 This 46-year-old gentleman who was admitted with pneumonia, renal failure; also had empyema. The patient also was on mechanical ventilation. The patient has tracheostomy and PEG tube placement. The ( ) improved significantly. The patient is closely monitored. The patient also complaining of left foot pain. The foot x-ray shows acute osseous lesion. Past medical history and review of systems: Could not be taken. The patient is on trach collar. CURRENT MEDICATIONS: Reviewed and include: 1. DuoNeb q.i.d. and p.r.n. 2. Aspirin 81 mg. 5. Peridex 15 ml. 6. Celexa. 7. Catapres TTS 0.1 mg patch q7 days. 8. Lovenox 40 mg subcu daily. 9. Dilaudid. 10. Micafungin. 11. Habitrol PHYSICAL EXAMINATION: The patient is alert and oriented x1. Pulse 110, blood pressure 120/75, respirations 18, temperature normal. Pulse ox 90% on 50% trach collar. HEENT: Conjunctivae normal. Oral mucosa moist. NECK: In tracheostomy collar. HEART: S1/S2. RESPIRATORY: Diminished breath sounds especially at the bases. A few scattered rhonchi. No crackles. Expiratory wheezing also. ABDOMEN: Soft. PEG tube inserted. No mass palpable. LEGS: No edema. NEURO: Moves all four limbs. Mild diffuse weakness. LABS: WBC 13.1, hemoglobin 11.9. ASSESSMENT: 1. Chronic obstructive pulmonary disease acute exacerbation. 2. Right lower lobe pneumonia, possibly community acquired, with severe sepsis and acute hypoxic respiratory failure status post mechanical ventilation present on admission. 3. Status post PEG tube and tracheostomy tube. 4. Bullous emphysema. 5. Right-sided empyema status post chest drainage. 6. Change in mental status, metabolic encephalopathy. 7. Right foot pain, possibly acute gout. RECOMMENDATIONS AND DISCUSSION: In this 46-year-old gentleman who presented with multiple complex medical issues. Will monitor the patient closely, continue the current medication, continue symptomatic treatment. The uric acid is 3.5. Will continue to monitor. Continue the bronchodilators and antibiotics. Closely follow with Dr. Patel. Prognosis guarded. Further recommendations to follow. MTDD
--- NOTE | 2017-01-11 16:16 | PN ---
DATE OF SERVICE: 01/10/17 REASON FOR FOLLOW UP: Fever and leucocytosis. INTERVAL HISTORY: The patient did spike a fever last night around midnight of 100.8. I was not notified. The patient is afebrile since then. The patient did need to be on a vent for a short time. However, currently on a trach collar. He is breathing comfortably. The patient denies significant chest pain, any worsening cough. No nausea or vomiting. The patient did have some diarrhea. However, the RN did mentioned that the stool for C. dif came back negative. The patient also had a right IJ that has been there for more than 11 days now. On examination, blood pressure 127/73, pulse 104, temperature 99.4. T-Max is 100.8. He is 92% on trach collar. General description is a middle age male lying in the bed in no distress. HEENT : Slight pallor. No sclera icterus. Oral mucosa membranes ( ). Respiratory system: Lungs unlabored breathing with decreased breath sounds at the bases. No wheeze. Heart: S1, S2 regular rate and rhythm. Abdomen soft , no tenderness. LABS: Hemoglobin 11.9, white count 31.9 with a BUN of 30. Creatinine 1.30. Blood cultures obtained yesterday so far pending. DIAGNOSTIC IMPRESSION AND PLAN: Patient with elevated white count and now with a fever in a patient being treated for underlying pneumonia. Initial sputum has been negative for any resistant pathogen. Repeat sputum obtained yesterday showing ( ). The patient did have evidence of thrush likely oropharyngeal candidiasis, not entirely excluded with a new fever concern is possibly for central line infection. RN has been advised to discontinue the right IJ and get a peripheral IV and if spikes any more fever, to notify me. Vanco will be restarted. Continue Zosyn. Continue Levaquin. The patient will be followed by Dr. Ryan to whom the patient is known. Family was present at the bedside. All their questions were answered. CASPER
--- NOTE | 2017-01-11 16:45 | P.PN ---
Subjective A 46-year-old male patient , with known history of advanced emphysema, came in and for a right lung pneumonia. The patient subsequently went to respiratory failure, intubated and placed on a mechanical ventilator. He also required the right lung chest tube insertion, a small bore pigtail catheter was inserted and the right-sided pleural effusion was drained. There was no evidence of any empyema. The pleural fluid was negative for malignancy. He was gradually weaned off the sedation after the patient had his PEG and trach. He was taken off paralytics. He is at the point where is on a trach collar at this point he was taken off the mechanical ventilator. He is on a 50 % trach collar. No other overnight events. Patient is able to answer questions appropriately Objective - Vital Signs Vital signs: Vital Signs Temp 99.5 F 01/11/17 04:00 Pulse 113 H 01/11/17 16:33 Resp 14 01/11/17 15:00 BP 117/66 01/11/17 15:00 Pulse Ox 97 01/11/17 15:00 Intake & Output 01/10/17 01/11/17 01/11/17 18:59 06:59 18:59 Intake Total 1920.0 2130.0 1275 Output Total 1692 1695 1093 Balance 228.0 435.0 182 Weight 81 kg 81 kg Intake: IV 1130.0 1150.0 725 .9 KVO 180 100 Dextrose 5% in Water 1, 900 975 675 000 ml @ 75 mls/hr IV . [id number] [facility] Rx#:[id number] Piperacillin-Tazobactam 3 50.0 75.0 50 .375 gm In Dextrose/Water 1 50ml.bag @ 12.5 mls/hr IVPB Q8HR [facility] Rx#: [id number] Intake, IV Titration 50 350 Amount Esomeprazole 20 mg In 50 Sodium Chloride 0.9% 50 ml @ 100 mls/hr IVPB DAILY [facility] Rx#:[id number] Micafungin 100 mg In 100 Sodium Chloride 0.9% 100 ml @ 100 mls/hr IVPB DAILY [facility] Rx#:[id number] Vancomycin 1,500 mg In 250 Sodium Chloride 0.9% 250 ml @ 125 mls/hr IVPB Q24HR [facility] Rx#:[id number] Oral 130 Tube Feeding 590 890 70 Other 150 90 Output: Urine 1690 1695 1090 Stool 2 3 Other: Voiding Method Indwelling Catheter Indwelling Catheter Indwelling Catheter # Bowel Movements 1 ABP, PAP, CO, CI - Last Documented Arterial Blood Pressure 152/69 - Exam Gen. appears does not appear to be in distress Lungs coarse breath sounds Neck trach in place currently oxygen 50% FiO2 Abdomen PEG tube noted no tenderness to palpation Genitourinary Neely catheter in place Lower extremity is no edema noted Neuro moves all or extremities - Labs CBC & Chem 7: 01/11/17 10:29 01/11/17 10:28 Labs: Abnormal Lab Results - Last 24 Hours (Table) 01/11/17 01/11/17 Range/Units 10:28 10:29 WBC 28.8 H* (3.8-10.6) k/uL RBC 3.30 L (4.30-5.90) m/uL Hgb 10.8 L (13.0-17.5) gm/dL Hct 32.8 L (39.0-53.0) % Sodium 136 L (137-145) mmol/L BUN 30 H (9-20) mg/dL Glucose 114 H (74-99) mg/dL Calcium 8.3 L (8.4-10.2) mg/dL Microbiology - Last 24 Hours (Table) 01/09/17 08:14 Blood Culture - Preliminary Blood No Growth after 48 hours 01/09/17 07:22 Blood Culture - Preliminary Blood No Growth after 48 hours 01/09/17 07:20 Gram Stain - Final Sputum Sputum Culture - Final Jeane albicans 01/10/17 15:35 Catheter Tip Culture - Preliminary Catheter Tip Assessment and Plan Plan: #1 acute chronic hypoxic hypercapnic respiratory failure secondary to an pneumonic process #2 sepsis secondary to a right sided pneumonia #3 history of TIA #4 acute kidney injury which is improved #5 history of DVT Plan Patient is stable at this time We'll discontinue Neely catheter Titrate of antibiotics after discussion with the infectious diseases Await placement to community health
--- NOTE | 2017-01-11 19:10 | P.PN ---
Subjective Principal diagnosis: respiratory failure 46-year-old male who has a presumptive diagnosis of underlying emphysema presents to the hospital with a relatively short-term of increasing shortness of breath. The patient relates over the weekend he started to get short of breath. He developed cough and increasing shortness of breath. He then had significant fever and increasing pain to his right chest. The pain became so severe that he no longer was able to hold out at home and presented to the emergency center. There he was evidence of a pain a 10 out of 10 and evidence of significant respiratory distress. Imaging studies revealed evidence of a significant pneumonia as well as a large bleb to the right chest. Effusion was seen. No evidence of pulmonary embolus or of aortic dissection was seen. The patient was brought to the intensive care unit where he is required some sedation for placement of BiPAP. BiPAP has been placed the patient appears to be feeling this. We'll likely be intubated soon. The patient had a significant AA gradient despite the BiPAP. The family does relate to the difficulty with his oral cavity. He apparently has been antibiotic therapy was that of a tooth extraction for an abscess the family denies a history of injection drug use. Significant alcohol use. PTSD from his experience in [place]. No severe illnesses while he was overseas. He has noted the patient developed respiratory failure. Required intubation sedation and mechanical ventilation. Tracheostomy is in place as well as PEG tube. He's been weaned from the mechanical ventilator. Is now being transferred to the stepdown ICU. He sitting upright. Smile several times throughout the interaction. He is having some pain to his left foot is somewhat acute. His only area of discomfort. Objective - Vital Signs Vital signs: Vital Signs Temp 99.8 F H 01/11/17 16:00 Pulse 112 H 01/11/17 17:00 Resp 6 L 01/11/17 17:00 BP 132/84 01/11/17 17:00 Pulse Ox 94 L 01/11/17 17:00 Intake & Output 01/11/17 01/11/17 01/12/17 06:59 18:59 06:59 Intake Total 2130.0 1425 Output Total 1695 1319 Balance 435.0 106 Weight 81 kg Intake: IV 1150.0 875 .9 KVO 100 Dextrose 5% in Water 1, 975 825 000 ml @ 75 mls/hr IV . [id number] [facility] Rx#:[id number] Piperacillin-Tazobactam 3 75.0 50 .375 gm In Dextrose/Water 1 50ml.bag @ 12.5 mls/hr IVPB Q8HR [facility] Rx#: [id number] Intake, IV Titration 350 Amount Micafungin 100 mg In 100 Sodium Chloride 0.9% 100 ml @ 100 mls/hr IVPB DAILY [facility] Rx#:[id number] Vancomycin 1,500 mg In 250 Sodium Chloride 0.9% 250 ml @ 125 mls/hr IVPB Q24HR [facility] Rx#:[id number] Oral 130 Tube Feeding 890 70 Other 90 Output: Urine 1695 1315 Stool 4 Other: Voiding Method Indwelling Catheter Indwelling Catheter ABP, PAP, CO, CI - Last Documented Arterial Blood Pressure 152/69 - Exam 46-year-old male who had trach sedated and mechanically ventilated HEENT: Anicteric conjunctiva are pink and moist nasal mucosa grossly intact without significant lesions, there is thrush. Neck: The neck is supple without significant lymphadenopathy or thyromegaly. trach site without bleeding or discomfort Lungs: There is symmetrical air entry. Is much improved bilateral air entry. The prior markedly diminished breath sounds in the right base of improved. Still minimal dullness to the right. Heart: Regular rate and rhythm with an audible S1-S2, no S3 no S4. There is no significant murmur click or rub, PMI was nondisplaced. Abdomen: Positive bowel sounds soft and nontender without palpable masses or organomegaly. There was no guarding or rebound. Abdomen is not rigid the PEG tube site is without difficulty. Extremities: The upper extremities have excellent pulses they are symmetric, no significant petechiae or telangiectasia. No splinter hemorrhages were noted. The lower extremities have only trace edema. The left great toe has erythema that is quite tender. Pulses 2+ symmetric Neuro: Patient is moved out of the ICU. He is awake and alert following commands. With conversation he is able to smile readily. - Labs CBC & Chem 7: 01/11/17 10:29 01/11/17 10:28 Labs: Abnormal Lab Results - Last 24 Hours (Table) 01/11/17 01/11/17 Range/Units 10:28 10:29 WBC 28.8 H* (3.8-10.6) k/uL RBC 3.30 L (4.30-5.90) m/uL Hgb 10.8 L (13.0-17.5) gm/dL Hct 32.8 L (39.0-53.0) % Sodium 136 L (137-145) mmol/L BUN 30 H (9-20) mg/dL Glucose 114 H (74-99) mg/dL Calcium 8.3 L (8.4-10.2) mg/dL Microbiology - Last 24 Hours (Table) 01/09/17 08:14 Blood Culture - Preliminary Blood No Growth after 48 hours 01/09/17 07:22 Blood Culture - Preliminary Blood No Growth after 48 hours 01/09/17 07:20 Gram Stain - Final Sputum Sputum Culture - Final Jeane albicans 01/10/17 15:35 Catheter Tip Culture - Preliminary Catheter Tip Laboratory Results WBC 28.8 k/uL (3.8-10.6) H* 01/11/17 10:29 RBC 3.30 m/uL (4.30-5.90) L 01/11/17 10:29 Hgb 10.8 gm/dL (13.0-17.5) L 01/11/17 10:29 Hct 32.8 % (39.0-53.0) L 01/11/17 10:29 MCV 99.3 fL (80.0-100.0) 01/11/17 10:29 MCH 32.6 pg (25.0-35.0) 01/11/17 10:29 MCHC 32.9 g/dL (31.0-37.0) 01/11/17 10:29 RDW 13.6 % (11.5-15.5) 01/11/17 10:29 Plt Count 314 k/uL (150-450) 01/11/17 10:29 Neutrophils % 85 % 01/10/17 03:45 Neutrophils % (Manual) 75.0 % 01/04/17 04:21 Band Neutrophils % 4.0 % 01/04/17 04:21 Lymphocytes % 7 % 01/10/17 03:45 Lymphocytes % (Manual) 4.0 % 01/04/17 04:21 Monocytes % 6 % 01/10/17 03:45 Monocytes % (Manual) 4.0 % 01/04/17 04:21 Eosinophils % 1 % 01/10/17 03:45 Eosinophils % (Manual) 1.0 % 01/04/17 04:21 Basophils % 0 % 01/10/17 03:45 Metamyelocytes % 8.0 % 01/04/17 04:21 Myelocytes % 3.0 % 01/04/17 04:21 Promyelocytes % 1.0 % 01/04/17 04:21 Neutrophils # 27.0 k/uL (1.3-7.7) H 01/10/17 03:45 Neutrophils # (Manual) 20.7 k/uL (1.3-7.7) H 01/04/17 04:21 Lymphocytes # 2.3 k/uL (1.0-4.8) 01/10/17 03:45 Lymphocytes # (Manual) 1.0 k/uL (1.0-4.8) 01/04/17 04:21 Monocytes # 1.8 k/uL (0-1.0) H 01/10/17 03:45 Monocytes # (Manual) 1.0 k/uL (0-1.0) 01/04/17 04:21 Eosinophils # 0.3 k/uL (0-0.7) 01/10/17 03:45 Eosinophils # (Manual) 0.3 k/uL (0-0.7) 01/04/17 04:21 Basophils # 0.1 k/uL (0-0.2) 01/10/17 03:45 Nucleated RBCs 0 /100 WBC (0-0) 01/04/17 04:21 Manual Slide Review Performed 01/04/17 04:21 Toxic Granulation Present 01/03/17 04:34 Polychromasia Present 01/03/17 04:34 Poikilocytosis (manual Present 01/03/17 04:34 Anisocytosis (manual) Present 01/03/17 04:34 Macrocytosis Slight 01/09/17 04:15 PT 10.1 sec (9.0-12.0) 01/04/17 04:21 INR 1.0 (<1.2) 01/04/17 04:21 APTT 24.3 sec (22.0-30.0) 01/03/17 04:34 D-Dimer 0.82 mg/L FEU (<0.60) H 12/29/16 11:36 Sample Site rrad 01/08/17 05:22 ABG pH 7.56 (7.35-7.45) H 01/08/17 05:22 ABG pCO2 27 mmHg (35-45) L 01/08/17 05:22 ABG pO2 81 mmHg (83-108) L 01/08/17 05:22 ABG HCO3 24 mmol/L (21-25) 01/08/17 05:22 ABG Total CO2 25 mmol/L (19-24) H 01/08/17 05:22 ABG O2 Saturation 98.0 % (94-97) H 01/08/17 05:22 ABG Base Excess 2.1 mmol/L 01/08/17 05:22 ABG Lactic Acid 2.6 mmol/L (0.5-1.6) H* 12/31/16 05:30 FiO2 50 % 01/08/17 05:22 Sodium 136 mmol/L (137-145) L 01/11/17 10:28 Potassium 4.0 mmol/L (3.5-5.1) 01/11/17 10:28 Chloride 105 mmol/L (98-107) 01/11/17 10:28 Carbon Dioxide 23 mmol/L (22-30) 01/11/17 10:28 Anion Gap 8 mmol/L 01/11/17 10:28 BUN 30 mg/dL (9-20) H 01/11/17 10:28 Creatinine 1.23 mg/dL (0.66-1.25) 01/11/17 10:28 Est GFR (MDRD) Af Amer >60 (>60 ml/min/1.73 sqM) 01/11/17 10:28 Est GFR (MDRD) Non-Af >60 (>60 ml/min/1.73 sqM) 01/11/17 10:28 Glucose 114 mg/dL (74-99) H 01/11/17 10:28 POC Glucose (mg/dL) 99 mg/dL (75-99) 01/09/17 11:41 POC Glu High Pressure Firer ID Harjeet Saleh 01/09/17 11:[address] Glu mg/dL 117 mg/dL 12/30/16 06:00 Hemoglobin A1c 5.7 % (4.2-6.1) 12/30/16 06:00 Plasma Lactic Acid Michael 1.5 mmol/L (0.7-2.0) 12/29/16 11:35 Uric Acid 3.5 mg/dL (3.5-8.5) 01/10/17 09:50 Calcium 8.3 mg/dL (8.4-10.2) L 01/11/17 10:28 Phosphorus 3.4 mg/dL (2.5-4.5) 01/11/17 10:28 Magnesium 1.9 mg/dL (1.6-2.3) 01/11/17 10:28 Total Bilirubin 0.5 mg/dL (0.2-1.3) 01/04/17 04:21 AST 27 U/L (17-59) 01/04/17 04:21 ALT 50 U/L (21-72) 01/04/17 04:21 Alkaline Phosphatase 71 U/L (38-126) 01/04/17 04:21 Total Creatine Kinase 31 U/L (55-170) L 12/29/16 01:50 CK-MB (CK-2) <0.2 ng/mL (0.0-2.4) 12/29/16 01:50 CK-MB (CK-2) Rel Index 12/29/16 01:50 Troponin I <0.012 ng/mL (0.000-0.034) 12/29/16 01:50 Total Protein 6.0 g/dL (6.3-8.2) L 01/04/17 04:21 Albumin 3.0 g/dL (3.5-5.0) L 01/04/17 04:21 [id number] 212.0 mg/dL (99.0-242.0) 12/29/16 11:36 Urine Color Yellow 12/29/16 02:10 Urine Appearance Clear (Clear) 12/29/16 02:10 Urine pH 5.5 (5.0-8.0) 12/29/16 02:10 Ur Specific [place] 1.010 (1.001-1.035) 12/29/16 02:10 Urine Protein Negative (Negative) 12/29/16 02:10 Urine Glucose (UA) Negative (Negative) 12/29/16 02:10 Urine Ketones Negative (Negative) 12/29/16 02:10 Urine Blood Small (Negative) H 12/29/16 02:10 Urine Nitrite Negative (Negative) 12/29/16 02:10 Urine Bilirubin Negative (Negative) 12/29/16 02:10 Urine Urobilinogen <2.0 mg/dL (<2.0) 12/29/16 02:10 Ur Leukocyte Esterase Negative (Negative) 12/29/16 02:10 Urine RBC 2 /hpf (0-5) 12/29/16 02:10 Urine WBC <1 /hpf (0-5) 12/29/16 02:10 Ur Squamous Epith Cells <1 /hpf (0-4) 12/29/16 02:10 Urine Mucus Rare /hpf (None) H 12/29/16 02:10 Fluid Source Pleural 01/01/17 11:15 Fluid Appearance Blood Tinged 01/01/17 11:15 Fluid RBC 66050 /uL 01/01/17 11:15 Fluid Nucleated Cells 02222 /uL 01/01/17 11:15 Fluid Polynuclear WBCs 82 % 01/01/17 11:15 Fluid Mononuclear WBCs 18 % 01/01/17 11:15 Body Fluid Glucose Source Pleural Fluid 01/01/17 11:15 Fluid Glucose 65 mg/dL 01/01/17 11:15 Body Fluid Protein Source Pleural Fluid 01/01/17 11:15 Fluid Total Protein 3800 mg/dL 01/01/17 11:15 Body Fluid LDH Source Pleural Fluid 01/01/17 11:15 Fluid LDH 1483 U/L 01/01/17 11:15 Body Fluid Amylase Source Pleural Fluid 01/01/17 11:15 Fluid Amylase 18 U/L 01/01/17 11:15 Fluid Cholesterol 105 mg/dL 01/01/17 11:15 Fl Cholesterol Source Pleural Fluid 01/01/17 11:15 Pleur Adenosine Deamin 16.4 U/L (0.0-9.4) H 01/01/17 11:20 Vancomycin Trough 9.1 ug/mL 01/09/17 06:55 Random Vancomycin 19.8 ug/mL 01/03/17 04:34 C. difficile (EIA) Intrp Negative (Negative) 01/08/17 17:01 Urine Legionella Ag Not detected (Not detected) 12/29/16 14:45 Mycoplasma pneumon IgG 1.65 INDEX (<=0.90) H 12/29/16 11:36 Mycoplasma pneumon IgM 0.56 INDEX (<=0.90) 12/29/16 11:36 Miscellaneous Test Triglycerides, Fluid 01/01/17 11:30 Misc Test Result See Comment 01/01/17 11:30 Microbiology 01/09/17 08:14 Blood Blood Culture - Preliminary No Growth after 48 hours 01/09/17 07:22 Blood Blood Culture - Preliminary No Growth after 48 hours 01/09/17 07:20 Sputum Gram Stain - Final 01/09/17 07:20 Sputum Sputum Culture - Final Jeane albicans 01/10/17 15:35 Catheter Tip Catheter Tip Culture - Preliminary 01/01/17 11:15 Pleural Fluid Gram Stain - Final 01/01/17 11:15 Pleural Fluid Body Fluid Culture - Final 12/29/16 01:50 Blood Blood Culture - Final No Growth after 144 hours 01/01/17 11:24 Pleural Fluid Acid Fast Bacilli Smear - Final 01/01/17 11:24 Pleural Fluid Acid Fast Bacilli Culture - Preliminary 12/29/16 18:42 Sputum Gram Stain - Final 12/29/16 18:42 Sputum Sputum Culture - Final 12/29/16 14:42 Sputum Gram Stain - Final 12/29/16 14:42 Sputum Sputum Culture - Final 12/29/16 02:10 Urine,Voided Urine Culture - Final Assessment and Plan (1) Pneumonia Narrative/Plan: 46-year-old male with history of heavy tobacco use who by imaging studies has a large bleb to the right upper zone is evidence of a significant effusion to the right side and pneumonic infiltration. Patient presents with respiratory failure and sepsis from his pneumonia. Cultures are in process. Broad-spectrum antibiotic therapy with Zosyn and Levaquin and vancomycin are given until cultures are available. The patient does have a history of the recent dental work and concerns to a lung abscess or putrid empyema. The patient has had a chest tube placed and is draining a large amount of effusion The patient has respiratory failure has been intubated and is mechanically ventilated. 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 Sputum culture in process after his intubation and is negative at this time. Blood cultures are negative at this time. Significant leukocytosis was due to his significant sepsis, more recently is being driven by the large doses of steroids. He was on 60 mg IV push every 6 hours which was then diminished to 40 and discontinued 3 days ago. We'll expect his significant leukocytosis to start to decline. Trach and PEG tube and placed and he is hemodynamically stable at this time. He is showing is marked improvement is moved out of the intensive care unit. Will need rehab to improve his strength. His is present and we discussed smoking cessation at his discharge. Past antimicrobial therapy. Is doing well on the current micafungin for the oral candidiasis. As to antibiotic therapy he is on piperacillin tazobactam. Has been for quite some time. Pulmonary status is markedly improved. Will be discontinuing antibiotics within the next short period of time. Status: Acute (2) Respiratory failure Status: Acute (3) Empyema of right pleural space Status: Acute
[2017-01-11 20:57] LABS: Glucose,Whole Blood 135 mg/dL (75-99)
[2017-01-11] MEDS: MIRTAZAPINE 15 MG TAB PO SCH (21:12)
[2017-01-12 05:40] LABS: Glucose,Whole Blood 131 mg/dL (75-99)
[2017-01-12] MEDS: DEXTROSE 5% IN WATER 1,000 ML IV SCH ×2 (05:40→20:26)
[2017-01-12] MEDS: METOCLOPRAMIDE 5 MG/ML 2 ML VIAL IVP SCH ×4 (05:40→23:13)
[2017-01-12 06:40] LABS: CH 32.4; CHCM 32.5; HCT 31.8 % (39.0-53.0); HDW 2.27; HGB 10.3 gm/dL (13.0-17.5); MCH 32.3 pg (25.0-35.0); MCHC 32.3 g/dL (31.0-37.0); MCV 100.1 fL (80.0-100.0); Mean Platelet Volume 8.4; RBC 3.17 m/uL (4.30-5.90); RDW 13.3 % (11.5-15.5); WBC 24.6 k/uL (3.8-10.6)
[2017-01-12 06:57] LABS: Anion Gap 10 mmol/L; Blood Urea Nitrogen 30 mg/dL (9-20); Calcium 8.4 mg/dL (8.4-10.2); Carbon Dioxide 21 mmol/L (22-30); Chloride 105 mmol/L (98-107); Glucose 114 mg/dL (74-99); Magnesium 1.6 mg/dL (1.6-2.3); Non-African American GFR(MDRD) >60 (>60 ml/min/1.73 sqM); Phosphorous 3.3 mg/dL (2.5-4.5); Potassium 3.8 mmol/L (3.5-5.1); Sodium 136 mmol/L (137-145)
[2017-01-12] MEDS: IPRATROPIUM-ALBUTEROL 3 ML NEB INHALATION SCH ×5 (08:36→20:33)
[2017-01-12 08:49] LABS: Glucose,Whole Blood 102 mg/dL (75-99)
[2017-01-12] MEDS: ENOXAPARIN 40 MG/0.4 ML SYRINGE SQ SCH (09:10)
[2017-01-12] MEDS: ASPIRIN 81 MG CHEW PO SCH (09:10)
[2017-01-12] MEDS: CITALOPRAM HYDROBROMIDE 20 MG TAB PO SCH (09:10)
[2017-01-12] MEDS: ESOMEPRAZOLE 20 MG in SODIUM CHLORIDE 0.9% 50 ML IVPB SCH (09:10)
[2017-01-12] MEDS: GABAPENTIN 100 MG CAP PO SCH ×2 (09:11→21:31)
[2017-01-12] MEDS: NICOTINE 14MG/24HR PATCH TRANSDERM SCH (09:11)
[2017-01-12] MEDS: MICAFUNGIN 100 MG in SODIUM CHLORIDE 0.9% 100 ML IVPB SCH (09:11)
[2017-01-12] MEDS: CHLORHEXIDINE GLUCONATE 15 ML CUP MUCOUS MEM SCH (11:07)
[2017-01-12] MEDS: PIPERACILLIN-TAZOBACTAM 3.375 GM in DEXTROSE/WATER 1 50ML.BAG IVPB SCH ×3 (11:37→23:13)
[2017-01-12] MEDS: VANCOMYCIN 1,500 MG in SODIUM CHLORIDE 0.9% 250 ML IVPB SCH (11:38)
--- NOTE | 2017-01-12 11:49 | P.PN ---
Subjective A 46-year-old male patient , with known history of advanced emphysema, came in and for a right lung pneumonia. The patient subsequently went to respiratory failure, intubated and placed on a mechanical ventilator. He had a prolonged and difficult course here in the intensive care unit. He required high level of sedation and paralytics to control his breathing and respiration. He also required the right lung chest tube insertion, a small bore pigtail catheter was inserted and the right-sided pleural effusion was drained. There was no evidence of any empyema. The pleural fluid was negative for malignancy. He was gradually weaned off the sedation after the patient had his PEG and trach. He was taken off paralytics. He is at the point where is on a trach collar at this point he was taken off the mechanical ventilator. He is on a 50% trach collar. Today's chest x-ray shows residual consolidation/infiltration of the right lung base with a small right-sided pleural effusion. Left lung is clear. He is awake and alert. He is hemodynamically stable. He is conversing. No focal neurological deficits. Is tolerating his tube feeds. He is on 75 mL of D5 water through a peripheral IV. He is also on a high protein enteral feeding at the rate of 70 mL an hour, vital. No wounds or sores. He is quite weak and the plan is to send this patient to select specialty for further recuperation. The right-sided pigtail catheter was removed. Note that all of the cultures are negative. The patient is still on a combination of Vanco, Zosyn, and micafungin GEN. Note that I had bronchoscope this patient and the bronchioloalveolar lavage have yielded no microbial growth. The patient had a sputum analysis that showed Jeane albicans. All of the blood cultures of been negative. On 01/12/2017 I'm seeing this patient in follow-up. Is able to sit up on a chair. No significant respiratory distress. The patient has a Biv[place] tracheostomy tube in place. The patient is in the 50% trach collar. He is also receiving tube feeds. Veins are being made to send this patient to select specialty. ID is on the case. Antibiotic therapy will be continued for the time being. No diarrhea. No fever. No chills. White cell count is elevated yet somewhat improved compared to yesterday down to 24. Objective - Vital Signs Vital signs: Vital Signs Temp 99.5 F 01/12/17 08:00 Pulse 96 01/12/17 11:26 Resp 19 01/12/17 08:00 BP 119/73 01/12/17 08:00 Pulse Ox 92 L 01/12/17 08:00 Intake & Output 01/11/17 01/12/17 01/12/17 18:59 06:59 18:59 Intake Total 1425 930 Output Total 1319 407 Balance 106 523 Weight 81 kg 88.5 kg Intake: IV 875 140 .9 KVO 140 Dextrose 5% in Water 1, 825 000 ml @ 75 mls/hr IV . [id number] [facility] Rx#:[id number] Piperacillin-Tazobactam 3 50 .375 gm In Dextrose/Water 1 50ml.bag @ 12.5 mls/hr IVPB Q8HR [facility] Rx#: [id number] Intake, IV Titration 350 Amount Micafungin 100 mg In 100 Sodium Chloride 0.9% 100 ml @ 100 mls/hr IVPB DAILY [facility] Rx#:[id number] Vancomycin 1,500 mg In 250 Sodium Chloride 0.9% 250 ml @ 125 mls/hr IVPB Q24HR [facility] Rx#:[id number] Oral 130 Tube Feeding 70 790 Output: Urine 1315 400 Stool 4 7 Other: Voiding Method Indwelling Catheter Urinal Diaper # Voids 3 # Bowel Movements 2 1 ABP, PAP, CO, CI - Last Documented Arterial Blood Pressure 152/69 - Exam Head exam was generally normal. There was no scleral icterus or corneal arcus. Mucous membranes were moist. Neck is supple and the patient is a tracheostomy tube in place and this is a Shiley #7. Lung sounds are diminished bilaterally especially in lung bases. There is significant breath sound diminishment in the right lung base. No crackles. No wheezes.Cardiac exam revealed the PMI to be normally situated and sized. The rhythm was regular and no extrasystoles were noted during several minutes of auscultation. The first and second heart sounds were normal and physiologic splitting of the second heart sound was noted. There were no murmurs, rubs, clicks, or gallops.Abdominal exam revealed normal bowel sounds. The abdomen was soft, non-tender, and without masses, organomegaly, or appreciable enlargement of the abdominal aorta. PEG tube site is dry clean and intact and there is no erythema or any drainage.Examination of the extremities revealed easily palpable radial, femoral and pedal pulses. There was no cyanosis, clubbing or edema. Neurologically the patient is awake and alert however his got significant motor weakness both in upper and lower extremity. - Labs CBC & Chem 7: 01/12/17 05:33 01/12/17 05:33 Labs: Abnormal Lab Results - Last 24 Hours (Table) 01/11/17 01/12/17 01/12/17 Range/Units 20:55 05:33 05:33 WBC 24.6 H (3.8-10.6) k/uL RBC 3.17 L (4.30-5.90) m/uL Hgb 10.3 L (13.0-17.5) gm/dL Hct 31.8 L (39.0-53.0) % MCV 100.1 H (80.0-100.0) fL Sodium 136 L (137-145) mmol/L Carbon Dioxide 21 L (22-30) mmol/L BUN 30 H (9-20) mg/dL Glucose 114 H (74-99) mg/dL POC Glucose (mg/dL) 135 H (75-99) mg/dL 01/12/17 01/12/17 Range/Units 05:39 08:44 WBC (3.8-10.6) k/uL RBC (4.30-5.90) m/uL Hgb (13.0-17.5) gm/dL Hct (39.0-53.0) % MCV (80.0-100.0) fL Sodium (137-145) mmol/L Carbon Dioxide (22-30) mmol/L BUN (9-20) mg/dL Glucose (74-99) mg/dL POC Glucose (mg/dL) 131 H 102 H (75-99) mg/dL Microbiology - Last 24 Hours (Table) 01/09/17 08:14 Blood Culture - Preliminary Blood No Growth after 72 hours 01/09/17 07:22 Blood Culture - Preliminary Blood No Growth after 72 hours 01/10/17 15:35 Catheter Tip Culture - Preliminary Catheter Tip 01/09/17 07:20 Gram Stain - Final Sputum Sputum Culture - Final Jeane albicans Assessment and Plan Plan: Assessment 1 right lung pneumonia, severe, rapid interval progression with progressive worsening of the consolidation development of a small right-sided pleural effusion with subsequent acute hypoxic respiratory failure, currently intubated on a mechanical ventilator. Rule out pneumococcal pneumonia. Rule out anaerobic pneumonia possibly from a tooth abscess/aspiration. On 01/11/2017, the patient is on a trach collar. He was taken off the mechanical ventilator. He was taken off the sedation and paralysis. He has a tracheostomy tube in place. Is quite weak and he has significant neuromuscular weakness related to critical illness polyneuropathy and myopathy and the patient will be looking to go to select specialty for further recuperation. On 01/12/2017 the patient is on a 50% trach collar. The patient is still on broad-spectrum antibiotics. No signs of any respiratory decompensation for now. The tracheostomy tube was replaced at the later stage to a Shiley tracheostomy tube. The patient is is also looking to go to 2 acute hypoxic respiratory failure, intubated on mechanical ventilator, improved and the patient is currently on a 50% trach collar 3 bullous emphysema with upper lobe emphysematous changes right more than left 4 sepsis secondary to right lung pneumonia, leukocytosis, 5 nonspecific left upper lobe pulmonary nodule measuring 1.1 cm in size 6 recent DVT post-orthopedic intervention on the foot, on Lovenox 7 TIA, history of without any neurological deficits 8 chronic neck and back pain, under the care of pain management 9 tooth abscess, cleared by dental services/dentist 10 acute kidney injury, recovered, creatinine is at 1.2 11 critical illness polyneuropathy and myopathy 12 right-sided pleural effusion status post drainage with a pigtail catheter, the fluid cytology was negative for malignancy 13, leukocytosis and the counts remain elevated today. No obvious source of infection or sepsis at this point. The PICC line was removed and the catheter tip was negative. The rest of the blood culture will negative. Plan We'll keep the patient on trach collar. Aggressive physical therapy. Passive range of motion. Continue enteral feeding for nutritional support. The patient is looking to go to select specialty. We'll replace the tracheostomy tube at a later stage today Shiley tracheostomy tube. Discussed the case with infectious disease and antibiotics will be continued for now. We'll continue to follow.
[2017-01-12 11:52] LABS: Glucose,Whole Blood 113 mg/dL (75-99)
--- NOTE | 2017-01-12 12:55 | P.PN ---
Subjective Principal diagnosis: respiratory failure 46-year-old male who has a presumptive diagnosis of underlying emphysema presents to the hospital with a relatively short-term of increasing shortness of breath. The patient relates over the weekend he started to get short of breath. He developed cough and increasing shortness of breath. He then had significant fever and increasing pain to his right chest. The pain became so severe that he no longer was able to hold out at home and presented to the emergency center. There he was evidence of a pain a 10 out of 10 and evidence of significant respiratory distress. Imaging studies revealed evidence of a significant pneumonia as well as a large bleb to the right chest. Effusion was seen. No evidence of pulmonary embolus or of aortic dissection was seen. The patient was brought to the intensive care unit where he is required some sedation for placement of BiPAP. BiPAP has been placed the patient appears to be feeling this. We'll likely be intubated soon. The patient had a significant AA gradient despite the BiPAP. The family does relate to the difficulty with his oral cavity. He apparently has been antibiotic therapy was that of a tooth extraction for an abscess the family denies a history of injection drug use. Significant alcohol use. PTSD from his experience in [place]. No severe illnesses while he was overseas. He has noted the patient developed respiratory failure. Required intubation sedation and mechanical ventilation. Tracheostomy is in place as well as PEG tube. He's been weaned from the mechanical ventilator. Was transferred to the stepdown ICU. He sitting upright. Smile several times throughout the interaction. He is having some pain to his left foot is somewhat acute. His only area of discomfort. Did walk with assistance today. Objective - Vital Signs Vital signs: Vital Signs Temp 99.5 F 01/12/17 08:00 Pulse 94 01/12/17 12:00 Resp 20 01/12/17 12:00 BP 123/72 01/12/17 12:00 Pulse Ox 95 01/12/17 12:00 Intake & Output 01/11/17 01/12/17 01/12/17 18:59 06:59 18:59 Intake Total 1425 930 Output Total 1319 407 Balance 106 523 Weight 81 kg 88.5 kg Intake: IV 875 140 .9 KVO 140 Dextrose 5% in Water 1, 825 000 ml @ 75 mls/hr IV . [id number] [facility] Rx#:[id number] Piperacillin-Tazobactam 3 50 .375 gm In Dextrose/Water 1 50ml.bag @ 12.5 mls/hr IVPB Q8HR [facility] Rx#: [id number] Intake, IV Titration 350 Amount Micafungin 100 mg In 100 Sodium Chloride 0.9% 100 ml @ 100 mls/hr IVPB DAILY [facility] Rx#:[id number] Vancomycin 1,500 mg In 250 Sodium Chloride 0.9% 250 ml @ 125 mls/hr IVPB Q24HR [facility] Rx#:[id number] Oral 130 Tube Feeding 70 790 Output: Urine 1315 400 Stool 4 7 Other: Voiding Method Indwelling Catheter Urinal Diaper # Voids 3 # Bowel Movements 2 1 ABP, PAP, CO, CI - Last Documented Arterial Blood Pressure 152/69 - Exam 46-year-old male who had trach sedated and mechanically ventilated HEENT: Anicteric conjunctiva are pink and moist nasal mucosa grossly intact without significant lesions, there is thrush. Neck: The neck is supple without significant lymphadenopathy or thyromegaly. trach site without bleeding or discomfort Lungs: There is symmetrical air entry. Is much improved bilateral air entry. The prior markedly diminished breath sounds in the right base of improved. Still minimal dullness to the right. Heart: Regular rate and rhythm with an audible S1-S2, no S3 no S4. There is no significant murmur click or rub, PMI was nondisplaced. Abdomen: Positive bowel sounds soft and nontender without palpable masses or organomegaly. There was no guarding or rebound. Abdomen is not rigid the PEG tube site is without difficulty. Extremities: The upper extremities have excellent pulses they are symmetric, no significant petechiae or telangiectasia. No splinter hemorrhages were noted. The lower extremities have only trace edema. The left great toe has erythema that is quite tender. Pulses 2+ symmetric Neuro: Patient is moved out of the ICU. He is awake and alert following commands. With conversation he is able to smile readily. - Labs CBC & Chem 7: 01/12/17 05:33 01/12/17 05:33 Labs: Abnormal Lab Results - Last 24 Hours (Table) 01/11/17 01/12/17 01/12/17 Range/Units 20:55 05:33 05:33 WBC 24.6 H (3.8-10.6) k/uL RBC 3.17 L (4.30-5.90) m/uL Hgb 10.3 L (13.0-17.5) gm/dL Hct 31.8 L (39.0-53.0) % MCV 100.1 H (80.0-100.0) fL Sodium 136 L (137-145) mmol/L Carbon Dioxide 21 L (22-30) mmol/L BUN 30 H (9-20) mg/dL Glucose 114 H (74-99) mg/dL POC Glucose (mg/dL) 135 H (75-99) mg/dL 01/12/17 01/12/17 01/12/17 Range/Units 05:39 08:44 11:44 WBC (3.8-10.6) k/uL RBC (4.30-5.90) m/uL Hgb (13.0-17.5) gm/dL Hct (39.0-53.0) % MCV (80.0-100.0) fL Sodium (137-145) mmol/L Carbon Dioxide (22-30) mmol/L BUN (9-20) mg/dL Glucose (74-99) mg/dL POC Glucose (mg/dL) 131 H 102 H 113 H (75-99) mg/dL Microbiology - Last 24 Hours (Table) 01/09/17 08:14 Blood Culture - Preliminary Blood No Growth after 72 hours 01/09/17 07:22 Blood Culture - Preliminary Blood No Growth after 72 hours 01/10/17 15:35 Catheter Tip Culture - Preliminary Catheter Tip 01/09/17 07:20 Gram Stain - Final Sputum Sputum Culture - Final Jeane albicans Laboratory Results WBC 24.6 k/uL (3.8-10.6) H 01/12/17 05:33 RBC 3.17 m/uL (4.30-5.90) L 01/12/17 05:33 Hgb 10.3 gm/dL (13.0-17.5) L 01/12/17 05:33 Hct 31.8 % (39.0-53.0) L 01/12/17 05:33 MCV 100.1 fL (80.0-100.0) H 01/12/17 05:33 MCH 32.3 pg (25.0-35.0) 01/12/17 05:33 MCHC 32.3 g/dL (31.0-37.0) 01/12/17 05:33 RDW 13.3 % (11.5-15.5) 01/12/17 05:33 Plt Count 308 k/uL (150-450) 01/12/17 05:33 Neutrophils % 85 % 01/10/17 03:45 Neutrophils % (Manual) 75.0 % 01/04/17 04:21 Band Neutrophils % 4.0 % 01/04/17 04:21 Lymphocytes % 7 % 01/10/17 03:45 Lymphocytes % (Manual) 4.0 % 01/04/17 04:21 Monocytes % 6 % 01/10/17 03:45 Monocytes % (Manual) 4.0 % 01/04/17 04:21 Eosinophils % 1 % 01/10/17 03:45 Eosinophils % (Manual) 1.0 % 01/04/17 04:21 Basophils % 0 % 01/10/17 03:45 Metamyelocytes % 8.0 % 01/04/17 04:21 Myelocytes % 3.0 % 01/04/17 04:21 Promyelocytes % 1.0 % 01/04/17 04:21 Neutrophils # 27.0 k/uL (1.3-7.7) H 01/10/17 03:45 Neutrophils # (Manual) 20.7 k/uL (1.3-7.7) H 01/04/17 04:21 Lymphocytes # 2.3 k/uL (1.0-4.8) 01/10/17 03:45 Lymphocytes # (Manual) 1.0 k/uL (1.0-4.8) 01/04/17 04:21 Monocytes # 1.8 k/uL (0-1.0) H 01/10/17 03:45 Monocytes # (Manual) 1.0 k/uL (0-1.0) 01/04/17 04:21 Eosinophils # 0.3 k/uL (0-0.7) 01/10/17 03:45 Eosinophils # (Manual) 0.3 k/uL (0-0.7) 01/04/17 04:21 Basophils # 0.1 k/uL (0-0.2) 01/10/17 03:45 Nucleated RBCs 0 /100 WBC (0-0) 01/04/17 04:21 Manual Slide Review Performed 01/04/17 04:21 Toxic Granulation Present 01/03/17 04:34 Polychromasia Present 01/03/17 04:34 Poikilocytosis (manual Present 01/03/17 04:34 Anisocytosis (manual) Present 01/03/17 04:34 Macrocytosis Slight 01/09/17 04:15 PT 10.1 sec (9.0-12.0) 01/04/17 04:21 INR 1.0 (<1.2) 01/04/17 04:21 APTT 24.3 sec (22.0-30.0) 01/03/17 04:34 D-Dimer 0.82 mg/L FEU (<0.60) H 12/29/16 11:36 Sample Site rrad 01/08/17 05:22 ABG pH 7.56 (7.35-7.45) H 01/08/17 05:22 ABG pCO2 27 mmHg (35-45) L 01/08/17 05:22 ABG pO2 81 mmHg (83-108) L 01/08/17 05:22 ABG HCO3 24 mmol/L (21-25) 01/08/17 05:22 ABG Total CO2 25 mmol/L (19-24) H 01/08/17 05:22 ABG O2 Saturation 98.0 % (94-97) H 01/08/17 05:22 ABG Base Excess 2.1 mmol/L 01/08/17 05:22 ABG Lactic Acid 2.6 mmol/L (0.5-1.6) H* 12/31/16 05:30 FiO2 50 % 01/08/17 05:22 Sodium 136 mmol/L (137-145) L 01/12/17 05:33 Potassium 3.8 mmol/L (3.5-5.1) 01/12/17 05:33 Chloride 105 mmol/L (98-107) 01/12/17 05:33 Carbon Dioxide 21 mmol/L (22-30) L 01/12/17 05:33 Anion Gap 10 mmol/L 01/12/17 05:33 BUN 30 mg/dL (9-20) H 01/12/17 05:33 Creatinine 1.25 mg/dL (0.66-1.25) 01/12/17 05:33 Est GFR (MDRD) Af Amer >60 (>60 ml/min/1.73 sqM) 01/12/17 05:33 Est GFR (MDRD) Non-Af >60 (>60 ml/min/1.73 sqM) 01/12/17 05:33 Glucose 114 mg/dL (74-99) H 01/12/17 05:33 POC Glucose (mg/dL) 113 mg/dL (75-99) H 01/12/17 11:44 POC Glu Addiction Therapist Beryl Jean 01/12/17 11:[address] Glu mg/dL 117 mg/dL 12/30/16 06:00 Hemoglobin A1c 5.7 % (4.2-6.1) 12/30/16 06:00 Plasma Lactic Acid Michael 1.5 mmol/L (0.7-2.0) 12/29/16 11:35 Uric Acid 3.5 mg/dL (3.5-8.5) 01/10/17 09:50 Calcium 8.4 mg/dL (8.4-10.2) 01/12/17 05:33 Phosphorus 3.3 mg/dL (2.5-4.5) 01/12/17 05:33 Magnesium 1.6 mg/dL (1.6-2.3) 01/12/17 05:33 Total Bilirubin 0.5 mg/dL (0.2-1.3) 01/04/17 04:21 AST 27 U/L (17-59) 01/04/17 04:21 ALT 50 U/L (21-72) 01/04/17 04:21 Alkaline Phosphatase 71 U/L (38-126) 01/04/17 04:21 Total Creatine Kinase 31 U/L (55-170) L 12/29/16 01:50 CK-MB (CK-2) <0.2 ng/mL (0.0-2.4) 12/29/16 01:50 CK-MB (CK-2) Rel Index 12/29/16 01:50 Troponin I <0.012 ng/mL (0.000-0.034) 12/29/16 01:50 Total Protein 6.0 g/dL (6.3-8.2) L 01/04/17 04:21 Albumin 3.0 g/dL (3.5-5.0) L 01/04/17 04:21 Gheyw-3-Chbqtkmokyf 212.0 mg/dL (99.0-242.0) 12/29/16 11:36 Urine Color Yellow 12/29/16 02:10 Urine Appearance Clear (Clear) 12/29/16 02:10 Urine pH 5.5 (5.0-8.0) 12/29/16 02:10 Ur Specific [place] 1.010 (1.001-1.035) 12/29/16 02:10 Urine Protein Negative (Negative) 12/29/16 02:10 Urine Glucose (UA) Negative (Negative) 12/29/16 02:10 Urine Ketones Negative (Negative) 12/29/16 02:10 Urine Blood Small (Negative) H 12/29/16 02:10 Urine Nitrite Negative (Negative) 12/29/16 02:10 Urine Bilirubin Negative (Negative) 12/29/16 02:10 Urine Urobilinogen <2.0 mg/dL (<2.0) 12/29/16 02:10 Ur Leukocyte Esterase Negative (Negative) 12/29/16 02:10 Urine RBC 2 /hpf (0-5) 12/29/16 02:10 Urine WBC <1 /hpf (0-5) 12/29/16 02:10 Ur Squamous Epith Cells <1 /hpf (0-4) 12/29/16 02:10 Urine Mucus Rare /hpf (None) H 12/29/16 02:10 Fluid Source Pleural 01/01/17 11:15 Fluid Appearance Blood Tinged 01/01/17 11:15 Fluid RBC 70140 /uL 01/01/17 11:15 Fluid Nucleated Cells 71635 /uL 01/01/17 11:15 Fluid Polynuclear WBCs 82 % 01/01/17 11:15 Fluid Mononuclear WBCs 18 % 01/01/17 11:15 Body Fluid Glucose Source Pleural Fluid 01/01/17 11:15 Fluid Glucose 65 mg/dL 01/01/17 11:15 Body Fluid Protein Source Pleural Fluid 01/01/17 11:15 Fluid Total Protein 3800 mg/dL 01/01/17 11:15 Body Fluid LDH Source Pleural Fluid 01/01/17 11:15 Fluid LDH 1483 U/L 01/01/17 11:15 Body Fluid Amylase Source Pleural Fluid 01/01/17 11:15 Fluid Amylase 18 U/L 01/01/17 11:15 Fluid Cholesterol 105 mg/dL 01/01/17 11:15 Fl Cholesterol Source Pleural Fluid 01/01/17 11:15 Pleur Adenosine Deamin 16.4 U/L (0.0-9.4) H 01/01/17 11:20 Vancomycin Trough 9.1 ug/mL 01/09/17 06:55 Random Vancomycin 19.8 ug/mL 01/03/17 04:34 C. difficile (EIA) Intrp Negative (Negative) 01/08/17 17:01 Urine Legionella Ag Not detected (Not detected) 12/29/16 14:45 Mycoplasma pneumon IgG 1.65 INDEX (<=0.90) H 12/29/16 11:36 Mycoplasma pneumon IgM 0.56 INDEX (<=0.90) 12/29/16 11:36 Miscellaneous Test Triglycerides, Fluid 01/01/17 11:30 Misc Test Result See Comment 01/01/17 11:30 Microbiology 01/09/17 08:14 Blood Blood Culture - Preliminary No Growth after 72 hours 01/09/17 07:22 Blood Blood Culture - Preliminary No Growth after 72 hours 01/10/17 15:35 Catheter Tip Catheter Tip Culture - Preliminary 01/09/17 07:20 Sputum Gram Stain - Final 01/09/17 07:20 Sputum Sputum Culture - Final Jeane albicans 01/01/17 11:15 Pleural Fluid Gram Stain - Final 01/01/17 11:15 Pleural Fluid Body Fluid Culture - Final 12/29/16 01:50 Blood Blood Culture - Final No Growth after 144 hours 01/01/17 11:24 Pleural Fluid Acid Fast Bacilli Smear - Final 01/01/17 11:24 Pleural Fluid Acid Fast Bacilli Culture - Preliminary 12/29/16 18:42 Sputum Gram Stain - Final 12/29/16 18:42 Sputum Sputum Culture - Final 12/29/16 14:42 Sputum Gram Stain - Final 12/29/16 14:42 Sputum Sputum Culture - Final 12/29/16 02:10 Urine,Voided Urine Culture - Final Assessment and Plan (1) Pneumonia Narrative/Plan: 46-year-old male with history of heavy tobacco use who by imaging studies has a large bleb to the right upper zone is evidence of a significant effusion to the right side and pneumonic infiltration. Patient presents with respiratory failure and sepsis from his pneumonia. Cultures are in process. Broad-spectrum antibiotic therapy with Zosyn and Levaquin and vancomycin are given until cultures are available. The patient does have a history of the recent dental work and concerns to a lung abscess or putrid empyema. The patient has had a chest tube placed and is draining a large amount of effusion The patient has respiratory failure has been intubated and is mechanically ventilated. 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 Sputum culture in process after his intubation and is negative at this time. Blood cultures are negative at this time. Significant leukocytosis was due to his significant sepsis, more recently is being driven by the large doses of steroids. He was on 60 mg IV push every 6 hours which was then diminished to 40 and discontinued 3 days ago. We'll expect his significant leukocytosis to start to decline. Trach and PEG tube and placed and he is hemodynamically stable at this time. He is showing is marked improvement is moved out of the intensive care unit. Will need rehab to improve his strength. His is present and we discussed smoking cessation at his discharge. Past antimicrobial therapy. Is doing well on the current micafungin for the oral candidiasis. As to antibiotic therapy he is on piperacillin tazobactam. Has been for quite some time. Pulmonary status is markedly improved. Will be discontinuing antibiotics within the next 48 hours. Status: Acute (2) Respiratory failure Status: Acute (3) Empyema of right pleural space Status: Acute
--- NOTE | 2017-01-12 13:52 | P.PN ---
Subjective A 46-year-old male patient , with known history of advanced emphysema, came in and for a right lung pneumonia. The patient subsequently went to respiratory failure, intubated and placed on a mechanical ventilator. He also required the right lung chest tube insertion, a small bore pigtail catheter was inserted and the right-sided pleural effusion was drained. There was no evidence of any empyema. The pleural fluid was negative for malignancy. He was gradually weaned off the sedation after the patient had his PEG and trach. He was taken off paralytics. He is at the point where is on a trach collar at this point he was taken off the mechanical ventilator. He is on a 50 % trach collar. No other overnight events. Patient is able to answer questions appropriately 2016 Patient was able to ambulate a few steps. Patient is currently on 40% FiO2 Significant decrease in his endotracheal secretions No fevers chills nausea vomiting or diarrhea is reported. Objective - Vital Signs Vital signs: Vital Signs Temp 99.5 F 01/12/17 08:00 Pulse 94 01/12/17 12:00 Resp 20 01/12/17 12:00 BP 123/72 01/12/17 12:00 Pulse Ox 95 01/12/17 12:00 Intake & Output 01/11/17 01/12/17 01/12/17 18:59 06:59 18:59 Intake Total 1425 930 Output Total 1319 407 Balance 106 523 Weight 81 kg 88.5 kg Intake: IV 875 140 .9 KVO 140 Dextrose 5% in Water 1, 825 000 ml @ 75 mls/hr IV . [id number] [facility] Rx#:[id number] Piperacillin-Tazobactam 3 50 .375 gm In Dextrose/Water 1 50ml.bag @ 12.5 mls/hr IVPB Q8HR [facility] Rx#: [id number] Intake, IV Titration 350 Amount Micafungin 100 mg In 100 Sodium Chloride 0.9% 100 ml @ 100 mls/hr IVPB DAILY [facility] Rx#:[id number] Vancomycin 1,500 mg In 250 Sodium Chloride 0.9% 250 ml @ 125 mls/hr IVPB Q24HR [facility] Rx#:[id number] Oral 130 Tube Feeding 70 790 Output: Urine 1315 400 Stool 4 7 Other: Voiding Method Indwelling Catheter Urinal Diaper # Voids 3 # Bowel Movements 2 1 ABP, PAP, CO, CI - Last Documented Arterial Blood Pressure 152/69 - Exam Gen. appears does not appear to be in distress Lungs coarse breath sounds Neck trach in place currently oxygen 40% FiO2 Abdomen PEG tube noted no tenderness to palpation Genitourinary Neely catheter in place Lower extremity is no edema noted Neuro moves all or extremities - Labs CBC & Chem 7: 01/12/17 05:33 01/12/17 05:33 Labs: Abnormal Lab Results - Last 24 Hours (Table) 01/11/17 01/12/17 01/12/17 Range/Units 20:55 05:33 05:33 WBC 24.6 H (3.8-10.6) k/uL RBC 3.17 L (4.30-5.90) m/uL Hgb 10.3 L (13.0-17.5) gm/dL Hct 31.8 L (39.0-53.0) % MCV 100.1 H (80.0-100.0) fL Sodium 136 L (137-145) mmol/L Carbon Dioxide 21 L (22-30) mmol/L BUN 30 H (9-20) mg/dL Glucose 114 H (74-99) mg/dL POC Glucose (mg/dL) 135 H (75-99) mg/dL 01/12/17 01/12/17 01/12/17 Range/Units 05:39 08:44 11:44 WBC (3.8-10.6) k/uL RBC (4.30-5.90) m/uL Hgb (13.0-17.5) gm/dL Hct (39.0-53.0) % MCV (80.0-100.0) fL Sodium (137-145) mmol/L Carbon Dioxide (22-30) mmol/L BUN (9-20) mg/dL Glucose (74-99) mg/dL POC Glucose (mg/dL) 131 H 102 H 113 H (75-99) mg/dL Microbiology - Last 24 Hours (Table) 01/09/17 08:14 Blood Culture - Preliminary Blood No Growth after 72 hours 01/09/17 07:22 Blood Culture - Preliminary Blood No Growth after 72 hours 01/10/17 15:35 Catheter Tip Culture - Preliminary Catheter Tip Assessment and Plan Plan: #1 acute chronic hypoxic hypercapnic respiratory failure secondary to an pneumonic process #2 sepsis secondary to a right sided pneumonia #3 history of TIA #4 acute kidney injury which is improved #5 history of DVT Plan Patient is stable at this time Vitals are stable Pulmonary to attempt changing over the trach to a [facility]
[2017-01-12] MEDS: MAGNESIUM SULFATE-D5W PMX 1 GM in DEXTROSE/WATER 1 100ML.BAG IVPB SCH ×2 (15:25→16:46)
[2017-01-12 17:00] LABS: Glucose,Whole Blood 103 mg/dL (75-99)
[2017-01-12 21:01] LABS: Glucose,Whole Blood 117 mg/dL (75-99)
[2017-01-12] MEDS: MIRTAZAPINE 15 MG TAB PO SCH (21:31)
[2017-01-13] MEDS: METOCLOPRAMIDE 5 MG/ML 2 ML VIAL IVP SCH ×4 (06:07→23:49)
[2017-01-13 06:09] LABS: Glucose,Whole Blood 116 mg/dL (75-99)
[2017-01-13] MEDS: PANTOPRAZOLE SODIUM 40 MG GRANULE PKT PEG/G-TUBE SCH (06:20)
[2017-01-13] MEDS: IPRATROPIUM-ALBUTEROL 3 ML NEB INHALATION SCH ×4 (08:01→21:34)
[2017-01-13] MEDS: NICOTINE 14MG/24HR PATCH TRANSDERM SCH (09:41)
[2017-01-13] MEDS: MICAFUNGIN 100 MG in SODIUM CHLORIDE 0.9% 100 ML IVPB SCH (09:41)
[2017-01-13] MEDS: CITALOPRAM HYDROBROMIDE 20 MG TAB PO SCH (09:41)
[2017-01-13] MEDS: ENOXAPARIN 40 MG/0.4 ML SYRINGE SQ SCH (09:41)
[2017-01-13] MEDS: ASPIRIN 81 MG CHEW PO SCH (09:41)
[2017-01-13] MEDS: GABAPENTIN 100 MG CAP PO SCH ×2 (09:41→21:46)
[2017-01-13] MEDS: VANCOMYCIN 1,500 MG in SODIUM CHLORIDE 0.9% 250 ML IVPB SCH (09:42)
[2017-01-13] MEDS: DEXTROSE 5% IN WATER 1,000 ML IV SCH ×2 (10:08→23:47)
[2017-01-13 11:46] LABS: Glucose,Whole Blood 99 mg/dL (75-99)
[2017-01-13] MEDS: PIPERACILLIN-TAZOBACTAM 3.375 GM in DEXTROSE/WATER 1 50ML.BAG IVPB SCH ×3 (11:46→23:47)
--- NOTE | 2017-01-13 13:37 | P.PN ---
Subjective A 46-year-old male patient , with known history of advanced emphysema, came in and for a right lung pneumonia. The patient subsequently went to respiratory failure, intubated and placed on a mechanical ventilator. He also required the right lung chest tube insertion, a small bore pigtail catheter was inserted and the right-sided pleural effusion was drained. There was no evidence of any empyema. The pleural fluid was negative for malignancy. He was gradually weaned off the sedation after the patient had his PEG and trach. He was taken off paralytics. He is at the point where is on a trach collar at this point he was taken off the mechanical ventilator. He is on a 50 % trach collar. No other overnight events. Patient is able to answer questions appropriately 2016 Patient was able to ambulate a few steps. Patient is currently on 40% FiO2 Significant decrease in his endotracheal secretions No fevers chills nausea vomiting or diarrhea is reported. 01/13/2017 Patient is currently on 35% FiO2 No new overnight events Continue to work with physical therapy. Objective - Vital Signs Vital signs: Vital Signs Temp 97.4 F L 01/13/17 08:00 Pulse 96 01/13/17 11:40 Resp 18 01/13/17 11:40 BP 104/68 01/13/17 11:40 Pulse Ox 97 01/13/17 11:40 Intake & Output 01/12/17 01/13/17 01/13/17 18:59 06:59 18:59 Intake Total 490 850 Output Total 3 Balance 490 847 Weight 85.5 kg Intake: IV 850 .9 KVO 100 Dextrose 5% in Water 1, 750 000 ml @ 75 mls/hr IV . [id number] [facility] Rx#:[id number] Tube Feeding 490 Output: Urine 1 Stool 2 Other: Voiding Method Urinal Urinal Urinal Diaper Diaper Diaper # Voids 1 1 1 # Bowel Movements 1 1 1 ABP, PAP, CO, CI - Last Documented Arterial Blood Pressure 152/69 - Exam Gen. appears does not appear to be in distress Lungs coarse breath sounds Neck trach in place currently oxygen 35% Abdomen PEG tube noted no tenderness to palpation Genitourinary Neely catheter in place Lower extremity is no edema noted Neuro moves all or extremities - Labs CBC & Chem 7: 01/12/17 05:33 01/12/17 05:33 Labs: Abnormal Lab Results - Last 24 Hours (Table) 01/12/17 01/12/17 01/13/17 Range/Units 16:57 20:59 06:08 POC Glucose (mg/dL) 103 H 117 H 116 H (75-99) mg/dL Microbiology - Last 24 Hours (Table) 01/09/17 08:14 Blood Culture - Preliminary Blood No Growth after 96 hours 01/09/17 07:22 Blood Culture - Preliminary Blood No Growth after 96 hours 01/01/17 11:24 Acid Fast Bacilli Smear - Final Pleural Fluid Acid Fast Bacilli Culture - Preliminary 01/10/17 15:35 Catheter Tip Culture - Final Catheter Tip Assessment and Plan Plan: #1 acute chronic hypoxic hypercapnic respiratory failure secondary to an pneumonic process #2 sepsis secondary to a right sided pneumonia #3 history of TIA #4 acute kidney injury which is improved #5 history of DVT Plan Patient is stable at this time Vitals are stable Pulmonary to attempt [facility]
--- NOTE | 2017-01-13 16:23 | P.PN ---
Subjective Principal diagnosis: Acute hypoxic respiratory failure secondary to pneumonia, parapneumonic effusion , COPD. A 46-year-old male patient , with known history of advanced emphysema, came in and for a right lung pneumonia. The patient subsequently went to respiratory failure, intubated and placed on a mechanical ventilator. He had a prolonged and difficult course here in the intensive care unit. He required high level of sedation and paralytics to control his breathing and respiration. He also required the right lung chest tube insertion, a small bore pigtail catheter was inserted and the right-sided pleural effusion was drained. There was no evidence of any empyema. The pleural fluid was negative for malignancy. He was gradually weaned off the sedation after the patient had his PEG and trach. He was taken off paralytics. He is at the point where is on a trach collar at this point he was taken off the mechanical ventilator. He is on a 50% trach collar. Today's chest x-ray shows residual consolidation/infiltration of the right lung base with a small right-sided pleural effusion. Left lung is clear. He is awake and alert. He is hemodynamically stable. He is conversing. No focal neurological deficits. Is tolerating his tube feeds. He is on 75 mL of D5 water through a peripheral IV. He is also on a high protein enteral feeding at the rate of 70 mL an hour, vital. No wounds or sores. He is quite weak and the plan is to send this patient to select specialty for further recuperation. The right-sided pigtail catheter was removed. Note that all of the cultures are negative. The patient is still on a combination of Vanco, Zosyn, and micafungin GEN. Note that I had bronchoscope this patient and the bronchioloalveolar lavage have yielded no microbial growth. The patient had a sputum analysis that showed Jeane albicans. All of the blood cultures of been negative. On 01/12/2017 I'm seeing this patient in follow-up. Is able to sit up on a chair. No significant respiratory distress. The patient has a Bivona tracheostomy tube in place. The patient is in the 50% trach collar. He is also receiving tube feeds. Veins are being made to send this patient to select specialty. ID is on the case. Antibiotic therapy will be continued for the time being. No diarrhea. No fever. No chills. White cell count is elevated yet somewhat improved compared to yesterday down to 24. The patient is seen again today 01/13/2017 in follow-up on the selective care unit. He is awake and alert in no acute distress. He is resting quite comfortably in bed. He has been up ambulating with assistance now. He's been up in the chair at times. His FiO2 has been titrated down to 40% via trach collar and is maintaining O2 saturations in the upper 90s.. He denies any worsening shortness of breath. He is afebrile. He remains on vancomycin, Zosyn and micafungin. He is continuing on bronchodilators. Objective - Vital Signs Vital signs: Vital Signs Temp 97.4 F L 01/13/17 08:00 Pulse 96 01/13/17 11:40 Resp 18 01/13/17 16:00 BP 104/68 01/13/17 11:40 Pulse Ox 97 01/13/17 11:40 Intake & Output 01/12/17 01/13/17 01/13/17 18:59 06:59 18:59 Intake Total 490 1685 Output Total 3 Balance 490 1682 Weight 85.5 kg 85.5 kg Intake: IV 1125 .9 KVO 100 Dextrose 5% in Water 1, 975 000 ml @ 75 mls/hr IV . [id number] [facility] Rx#:[id number] Piperacillin-Tazobactam 3 50 .375 gm In Dextrose/Water 1 50ml.bag @ 12.5 mls/hr IVPB Q8HR [facility] Rx#: [id number] Intake, IV Titration 350 Amount Micafungin 100 mg In 100 Sodium Chloride 0.9% 100 ml @ 100 mls/hr IVPB DAILY [facility] Rx#:[id number] Vancomycin 1,500 mg In 250 Sodium Chloride 0.9% 250 ml @ 125 mls/hr IVPB Q24HR [facility] Rx#:[id number] Tube Feeding 490 210 Output: Urine 1 Stool 2 Other: Voiding Method Urinal Urinal Urinal Diaper Diaper Diaper # Voids 1 1 1 # Bowel Movements 1 1 1 ABP, PAP, CO, CI - Last Documented Arterial Blood Pressure 152/69 - Exam Head exam was generally normal. There was no scleral icterus or corneal arcus. Mucous membranes were moist. Neck is supple and the patient is a tracheostomy tube in place and this is a Shiley #7. Lung sounds are diminished bilaterally especially in lung bases. There is significant breath sound diminishment in the right lung base. No crackles. No wheezes.Cardiac exam revealed the PMI to be normally situated and sized. The rhythm was regular and no extrasystoles were noted during several minutes of auscultation. The first and second heart sounds were normal and physiologic splitting of the second heart sound was noted. There were no murmurs, rubs, clicks, or gallops.Abdominal exam revealed normal bowel sounds. The abdomen was soft, non-tender, and without masses, organomegaly, or appreciable enlargement of the abdominal aorta. PEG tube site is dry clean and intact and there is no erythema or any drainage.Examination of the extremities revealed easily palpable radial, femoral and pedal pulses. There was no cyanosis, clubbing or edema. Neurologically the patient is awake and alert however his got significant motor weakness both in upper and lower extremity. - Labs CBC & Chem 7: 01/12/17 05:33 01/12/17 05:33 Labs: Abnormal Lab Results - Last 24 Hours (Table) 01/12/17 01/12/17 01/13/17 Range/Units 16:57 20:59 06:08 POC Glucose (mg/dL) 103 H 117 H 116 H (75-99) mg/dL Microbiology - Last 24 Hours (Table) 01/09/17 08:14 Blood Culture - Preliminary Blood No Growth after 96 hours 01/09/17 07:22 Blood Culture - Preliminary Blood No Growth after 96 hours 01/01/17 11:24 Acid Fast Bacilli Smear - Final Pleural Fluid Acid Fast Bacilli Culture - Preliminary 01/10/17 15:35 Catheter Tip Culture - Final Catheter Tip Assessment and Plan Plan: Assessment 1 right lung pneumonia, severe, rapid interval progression with progressive worsening of the consolidation development of a small right-sided pleural effusion with subsequent acute hypoxic respiratory failure, currently intubated on a mechanical ventilator. Rule out pneumococcal pneumonia. Rule out anaerobic pneumonia possibly from a tooth abscess/aspiration. On 01/11/2017, the patient is on a trach collar. He was taken off the mechanical ventilator. He was taken off the sedation and paralysis. He has a tracheostomy tube in place. Is quite weak and he has significant neuromuscular weakness related to critical illness polyneuropathy and myopathy and the patient will be looking to go to select specialty for further recuperation. On 01/12/2017 the patient is on a 50% trach collar. The patient is still on broad-spectrum antibiotics. No signs of any respiratory decompensation for now. The tracheostomy tube was replaced at the later stage to a Shiley tracheostomy tube. On 01/13/2017 the patient is down to 40% trach collar maintaining good O2 saturations in the mid 90s. He is continued on his current antibiotics. He is in no respiratory distress. He is actually been up ambulating in the hallway with assistance. He's been up in the chair periodically as well. 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 5 nonspecific left upper lobe pulmonary nodule measuring 1.1 cm in size 6 recent DVT post-orthopedic intervention on the foot, on Lovenox 7 TIA, history of without any neurological deficits 8 chronic neck and back pain, under the care of pain management 9 tooth abscess, cleared by dental services/dentist 10 acute kidney injury, recovered, creatinine is at 1.25 11 critical illness polyneuropathy and myopathy 12 right-sided pleural effusion status post drainage with a pigtail catheter, the fluid cytology was negative for malignancy 13, leukocytosis and the counts remain elevated today. No obvious source of infection or sepsis at this point. The PICC line was removed and the catheter tip was negative. The rest of the blood culture will negative. Plan Patient is seen and evaluated by Dr. Riley. The patient continues to require decreasing amounts of FiO2 currently at 40% via trach collar. He has no pulmonary complaints. He is being more active. He's working well with physical therapy. We'll continue his current medications. We'll continue to follow.
[2017-01-13 16:38] LABS: Glucose,Whole Blood 123 mg/dL (75-99)
[2017-01-13] MEDS: MIRTAZAPINE 15 MG TAB PO SCH (21:46)
[2017-01-14] MEDS: METOCLOPRAMIDE 5 MG/ML 2 ML VIAL IVP SCH ×3 (05:26→16:48)
[2017-01-14] MEDS: PANTOPRAZOLE SODIUM 40 MG GRANULE PKT PEG/G-TUBE SCH ×2 (07:41→08:56)
[2017-01-14] MEDS: MICAFUNGIN 100 MG in SODIUM CHLORIDE 0.9% 100 ML IVPB SCH (07:42)
[2017-01-14] MEDS: NICOTINE 14MG/24HR PATCH TRANSDERM SCH ×2 (07:47→08:55)
[2017-01-14] MEDS: ASPIRIN 81 MG CHEW PO SCH ×2 (07:47→08:55)
[2017-01-14] MEDS: ENOXAPARIN 40 MG/0.4 ML SYRINGE SQ SCH ×2 (07:47→08:55)
[2017-01-14] MEDS: GABAPENTIN 100 MG CAP PO SCH ×2 (07:47→08:52)
[2017-01-14] MEDS: CITALOPRAM HYDROBROMIDE 20 MG TAB PO SCH ×2 (07:47→08:55)
[2017-01-14] MEDS ORDERED: VANCOMYCIN TROUGH DUE 1 EACH MISC MISCELLANE ONE (08:00)
[2017-01-14] MEDS: IPRATROPIUM-ALBUTEROL 3 ML NEB INHALATION SCH ×4 (08:51→20:33)
[2017-01-14] MEDS: PIPERACILLIN-TAZOBACTAM 3.375 GM in DEXTROSE/WATER 1 50ML.BAG IVPB SCH ×2 (08:53→15:15)
[2017-01-14 09:03] LABS: Basophils # (A) 0.1 k/uL (0-0.2); Basophils % (A) 0 %; CH 32.6; CHCM 33.7; Eosinophils # (A) 0.4 k/uL (0-0.7); Eosinophils % (A) 2 %; HCT 30.6 % (39.0-53.0); HDW 2.36; HGB 10.5 gm/dL (13.0-17.5); Luc # (Auto) 0.39; Luc % (Auto) 2; Lymphocytes # (A) 1.9 k/uL (1.0-4.8); Lymphocytes % (A) 10 %; MCH 33.1 pg (25.0-35.0); MCHC 34.2 g/dL (31.0-37.0); MCV 96.9 fL (80.0-100.0); Mean Platelet Volume 7.7; Monocytes % (A) 6 %; Neutrophils # (A) 14.6 k/uL (1.3-7.7); Neutrophils % (A) 79 %; RBC 3.16 m/uL (4.30-5.90); RDW 13.2 % (11.5-15.5); WBC 18.4 k/uL (3.8-10.6); WBC (Perox) 19.34
[2017-01-14 09:11] LABS: ALT 80 U/L (21-72); AST 26 U/L (17-59); Alkaline Phosphatase 95 U/L (38-126); Anion Gap 9 mmol/L; Blood Urea Nitrogen 20 mg/dL (9-20); Carbon Dioxide 26 mmol/L (22-30); Chloride 102 mmol/L (98-107); Glucose 103 mg/dL (74-99); Non-African American GFR(MDRD) >60 (>60 ml/min/1.73 sqM); Potassium 4.1 mmol/L (3.5-5.1); Sodium 137 mmol/L (137-145); Total Bilirubin 0.4 mg/dL (0.2-1.3); Total Protein 6.1 g/dL (6.3-8.2)
[2017-01-14] MEDS: VANCOMYCIN 1,500 MG in SODIUM CHLORIDE 0.9% 250 ML IVPB SCH (09:51)
[2017-01-14] MEDS: DEXTROSE 5% IN WATER 1,000 ML IV SCH (14:40)
[2017-01-14] MEDS ORDERED: methylPREDNISolone SOD SUCCI 125 MG/2 ML VIAL IV STA (16:01)
[2017-01-14] MEDS ORDERED: ACETAMINOPHEN TAB 325 MG TAB PO PRN (16:10)
--- NOTE | 2017-01-14 16:56 | P.PN ---
Subjective A 46-year-old male patient , with known history of advanced emphysema, came in and for a right lung pneumonia. The patient subsequently went to respiratory failure, intubated and placed on a mechanical ventilator. He also required the right lung chest tube insertion, a small bore pigtail catheter was inserted and the right-sided pleural effusion was drained. There was no evidence of any empyema. The pleural fluid was negative for malignancy. He was gradually weaned off the sedation after the patient had his PEG and trach. He was taken off paralytics. He is at the point where is on a trach collar at this point he was taken off the mechanical ventilator. He is on a 50 % trach collar. No other overnight events. Patient is able to answer questions appropriately 2016 Patient was able to ambulate a few steps. Patient is currently on 40% FiO2 Significant decrease in his endotracheal secretions No fevers chills nausea vomiting or diarrhea is reported. 01/13/2017 Patient is currently on 35% FiO2 No new overnight events Continue to work with physical therapy. 01/14/2017 Patient is on minimal supplement O2. The trach was changed over to Shiley No overnight events are reported. 35% FiO2. No significant trach secretions were noted. Objective - Vital Signs Vital signs: Vital Signs Temp 97.9 F 01/14/17 15:00 Pulse 94 01/14/17 16:27 Resp 20 01/14/17 15:00 BP 127/62 01/14/17 15:00 Pulse Ox 95 01/14/17 16:17 Intake & Output 01/13/17 01/14/17 01/14/17 18:59 06:59 18:59 Intake Total 1685 630 210 Output Total 3 Balance 1682 630 210 Weight 85.5 kg 87 kg Intake: IV 1125 .9 KVO 100 Dextrose 5% in Water 1, 975 000 ml @ 75 mls/hr IV . [id number] [facility] Rx#:[id number] Piperacillin-Tazobactam 3 50 .375 gm In Dextrose/Water 1 50ml.bag @ 12.5 mls/hr IVPB Q8HR [facility] Rx#: [id number] Intake, IV Titration 350 Amount Micafungin 100 mg In 100 Sodium Chloride 0.9% 100 ml @ 100 mls/hr IVPB DAILY [facility] Rx#:[id number] Vancomycin 1,500 mg In 250 Sodium Chloride 0.9% 250 ml @ 125 mls/hr IVPB Q24HR [facility] Rx#:[id number] Oral 0 0 Tube Feeding 210 630 210 Output: Urine 1 Stool 2 Other: Voiding Method Urinal Urinal Diaper Diaper # Voids 1 1 1 # Bowel Movements 1 1 1 ABP, PAP, CO, CI - Last Documented Arterial Blood Pressure 152/69 - Exam Gen. appears does not appear to be in distress Lungs coarse breath sounds Neck trach in place currently oxygen 35% Abdomen PEG tube noted no tenderness to palpation Genitourinary Neely catheter in place Lower extremity is no edema noted Neuro moves all or extremities - Labs CBC & Chem 7: 01/14/17 08:13 01/14/17 08:13 Labs: Abnormal Lab Results - Last 24 Hours (Table) 01/14/17 01/14/17 Range/Units 08:13 08:13 WBC 18.4 H (3.8-10.6) k/uL RBC 3.16 L (4.30-5.90) m/uL Hgb 10.5 L (13.0-17.5) gm/dL Hct 30.6 L (39.0-53.0) % Neutrophils # 14.6 H (1.3-7.7) k/uL Glucose 103 H (74-99) mg/dL ALT 80 H (21-72) U/L Total Protein 6.1 L (6.3-8.2) g/dL Albumin 3.2 L (3.5-5.0) g/dL Microbiology - Last 24 Hours (Table) 01/09/17 08:14 Blood Culture - Preliminary Blood No Growth after 120 hours 01/09/17 07:22 Blood Culture - Preliminary Blood No Growth after 120 hours Assessment and Plan Plan: #1 acute chronic hypoxic hypercapnic respiratory failure secondary to an pneumonic process #2 sepsis secondary to a right sided pneumonia #3 history of TIA #4 acute kidney injury which is improved #5 history of DVT Plan Patient is stable at this time Vitals are stable await placement. Patient apparently may not be accepted at [facility]. Considering inpatient rehab at this time table for discharge we'll repeat a chest x-ray tomorrow patient has been on antibiotics for 15 days we'll defer to infectious diseases regarding the timing of discontinuing antibiotics.
--- NOTE | 2017-01-14 17:08 | P.CONS ---
History of Present Illness - Chief Complaint Medical debility - History of Present Illness I had the op to see patient for inpatient rehab consultation with regard to medical debility. He was admitted to [facility] December 29 with right-sided chest pain is severe, productive cough and temperature 100.3. Seen by Dr. Riley who notes pneumonia, acute respiratory failure, empyema appeared symmetric Dr. Ryan for the above. Seen by Dr. Grewal as well. Chest x-rays followed for right hilar density in bilateral lower lobe infiltrate. Left foot x-ray negative. Should note seen by Dr. Carlson for placement of trach and PEG tube. PT reports minimal assistance for functional mobility, transfers, gait 100 feet with roller walker. OT reports moderate assistance for upper dressing and bathing. Maximal assistance for lower dressing, toileting, functional mobility. Previous functional history as elicited from and corroborated by patient: 46-year-old right-handed white male who is lives in one floor home with . He is on [employer] disability. History of smoking. Rare drink. Denies recreational drugs. Independent with cooking, shares laundry, standing shower and gait without device. does the driving. Family history of cancer in father. Review of Systems Review of systems: ENT: Denies sneezes or discharge. Currently with trach. Eyes: Denies discharge or photophobia. Cardiac: Denies chest pain or palpitation. Pulmonary: Mild shortness of breath with activity. Gastrointestinal: Denies nausea, emesis, constipation, diarrhea. Currently with PEG tube. Genitourinary: Denies discharge or frequency. Musculoskeletal: Denies muscle or bone aches. Neurologic: Denies weakness but is obviously generally weak. Endocrine: Denies shakes or sweats. Oncology: Denies cancers. Dermatologic: Denies rash, itching, pruritus. ALLERGY/immunology: Denies sneezes, rashes. Past Medical History Past Medical History: CVA/TIA, Deep Vein Thrombosis (DVT) Additional Past Medical History / Comment(s): 6 TIA approximately 6 years ago without any residual deficits, and recent right foot surgery that was further Combigan by development of a DVT in July 2016 and the patient is been maintained on Xarelto, COPD, chronic smoker, depression, PTSD, tooth abscess treated with antibiotics approximately 4-5 weeks ago, chronic back and neck pain being followed up by Dr. Streeter apparently the patient has had undergone nerve ablation in his neck area for pain control. History of Any Multi-Drug Resistant Organisms: None Reported Past Surgical History: Orthopedic Surgery Additional Past Surgical History / Comment(s): Bilateral feet surgery, cervical and lumbar nerve ablation, injection for pain control. 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 No alcohol or recreational drug use. Was in the in [place]. No specific illnesses while he was overseas. No change in the current home environment. 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 Smoking Status: Current every day smoker Past Alcohol Use History: Occasional Additional Past Alcohol Use History / Comment(s): smokes 1 pack a day, started when @ 12 Past Drug Use History: None Reported - Past Family History Father Additional Family Medical History / Comment(s): lung Ca Mother Additional Family Medical History / Comment(s): irregular heart beat Medications and Allergies Home Medications Medication Instructions Recorded Confirmed Type Baclofen 10 mg PO BID 07/16/16 12/29/16 History Citalopram Hydrobromide [CeleXA] 40 mg PO DAILY 07/16/16 12/29/16 History Esomeprazole Magnesium [NexIUM] 40 mg PO DAILY 07/16/16 12/29/16 History Gabapentin [Neurontin] 200 mg PO TID PRN 07/16/16 12/29/16 History HYDROcodone/APAP 10-325MG [[place] 1 tab PO Q8H PRN 07/16/16 12/29/16 History 10-325] Multivitamins, Thera [Multivitamin] 1 tab PO DAILY 07/16/16 12/29/16 History Acetaminophen [Tylenol Extra 500 mg PO DAILY PRN 12/29/16 12/29/16 History Strength] Ammonium Lactate Cream [Lac-Hydrin 1 applic TOPICAL DAILY PRN 12/29/16 12/29/16 History 12% Cream] Clotrimazole Cream [Lotrimin Cream] 1 applic TOPICAL BID 12/29/16 12/29/16 History Mirtazapine [Remeron] 30 mg PO DAILY 12/29/16 12/29/16 History Rivaroxaban [Xarelto] 20 mg PO DAILY 12/29/16 12/29/16 History SUMAtriptan SUCCINATE [Imitrex] 50 mg PO PRN 01/06/17 History Allergies Allergy/AdvReac Type Severity Reaction Status Date / Time No Known Allergies Allergy Verified 12/29/16 09:19 Physical Exam Vitals: Vital Signs Temp Pulse Pulse Resp BP Pulse Ox 01/14/17 16:27 94 01/14/17 16:17 98 95 01/14/17 15:00 97.9 F 100 20 127/62 96 01/14/17 11:45 96 16 01/14/17 11:33 96 16 01/14/17 09:04 96 01/14/17 08:57 92 01/14/17 08:00 20 01/14/17 07:00 98.3 F 90 20 104/58 98 01/13/17 23:00 100.1 F H 100 18 112/66 96 01/13/17 18:18 100.2 F H 106 H 18 132/79 95 Intake and Output 01/14/17 01/14/17 01/14/17 06:59 14:59 22:59 Intake Total 420 210 Balance 420 210 Intake: Oral 0 0 Tube Feeding 420 210 Other: Voiding Method Urinal Diaper # Voids 1 # Bowel Movements 1 Weight 87 kg Skin: Good color, texture, turgor. General: Medium build and comfortable appearance. Head: Normocephalic, atraumatic. Eyes: Symmetric. Pupils equal round. Ears: Symmetric. Hearing within normal limits. Mouth: Clear. Neck: Supple. Carotid without bruit. Trach with trach set up. Cardiac: Regular rate and rhythm. Lungs: Clear anteriorly and posteriorly. Abdomen: Soft active nontender. PEG site. Extremities: Normal tone. Neurological: Mental status: Alert, cooperative, pleasant. Cranial nerves: Symmetric facial tone and trapezius. Motor: Active and normal movement throughout but generalized weakness of it best 4/5. Sensation: Intact throughout. DTRs: Symmetric and equal throughout. Mobility: Sits with standby to 5% minimal assistance. Would require obvious physical assistance to stand. Results CBC & Chem 7: 01/14/17 08:13 01/14/17 08:13 Labs: Abnormal Lab Results - Last 24 Hours (Table) 01/14/17 01/14/17 Range/Units 08:13 08:13 WBC 18.4 H (3.8-10.6) k/uL RBC 3.16 L (4.30-5.90) m/uL Hgb 10.5 L (13.0-17.5) gm/dL Hct 30.6 L (39.0-53.0) % Neutrophils # 14.6 H (1.3-7.7) k/uL Glucose 103 H (74-99) mg/dL ALT 80 H (21-72) U/L Total Protein 6.1 L (6.3-8.2) g/dL Albumin 3.2 L (3.5-5.0) g/dL Microbiology - Last 24 Hours (Table) 01/09/17 08:14 Blood Culture - Preliminary Blood No Growth after 120 hours 01/09/17 07:22 Blood Culture - Preliminary Blood No Growth after 120 hours Chest x-ray: report reviewed (Serial chest x-rays followed for right hilar infiltrate and bilateral lower lobe infiltrates.) Assessment and Plan (1) Empyema of right pleural space Status: Acute Plan: Impression: 1. Medical debility. 2. Pneumonia with acute respiratory failure and empyema. 3. History of stroke. 4. History of DVT. 5. VA disability. Comments and plan: At this time safety concerns are noted. Patient seems to demonstrate ability tolerate and benefit from therapies. Have discussed case with yourself and would agree that inpatient rehabilitation seems to be a good idea. Patient obviously has significant medical issues with regard to pulmonary status, trach as well as a PEG tube. Would appear that this would be more than could be handled by [facility] facility as appears would require daily rehab and internal medicine supervision.
--- NOTE | 2017-01-14 17:23 | P.PN ---
Subjective Principal diagnosis: Acute hypoxic respiratory failure secondary to pneumonia, parapneumonic effusion , COPD. A 46-year-old male patient , with known history of advanced emphysema, came in and for a right lung pneumonia. The patient subsequently went to respiratory failure, intubated and placed on a mechanical ventilator. He had a prolonged and difficult course here in the intensive care unit. He required high level of sedation and paralytics to control his breathing and respiration. He also required the right lung chest tube insertion, a small bore pigtail catheter was inserted and the right-sided pleural effusion was drained. There was no evidence of any empyema. The pleural fluid was negative for malignancy. He was gradually weaned off the sedation after the patient had his PEG and trach. He was taken off paralytics. He is at the point where is on a trach collar at this point he was taken off the mechanical ventilator. He is on a 50% trach collar. Today's chest x-ray shows residual consolidation/infiltration of the right lung base with a small right-sided pleural effusion. Left lung is clear. He is awake and alert. He is hemodynamically stable. He is conversing. No focal neurological deficits. Is tolerating his tube feeds. He is on 75 mL of D5 water through a peripheral IV. He is also on a high protein enteral feeding at the rate of 70 mL an hour, vital. No wounds or sores. He is quite weak and the plan is to send this patient to select specialty for further recuperation. The right-sided pigtail catheter was removed. Note that all of the cultures are negative. The patient is still on a combination of Vanco, Zosyn, and micafungin GEN. Note that I had bronchoscope this patient and the bronchioloalveolar lavage have yielded no microbial growth. The patient had a sputum analysis that showed Jeane albicans. All of the blood cultures of been negative. On 01/12/2017 I'm seeing this patient in follow-up. Is able to sit up on a chair. No significant respiratory distress. The patient has a Bivona tracheostomy tube in place. The patient is in the 50% trach collar. He is also receiving tube feeds. Veins are being made to send this patient to select specialty. ID is on the case. Antibiotic therapy will be continued for the time being. No diarrhea. No fever. No chills. White cell count is elevated yet somewhat improved compared to yesterday down to 24. The patient is seen again today 01/13/2017 in follow-up on the selective care unit. He is awake and alert in no acute distress. He is resting quite comfortably in bed. He has been up ambulating with assistance now. He's been up in the chair at times. His FiO2 has been titrated down to 40% via trach collar and is maintaining O2 saturations in the upper 90s.. He denies any worsening shortness of breath. He is afebrile. He remains on vancomycin, Zosyn and micafungin. He is continuing on bronchodilators. The patient is seen again today 01/14/2017 in follow-up on the regular medical floor. He remains awake and alert in no acute distress. He's been up ambulating with his walker and physical therapy. He denies any worsening shortness of breath at this time. He has a continued productive cough of pale yellow sputum. Current white count 18.4. He has been afebrile. He is maintaining good O2 saturations in the mid 90s on 35% trach collar. Objective - Vital Signs Vital signs: Vital Signs Temp 97.9 F 01/14/17 15:00 Pulse 94 01/14/17 16:27 Resp 20 01/14/17 16:00 BP 127/62 01/14/17 15:00 Pulse Ox 95 01/14/17 16:17 Intake & Output 01/13/17 01/14/17 01/14/17 18:59 06:59 18:59 Intake Total 1685 630 280 Output Total 3 Balance 1682 630 280 Weight 85.5 kg 87 kg Intake: IV 1125 .9 KVO 100 Dextrose 5% in Water 1, 975 000 ml @ 75 mls/hr IV . [id number] [facility] Rx#:[id number] Piperacillin-Tazobactam 3 50 .375 gm In Dextrose/Water 1 50ml.bag @ 12.5 mls/hr IVPB Q8HR [facility] Rx#: [id number] Intake, IV Titration 350 Amount Micafungin 100 mg In 100 Sodium Chloride 0.9% 100 ml @ 100 mls/hr IVPB DAILY [facility] Rx#:[id number] Vancomycin 1,500 mg In 250 Sodium Chloride 0.9% 250 ml @ 125 mls/hr IVPB Q24HR [facility] Rx#:[id number] Oral 0 0 Tube Feeding 210 630 280 Output: Urine 1 Stool 2 Other: Voiding Method Urinal Urinal Diaper Diaper # Voids 1 1 1 # Bowel Movements 1 1 1 ABP, PAP, CO, CI - Last Documented Arterial Blood Pressure 152/69 - Exam Head exam was generally normal. There was no scleral icterus or corneal arcus. Mucous membranes were moist. Neck is supple and the patient is a tracheostomy tube in place and this is a Shiley #7. Lung sounds are diminished bilaterally especially in lung bases. There is significant breath sound diminishment in the right lung base. No crackles. No wheezes.Cardiac exam revealed the PMI to be normally situated and sized. The rhythm was regular and no extrasystoles were noted during several minutes of auscultation. The first and second heart sounds were normal and physiologic splitting of the second heart sound was noted. There were no murmurs, rubs, clicks, or gallops.Abdominal exam revealed normal bowel sounds. The abdomen was soft, non-tender, and without masses, organomegaly, or appreciable enlargement of the abdominal aorta. PEG tube site is dry clean and intact and there is no erythema or any drainage.Examination of the extremities revealed easily palpable radial, femoral and pedal pulses. There was no cyanosis, clubbing or edema. Neurologically the patient is awake and alert however his got significant motor weakness both in upper and lower extremity. - Labs CBC & Chem 7: 01/14/17 08:13 01/14/17 08:13 Labs: Abnormal Lab Results - Last 24 Hours (Table) 01/14/17 01/14/17 Range/Units 08:13 08:13 WBC 18.4 H (3.8-10.6) k/uL RBC 3.16 L (4.30-5.90) m/uL Hgb 10.5 L (13.0-17.5) gm/dL Hct 30.6 L (39.0-53.0) % Neutrophils # 14.6 H (1.3-7.7) k/uL Glucose 103 H (74-99) mg/dL ALT 80 H (21-72) U/L Total Protein 6.1 L (6.3-8.2) g/dL Albumin 3.2 L (3.5-5.0) g/dL Microbiology - Last 24 Hours (Table) 01/09/17 08:14 Blood Culture - Preliminary Blood No Growth after 120 hours 01/09/17 07:22 Blood Culture - Preliminary Blood No Growth after 120 hours Assessment and Plan Plan: Assessment 1 right lung pneumonia, severe, rapid interval progression with progressive worsening of the consolidation development of a small right-sided pleural effusion with subsequent acute hypoxic respiratory failure, currently intubated on a mechanical ventilator. Rule out pneumococcal pneumonia. Rule out anaerobic pneumonia possibly from a tooth abscess/aspiration. On 01/11/2017, the patient is on a trach collar. He was taken off the mechanical ventilator. He was taken off the sedation and paralysis. He has a tracheostomy tube in place. Is quite weak and he has significant neuromuscular weakness related to critical illness polyneuropathy and myopathy and the patient will be looking to go to select specialty for further recuperation. On 01/12/2017 the patient is on a 50% trach collar. The patient is still on broad-spectrum antibiotics. No signs of any respiratory decompensation for now. The tracheostomy tube will be changed to a Shiley tracheostomy tube. On 01/13/2017 the patient is down to 40% trach collar maintaining good O2 saturations in the mid 90s. He is continued on his current antibiotics. He is in no respiratory distress. He is actually been up ambulating in the hallway with assistance. He's been up in the chair periodically as well. On 01/14/2017 the patient is down to 35% trach collar well maintaining good O2 saturations in the 90s. His tracheostomy tube was replaced by Dr. Riley utilizing a #6 Shiley tracheostomy tube. If the patient does well he'll be able to cap tube in start speaking. 2 acute hypoxic respiratory failure, intubated on mechanical ventilator, improved and the patient is currently on a 35% trach collar 3 bullous emphysema with upper lobe emphysematous changes right more than left 4 sepsis secondary to right lung pneumonia, leukocytosis, improving. 5 nonspecific left upper lobe pulmonary nodule measuring 1.1 cm in size 6 recent DVT post-orthopedic intervention on the foot, on Lovenox 7 TIA, history of without any neurological deficits 8 chronic neck and back pain, under the care of pain management 9 tooth abscess, cleared by dental services/dentist 10 acute kidney injury, recovered, creatinine is at 1.14 11 critical illness polyneuropathy and myopathy 12 right-sided pleural effusion status post drainage with a pigtail catheter, the fluid cytology was negative for malignancy 13, leukocytosis and the counts remain elevated today. No obvious source of infection or sepsis at this point. The PICC line was removed and the catheter tip was negative. The rest of the blood culture will negative. Plan Patient is seen and evaluated by Dr. Riley. The patient continues to require decreasing amounts of FiO2 currently at 35% via trach collar. His tracheostomy was changed out to a #6 Shiley tracheostomy tube. The patient tolerated the procedure well. He has no pulmonary complaints. He is being more active. He's working well with physical therapy. He was seen and evaluated by Dr. Sabillon who is considering the patient for inpatient rehabilitation once discharge. We'll continue his current medications. We'll continue to follow.
--- NOTE | 2017-01-14 20:59 | P.PN ---
Subjective Principal diagnosis: respiratory failure 46-year-old male who has a presumptive diagnosis of underlying emphysema presents to the hospital with a relatively short-term of increasing shortness of breath. The patient relates over the weekend he started to get short of breath. He developed cough and increasing shortness of breath. He then had significant fever and increasing pain to his right chest. The pain became so severe that he no longer was able to hold out at home and presented to the emergency center. There he was evidence of a pain a 10 out of 10 and evidence of significant respiratory distress. Imaging studies revealed evidence of a significant pneumonia as well as a large bleb to the right chest. Effusion was seen. No evidence of pulmonary embolus or of aortic dissection was seen. The patient was brought to the intensive care unit where he is required some sedation for placement of BiPAP. BiPAP has been placed the patient appears to be feeling this. We'll likely be intubated soon. The patient had a significant AA gradient despite the BiPAP. The family does relate to the difficulty with his oral cavity. He apparently has been antibiotic therapy was that of a tooth extraction for an abscess the family denies a history of injection drug use. Significant alcohol use. PTSD from his experience in [place]. No severe illnesses while he was overseas. He has noted the patient developed respiratory failure. Required intubation sedation and mechanical ventilation. Tracheostomy is in place as well as PEG tube. He sitting upright. Smile several times throughout the interaction. He is having some pain to his left foot is somewhat acute. Site of discomfort is improving. His tonight other new acute discomforts today. His is present and he is in a much better mood. Objective - Vital Signs Vital signs: Vital Signs Temp 97.9 F 01/14/17 15:00 Pulse 88 01/14/17 20:30 Resp 20 01/14/17 16:00 BP 127/62 01/14/17 15:00 Pulse Ox 95 01/14/17 16:17 Intake & Output 01/14/17 01/14/17 01/15/17 06:59 18:59 06:59 Intake Total 630 280 Balance 630 280 Weight 87 kg Intake: Oral 0 0 Tube Feeding 630 280 Other: Voiding Method Urinal Diaper # Voids 1 1 # Bowel Movements 1 1 ABP, PAP, CO, CI - Last Documented Arterial Blood Pressure 152/69 - Exam 46-year-old male who had trach doing well and has trach collar. No sniffy and secretions are noted from the tracheostomy. HEENT: Anicteric conjunctiva are pink and moist nasal mucosa grossly intact without significant lesions, there is thrush. Neck: The neck is supple without significant lymphadenopathy or thyromegaly. trach site without bleeding or discomfort Lungs: There is symmetrical air entry. Is much improved bilateral air entry. The prior markedly diminished breath sounds in the right base of improved. Still minimal dullness to the right. Heart: Regular rate and rhythm with an audible S1-S2, no S3 no S4. There is no significant murmur click or rub, PMI was nondisplaced. Abdomen: Positive bowel sounds soft and nontender without palpable masses or organomegaly. There was no guarding or rebound. Abdomen is not rigid the PEG tube site is without difficulty. Extremities: The upper extremities have excellent pulses they are symmetric, no significant petechiae or telangiectasia. No splinter hemorrhages were noted. The lower extremities have only trace edema. The left great toe has erythema that is quite tender. Pulses 2+ symmetric Neuro: He is awake and alert following commands. With conversation he is able to smile readily. - Labs CBC & Chem 7: 01/14/17 08:13 01/14/17 08:13 Labs: Abnormal Lab Results - Last 24 Hours (Table) 01/14/17 01/14/17 Range/Units 08:13 08:13 WBC 18.4 H (3.8-10.6) k/uL RBC 3.16 L (4.30-5.90) m/uL Hgb 10.5 L (13.0-17.5) gm/dL Hct 30.6 L (39.0-53.0) % Neutrophils # 14.6 H (1.3-7.7) k/uL Glucose 103 H (74-99) mg/dL ALT 80 H (21-72) U/L Total Protein 6.1 L (6.3-8.2) g/dL Albumin 3.2 L (3.5-5.0) g/dL Microbiology - Last 24 Hours (Table) 01/09/17 08:14 Blood Culture - Preliminary Blood No Growth after 120 hours 01/09/17 07:22 Blood Culture - Preliminary Blood No Growth after 120 hours Laboratory Results WBC 18.4 k/uL (3.8-10.6) H 01/14/17 08:13 RBC 3.16 m/uL (4.30-5.90) L 01/14/17 08:13 Hgb 10.5 gm/dL (13.0-17.5) L 01/14/17 08:13 Hct 30.6 % (39.0-53.0) L 01/14/17 08:13 MCV 96.9 fL (80.0-100.0) 01/14/17 08:13 MCH 33.1 pg (25.0-35.0) 01/14/17 08:13 MCHC 34.2 g/dL (31.0-37.0) 01/14/17 08:13 RDW 13.2 % (11.5-15.5) 01/14/17 08:13 Plt Count 413 k/uL (150-450) 01/14/17 08:13 Neutrophils % 79 % 01/14/17 08:13 Neutrophils % (Manual) 75.0 % 01/04/17 04:21 Band Neutrophils % 4.0 % 01/04/17 04:21 Lymphocytes % 10 % 01/14/17 08:13 Lymphocytes % (Manual) 4.0 % 01/04/17 04:21 Monocytes % 6 % 01/14/17 08:13 Monocytes % (Manual) 4.0 % 01/04/17 04:21 Eosinophils % 2 % 01/14/17 08:13 Eosinophils % (Manual) 1.0 % 01/04/17 04:21 Basophils % 0 % 01/14/17 08:13 Metamyelocytes % 8.0 % 01/04/17 04:21 Myelocytes % 3.0 % 01/04/17 04:21 Promyelocytes % 1.0 % 01/04/17 04:21 Neutrophils # 14.6 k/uL (1.3-7.7) H 01/14/17 08:13 Neutrophils # (Manual) 20.7 k/uL (1.3-7.7) H 01/04/17 04:21 Lymphocytes # 1.9 k/uL (1.0-4.8) 01/14/17 08:13 Lymphocytes # (Manual) 1.0 k/uL (1.0-4.8) 01/04/17 04:21 Monocytes # 1.0 k/uL (0-1.0) 01/14/17 08:13 Monocytes # (Manual) 1.0 k/uL (0-1.0) 01/04/17 04:21 Eosinophils # 0.4 k/uL (0-0.7) 01/14/17 08:13 Eosinophils # (Manual) 0.3 k/uL (0-0.7) 01/04/17 04:21 Basophils # 0.1 k/uL (0-0.2) 01/14/17 08:13 Nucleated RBCs 0 /100 WBC (0-0) 01/04/17 04:21 Manual Slide Review Performed 01/04/17 04:21 Toxic Granulation Present 01/03/17 04:34 Polychromasia Present 01/03/17 04:34 Poikilocytosis (manual Present 01/03/17 04:34 Anisocytosis (manual) Present 01/03/17 04:34 Macrocytosis Slight 01/09/17 04:15 PT 10.1 sec (9.0-12.0) 01/04/17 04:21 INR 1.0 (<1.2) 01/04/17 04:21 APTT 24.3 sec (22.0-30.0) 01/03/17 04:34 D-Dimer 0.82 mg/L FEU (<0.60) H 12/29/16 11:36 Sample Site rrad 01/08/17 05:22 ABG pH 7.56 (7.35-7.45) H 01/08/17 05:22 ABG pCO2 27 mmHg (35-45) L 01/08/17 05:22 ABG pO2 81 mmHg (83-108) L 01/08/17 05:22 ABG HCO3 24 mmol/L (21-25) 01/08/17 05:22 ABG Total CO2 25 mmol/L (19-24) H 01/08/17 05:22 ABG O2 Saturation 98.0 % (94-97) H 01/08/17 05:22 ABG Base Excess 2.1 mmol/L 01/08/17 05:22 ABG Lactic Acid 2.6 mmol/L (0.5-1.6) H* 12/31/16 05:30 FiO2 50 % 01/08/17 05:22 Sodium 137 mmol/L (137-145) 01/14/17 08:13 Potassium 4.1 mmol/L (3.5-5.1) 01/14/17 08:13 Chloride 102 mmol/L (98-107) 01/14/17 08:13 Carbon Dioxide 26 mmol/L (22-30) 01/14/17 08:13 Anion Gap 9 mmol/L 01/14/17 08:13 BUN 20 mg/dL (9-20) 01/14/17 08:13 Creatinine 1.14 mg/dL (0.66-1.25) 01/14/17 08:13 Est GFR (MDRD) Af Amer >60 (>60 ml/min/1.73 sqM) 01/14/17 08:13 Est GFR (MDRD) Non-Af >60 (>60 ml/min/1.73 sqM) 01/14/17 08:13 Glucose 103 mg/dL (74-99) H 01/14/17 08:13 POC Glucose (mg/dL) 123 mg/dL (75-99) H 01/13/17 16:36 POC Glu Pancake Professional ID Alexus Michelle 01/13/17 16:[address] Glu mg/dL 117 mg/dL 12/30/16 06:00 Hemoglobin A1c 5.7 % (4.2-6.1) 12/30/16 06:00 Plasma Lactic Acid Michael 1.5 mmol/L (0.7-2.0) 12/29/16 11:35 Uric Acid 3.5 mg/dL (3.5-8.5) 01/10/17 09:50 Calcium 9.0 mg/dL (8.4-10.2) 01/14/17 08:13 Phosphorus 3.3 mg/dL (2.5-4.5) 01/12/17 05:33 Magnesium 2.1 mg/dL (1.6-2.3) 01/13/17 05:18 Total Bilirubin 0.4 mg/dL (0.2-1.3) 01/14/17 08:13 AST 26 U/L (17-59) 01/14/17 08:13 ALT 80 U/L (21-72) H 01/14/17 08:13 Alkaline Phosphatase 95 U/L (38-126) 01/14/17 08:13 Total Creatine Kinase 31 U/L (55-170) L 12/29/16 01:50 CK-MB (CK-2) <0.2 ng/mL (0.0-2.4) 12/29/16 01:50 CK-MB (CK-2) Rel Index 12/29/16 01:50 Troponin I <0.012 ng/mL (0.000-0.034) 12/29/16 01:50 Total Protein 6.1 g/dL (6.3-8.2) L 01/14/17 08:13 Albumin 3.2 g/dL (3.5-5.0) L 01/14/17 08:13 [id number] 212.0 mg/dL (99.0-242.0) 12/29/16 11:36 Urine Color Yellow 12/29/16 02:10 Urine Appearance Clear (Clear) 12/29/16 02:10 Urine pH 5.5 (5.0-8.0) 12/29/16 02:10 Ur Specific [place] 1.010 (1.001-1.035) 12/29/16 02:10 Urine Protein Negative (Negative) 12/29/16 02:10 Urine Glucose (UA) Negative (Negative) 12/29/16 02:10 Urine Ketones Negative (Negative) 12/29/16 02:10 Urine Blood Small (Negative) H 12/29/16 02:10 Urine Nitrite Negative (Negative) 12/29/16 02:10 Urine Bilirubin Negative (Negative) 12/29/16 02:10 Urine Urobilinogen <2.0 mg/dL (<2.0) 12/29/16 02:10 Ur Leukocyte Esterase Negative (Negative) 12/29/16 02:10 Urine RBC 2 /hpf (0-5) 12/29/16 02:10 Urine WBC <1 /hpf (0-5) 12/29/16 02:10 Ur Squamous Epith Cells <1 /hpf (0-4) 12/29/16 02:10 Urine Mucus Rare /hpf (None) H 12/29/16 02:10 Fluid Source Pleural 01/01/17 11:15 Fluid Appearance Blood Tinged 01/01/17 11:15 Fluid RBC 64688 /uL 01/01/17 11:15 Fluid Nucleated Cells 20762 /uL 01/01/17 11:15 Fluid Polynuclear WBCs 82 % 01/01/17 11:15 Fluid Mononuclear WBCs 18 % 01/01/17 11:15 Body Fluid Glucose Source Pleural Fluid 01/01/17 11:15 Fluid Glucose 65 mg/dL 01/01/17 11:15 Body Fluid Protein Source Pleural Fluid 01/01/17 11:15 Fluid Total Protein 3800 mg/dL 01/01/17 11:15 Body Fluid LDH Source Pleural Fluid 01/01/17 11:15 Fluid LDH 1483 U/L 01/01/17 11:15 Body Fluid Amylase Source Pleural Fluid 01/01/17 11:15 Fluid Amylase 18 U/L 01/01/17 11:15 Fluid Cholesterol 105 mg/dL 01/01/17 11:15 Fl Cholesterol Source Pleural Fluid 01/01/17 11:15 Pleur Adenosine Deamin 16.4 U/L (0.0-9.4) H 01/01/17 11:20 Vancomycin Trough 10.3 ug/mL 01/14/17 08:13 Random Vancomycin 19.8 ug/mL 01/03/17 04:34 C. difficile (EIA) Intrp Negative (Negative) 01/08/17 17:01 Urine Legionella Ag Not detected (Not detected) 12/29/16 14:45 Mycoplasma pneumon IgG 1.65 INDEX (<=0.90) H 12/29/16 11:36 Mycoplasma pneumon IgM 0.56 INDEX (<=0.90) 12/29/16 11:36 Miscellaneous Test Triglycerides, Fluid 01/01/17 11:30 Misc Test Result See Comment 01/01/17 11:30 Microbiology 01/09/17 08:14 Blood Blood Culture - Preliminary No Growth after 120 hours 01/09/17 07:22 Blood Blood Culture - Preliminary No Growth after 120 hours 01/01/17 11:24 Pleural Fluid Acid Fast Bacilli Smear - Final 01/01/17 11:24 Pleural Fluid Acid Fast Bacilli Culture - Preliminary 01/10/17 15:35 Catheter Tip Catheter Tip Culture - Final 01/09/17 07:20 Sputum Gram Stain - Final 01/09/17 07:20 Sputum Sputum Culture - Final Jeane albicans 01/01/17 11:15 Pleural Fluid Gram Stain - Final 01/01/17 11:15 Pleural Fluid Body Fluid Culture - Final 12/29/16 01:50 Blood Blood Culture - Final No Growth after 144 hours 12/29/16 18:42 Sputum Gram Stain - Final 12/29/16 18:42 Sputum Sputum Culture - Final 12/29/16 14:42 Sputum Gram Stain - Final 12/29/16 14:42 Sputum Sputum Culture - Final 12/29/16 02:10 Urine,Voided Urine Culture - Final Assessment and Plan (1) Pneumonia Narrative/Plan: 46-year-old male with history of heavy tobacco use who by imaging studies has a large bleb to the right upper zone is evidence of a significant effusion to the right side and pneumonic infiltration. Patient presents with respiratory failure and sepsis from his pneumonia. Cultures are in process. Broad-spectrum antibiotic therapy with Zosyn and Levaquin and vancomycin are given until cultures are available. The patient does have a history of the recent dental work and concerns to a lung abscess or putrid empyema. The patient has had a chest tube placed and is draining a large amount of effusion The patient has respiratory failure has been intubated and is mechanically ventilated. 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 Sputum culture in process after his intubation and is negative at this time. Blood cultures are negative at this time. Significant leukocytosis was due to his significant sepsis, more recently is being driven by the large doses of steroids. He was on 60 mg IV push every 6 hours which was then diminished to 40 and discontinued 3 days ago. We'll expect his significant leukocytosis to start to decline. Trach and PEG tube and placed and he is hemodynamically stable at this time. He is showing is marked improvement is moved out of the intensive care unit. Will need rehab to improve his strength. His is present and we discussed smoking cessation at his discharge. Past antimicrobial therapy. Is doing well on the current micafungin for the oral candidiasis. As to antibiotic therapy he is on piperacillin tazobactam. Has been for quite some time. Pulmonary status is markedly improved. Will be discontinuing antibiotics within the next 24 hours. Status: Acute (2) Respiratory failure Status: Acute (3) Empyema of right pleural space Status: Acute
[2017-01-15] MEDS: GABAPENTIN 100 MG CAP PO SCH ×3 (00:44→21:18)
[2017-01-15] MEDS: MIRTAZAPINE 15 MG TAB PO SCH ×2 (00:44→21:19)
[2017-01-15] MEDS: METOCLOPRAMIDE 5 MG/ML 2 ML VIAL IVP SCH ×5 (00:44→23:05)
[2017-01-15] MEDS: DEXTROSE 5% IN WATER 1,000 ML IV SCH ×3 (01:26→21:21)
[2017-01-15] MEDS: IPRATROPIUM-ALBUTEROL 3 ML NEB INHALATION SCH ×4 (06:56→21:23)
--- NOTE | 2017-01-15 07:44 | XR ---
EXAMINATION TYPE: XR chest 1V portable DATE OF EXAM: 01/15/2017 CLINICAL HISTORY: Difficulty breathing progress study. Cough, pneumonia, and sepsis. TECHNIQUE: Single AP portable upright view of the chest is obtained. COMPARISON: Chest x-ray from January 11, 2017 and older exams. FINDINGS: Tracheostomy tube is redemonstrated. There is persistent left medial basilar opacity consi stent with linear atelectasis and/or infiltrate. There is background of emphysematous change with ble bs and bulla in the right upper lung and persistent right basilar opacity felt to reflect small pleur al effusion and associated right basilar infiltrate and/or atelectasis. Cardiac silhouette size is st able and within normal limits. Osseous structures are intact. IMPRESSION: Overall stable findings, chronic emphysematous change with right greater than left biba silar infiltrate and/or atelectasis and small right pleural effusion all redemonstrated. No significa nt change since admission studies December 29, 2016 except for tracheostomy.
[2017-01-15] MEDS: PANTOPRAZOLE SODIUM 40 MG GRANULE PKT PEG/G-TUBE SCH (08:01)
[2017-01-15] MEDS: CITALOPRAM HYDROBROMIDE 20 MG TAB PO SCH (08:02)
[2017-01-15] MEDS: ASPIRIN 81 MG CHEW PO SCH (08:02)
[2017-01-15] MEDS: ENOXAPARIN 40 MG/0.4 ML SYRINGE SQ SCH (08:02)
[2017-01-15] MEDS: NICOTINE 7MG/24HR PATCH TRANSDERM SCH (08:03)
[2017-01-15] MEDS: MICAFUNGIN 100 MG in SODIUM CHLORIDE 0.9% 100 ML IVPB SCH (08:03)
[2017-01-15] MEDS: VANCOMYCIN 1,750 MG in SODIUM CHLORIDE 0.9% 250 ML IVPB SCH (09:53)
--- NOTE | 2017-01-15 11:20 | FL ---
MODIFIED SWALLOW / DEGLUTITION STUDY EXAMINATION TYPE: FL barium swallow w video DATE OF EXAM: 01/15/2017 CLINICAL HISTORY: 46-year-old male with tracheostomy, assess for silent aspiration. Total fluoroscopy time: 1.31 minutes. Total images: None. TECHNIQUE: Deglutition study is performed utilizing thin liquid barium, honey and nectar thick liqui d barium, barium thick applesauce, and barium coated cracker. COMPARISON: None. FINDINGS: The oral and pharyngeal phases show satisfactory initiation and propagation with all modalities teste d. Normal mastication is seen with solid modalities tested. There is slight decreased laryngeal exc ursion due to existing tracheostomy. There is no evidence of penetration or aspiration with any modal ity tested. No significant pharyngeal residue was appreciated. IMPRESSION: Slight decreased laryngeal excursion due to tracheostomy. Otherwise, normal deglutition study. Marjorie johnson refer to speech therapist notes for further details if necessary.
--- NOTE | 2017-01-15 14:51 | P.PN ---
Subjective Principal diagnosis: Acute hypoxic respiratory failure secondary to pneumonia, parapneumonic effusion , COPD. A 46-year-old male patient , with known history of advanced emphysema, came in and for a right lung pneumonia. The patient subsequently went to respiratory failure, intubated and placed on a mechanical ventilator. He had a prolonged and difficult course here in the intensive care unit. He required high level of sedation and paralytics to control his breathing and respiration. He also required the right lung chest tube insertion, a small bore pigtail catheter was inserted and the right-sided pleural effusion was drained. There was no evidence of any empyema. The pleural fluid was negative for malignancy. He was gradually weaned off the sedation after the patient had his PEG and trach. He was taken off paralytics. He is at the point where is on a trach collar at this point he was taken off the mechanical ventilator. He is on a 50% trach collar. Today's chest x-ray shows residual consolidation/infiltration of the right lung base with a small right-sided pleural effusion. Left lung is clear. He is awake and alert. He is hemodynamically stable. He is conversing. No focal neurological deficits. Is tolerating his tube feeds. He is on 75 mL of D5 water through a peripheral IV. He is also on a high protein enteral feeding at the rate of 70 mL an hour, vital. No wounds or sores. He is quite weak and the plan is to send this patient to select specialty for further recuperation. The right-sided pigtail catheter was removed. Note that all of the cultures are negative. The patient is still on a combination of Vanco, Zosyn, and micafungin GEN. Note that I had bronchoscope this patient and the bronchioloalveolar lavage have yielded no microbial growth. The patient had a sputum analysis that showed Jeane albicans. All of the blood cultures of been negative. On 01/12/2017 I'm seeing this patient in follow-up. Is able to sit up on a chair. No significant respiratory distress. The patient has a Bivona tracheostomy tube in place. The patient is in the 50% trach collar. He is also receiving tube feeds. Veins are being made to send this patient to select specialty. ID is on the case. Antibiotic therapy will be continued for the time being. No diarrhea. No fever. No chills. White cell count is elevated yet somewhat improved compared to yesterday down to 24. The patient is seen again today 01/13/2017 in follow-up on the selective care unit. He is awake and alert in no acute distress. He is resting quite comfortably in bed. He has been up ambulating with assistance now. He's been up in the chair at times. His FiO2 has been titrated down to 40% via trach collar and is maintaining O2 saturations in the upper 90s.. He denies any worsening shortness of breath. He is afebrile. He remains on vancomycin, Zosyn and micafungin. He is continuing on bronchodilators. The patient is seen again today 01/14/2017 in follow-up on the regular medical floor. He remains awake and alert in no acute distress. He's been up ambulating with his walker and physical therapy. He denies any worsening shortness of breath at this time. He has a continued productive cough of pale yellow sputum. Current white count 18.4. He has been afebrile. He is maintaining good O2 saturations in the mid 90s on 35% trach collar. The patient is seen again today 01/15/2017 in follow-up in the regular medical floor. He remains awake and alert in no acute distress. He is responding appropriately. He has been up ambulating with assistance out into the hallway. He is getting stronger every day. He is tolerating the new Shiley #6 tracheostomy tube which can be capped for speaking. He remains on 35% FiO2 to maintain O2 saturations in the 90s. He's been afebrile. White count has improved to 18.4. Hemoglobin 10.5. Hemodynamically stable. Objective - Vital Signs Vital signs: Vital Signs Temp 98.8 F 01/15/17 07:00 Pulse 90 01/15/17 11:07 Resp 16 01/15/17 07:00 BP 130/78 01/15/17 07:00 Pulse Ox 90 L 01/15/17 07:00 Intake & Output 01/14/17 01/15/17 01/15/17 18:59 06:59 18:59 Intake Total 280 1241 Balance 280 1241 Weight 84.5 kg Intake: IV 600 Dextrose 5% in Water 1, 600 000 ml @ 75 mls/hr IV . [id number] [facility] Rx#:[id number] Oral 0 Tube Feeding 280 560 Lipid 1 .9 KVO 1 Other 80 Other: Voiding Method Urinal Urinal Diaper Diaper # Voids 1 1 2 # Bowel Movements 1 1 ABP, PAP, CO, CI - Last Documented Arterial Blood Pressure 152/69 - Exam Head exam was generally normal. There was no scleral icterus or corneal arcus. Mucous membranes were moist. Neck is supple and the patient is a tracheostomy tube in place and this is a Shiley #6. Lung sounds are diminished bilaterally especially in lung bases. There is significant breath sound diminishment in the right lung base. No crackles. No wheezes.Cardiac exam revealed the PMI to be normally situated and sized. The rhythm was regular and no extrasystoles were noted during several minutes of auscultation. The first and second heart sounds were normal and physiologic splitting of the second heart sound was noted. There were no murmurs, rubs, clicks, or gallops.Abdominal exam revealed normal bowel sounds. The abdomen was soft, non-tender, and without masses, organomegaly, or appreciable enlargement of the abdominal aorta. PEG tube site is dry clean and intact and there is no erythema or any drainage.Examination of the extremities revealed easily palpable radial, femoral and pedal pulses. There was no cyanosis, clubbing or edema. Neurologically the patient is awake and alert however his got significant motor weakness both in upper and lower extremity. - Labs CBC & Chem 7: 01/14/17 08:13 01/14/17 08:13 Labs: Microbiology - Last 24 Hours (Table) 01/09/17 08:14 Blood Culture - Final Blood No Growth after 144 hours 01/09/17 07:22 Blood Culture - Final Blood No Growth after 144 hours Assessment and Plan Plan: Assessment 1 right lung pneumonia, severe, rapid interval progression with progressive worsening of the consolidation development of a small right-sided pleural effusion with subsequent acute hypoxic respiratory failure, currently intubated on a mechanical ventilator. Rule out pneumococcal pneumonia. Rule out anaerobic pneumonia possibly from a tooth abscess/aspiration. On 01/11/2017, the patient is on a trach collar. He was taken off the mechanical ventilator. He was taken off the sedation and paralysis. He has a tracheostomy tube in place. Is quite weak and he has significant neuromuscular weakness related to critical illness polyneuropathy and myopathy and the patient will be looking to go to select specialty for further recuperation. On 01/12/2017 the patient is on a 50% trach collar. The patient is still on broad-spectrum antibiotics. No signs of any respiratory decompensation for now. The tracheostomy tube will be changed to a Shiley tracheostomy tube. On 01/13/2017 the patient is down to 40% trach collar maintaining good O2 saturations in the mid 90s. He is continued on his current antibiotics. He is in no respiratory distress. He is actually been up ambulating in the hallway with assistance. He's been up in the chair periodically as well. On 01/14/2017 the patient is down to 35% trach collar well maintaining good O2 saturations in the 90s. His tracheostomy tube was replaced by Dr. Riley utilizing a #6 Shiley tracheostomy tube. If the patient does well he'll be able to cap tube in start speaking. On 01/15/2017 the patient remains on 35% trach collar and maintaining good O2 saturations in the 90s. He continues with a #6 Shiley tracheostomy tube. He is getting stronger every day. He's working well with physical therapy. He's been up walking with a walker. 2 acute hypoxic respiratory failure, intubated on mechanical ventilator, improved and the patient is currently on a 35% trach collar 3 bullous emphysema with upper lobe emphysematous changes right more than left 4 sepsis secondary to right lung pneumonia, leukocytosis, improving. 5 nonspecific left upper lobe pulmonary nodule measuring 1.1 cm in size 6 recent DVT post-orthopedic intervention on the foot, on Lovenox 7 TIA, history of without any neurological deficits 8 chronic neck and back pain, under the care of pain management 9 tooth abscess, cleared by dental services/dentist 10 acute kidney injury, recovered, creatinine is at 1.14 11 critical illness polyneuropathy and myopathy 12 right-sided pleural effusion status post drainage with a pigtail catheter, the fluid cytology was negative for malignancy 13, leukocytosis and the counts remain elevated today. No obvious source of infection or sepsis at this point. The PICC line was removed and the catheter tip was negative. The rest of the blood culture will negative. Plan Patient is seen and evaluated by Dr. Riley. The patient continues to require decreasing amounts of FiO2 currently at 35% via trach collar. He has no pulmonary complaints. He is being more active. He's working well with physical therapy. He was seen and evaluated by Dr. Sabillon who is considering the patient for inpatient rehabilitation once discharge. We'll continue his current medications. We'll continue to follow.
[2017-01-16] MEDS: METOCLOPRAMIDE 5 MG/ML 2 ML VIAL IVP SCH ×4 (05:06→23:18)
[2017-01-16] MEDS: IPRATROPIUM-ALBUTEROL 3 ML NEB INHALATION SCH ×4 (07:48→21:07)
[2017-01-16 08:21] LABS: Anion Gap 11 mmol/L; Blood Urea Nitrogen 24 mg/dL (9-20); Calcium 9.2 mg/dL (8.4-10.2); Carbon Dioxide 27 mmol/L (22-30); Chloride 101 mmol/L (98-107); Glucose 99 mg/dL (74-99); Non-African American GFR(MDRD) >60 (>60 ml/min/1.73 sqM); Potassium 4.1 mmol/L (3.5-5.1); Sodium 139 mmol/L (137-145)
[2017-01-16] MEDS: NICOTINE 7MG/24HR PATCH TRANSDERM SCH (10:23)
[2017-01-16] MEDS: PANTOPRAZOLE SODIUM 40 MG GRANULE PKT PEG/G-TUBE SCH (10:24)
[2017-01-16] MEDS: ENOXAPARIN 40 MG/0.4 ML SYRINGE SQ SCH (10:24)
[2017-01-16] MEDS: GABAPENTIN 100 MG CAP PO SCH ×2 (10:24→20:08)
[2017-01-16] MEDS: ASPIRIN 81 MG CHEW PO SCH (10:24)
[2017-01-16] MEDS: CITALOPRAM HYDROBROMIDE 20 MG TAB PO SCH (10:24)
[2017-01-16] MEDS: MICAFUNGIN 100 MG in SODIUM CHLORIDE 0.9% 100 ML IVPB SCH (10:24)
[2017-01-16] MEDS: DEXTROSE 5% IN WATER 1,000 ML IV SCH (10:26)
[2017-01-16] MEDS: VANCOMYCIN 1,750 MG in SODIUM CHLORIDE 0.9% 250 ML IVPB SCH (11:57)
--- NOTE | 2017-01-16 13:45 | PN ---
DATE OF SERVICE: 01/15/2017 This 46-year-old gentleman who was admitted with COPD acute exacerbation has also pneumonia and impairment, has been closely monitored. Patient had VATS procedure. The patient is followed by [facility]. Patient is closely monitored by multiple consultants including Infectious Disease. Dr. Sabillon saw the patent for possible inpatient rehab. PAST MEDICAL HISTORY: Reviewed. REVIEW OF SYSTEMS: CARDIOVASCULAR: No angina. RESPIRATORY: As mentioned earlier. GI: No nausea. : No dysuria. NERVOUS SYSTEM: No numbness or weakness. ALLERGY/IMMUNOLOGY: No asthma or hayfever. MUSCULOSKELETAL: As mentioned earlier. Current medications are reviewed and include: 1. Tylenol 650 mg q.6h p.r.n 2. DuoNeb q.i.d and p.r.n 3. Aspirin 81 mg. 4. Lioresal 10 mg p.o b.i.d. 5. Dulcolax. 6. Celexa. 7. Catapres. 8. Lovenox. 9. Neurontin. 10. Dilaudid. 11. Reglan. 12. Micafungin. 13. Remeron. 14. Dariela Ciel. 15. Zofran. 16. P.r.n medications. PHYSICAL EXAMINATION: The patient is alert, oriented x2. Pulse is 99, blood pressure 120/76, respirations 18, temperature 97 degrees, pulse ox 90% on 8-L trach collar. HEENT: Conjunctivae normal. NECK: Tracheostomy. CARDIOVASCULAR: S1, S2. No s3, no S4. RESPIRATORY: Breath sounds diminished at the bases. A few scattered rhonchi and expiratory wheezing. ABDOMEN: Soft, nontender, no mass palpable. LEGS: No edema, no swelling. NERVOUS SYSTEM: Higher function as mentioned. Moves all four limbs. No focal motor sensory deficits. LYMPHATICS: No lymphadenopathy in the neck, axillae or groin. SKIN: No rash, ulcer or bleeding. LABS: WBC 18.5, hemoglobin 10.5, albumin is 3.2. ASSESSMENT: 1. Chronic obstructive pulmonary disease acute exacerbation with right lower lobe pneumonia possibly community acquired, severe sepsis and acute hypoxic respiratory failure, status post mechanical ventilation. 2. Status post PEG tube and tracheostomy. 3. Bullous emphysema. 4. Right sided empyema status post chest tube drainage. 5. Change in mental status, metabolic encephalopathy acute. 6. History of nicotine dependence. RECOMMENDATIONS AND DISCUSSION: I recommend to continue with the current medications, continue monitoring, continue symptomatic treatment. Continue with antibiotics, incentive spirometry. Continue with bronchodilators. PT, OT evaluation, possibly ECF rehab. Discussed with patient and family at length and also bottle caser who [facility]. The overall prognosis is guarded because of multiple complex medical issues. The patient already had a prolonged course in the hospital and the patient would definitely benefit from inpatient rehab. Discussed at length with patient and family. CASPER
--- NOTE | 2017-01-16 14:38 | P.PN ---
Subjective Principal diagnosis: Acute hypoxic respiratory failure secondary to pneumonia, parapneumonic effusion , COPD. A 46-year-old male patient , with known history of advanced emphysema, came in and for a right lung pneumonia. The patient subsequently went to respiratory failure, intubated and placed on a mechanical ventilator. He had a prolonged and difficult course here in the intensive care unit. He required high level of sedation and paralytics to control his breathing and respiration. He also required the right lung chest tube insertion, a small bore pigtail catheter was inserted and the right-sided pleural effusion was drained. There was no evidence of any empyema. The pleural fluid was negative for malignancy. He was gradually weaned off the sedation after the patient had his PEG and trach. He was taken off paralytics. He is at the point where is on a trach collar at this point he was taken off the mechanical ventilator. He is on a 50% trach collar. Today's chest x-ray shows residual consolidation/infiltration of the right lung base with a small right-sided pleural effusion. Left lung is clear. He is awake and alert. He is hemodynamically stable. He is conversing. No focal neurological deficits. Is tolerating his tube feeds. He is on 75 mL of D5 water through a peripheral IV. He is also on a high protein enteral feeding at the rate of 70 mL an hour, vital. No wounds or sores. He is quite weak and the plan is to send this patient to select specialty for further recuperation. The right-sided pigtail catheter was removed. Note that all of the cultures are negative. The patient is still on a combination of Vanco, Zosyn, and micafungin GEN. Note that I had bronchoscope this patient and the bronchioloalveolar lavage have yielded no microbial growth. The patient had a sputum analysis that showed Jeane albicans. All of the blood cultures of been negative. On 01/12/2017 I'm seeing this patient in follow-up. Is able to sit up on a chair. No significant respiratory distress. The patient has a Bivona tracheostomy tube in place. The patient is in the 50% trach collar. He is also receiving tube feeds. Veins are being made to send this patient to select specialty. ID is on the case. Antibiotic therapy will be continued for the time being. No diarrhea. No fever. No chills. White cell count is elevated yet somewhat improved compared to yesterday down to 24. The patient is seen again today 01/13/2017 in follow-up on the selective care unit. He is awake and alert in no acute distress. He is resting quite comfortably in bed. He has been up ambulating with assistance now. He's been up in the chair at times. His FiO2 has been titrated down to 40% via trach collar and is maintaining O2 saturations in the upper 90s.. He denies any worsening shortness of breath. He is afebrile. He remains on vancomycin, Zosyn and micafungin. He is continuing on bronchodilators. The patient is seen again today 01/14/2017 in follow-up on the regular medical floor. He remains awake and alert in no acute distress. He's been up ambulating with his walker and physical therapy. He denies any worsening shortness of breath at this time. He has a continued productive cough of pale yellow sputum. Current white count 18.4. He has been afebrile. He is maintaining good O2 saturations in the mid 90s on 35% trach collar. The patient is seen again today 01/15/2017 in follow-up in the regular medical floor. He remains awake and alert in no acute distress. He is responding appropriately. He has been up ambulating with assistance out into the hallway. He is getting stronger every day. [facility] is [facility] which can be capped for speaking. He remains on 35% FiO2 to maintain O2 saturations in the 90s. He's been afebrile. White count has improved to 18.4. Hemoglobin 10.5. Hemodynamically stable. The patient was seen again today 01/16/2017 in follow-up on the regular medical floor. He remains awake and alert in no acute distress. He's been up ambulating with a walker and physical therapy. He is getting stronger each day. He did pass his swallow evaluation and he is now tolerating a soft diet. He denies any worsening shortness of breath. He is maintaining good O2 saturations in the 90s on 35% trach collar. White count 18.4. Hemoglobin 10.5. Creatinine 1.08. He remains on vancomycin and micafungin. Objective - Vital Signs Vital signs: Vital Signs Temp 97.3 F L 01/16/17 07:00 Pulse 92 01/16/17 11:35 Resp 20 01/16/17 07:00 BP 126/81 01/16/17 07:00 Pulse Ox 92 L 01/16/17 07:54 Intake & Output 01/15/17 01/16/17 01/16/17 18:59 06:59 18:59 Intake Total 3050 Balance 3050 Weight 84.5 kg 84.5 kg Intake: IV 750 Dextrose 5% in Water 1, 750 000 ml @ 75 mls/hr IV . [id number] [facility] Rx#:[id number] Oral 700 Tube Feeding 700 Other 900 Other: Voiding Method Urinal Diaper # Voids 2 2 1 # Bowel Movements 2 3 ABP, PAP, CO, CI - Last Documented Arterial Blood Pressure 152/69 - Exam Head exam was generally normal. There was no scleral icterus or corneal arcus. Mucous membranes were moist. Neck is supple and the patient is a tracheostomy tube in place and this is a Shiley #6. Lung sounds are diminished bilaterally especially in lung bases. There is significant breath sound diminishment in the right lung base. No crackles. No wheezes.Cardiac exam revealed the PMI to be normally situated and sized. The rhythm was regular and no extrasystoles were noted during several minutes of auscultation. The first and second heart sounds were normal and physiologic splitting of the second heart sound was noted. There were no murmurs, rubs, clicks, or gallops.Abdominal exam revealed normal bowel sounds. The abdomen was soft, non-tender, and without masses, organomegaly, or appreciable enlargement of the abdominal aorta. PEG tube site is dry clean and intact and there is no erythema or any drainage.Examination of the extremities revealed easily palpable radial, femoral and pedal pulses. There was no cyanosis, clubbing or edema. Neurologically the patient is awake and alert however his got significant motor weakness both in upper and lower extremity. - Labs CBC & Chem 7: 01/14/17 08:13 01/16/17 07:24 Labs: Abnormal Lab Results - Last 24 Hours (Table) 01/16/17 Range/Units 07:24 BUN 24 H (9-20) mg/dL Assessment and Plan Plan: Assessment 1 right lung pneumonia, severe, rapid interval progression with progressive worsening of the consolidation development of a small right-sided pleural effusion with subsequent acute hypoxic respiratory failure, currently intubated on a mechanical ventilator. Rule out pneumococcal pneumonia. Rule out anaerobic pneumonia possibly from a tooth abscess/aspiration. On 01/11/2017, the patient is on a trach collar. He was taken off the mechanical ventilator. He was taken off the sedation and paralysis. He has a tracheostomy tube in place. Is quite weak and he has significant neuromuscular weakness related to critical illness polyneuropathy and myopathy and the patient will be looking to go to select specialty for further recuperation. On 01/12/2017 the patient is on a 50% trach collar. The patient is still on broad-spectrum antibiotics. No signs of any respiratory decompensation for now. The tracheostomy tube will be changed to a Shiley tracheostomy tube. On 01/13/2017 the patient is down to 40% trach collar maintaining good O2 saturations in the mid 90s. He is continued on his current antibiotics. He is in no respiratory distress. He is actually been up ambulating in the hallway with assistance. He's been up in the chair periodically as well. On 01/14/2017 the patient is down to 35% trach collar well maintaining good O2 saturations in the 90s. His tracheostomy tube was replaced by Dr. Riley utilizing a #6 Shiley tracheostomy tube. If the patient does well he'll be able to cap tube in start speaking. On 01/15/2017 the patient remains on 35% trach collar and maintaining good O2 saturations in the 90s. He continues with a #6 Shiley tracheostomy tube. He is getting stronger every day. He's working well with physical therapy. He's been up walking with a walker. On 01/16/2017 the patient remains on 35% trach collar maintaining good O2 saturations in the 90s. He has a #[address] Shiley [address] tube in [address]. He did pass a swallow evaluation is tolerating a soft diet now. He has been up ambulatory with a walker and assistance. 2 acute hypoxic respiratory failure, intubated on mechanical ventilator, improved and the patient is currently on a 35% trach collar 3 bullous emphysema with upper lobe emphysematous changes right more than left 4 sepsis secondary to right lung pneumonia, leukocytosis, improving. 5 nonspecific left upper lobe pulmonary nodule measuring 1.1 cm in size 6 recent DVT post-orthopedic intervention on the foot, on Lovenox 7 TIA, history of without any neurological deficits 8 chronic neck and back pain, under the care of pain management 9 tooth abscess, cleared by dental services/dentist 10 acute kidney injury, recovered 11 critical illness polyneuropathy and myopathy 12 right-sided pleural effusion status post drainage with a pigtail catheter, the fluid cytology was negative for malignancy 13, leukocytosis and the counts trending down and most recently 18.4. No obvious source of infection or sepsis at this point. The PICC line was removed and the catheter tip was negative. The rest of the blood culture will negative. Plan Patient is seen and evaluated by Dr. Riley. The patient did pass a swallow evaluation and is now tolerating a soft diet. The patient continues to oxygenate well on 35% via trach collar. He has no pulmonary complaints. He is being more active. He's working well with physical therapy up ambulating with a walker. We'll continue his current medications. We'll continue to follow.
--- NOTE | 2017-01-16 16:08 | P.PN ---
Subjective Principal diagnosis: respiratory failure 46-year-old male who has a presumptive diagnosis of underlying emphysema presents to the hospital with a relatively short-term of increasing shortness of breath. The patient relates over the weekend he started to get short of breath. He developed cough and increasing shortness of breath. He then had significant fever and increasing pain to his right chest. The pain became so severe that he no longer was able to hold out at home and presented to the emergency center. There he was evidence of a pain a 10 out of 10 and evidence of significant respiratory distress. Imaging studies revealed evidence of a significant pneumonia as well as a large bleb to the right chest. Effusion was seen. No evidence of pulmonary embolus or of aortic dissection was seen. The patient was brought to the intensive care unit where he is required some sedation for placement of BiPAP. BiPAP has been placed the patient appears to be feeling this. We'll likely be intubated soon. The patient had a significant AA gradient despite the BiPAP. The family does relate to the difficulty with his oral cavity. He apparently has been antibiotic therapy was that of a tooth extraction for an abscess the family denies a history of injection drug use. Significant alcohol use. PTSD from his experience in [place]. No severe illnesses while he was overseas. He has noted the patient developed respiratory failure. Required intubation sedation and mechanical ventilation. Tracheostomy is in place as well as PEG tube. He sitting upright. Smile several times throughout the interaction. Speaking trach valve is in place. He is able to say several words. He is having some pain to his left foot is somewhat acute. Site of discomfort is improving. His tonight other new acute discomforts today. His is present and he is in a much better mood. Objective - Vital Signs Vital signs: Vital Signs Temp 99.9 F H 01/16/17 15:00 Pulse 100 01/16/17 15:00 Resp 18 01/16/17 15:00 BP 114/68 01/16/17 15:00 Pulse Ox 90 L 01/16/17 15:00 Intake & Output 01/15/17 01/16/17 01/16/17 18:59 06:59 18:59 Intake Total 3050 Balance 3050 Weight 84.5 kg 84.5 kg Intake: IV 750 Dextrose 5% in Water 1, 750 000 ml @ 75 mls/hr IV . [id number] [facility] Rx#:[id number] Oral 700 Tube Feeding 700 Other 900 Other: Voiding Method Urinal Diaper # Voids 2 2 1 # Bowel Movements 2 3 ABP, PAP, CO, CI - Last Documented Arterial Blood Pressure 152/69 - Exam 46-year-old male who had trach doing well and has trach collar. No sniffy and secretions are noted from the tracheostomy. HEENT: Anicteric conjunctiva are pink and moist nasal mucosa grossly intact without significant lesions, there is thrush. Neck: The neck is supple without significant lymphadenopathy or thyromegaly. trach site without bleeding or discomfort Lungs: There is symmetrical air entry. Is much improved bilateral air entry. The prior markedly diminished breath sounds in the right base of improved. Still minimal dullness to the right. Heart: Regular rate and rhythm with an audible S1-S2, no S3 no S4. There is no significant murmur click or rub, PMI was nondisplaced. Abdomen: Positive bowel sounds soft and nontender without palpable masses or organomegaly. There was no guarding or rebound. Abdomen is not rigid the PEG tube site is without difficulty. Extremities: The upper extremities have excellent pulses they are symmetric, no significant petechiae or telangiectasia. No splinter hemorrhages were noted. The lower extremities have only trace edema. The left great toe has erythema that is quite tender. Pulses 2+ symmetric Neuro: He is awake and alert following commands. With conversation he is able to smile readily. - Labs CBC & Chem 7: 01/14/17 08:13 01/16/17 07:24 Labs: Abnormal Lab Results - Last 24 Hours (Table) 01/16/17 Range/Units 07:24 BUN 24 H (9-20) mg/dL Laboratory Results WBC 18.4 k/uL (3.8-10.6) H 01/14/17 08:13 RBC 3.16 m/uL (4.30-5.90) L 01/14/17 08:13 Hgb 10.5 gm/dL (13.0-17.5) L 01/14/17 08:13 Hct 30.6 % (39.0-53.0) L 01/14/17 08:13 MCV 96.9 fL (80.0-100.0) 01/14/17 08:13 MCH 33.1 pg (25.0-35.0) 01/14/17 08:13 MCHC 34.2 g/dL (31.0-37.0) 01/14/17 08:13 RDW 13.2 % (11.5-15.5) 01/14/17 08:13 Plt Count 413 k/uL (150-450) 01/14/17 08:13 Neutrophils % 79 % 01/14/17 08:13 Neutrophils % (Manual) 75.0 % 01/04/17 04:21 Band Neutrophils % 4.0 % 01/04/17 04:21 Lymphocytes % 10 % 01/14/17 08:13 Lymphocytes % (Manual) 4.0 % 01/04/17 04:21 Monocytes % 6 % 01/14/17 08:13 Monocytes % (Manual) 4.0 % 01/04/17 04:21 Eosinophils % 2 % 01/14/17 08:13 Eosinophils % (Manual) 1.0 % 01/04/17 04:21 Basophils % 0 % 01/14/17 08:13 Metamyelocytes % 8.0 % 01/04/17 04:21 Myelocytes % 3.0 % 01/04/17 04:21 Promyelocytes % 1.0 % 01/04/17 04:21 Neutrophils # 14.6 k/uL (1.3-7.7) H 01/14/17 08:13 Neutrophils # (Manual) 20.7 k/uL (1.3-7.7) H 01/04/17 04:21 Lymphocytes # 1.9 k/uL (1.0-4.8) 01/14/17 08:13 Lymphocytes # (Manual) 1.0 k/uL (1.0-4.8) 01/04/17 04:21 Monocytes # 1.0 k/uL (0-1.0) 01/14/17 08:13 Monocytes # (Manual) 1.0 k/uL (0-1.0) 01/04/17 04:21 Eosinophils # 0.4 k/uL (0-0.7) 01/14/17 08:13 Eosinophils # (Manual) 0.3 k/uL (0-0.7) 01/04/17 04:21 Basophils # 0.1 k/uL (0-0.2) 01/14/17 08:13 Nucleated RBCs 0 /100 WBC (0-0) 01/04/17 04:21 Manual Slide Review Performed 01/04/17 04:21 Toxic Granulation Present 01/03/17 04:34 Polychromasia Present 01/03/17 04:34 Poikilocytosis (manual Present 01/03/17 04:34 Anisocytosis (manual) Present 01/03/17 04:34 Macrocytosis Slight 01/09/17 04:15 PT 10.1 sec (9.0-12.0) 01/04/17 04:21 INR 1.0 (<1.2) 01/04/17 04:21 APTT 24.3 sec (22.0-30.0) 01/03/17 04:34 D-Dimer 0.82 mg/L FEU (<0.60) H 12/29/16 11:36 Sample Site rrad 01/08/17 05:22 ABG pH 7.56 (7.35-7.45) H 01/08/17 05:22 ABG pCO2 27 mmHg (35-45) L 01/08/17 05:22 ABG pO2 81 mmHg (83-108) L 01/08/17 05:22 ABG HCO3 24 mmol/L (21-25) 01/08/17 05:22 ABG Total CO2 25 mmol/L (19-24) H 01/08/17 05:22 ABG O2 Saturation 98.0 % (94-97) H 01/08/17 05:22 ABG Base Excess 2.1 mmol/L 01/08/17 05:22 ABG Lactic Acid 2.6 mmol/L (0.5-1.6) H* 12/31/16 05:30 FiO2 50 % 01/08/17 05:22 Sodium 139 mmol/L (137-145) 01/16/17 07:24 Potassium 4.1 mmol/L (3.5-5.1) 01/16/17 07:24 Chloride 101 mmol/L (98-107) 01/16/17 07:24 Carbon Dioxide 27 mmol/L (22-30) 01/16/17 07:24 Anion Gap 11 mmol/L 01/16/17 07:24 BUN 24 mg/dL (9-20) H 01/16/17 07:24 Creatinine 1.08 mg/dL (0.66-1.25) 01/16/17 07:24 Est GFR (MDRD) Af Amer >60 (>60 ml/min/1.73 sqM) 01/16/17 07:24 Est GFR (MDRD) Non-Af >60 (>60 ml/min/1.73 sqM) 01/16/17 07:24 Glucose 99 mg/dL (74-99) 01/16/17 07:24 POC Glucose (mg/dL) 123 mg/dL (75-99) H 01/13/17 16:36 POC Glu [employer] Technical Support Specialist ID Alexus Michelle 01/13/17 16:[address] Glu mg/dL 117 mg/dL 12/30/16 06:00 Hemoglobin A1c 5.7 % (4.2-6.1) 12/30/16 06:00 Plasma Lactic Acid Michael 1.5 mmol/L (0.7-2.0) 12/29/16 11:35 Uric Acid 3.5 mg/dL (3.5-8.5) 01/10/17 09:50 Calcium 9.2 mg/dL (8.4-10.2) 01/16/17 07:24 Phosphorus 3.3 mg/dL (2.5-4.5) 01/12/17 05:33 Magnesium 2.1 mg/dL (1.6-2.3) 01/13/17 05:18 Total Bilirubin 0.4 mg/dL (0.2-1.3) 01/14/17 08:13 AST 26 U/L (17-59) 01/14/17 08:13 ALT 80 U/L (21-72) H 01/14/17 08:13 Alkaline Phosphatase 95 U/L (38-126) 01/14/17 08:13 Total Creatine Kinase 31 U/L (55-170) L 12/29/16 01:50 CK-MB (CK-2) <0.2 ng/mL (0.0-2.4) 12/29/16 01:50 CK-MB (CK-2) Rel Index 12/29/16 01:50 Troponin I <0.012 ng/mL (0.000-0.034) 12/29/16 01:50 Total Protein 6.1 g/dL (6.3-8.2) L 01/14/17 08:13 Albumin 3.2 g/dL (3.5-5.0) L 01/14/17 08:13 [id number] 212.0 mg/dL (99.0-242.0) 12/29/16 11:36 Urine Color Yellow 12/29/16 02:10 Urine Appearance Clear (Clear) 12/29/16 02:10 Urine pH 5.5 (5.0-8.0) 12/29/16 02:10 Ur Specific [place] 1.010 (1.001-1.035) 12/29/16 02:10 Urine Protein Negative (Negative) 12/29/16 02:10 Urine Glucose (UA) Negative (Negative) 12/29/16 02:10 Urine Ketones Negative (Negative) 12/29/16 02:10 Urine Blood Small (Negative) H 12/29/16 02:10 Urine Nitrite Negative (Negative) 12/29/16 02:10 Urine Bilirubin Negative (Negative) 12/29/16 02:10 Urine Urobilinogen <2.0 mg/dL (<2.0) 12/29/16 02:10 Ur Leukocyte Esterase Negative (Negative) 12/29/16 02:10 Urine RBC 2 /hpf (0-5) 12/29/16 02:10 Urine WBC <1 /hpf (0-5) 12/29/16 02:10 Ur Squamous Epith Cells <1 /hpf (0-4) 12/29/16 02:10 Urine Mucus Rare /hpf (None) H 12/29/16 02:10 Fluid Source Pleural 01/01/17 11:15 Fluid Appearance Blood Tinged 01/01/17 11:15 Fluid RBC 86766 /uL 01/01/17 11:15 Fluid Nucleated Cells 99487 /uL 01/01/17 11:15 Fluid Polynuclear WBCs 82 % 01/01/17 11:15 Fluid Mononuclear WBCs 18 % 01/01/17 11:15 Body Fluid Glucose Source Pleural Fluid 01/01/17 11:15 Fluid Glucose 65 mg/dL 01/01/17 11:15 Body Fluid Protein Source Pleural Fluid 01/01/17 11:15 Fluid Total Protein 3800 mg/dL 01/01/17 11:15 Body Fluid LDH Source Pleural Fluid 01/01/17 11:15 Fluid LDH 1483 U/L 01/01/17 11:15 Body Fluid Amylase Source Pleural Fluid 01/01/17 11:15 Fluid Amylase 18 U/L 01/01/17 11:15 Fluid Cholesterol 105 mg/dL 01/01/17 11:15 Fl Cholesterol Source Pleural Fluid 01/01/17 11:15 Pleur Adenosine Deamin 16.4 U/L (0.0-9.4) H 01/01/17 11:20 Vancomycin Trough 10.3 ug/mL 01/14/17 08:13 Random Vancomycin 19.8 ug/mL 01/03/17 04:34 C. difficile (EIA) Intrp Negative (Negative) 01/08/17 17:01 Urine Legionella Ag Not detected (Not detected) 12/29/16 14:45 Mycoplasma pneumon IgG 1.65 INDEX (<=0.90) H 12/29/16 11:36 Mycoplasma pneumon IgM 0.56 INDEX (<=0.90) 12/29/16 11:36 Miscellaneous Test Triglycerides, Fluid 01/01/17 11:30 Misc Test Result See Comment 01/01/17 11:30 Microbiology 01/09/17 08:14 Blood Blood Culture - Final No Growth after 144 hours 01/09/17 07:22 Blood Blood Culture - Final No Growth after 144 hours 01/01/17 11:24 Pleural Fluid Acid Fast Bacilli Smear - Final 01/01/17 11:24 Pleural Fluid Acid Fast Bacilli Culture - Preliminary 01/10/17 15:35 Catheter Tip Catheter Tip Culture - Final 01/09/17 07:20 Sputum Gram Stain - Final 01/09/17 07:20 Sputum Sputum Culture - Final Jeane albicans 01/01/17 11:15 Pleural Fluid Gram Stain - Final 01/01/17 11:15 Pleural Fluid Body Fluid Culture - Final 12/29/16 01:50 Blood Blood Culture - Final No Growth after 144 hours 12/29/16 18:42 Sputum Gram Stain - Final 12/29/16 18:42 Sputum Sputum Culture - Final 12/29/16 14:42 Sputum Gram Stain - Final 12/29/16 14:42 Sputum Sputum Culture - Final 12/29/16 02:10 Urine,Voided Urine Culture - Final Assessment and Plan (1) Pneumonia Narrative/Plan: 46-year-old male with history of heavy tobacco use who by imaging studies has a large bleb to the right upper zone is evidence of a significant effusion to the right side and pneumonic infiltration. Patient presents with respiratory failure and sepsis from his pneumonia. Cultures are in process. Broad-spectrum antibiotic therapy with Zosyn and Levaquin and vancomycin are given until cultures are available. The patient does have a history of the recent dental work and concerns to a lung abscess or putrid empyema. The patient has had a chest tube placed and is draining a large amount of effusion The patient has respiratory failure has been intubated and is mechanically ventilated. 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 Sputum culture in process after his intubation and is negative at this time. Blood cultures are negative at this time. Significant leukocytosis was due to his significant sepsis, more recently is being driven by the large doses of steroids. He was on 60 mg IV push every 6 hours which was then diminished to 40 and discontinued 5 days ago. We'll expect his significant leukocytosis to start to decline. Trach and PEG tube and placed and he is hemodynamically stable at this time. Speaking trach is been placed and he has improved, passed his swallow study. Is having some solid food. This is markedly help this affect. Is evidence of significant swelling and erythema to the toe. Uric acid was normal. Concerns to be pseudogout. Short course of Indocin is added. He is showing is marked improvement is moved out of the intensive care unit. Will need rehab to improve his strength. His is present and we discussed smoking cessation at his discharge. Past antimicrobial therapy. Is doing well on the current micafungin for the oral candidiasis. This is now resolved. Pulmonary status is markedly improved. Antibiotics have been discontinued. Status: Acute (2) Respiratory failure Status: Acute (3) Empyema of right pleural space Status: Acute
[2017-01-16] MEDS: MIRTAZAPINE 15 MG TAB PO SCH (20:07)
[2017-01-16] MEDS: INDOMETHACIN 25 MG CAP PO SCH (20:07)
[2017-01-16] MEDS: COLCHICINE 0.6 MG TAB PO SCH (20:10)
[2017-01-17] MEDS: DEXTROSE 5% IN WATER 1,000 ML IV SCH ×2 (05:57→19:05)
[2017-01-17] MEDS: METOCLOPRAMIDE 5 MG/ML 2 ML VIAL IVP SCH ×2 (05:58→11:59)
[2017-01-17] MEDS: IPRATROPIUM-ALBUTEROL 3 ML NEB INHALATION SCH ×5 (08:20→20:06)
[2017-01-17] MEDS: VANCOMYCIN 1,750 MG in SODIUM CHLORIDE 0.9% 250 ML IVPB SCH (10:42)
[2017-01-17] MEDS: INDOMETHACIN 25 MG CAP PO SCH ×2 (10:45→20:49)
[2017-01-17] MEDS: ASPIRIN 81 MG CHEW PO SCH (10:45)
[2017-01-17] MEDS: CITALOPRAM HYDROBROMIDE 20 MG TAB PO SCH (10:45)
[2017-01-17] MEDS: GABAPENTIN 100 MG CAP PO SCH ×2 (10:45→20:48)
[2017-01-17] MEDS: COLCHICINE 0.6 MG TAB PO SCH (10:45)
[2017-01-17] MEDS: ENOXAPARIN 40 MG/0.4 ML SYRINGE SQ SCH (10:46)
[2017-01-17] MEDS: NICOTINE 7MG/24HR PATCH TRANSDERM SCH (10:47)
[2017-01-17] MEDS: PANTOPRAZOLE SODIUM 40 MG GRANULE PKT PEG/G-TUBE SCH (10:47)
--- NOTE | 2017-01-17 13:41 | P.PN ---
Subjective A 46-year-old male patient , with known history of advanced emphysema, came in and for a right lung pneumonia. The patient subsequently went to respiratory failure, intubated and placed on a mechanical ventilator. He had a prolonged and difficult course here in the intensive care unit. He required high level of sedation and paralytics to control his breathing and respiration. He also required the right lung chest tube insertion, a small bore pigtail catheter was inserted and the right-sided pleural effusion was drained. There was no evidence of any empyema. The pleural fluid was negative for malignancy. He was gradually weaned off the sedation after the patient had his PEG and trach. He was taken off paralytics. He is at the point where is on a trach collar at this point he was taken off the mechanical ventilator. He is on a 50% trach collar. Today's chest x-ray shows residual consolidation/infiltration of the right lung base with a small right-sided pleural effusion. Left lung is clear. He is awake and alert. He is hemodynamically stable. He is conversing. No focal neurological deficits. Is tolerating his tube feeds. He is on 75 mL of D5 water through a peripheral IV. He is also on a high protein enteral feeding at the rate of 70 mL an hour, vital. No wounds or sores. He is quite weak and the plan is to send this patient to select specialty for further recuperation. The right-sided pigtail catheter was removed. Note that all of the cultures are negative. The patient is still on a combination of Vanco, Zosyn, and micafungin GEN. Note that I had bronchoscope this patient and the bronchioloalveolar lavage have yielded no microbial growth. The patient had a sputum analysis that showed Jeane albicans. All of the blood cultures of been negative. On 01/12/2017 I'm seeing this patient in follow-up. Is able to sit up on a chair. No significant respiratory distress. The patient has a Bivona tracheostomy tube in place. The patient is in the 50% trach collar. He is also receiving tube feeds. Veins are being made to send this patient to select specialty. ID is on the case. Antibiotic therapy will be continued for the time being. No diarrhea. No fever. No chills. White cell count is elevated yet somewhat improved compared to yesterday down to 24. The patient is seen again today 01/13/2017 in follow-up on the selective care unit. He is awake and alert in no acute distress. He is resting quite comfortably in bed. He has been up ambulating with assistance now. He's been up in the chair at times. His FiO2 has been titrated down to 40% via trach collar and is maintaining O2 saturations in the upper 90s.. He denies any worsening shortness of breath. He is afebrile. He remains on vancomycin, Zosyn and micafungin. He is continuing on bronchodilators. The patient is seen again today 01/14/2017 in follow-up on the regular medical floor. He remains awake and alert in no acute distress. He's been up ambulating with his walker and physical therapy. He denies any worsening shortness of breath at this time. He has a continued productive cough of pale yellow sputum. Current white count 18.4. He has been afebrile. He is maintaining good O2 saturations in the mid 90s on 35% trach collar. The patient is seen again today 01/15/2017 in follow-up in the regular medical floor. He remains awake and alert in no acute distress. He is responding appropriately. He has been up ambulating with assistance out into the hallway. He is getting stronger every day. He is [facility] which can be capped for speaking. He remains on 35% FiO2 to maintain O2 saturations in the 90s. He's been afebrile. White count has improved to 18.4. Hemoglobin 10.5. Hemodynamically stable. The patient was seen again today 01/16/2017 in follow-up on the regular medical floor. He remains awake and alert in no acute distress. He's been up ambulating with a walker and physical therapy. He is getting stronger each day. He did pass his swallow evaluation and he is now tolerating a soft diet. He denies any worsening shortness of breath. He is maintaining good O2 saturations in the 90s on 35% trach collar. White count 18.4. Hemoglobin 10.5. Creatinine 1.08. He remains on vancomycin and micafungin. On 01/17/2017 I'm seeing this patient in follow-up. The patient is still on IV vancomycin. Doing well. He has a Passy-Umu valve and he is able to speak. The PEG tube feeding was stopped and the patient is taking feeding orally. He is ambulating. He is still weak over is gradually getting stronger. No fever or chills. He has developed some yeast infection his groin area and he will benefit from nystatin powder. He is quite debilitated over is gradually getting stronger. Is a 35% trach collar. No other significant events over the past 24 hours and his condition is stable for now. Objective - Vital Signs Vital signs: Vital Signs Temp 97.5 F L 01/17/17 07:00 Pulse 91 01/17/17 07:00 Resp 20 01/17/17 07:00 BP 123/78 01/17/17 07:00 Pulse Ox 97 01/17/17 07:00 Intake & Output 01/16/17 01/17/17 01/17/17 18:59 06:59 18:59 Intake Total 300 1400 Output Total 4 2 Balance 296 1398 Weight 84.5 kg 82 kg Intake: IV 900 Dextrose 5% in Water 1, 900 000 ml @ 75 mls/hr IV . [id number] Rx#:[id number] Oral 300 500 Output: Stool 4 2 Other: Voiding Method Urinal Diaper # Voids 1 2 # Bowel Movements 3 ABP, PAP, CO, CI - Last Documented Arterial Blood Pressure 152/69 - Exam Head exam was generally normal. There was no scleral icterus or corneal arcus. Mucous membranes were moist. Neck is supple and the patient is a tracheostomy tube in place and this is a Shiley #6. Lung sounds are diminished bilaterally especially in lung bases. There is significant breath sound diminishment in the right lung base. No crackles. No wheezes.Cardiac exam revealed the PMI to be normally situated and sized. The rhythm was regular and no extrasystoles were noted during several minutes of auscultation. The first and second heart sounds were normal and physiologic splitting of the second heart sound was noted. There were no murmurs, rubs, clicks, or gallops.Abdominal exam revealed normal bowel sounds. The abdomen was soft, non-tender, and without masses, organomegaly, or appreciable enlargement of the abdominal aorta. PEG tube site is dry clean and intact and there is no erythema or any drainage.Examination of the extremities revealed easily palpable radial, femoral and pedal pulses. There was no cyanosis, clubbing or edema. Neurologically the patient is awake and alert however his got significant motor weakness both in upper and lower extremity. - Labs CBC & Chem 7: 01/14/17 08:13 01/16/17 07:24 Assessment and Plan Plan: Assessment 1 right lung pneumonia, severe, rapid interval progression with progressive worsening of the consolidation development of a small right-sided pleural effusion with subsequent acute hypoxic respiratory failure, currently intubated on a mechanical ventilator. Rule out pneumococcal pneumonia. Rule out anaerobic pneumonia possibly from a tooth abscess/aspiration. The patient had prolonged intubation mechanical ventilation and ultimately he had to be trached. He was gradually weaned off sedation and paralytics. He has a #[address] tracheostomy tube in place. He did pass a swallow evaluation is tolerating a soft diet now. He has been up ambulatory with a walker and assistance. His tracheostomy tube is. The patient is using a speaking valve. The patient is swallowing normally and enteral feeding was also discontinued. 2 acute hypoxic respiratory failure, intubated on mechanical ventilator, improved and the as long as the patient is currently on a 35% trach collar 3 bullous emphysema with upper lobe emphysematous changes right more than left 4 sepsis secondary to right lung pneumonia, leukocytosis, recovered 5 nonspecific left upper lobe pulmonary nodule measuring 1.1 cm in size 6 recent DVT post-orthopedic intervention on the foot, on Lovenox 7 TIA, history of without any neurological deficits 8 chronic neck and back pain, under the care of pain management 9 tooth abscess, cleared by dental services/dentist 10 acute kidney injury, recovered 11 critical illness polyneuropathy and myopathy 12 right-sided pleural effusion status post drainage with a pigtail catheter, the fluid cytology was negative for malignancy 13, leukocytosis and the counts trending down and most recently 18.4. No obvious source of infection or sepsis at this point. The PICC line was removed and the catheter tip was negative. The rest of the blood culture will negative. Plan Advance diet. Advance activity. Physical therapy. Keep the tracheostomy tube. Agree on holding tube feeds. Add nystatin to groin area, positive for yeast infection. Change Protonix to oral. ID to the sudden duration of vancomycin treatment. We'll continue to follow. Will prefer to send him to ECF rather than select specialty, as long as the patient is improving.
--- NOTE | 2017-01-17 16:52 | PN ---
DATE OF SERVICE: 01/16/2017 This 46-year-old gentleman who was admitted with chronic obstructive pulmonary disease acute exacerbation as well as right lower lobe pneumonia also had empyema. The patient had prolonged stay in ICU. Subsequently the patient is extubated. Patient is on tracheostomy tube. Patient also had PEG tube feeds also which has been started. The family and patient reports that the patient is unable to eat because of the PEG tube feeding volume. No chest pain, no palpitations. PAST MEDICAL HISTORY: Reviewed. REVIEW OF SYSTEMS: CARDIOVASCULAR: As mentioned earlier. RESPIRATORY: As mentioned earlier. GI: No nausea. : No dysuria. NERVOUS SYSTEM: As mentioned earlier. Current medications are reviewed and include: 1. Tylenol 650 mg q.6 p.r.n 2. DuoNeb q.i.d and p.r.n 3. Aspirin 81 mg daily. 4. Lioresal 10 mg p.o. b.i.d. 5. Dulcolax 10 mg b.i.d. p.r.n. 6. Celexa 40 mg p.o. daily. 7. Catapres TTS 0.1 daily. 8. Lovenox 40 mg subcu daily. 9. Neurontin 1200 mg p.o. b.i.d. 10. Dilaudid 1 mg p.o. q.1 p.r.n 11. Indocin 50 mg p.o b.i.d. 12. Reglan 10 mg q.6 p.r.n 13. Remeron. 14. Zofran. 15. Protonix 40 mg daily. 16. Vancomycin. PHYSICAL EXAMINATION: The patient is alert and oriented x3. Pulse is 100, blood pressure 114/60, respirations 18, temperature 98.9, pulse ox 90% on 8-L trach collar. HEENT: Conjunctivae normal. Oral mucosa moist. NECK: No jugular venous distention. No carotid bruit. No lymph node enlargement. CARDIOVASCULAR: S1, S2. RESPIRATORY: Breath sounds diminished at the bases. A few scattered rhonchi and crackles. ABDOMEN: Soft, obese, nontender, PEG tube in situ. LEGS: Bilateral leg edema. Left gout also present. NERVOUS SYSTEM: No focal deficits. Labs at this time show WBC 18, hemoglobin 10.5. ASSESSMENT: 1. Chronic obstructive pulmonary disease acute exacerbation with right lower lobe pneumonia with possible community-acquired with possible severe sepsis, acute hypoxic respiratory failure status post mechanical ventilation. 2. Status post PEG tube and tracheostomy. 3. Bullous emphysema. 4. Right-side empyema, status post chest tube drainage. 5. Change in mental status, metabolic encephalopathy acute. 6. Acute gout. 7. History of nicotine dependence. RECOMMENDATIONS AND DISCUSSION: I recommend to continue the current medications, continue monitoring, continue symptomatic treatment. Otherwise at this time will monitor the patient closely. Otherwise, I would recommend to continue the broad-spectrum IV antibiotics. Continue to monitor. PT, OT evaluation. The patient is awaiting inpatient rehab in [facility] with Dr. Sabillon. The family and trimming caser also are awaiting [facility] approval for the same. Overall prognosis guarded because of multiple complex medical issues. Discussed at length with the family and discussed with staff. Further recommendations to follow. MTDD
[2017-01-17] MEDS: MIRTAZAPINE 15 MG TAB PO SCH (20:49)
[2017-01-17] MEDS: NYSTATIN 100,000 UNIT/GM POWD 15 GM TOPICAL SCH ×2 (20:54→22:57)
[2017-01-18] MEDS: IPRATROPIUM-ALBUTEROL 3 ML NEB INHALATION SCH ×4 (07:21→21:01)
[2017-01-18] MEDS: COLCHICINE 0.6 MG TAB PO SCH (08:21)
[2017-01-18] MEDS: ASPIRIN 81 MG CHEW PO SCH (08:21)
[2017-01-18] MEDS: INDOMETHACIN 25 MG CAP PO SCH ×2 (08:21→22:06)
[2017-01-18] MEDS: ENOXAPARIN 40 MG/0.4 ML SYRINGE SQ SCH (08:21)
[2017-01-18] MEDS: GABAPENTIN 100 MG CAP PO SCH ×2 (08:21→22:05)
[2017-01-18] MEDS: CITALOPRAM HYDROBROMIDE 20 MG TAB PO SCH (08:22)
[2017-01-18] MEDS: NYSTATIN 100,000 UNIT/GM POWD 15 GM TOPICAL SCH ×3 (08:22→22:06)
[2017-01-18] MEDS: VANCOMYCIN 1,750 MG in SODIUM CHLORIDE 0.9% 250 ML IVPB SCH (08:22)
[2017-01-18] MEDS: PANTOPRAZOLE SODIUM 40 MG GRANULE PKT PO SCH (08:22)
[2017-01-18] MEDS: DEXTROSE 5% IN WATER 1,000 ML IV SCH ×2 (08:26→23:20)
--- NOTE | 2017-01-18 11:22 | XR ---
EXAMINATION TYPE: XR chest 2V DATE OF EXAM: 01/18/2017 COMPARISON: 01/15/2017 HISTORY: Cough. TECHNIQUE: Frontal and lateral views of the chest are obtained. FINDINGS: Improving consolidation is seen within the right lower lobe with strand-like right basilar opacity, likely on the basis of subsegmental atelectasis. Moderate pleural effusion is stable. Stran d-like left basilar atelectasis is also noted. Emphysematous changes are seen of the right midlung an d right apex. Tracheostomy is midline. IMPRESSION: 1. Stable moderate right pleural effusion and improving right lower lobe consolidation with residual bibasilar atelectasis, right greater than left. 2. Bullous emphysematous changes of the right midlung and right lung apex.
--- NOTE | 2017-01-18 12:34 | P.PN ---
Subjective Principal diagnosis: Acute hypoxic respiratory failure secondary to pneumonia, parapneumonic effusion , COPD. A 46-year-old male patient , with known history of advanced emphysema, came in and for a right lung pneumonia. The patient subsequently went to respiratory failure, intubated and placed on a mechanical ventilator. He had a prolonged and difficult course here in the intensive care unit. He required high level of sedation and paralytics to control his breathing and respiration. He also required the right lung chest tube insertion, a small bore pigtail catheter was inserted and the right-sided pleural effusion was drained. There was no evidence of any empyema. The pleural fluid was negative for malignancy. He was gradually weaned off the sedation after the patient had his PEG and trach. He was taken off paralytics. He is at the point where is on a trach collar at this point he was taken off the mechanical ventilator. He is on a 50% trach collar. Today's chest x-ray shows residual consolidation/infiltration of the right lung base with a small right-sided pleural effusion. Left lung is clear. He is awake and alert. He is hemodynamically stable. He is conversing. No focal neurological deficits. Is tolerating his tube feeds. He is on 75 mL of D5 water through a peripheral IV. He is also on a high protein enteral feeding at the rate of 70 mL an hour, vital. No wounds or sores. He is quite weak and the plan is to send this patient to select specialty for further recuperation. The right-sided pigtail catheter was removed. Note that all of the cultures are negative. The patient is still on a combination of Vanco, Zosyn, and micafungin GEN. Note that I had bronchoscope this patient and the bronchioloalveolar lavage have yielded no microbial growth. The patient had a sputum analysis that showed Jeane albicans. All of the blood cultures of been negative. On 01/12/2017 I'm seeing this patient in follow-up. Is able to sit up on a chair. No significant respiratory distress. The patient has a Bivona tracheostomy tube in place. The patient is in the 50% trach collar. He is also receiving tube feeds. Veins are being made to send this patient to select specialty. ID is on the case. Antibiotic therapy will be continued for the time being. No diarrhea. No fever. No chills. White cell count is elevated yet somewhat improved compared to yesterday down to 24. The patient is seen again today 01/13/2017 in follow-up on the selective care unit. He is awake and alert in no acute distress. He is resting quite comfortably in bed. He has been up ambulating with assistance now. He's been up in the chair at times. His FiO2 has been titrated down to 40% via trach collar and is maintaining O2 saturations in the upper 90s.. He denies any worsening shortness of breath. He is afebrile. He remains on vancomycin, Zosyn and micafungin. He is continuing on bronchodilators. The patient is seen again today 01/14/2017 in follow-up on the regular medical floor. He remains awake and alert in no acute distress. He's been up ambulating with his walker and physical therapy. He denies any worsening shortness of breath at this time. He has a continued productive cough of pale yellow sputum. Current white count 18.4. He has been afebrile. He is maintaining good O2 saturations in the mid 90s on 35% trach collar. The patient is seen again today 01/15/2017 in follow-up in the regular medical floor. He remains awake and alert in no acute distress. He is responding appropriately. He has been up ambulating with assistance out into the hallway. He is getting stronger every day. He is tolerating the new [facility] tracheostomy tube which can be capped for speaking. He remains on 35% FiO2 to maintain O2 saturations in the 90s. He's been afebrile. White count has improved to 18.4. Hemoglobin 10.5. Hemodynamically stable. The patient was seen again today 01/16/2017 in follow-up on the regular medical floor. He remains awake and alert in no acute distress. He's been up ambulating with a walker and physical therapy. He is getting stronger each day. He did pass his swallow evaluation and he is now tolerating a soft diet. He denies any worsening shortness of breath. He is maintaining good O2 saturations in the 90s on 35% trach collar. White count 18.4. Hemoglobin 10.5. Creatinine 1.08. He remains on vancomycin and micafungin. On 01/17/2017 I'm seeing this patient in follow-up. The patient is still on IV vancomycin. Doing well. He has a Passy-Umu valve and he is able to speak. The PEG tube feeding was stopped and the patient is taking feeding orally. He is ambulating. He is still weak over is gradually getting stronger. No fever or chills. He has developed some yeast infection his groin area and he will benefit from nystatin powder. He is quite debilitated over is gradually getting stronger. Is a 35% trach collar. No other significant events over the past 24 hours and his condition is stable for now. The patient is seen again today 01/18/2017 in follow-up on the regular medical floor. He is currently sitting up at the bedside. He is awake and alert in no acute distress. He's been up ambulating with assistance. He is stronger today as compared to yesterday. He is eating regular food including a cheeseburger last night without any difficulties. His trach is currently capped. He is able to speak. He denies any worsening shortness of breath, cough or congestion. His been afebrile. Hemodynamically stable. He is maintaining good O2 saturations in the 90s on 35% trach collar. Objective - Vital Signs Vital signs: Vital Signs Temp 97.3 F L 01/18/17 07:00 Pulse 86 01/18/17 07:39 Resp 18 01/18/17 07:00 BP 115/70 01/18/17 07:00 Pulse Ox 92 L 01/18/17 07:00 Intake & Output 01/17/17 01/18/17 01/18/17 18:59 06:59 18:59 Intake Total 236 Output Total 4 Balance 232 Weight 81 kg Intake: Oral 236 Output: Stool 4 Other: Voiding Method Urinal Urinal Urinal Diaper Diaper Diaper # Voids 4 2 ABP, PAP, CO, CI - Last Documented Arterial Blood Pressure 152/69 - Exam Head exam was generally normal. There was no scleral icterus or corneal arcus. Mucous membranes were moist. Neck is supple and the patient is a tracheostomy tube in place and this is a Shiley #6. Lung sounds are diminished bilaterally especially in lung bases. There is significant breath sound diminishment in the right lung base. No crackles. No wheezes.Cardiac exam revealed the PMI to be normally situated and sized. The rhythm was regular and no extrasystoles were noted during several minutes of auscultation. The first and second heart sounds were normal and physiologic splitting of the second heart sound was noted. There were no murmurs, rubs, clicks, or gallops.Abdominal exam revealed normal bowel sounds. The abdomen was soft, non-tender, and without masses, organomegaly, or appreciable enlargement of the abdominal aorta. PEG tube site is dry clean and intact and there is no erythema or any drainage.Examination of the extremities revealed easily palpable radial, femoral and pedal pulses. There was no cyanosis, clubbing or edema. Neurologically the patient is awake and alert however his got significant motor weakness both in upper and lower extremity. - Labs CBC & Chem 7: 01/19/17 09:05 01/19/17 09:05 Assessment and Plan Plan: Assessment 1 right lung pneumonia, severe, rapid interval progression with progressive worsening of the consolidation development of a small right-sided pleural effusion with subsequent acute hypoxic respiratory failure, currently intubated on a mechanical ventilator. Rule out pneumococcal pneumonia. Rule out anaerobic pneumonia possibly from a tooth abscess/aspiration. The patient had prolonged intubation mechanical ventilation and ultimately he had to be trached. He was gradually weaned off sedation and paralytics. He has a #[address] Shiley tracheostomy tube in place. He did pass a swallow evaluation is tolerating a soft diet now. He has been up ambulatory with a walker and assistance. His tracheostomy tube is capped. The patient is using a speaking valve. The patient is swallowing normally and enteral feeding was also discontinued. 2 acute hypoxic respiratory failure, intubated on mechanical ventilator, improved and the patient is currently on a 35% trach collar 3 bullous emphysema with upper lobe emphysematous changes right more than left 4 sepsis secondary to right lung pneumonia, leukocytosis, improving. 5 nonspecific left upper lobe pulmonary nodule measuring 1.1 cm in size 6 recent DVT post-orthopedic intervention on the foot, on Lovenox 7 TIA, history of without any neurological deficits 8 chronic neck and back pain, under the care of pain management 9 tooth abscess, cleared by dental services/dentist 10 acute kidney injury, recovered 11 critical illness polyneuropathy and myopathy 12 right-sided pleural effusion status post drainage with a pigtail catheter, the fluid cytology was negative for malignancy 13, leukocytosis and the counts trending down and most recently 18.4. No obvious source of infection or sepsis at this point. The PICC line was removed and the catheter tip was negative. The rest of the blood culture will negative. Plan Patient is seen and evaluated by Dr. Stephenson. Patient remains stable from the pulmonary and critical care standpoint. His chest x-ray does show improvement in the right lower lobe consolidation. There is still pleural effusion noted. We'll continue with his physical therapy. We'll continue with his current diet. We will continue to follow make further recommendations based on his clinical status.
--- NOTE | 2017-01-18 16:24 | PN ---
DATE OF SERVICE: 01/17/2017 This 46-year-old gentleman who was admitted with chronic obstructive pulmonary disease, pneumonia, empyema, and multiple complex medical issues. PT, OT evaluated the patient and inpatient rehab with Dr. Sabillon is recommended. The correctional case manager is working with [place] to complete this. No chest pain, no palpitation , no fever. On exam, alert and oriented x3. Pulse is 92, blood pressure 103/67, respirations 20, temperature 98.2, pulse ox 97% on 8-L trach collar. HEENT: Conjunctivae normal. NECK: Tracheostomy. CARDIOVASCULAR: S1, S2. RESPIRATORY: Breath sounds diminished at the bases. A few scattered rhonchi and crackles. ABDOMEN: Soft, nontender. LEGS: No edema, no swelling. NERVOUS SYSTEM: No focal deficits. LABS: WBC 18, hemoglobin 10.5. ASSESSMENT: 1. Chronic obstructive pulmonary disease acute exacerbation with right lower lobe pneumonia with possibly community-acquired with possible severe sepsis and acute hypoxic respiratory status post mechanical ventilation. 2. Status post PEG tube placement and tracheostomy. 3. Bullous emphysema. 4. Right side empyema, status post chest tube drainage. 5. Change in mental status metabolic encephalopathy acute. 6. Acute gout. 7. History of nicotine dependence. RECOMMENDATIONS AND DISCUSSION: I recommend to continue the current medications, continue monitoring, continue symptomatic treatment. Otherwise I will monitor the patient closely. Continue the bronchodilators, antibiotics and closely follow with Dr. Riley. Possibly inpatient rehab. Further recommendations to follow. CHASTITYD
--- NOTE | 2017-01-18 21:56 | P.PN ---
Subjective Principal diagnosis: respiratory failure 46-year-old male who has a presumptive diagnosis of underlying emphysema presents to the hospital with a relatively short-term of increasing shortness of breath. The patient relates over the weekend he started to get short of breath. He developed cough and increasing shortness of breath. He then had significant fever and increasing pain to his right chest. The pain became so severe that he no longer was able to hold out at home and presented to the emergency center. There he was evidence of a pain a 10 out of 10 and evidence of significant respiratory distress. Imaging studies revealed evidence of a significant pneumonia as well as a large bleb to the right chest. Effusion was seen. No evidence of pulmonary embolus or of aortic dissection was seen. The patient was brought to the intensive care unit where he is required some sedation for placement of BiPAP. BiPAP has been placed the patient appears to be feeling this. We'll likely be intubated soon. The patient had a significant AA gradient despite the BiPAP. The family does relate to the difficulty with his oral cavity. He apparently has been antibiotic therapy was that of a tooth extraction for an abscess the family denies a history of injection drug use. Significant alcohol use. PTSD from his experience in [place]. No severe illnesses while he was overseas. He has noted the patient developed respiratory failure. Required intubation sedation and mechanical ventilation. Tracheostomy is in place as well as PEG tube. He sitting upright. Smile several times throughout the interaction. Speaking trach valve is in place. He is able to say several words. Was having significant left foot pain. This is now much improved with the addition of the allopurinol. [employer] to likely going home in the next short period of time with home care. Objective - Vital Signs Vital signs: Vital Signs Temp 97.8 F 01/18/17 15:00 Pulse 80 01/18/17 21:15 Resp 16 01/18/17 15:00 BP 117/73 01/18/17 15:00 Pulse Ox 94 L 01/18/17 15:00 Intake & Output 01/18/17 01/18/17 01/19/17 06:59 18:59 06:59 Weight 81 kg Other: Voiding Method Urinal Urinal Diaper Diaper # Voids 2 2 ABP, PAP, CO, CI - Last Documented Arterial Blood Pressure 152/69 - Exam 46-year-old male who had trach doing well and has trach collar. No sniffy and secretions are noted from the tracheostomy. HEENT: Anicteric conjunctiva are pink and moist nasal mucosa grossly intact without significant lesions, there is thrush. Neck: The neck is supple without significant lymphadenopathy or thyromegaly. trach site without bleeding or discomfort Lungs: There is symmetrical air entry. Is much improved bilateral air entry. The prior markedly diminished breath sounds in the right base of improved. Still minimal dullness to the right. Heart: Regular rate and rhythm with an audible S1-S2, no S3 no S4. There is no significant murmur click or rub, PMI was nondisplaced. Abdomen: Positive bowel sounds soft and nontender without palpable masses or organomegaly. There was no guarding or rebound. Abdomen is not rigid the PEG tube site is without difficulty. Extremities: The upper extremities have excellent pulses they are symmetric, no significant petechiae or telangiectasia. No splinter hemorrhages were noted. The lower extremities have only trace edema. The left great toe has erythema that is quite tender. Pulses 2+ symmetric Neuro: Alert oriented to person place and time without acute gross focal sensory motor deficits. Is speaking clearly with his tracheostomy in place without difficulty. - Labs CBC & Chem 7: 01/14/17 08:13 01/16/17 07:24 Labs: Laboratory Results WBC 18.4 k/uL (3.8-10.6) H 01/14/17 08:13 RBC 3.16 m/uL (4.30-5.90) L 01/14/17 08:13 Hgb 10.5 gm/dL (13.0-17.5) L 01/14/17 08:13 Hct 30.6 % (39.0-53.0) L 01/14/17 08:13 MCV 96.9 fL (80.0-100.0) 01/14/17 08:13 MCH 33.1 pg (25.0-35.0) 01/14/17 08:13 MCHC 34.2 g/dL (31.0-37.0) 01/14/17 08:13 RDW 13.2 % (11.5-15.5) 01/14/17 08:13 Plt Count 413 k/uL (150-450) 01/14/17 08:13 Neutrophils % 79 % 01/14/17 08:13 Neutrophils % (Manual) 75.0 % 01/04/17 04:21 Band Neutrophils % 4.0 % 01/04/17 04:21 Lymphocytes % 10 % 01/14/17 08:13 Lymphocytes % (Manual) 4.0 % 01/04/17 04:21 Monocytes % 6 % 01/14/17 08:13 Monocytes % (Manual) 4.0 % 01/04/17 04:21 Eosinophils % 2 % 01/14/17 08:13 Eosinophils % (Manual) 1.0 % 01/04/17 04:21 Basophils % 0 % 01/14/17 08:13 Metamyelocytes % 8.0 % 01/04/17 04:21 Myelocytes % 3.0 % 01/04/17 04:21 Promyelocytes % 1.0 % 01/04/17 04:21 Neutrophils # 14.6 k/uL (1.3-7.7) H 01/14/17 08:13 Neutrophils # (Manual) 20.7 k/uL (1.3-7.7) H 01/04/17 04:21 Lymphocytes # 1.9 k/uL (1.0-4.8) 01/14/17 08:13 Lymphocytes # (Manual) 1.0 k/uL (1.0-4.8) 01/04/17 04:21 Monocytes # 1.0 k/uL (0-1.0) 01/14/17 08:13 Monocytes # (Manual) 1.0 k/uL (0-1.0) 01/04/17 04:21 Eosinophils # 0.4 k/uL (0-0.7) 01/14/17 08:13 Eosinophils # (Manual) 0.3 k/uL (0-0.7) 01/04/17 04:21 Basophils # 0.1 k/uL (0-0.2) 01/14/17 08:13 Nucleated RBCs 0 /100 WBC (0-0) 01/04/17 04:21 Manual Slide Review Performed 01/04/17 04:21 Toxic Granulation Present 01/03/17 04:34 Polychromasia Present 01/03/17 04:34 Poikilocytosis (manual Present 01/03/17 04:34 Anisocytosis (manual) Present 01/03/17 04:34 Macrocytosis Slight 01/09/17 04:15 PT 10.1 sec (9.0-12.0) 01/04/17 04:21 INR 1.0 (<1.2) 01/04/17 04:21 APTT 24.3 sec (22.0-30.0) 01/03/17 04:34 D-Dimer 0.82 mg/L FEU (<0.60) H 12/29/16 11:36 Sample Site rrad 01/08/17 05:22 ABG pH 7.56 (7.35-7.45) H 01/08/17 05:22 ABG pCO2 27 mmHg (35-45) L 01/08/17 05:22 ABG pO2 81 mmHg (83-108) L 01/08/17 05:22 ABG HCO3 24 mmol/L (21-25) 01/08/17 05:22 ABG Total CO2 25 mmol/L (19-24) H 01/08/17 05:22 ABG O2 Saturation 98.0 % (94-97) H 01/08/17 05:22 ABG Base Excess 2.1 mmol/L 01/08/17 05:22 ABG Lactic Acid 2.6 mmol/L (0.5-1.6) H* 12/31/16 05:30 FiO2 50 % 01/08/17 05:22 Sodium 139 mmol/L (137-145) 01/16/17 07:24 Potassium 4.1 mmol/L (3.5-5.1) 01/16/17 07:24 Chloride 101 mmol/L (98-107) 01/16/17 07:24 Carbon Dioxide 27 mmol/L (22-30) 01/16/17 07:24 Anion Gap 11 mmol/L 01/16/17 07:24 BUN 24 mg/dL (9-20) H 01/16/17 07:24 Creatinine 1.08 mg/dL (0.66-1.25) 01/16/17 07:24 Est GFR (MDRD) Af Amer >60 (>60 ml/min/1.73 sqM) 01/16/17 07:24 Est GFR (MDRD) Non-Af >60 (>60 ml/min/1.73 sqM) 01/16/17 07:24 Glucose 99 mg/dL (74-99) 01/16/17 07:24 POC Glucose (mg/dL) 123 mg/dL (75-99) H 01/13/17 16:36 POC Glu [place] ID Alexus Michelle 01/13/17 16:[address] Glu mg/dL 117 mg/dL 12/30/16 06:00 Hemoglobin A1c 5.7 % (4.2-6.1) 12/30/16 06:00 Plasma Lactic Acid Michael 1.5 mmol/L (0.7-2.0) 12/29/16 11:35 Uric Acid 3.5 mg/dL (3.5-8.5) 01/10/17 09:50 Calcium 9.2 mg/dL (8.4-10.2) 01/16/17 07:24 Phosphorus 3.3 mg/dL (2.5-4.5) 01/12/17 05:33 Magnesium 2.1 mg/dL (1.6-2.3) 01/13/17 05:18 Total Bilirubin 0.4 mg/dL (0.2-1.3) 01/14/17 08:13 AST 26 U/L (17-59) 01/14/17 08:13 ALT 80 U/L (21-72) H 01/14/17 08:13 Alkaline Phosphatase 95 U/L (38-126) 01/14/17 08:13 Total Creatine Kinase 31 U/L (55-170) L 12/29/16 01:50 CK-MB (CK-2) <0.2 ng/mL (0.0-2.4) 12/29/16 01:50 CK-MB (CK-2) Rel Index 12/29/16 01:50 Troponin I <0.012 ng/mL (0.000-0.034) 12/29/16 01:50 Total Protein 6.1 g/dL (6.3-8.2) L 01/14/17 08:13 Albumin 3.2 g/dL (3.5-5.0) L 01/14/17 08:13 [id number] 212.0 mg/dL (99.0-242.0) 12/29/16 11:36 Urine Color Yellow 12/29/16 02:10 Urine Appearance Clear (Clear) 12/29/16 02:10 Urine pH 5.5 (5.0-8.0) 12/29/16 02:10 Ur Specific Sparks 1.010 (1.001-1.035) 12/29/16 02:10 Urine Protein Negative (Negative) 12/29/16 02:10 Urine Glucose (UA) Negative (Negative) 12/29/16 02:10 Urine Ketones Negative (Negative) 12/29/16 02:10 Urine Blood Small (Negative) H 12/29/16 02:10 Urine Nitrite Negative (Negative) 12/29/16 02:10 Urine Bilirubin Negative (Negative) 12/29/16 02:10 Urine Urobilinogen <2.0 mg/dL (<2.0) 12/29/16 02:10 Ur Leukocyte Esterase Negative (Negative) 12/29/16 02:10 Urine RBC 2 /hpf (0-5) 12/29/16 02:10 Urine WBC <1 /hpf (0-5) 12/29/16 02:10 Ur Squamous Epith Cells <1 /hpf (0-4) 12/29/16 02:10 Urine Mucus Rare /hpf (None) H 12/29/16 02:10 Fluid Source Pleural 01/01/17 11:15 Fluid Appearance Blood Tinged 01/01/17 11:15 Fluid RBC 53620 /uL 01/01/17 11:15 Fluid Nucleated Cells 50683 /uL 01/01/17 11:15 Fluid Polynuclear WBCs 82 % 01/01/17 11:15 Fluid Mononuclear WBCs 18 % 01/01/17 11:15 Body Fluid Glucose Source Pleural Fluid 01/01/17 11:15 Fluid Glucose 65 mg/dL 01/01/17 11:15 Body Fluid Protein Source Pleural Fluid 01/01/17 11:15 Fluid Total Protein 3800 mg/dL 01/01/17 11:15 Body Fluid LDH Source Pleural Fluid 01/01/17 11:15 Fluid LDH 1483 U/L 01/01/17 11:15 Body Fluid Amylase Source Pleural Fluid 01/01/17 11:15 Fluid Amylase 18 U/L 01/01/17 11:15 Fluid Cholesterol 105 mg/dL 01/01/17 11:15 Fl Cholesterol Source Pleural Fluid 01/01/17 11:15 Pleur Adenosine Deamin 16.4 U/L (0.0-9.4) H 01/01/17 11:20 Vancomycin Trough 10.3 ug/mL 01/14/17 08:13 Random Vancomycin 19.8 ug/mL 01/03/17 04:34 C. difficile (EIA) Intrp Negative (Negative) 01/08/17 17:01 Urine Legionella Ag Not detected (Not detected) 12/29/16 14:45 Mycoplasma pneumon IgG 1.65 INDEX (<=0.90) H 12/29/16 11:36 Mycoplasma pneumon IgM 0.56 INDEX (<=0.90) 12/29/16 11:36 Miscellaneous Test Triglycerides, Fluid 01/01/17 11:30 Misc Test Result See Comment 01/01/17 11:30 Microbiology 01/09/17 08:14 Blood Blood Culture - Final No Growth after 144 hours 01/09/17 07:22 Blood Blood Culture - Final No Growth after 144 hours 01/01/17 11:24 Pleural Fluid Acid Fast Bacilli Smear - Final 01/01/17 11:24 Pleural Fluid Acid Fast Bacilli Culture - Preliminary 01/10/17 15:35 Catheter Tip Catheter Tip Culture - Final 01/09/17 07:20 Sputum Gram Stain - Final 01/09/17 07:20 Sputum Sputum Culture - Final Jeane albicans 01/01/17 11:15 Pleural Fluid Gram Stain - Final 01/01/17 11:15 Pleural Fluid Body Fluid Culture - Final 12/29/16 01:50 Blood Blood Culture - Final No Growth after 144 hours 12/29/16 18:42 Sputum Gram Stain - Final 12/29/16 18:42 Sputum Sputum Culture - Final 12/29/16 14:42 Sputum Gram Stain - Final 12/29/16 14:42 Sputum Sputum Culture - Final 12/29/16 02:10 Urine,Voided Urine Culture - Final Assessment and Plan (1) Pneumonia Narrative/Plan: 46-year-old male with history of heavy tobacco use who by imaging studies has a large bleb to the right upper zone is evidence of a significant effusion to the right side and pneumonic infiltration. Patient presents with respiratory failure and sepsis from his pneumonia. Cultures are in process. Broad-spectrum antibiotic therapy with Zosyn and Levaquin and vancomycin are given until cultures are available. The patient does have a history of the recent dental work and concerns to a lung abscess or putrid empyema. The patient has had a chest tube placed and is draining a large amount of effusion The patient has respiratory failure has been intubated and is mechanically ventilated. 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 Sputum culture in process after his intubation and is negative at this time. Blood cultures are negative at this time. Significant leukocytosis was due to his significant sepsis, more recently is being driven by the large doses of steroids. He was on 60 mg IV push every 6 hours which was then diminished to 40 and discontinued 5 days ago. We'll expect his significant leukocytosis to start to decline. Trach and PEG tube and placed and he is hemodynamically stable at this time. Speaking trach is been placed and he has improved, passed his swallow study. Is having some solid food. This is markedly help this affect. Is evidence of significant swelling and erythema to the toe. Uric acid was normal. Concerns to be pseudogout. Short course of Indocin is added. He is showing is marked improvement is moved out of the intensive care unit. Will need rehab to improve his strength. His is present and we discussed smoking cessation at his discharge. This time is completed his course of all antimicrobials. There'll discontinued. Ready for discharge tomorrow. Continue his course of Indocin for the gout-like process since it is allowed a marked improvement. Plan 48 hours of Indocin at discharge. Status: Acute (2) Respiratory failure Status: Acute (3) Empyema of right pleural space Status: Acute
[2017-01-18] MEDS: MIRTAZAPINE 15 MG TAB PO SCH (22:06)
[2017-01-18 23:13] VITALS: RESP 18
--- NOTE | 2017-01-19 07:16 | PN ---
DATE OF SERVICE: 01/18/17 This 46 -year-old gentleman who was admitted with COPD/pneumonia, empyema is being closely monitored. The patient has tracheostomy also. Rehab inpatient with Dr. Sabillon is being considered. No chest pain. No palpitations. On exam, alert and oriented times two. Pulse 83. Blood pressure 117/77. Respiratory rate 16. Temperature 97.8. Pulse ox 94% on 3 L. HEENT: Conjunctivae normal. Neck: No JVD. CARDIOVASCULAR: S1, S2. Respiratory: Breath sounds diminished at the bases. A few scattered rhonchi and crackles. Abdomen soft, nontender. LEGS: No edema. [employer]: No focal deficits. Diffuse weak. NECK: Tracheostomy. LABS: Reviewed. ASSESSMENT: 1. Chronic obstructive pulmonary disease, acute exacerbation with right lower lobe pneumonia, possibly community acquired with severe sepsis and acute hypoxic respiratory failure status post mechanical ventilation, status post PEG tube placement and tracheostomy. 2. Bolus emphysema. 3. Right sided empyema status post chest tube drainage. 4. Change in mental status, metabolic encephalopathy. 5. Acute gout. 6. History of nicotine dependence. RECOMMENDATIONS AND DISCUSSION: Recommend to continue the current medications, continue symptomatic treatment, adjust medications if the patient is able to po intake at this time. Otherwise, continue to monitor. Further recommendations to follow. Prognosis guarded. [facility] [place]
[2017-01-19] MEDS: ASPIRIN 81 MG CHEW PO SCH (08:03)
[2017-01-19] MEDS: INDOMETHACIN 25 MG CAP PO SCH (08:03)
[2017-01-19] MEDS: GABAPENTIN 100 MG CAP PO SCH (08:03)
[2017-01-19] MEDS: CITALOPRAM HYDROBROMIDE 20 MG TAB PO SCH (08:03)
[2017-01-19] MEDS: ENOXAPARIN 40 MG/0.4 ML SYRINGE SQ SCH (08:05)
[2017-01-19] MEDS: COLCHICINE 0.6 MG TAB PO SCH (08:05)
[2017-01-19] MEDS: NYSTATIN 100,000 UNIT/GM POWD 15 GM TOPICAL SCH (08:05)
[2017-01-19] MEDS: PANTOPRAZOLE SODIUM 40 MG GRANULE PKT PO SCH (08:05)
[2017-01-19] MEDS: IPRATROPIUM-ALBUTEROL 3 ML NEB INHALATION SCH ×2 (09:08→13:28)
[2017-01-19 09:42] LABS: Potassium 3.9 mmol/L (3.5-5.1)
[2017-01-19 09:44] LABS: Basophils # (A) 0.1 k/uL (0-0.2); Basophils % (A) 0 %; CH 33.3; CHCM 34.1; Eosinophils # (A) 0.4 k/uL (0-0.7); Eosinophils % (A) 3 %; HDW 2.57; HGB 10.9 gm/dL (13.0-17.5); Luc # (Auto) 0.27; Luc % (Auto) 2; Lymphocytes % (A) 15 %; MCH 32.2 pg (25.0-35.0); MCHC 32.9 g/dL (31.0-37.0); MCV 97.9 fL (80.0-100.0); Mean Platelet Volume 7.3; Monocytes # (A) 0.5 k/uL (0-1.0); Monocytes % (A) 4 %; Neutrophils # (A) 9.9 k/uL (1.3-7.7); Neutrophils % (A) 76 %; RBC 3.37 m/uL (4.30-5.90); RDW 13.6 % (11.5-15.5); WBC 13.1 k/uL (3.8-10.6); WBC (Perox) 13.69
[2017-01-19] MEDS: DEXTROSE 5% IN WATER 1,000 ML IV SCH (11:08)
--- NOTE | 2017-01-19 14:12 | P.PN ---
Subjective Principal diagnosis: Acute hypoxic respiratory failure secondary to pneumonia, parapneumonic effusion , COPD. A 46-year-old male patient , with known history of advanced emphysema, came in and for a right lung pneumonia. The patient subsequently went to respiratory failure, intubated and placed on a mechanical ventilator. He had a prolonged and difficult course here in the intensive care unit. He required high level of sedation and paralytics to control his breathing and respiration. He also required the right lung chest tube insertion, a small bore pigtail catheter was inserted and the right-sided pleural effusion was drained. There was no evidence of any empyema. The pleural fluid was negative for malignancy. He was gradually weaned off the sedation after the patient had his PEG and trach. He was taken off paralytics. He is at the point where is on a trach collar at this point he was taken off the mechanical ventilator. He is on a 50% trach collar. Today's chest x-ray shows residual consolidation/infiltration of the right lung base with a small right-sided pleural effusion. Left lung is clear. He is awake and alert. He is hemodynamically stable. He is conversing. No focal neurological deficits. Is tolerating his tube feeds. He is on 75 mL of D5 water through a peripheral IV. He is also on a high protein enteral feeding at the rate of 70 mL an hour, vital. No wounds or sores. He is quite weak and the plan is to send this patient to select specialty for further recuperation. The right-sided pigtail catheter was removed. Note that all of the cultures are negative. The patient is still on a combination of Vanco, Zosyn, and micafungin GEN. Note that I had bronchoscope this patient and the bronchioloalveolar lavage have yielded no microbial growth. The patient had a sputum analysis that showed Jeane albicans. All of the blood cultures of been negative. On 01/12/2017 I'm seeing this patient in follow-up. Is able to sit up on a chair. No significant respiratory distress. The patient has a Bivona tracheostomy tube in place. The patient is in the 50% trach collar. He is also receiving tube feeds. Veins are being made to send this patient to select specialty. ID is on the case. Antibiotic therapy will be continued for the time being. No diarrhea. No fever. No chills. White cell count is elevated yet somewhat improved compared to yesterday down to 24. The patient is seen again today 01/13/2017 in follow-up on the selective care unit. He is awake and alert in no acute distress. He is resting quite comfortably in bed. He has been up ambulating with assistance now. He's been up in the chair at times. His FiO2 has been titrated down to 40% via trach collar and is maintaining O2 saturations in the upper 90s.. He denies any worsening shortness of breath. He is afebrile. He remains on vancomycin, Zosyn and micafungin. He is continuing on bronchodilators. The patient is seen again today 01/14/2017 in follow-up on the regular medical floor. He remains awake and alert in no acute distress. He's been up ambulating with his walker and physical therapy. He denies any worsening shortness of breath at this time. He has a continued productive cough of pale yellow sputum. Current white count 18.4. He has been afebrile. He is maintaining good O2 saturations in the mid 90s on 35% trach collar. The patient is seen again today 01/15/2017 in follow-up in the regular medical floor. He remains awake and alert in no acute distress. He is responding appropriately. He has been up ambulating with assistance out into the hallway. He is getting stronger every day. He is [facility]ating [facility] which can be capped for speaking. He remains on 35% FiO2 to maintain O2 saturations in the 90s. He's been afebrile. White count has improved to 18.4. Hemoglobin 10.5. Hemodynamically stable. The patient was seen again today 01/16/2017 in follow-up on the regular medical floor. He remains awake and alert in no acute distress. He's been up ambulating with a walker and physical therapy. He is getting stronger each day. He did pass his swallow evaluation and he is now tolerating a soft diet. He denies any worsening shortness of breath. He is maintaining good O2 saturations in the 90s on 35% trach collar. White count 18.4. Hemoglobin 10.5. Creatinine 1.08. He remains on vancomycin and micafungin. On 01/17/2017 I'm seeing this patient in follow-up. The patient is still on IV vancomycin. Doing well. He has a Passy-Umu valve and he is able to speak. The PEG tube feeding was stopped and the patient is taking feeding orally. He is ambulating. He is still weak over is gradually getting stronger. No fever or chills. He has developed some yeast infection his groin area and he will benefit from nystatin powder. He is quite debilitated over is gradually getting stronger. Is a 35% trach collar. No other significant events over the past 24 hours and his condition is stable for now. The patient is seen again today 01/18/2017 in follow-up on the regular medical floor. He is currently sitting up at the bedside. He is awake and alert in no acute distress. He's been up ambulating with assistance. He is stronger today as compared to yesterday. He is eating regular food including a cheeseburger last night without any difficulties. His trach is currently capped. He is able to speak. He denies any worsening shortness of breath, cough or congestion. His been afebrile. Hemodynamically stable. He is maintaining good O2 saturations in the 90s on 35% trach collar. The patient is seen again today 01/19/2017 in follow-up in the regular medical floor. He is awake and alert in no acute distress. He's been up ambulating without assistance, no walker. He has no pulmonary complaints today. He is quite anxious to go home today. Case management is working with the [place] [facility] to make arrangements. Objective - Vital Signs Vital signs: Vital Signs Temp 97.6 F 01/19/17 07:00 Pulse 84 01/19/17 13:39 Resp 18 01/19/17 07:00 BP 125/75 01/19/17 07:00 Pulse Ox 95 01/19/17 09:08 Intake & Output 01/18/17 01/19/17 01/19/17 18:59 06:59 18:59 Weight 83.5 kg Other: Voiding Method Urinal Toilet Diaper Urinal # Voids 2 2 ABP, PAP, CO, CI - Last Documented Arterial Blood Pressure 152/69 - Exam Head exam was generally normal. There was no scleral icterus or corneal arcus. Mucous membranes were moist. Neck is supple and the patient is a tracheostomy tube in place and this is a Shiley #6. Lung sounds are diminished bilaterally especially in lung bases. There is significant breath sound diminishment in the right lung base. No crackles. No wheezes.Cardiac exam revealed the PMI to be normally situated and sized. The rhythm was regular and no extrasystoles were noted during several minutes of auscultation. The first and second heart sounds were normal and physiologic splitting of the second heart sound was noted. There were no murmurs, rubs, clicks, or gallops.Abdominal exam revealed normal bowel sounds. The abdomen was soft, non-tender, and without masses, organomegaly, or appreciable enlargement of the abdominal aorta. PEG tube site is dry clean and intact and there is no erythema or any drainage.Examination of the extremities revealed easily palpable radial, femoral and pedal pulses. There was no cyanosis, clubbing or edema. Neurologically the patient is awake and alert however his got significant motor weakness both in upper and lower extremity. - Labs CBC & Chem 7: 01/19/17 09:05 01/19/17 09:05 Labs: Abnormal Lab Results - Last 24 Hours (Table) 01/19/17 01/19/17 Range/Units 09:05 09:05 WBC 13.1 H (3.8-10.6) k/uL RBC 3.37 L (4.30-5.90) m/uL Hgb 10.9 L (13.0-17.5) gm/dL Hct 33.0 L (39.0-53.0) % Plt Count 570 H (150-450) k/uL Neutrophils # 9.9 H (1.3-7.7) k/uL Chloride 108 H (98-107) mmol/L Carbon Dioxide 21 L (22-30) mmol/L BUN 21 H (9-20) mg/dL Creatinine 1.64 H (0.66-1.25) mg/dL Glucose 111 H (74-99) mg/dL Assessment and Plan Plan: Assessment 1 right lung pneumonia, severe, rapid interval progression with progressive worsening of the consolidation development of a small right-sided pleural effusion with subsequent acute hypoxic respiratory failure, currently intubated on a mechanical ventilator. Rule out pneumococcal pneumonia. Rule out anaerobic pneumonia possibly from a tooth abscess/aspiration. The patient had prolonged intubation mechanical ventilation and ultimately he had to be trached. He was gradually weaned off sedation and paralytics. He has a #6 [address] tracheostomy tube in place. He did pass a swallow evaluation is tolerating a soft diet now. He has been up ambulatory with a walker and assistance. His tracheostomy tube is capped. The patient is using a speaking valve. The patient is swallowing normally and enteral feeding was also discontinued. 2 acute hypoxic respiratory failure, intubated on mechanical ventilator, improved and the patient is currently on room air and maintaining O2 saturations at 95%. 3 bullous emphysema with upper lobe emphysematous changes right more than left 4 sepsis secondary to right lung pneumonia, leukocytosis, improving. 5 nonspecific left upper lobe pulmonary nodule measuring 1.1 cm in size 6 recent DVT post-orthopedic intervention on the foot, on Lovenox 7 TIA, history of without any neurological deficits 8 chronic neck and back pain, under the care of pain management 9 tooth abscess, cleared by dental services/dentist 10 acute kidney injury, recovered 11 critical illness polyneuropathy and myopathy 12 right-sided pleural effusion status post drainage with a pigtail catheter, the fluid cytology was negative for malignancy 13, leukocytosis and the counts trending down and most recently 18.4. No obvious source of infection or sepsis at this point. The PICC line was removed and the catheter tip was negative. The rest of the blood culture will negative. Plan Patient is seen and evaluated by Dr. Stephenson. His most recent chest x-ray showed stable moderate right pleural effusion with improved right lower lobe consolidation. Patient remains stable from the pulmonary standpoint. Antibiotic course has been completed. Arrangements are being made for home care as the patient is quite adamant about going home today. Follow-up with Dr. Stephenson in our office in 1-2 weeks' time. He'll plan to remove the tracheostomy tube then. Repeat a chest x-ray as well. He and his family are encouraged to call sooner with any recurrence of symptoms or other questions or concerns.
[2017-01-19 15:22] VITALS: BP 128/74; PULSE 94; TEMP 97.3
[2017-01-19 15:31] VITALS: BMI 27.1
== END 2017-01-19 15:58 | disposition home health service (06) | DRG 4 ==
LOC: EC 01:34 → 6SEL 03:29 → 6ICU 12:10 → 6SEL 01-11 17:42 → 4MS4W 01-13 17:58
PROVIDERS: ADMIT Hospitalist; ATTEND Hospitalist
PROC: 5A1955Z Respiratory Ventilation, Greater than 96 Consecutive Hours (ICD-10-PCS; principal; 2016-12-29)
PROC: 5A09357 Assistance with Respiratory Ventilation, Less than 24 Consecutive Hours, Continuous Positive Airway Pressure (ICD-10-PCS; 2016-12-29)
PROC: 03HB33Z Insertion of Infusion Device into Right Radial Artery, Percutaneous Approach (ICD-10-PCS; 2016-12-29)
PROC: 0B9F8ZX Drainage of Right Lower Lung Lobe, Via Natural or Artificial Opening Endoscopic, Diagnostic (ICD-10-PCS; 2016-12-30)
PROC: 05HM33Z Insertion of Infusion Device into Right Internal Jugular Vein, Percutaneous Approach (ICD-10-PCS; 2016-12-30)
PROC: 0BH17EZ Insertion of Endotracheal Airway into Trachea, Via Natural or Artificial Opening (ICD-10-PCS; 2017-01-04)
PROC: 0DH63UZ Insertion of Feeding Device into Stomach, Percutaneous Approach (ICD-10-PCS; 2017-01-04)
PROC: 0B113F4 Bypass Trachea to Cutaneous with Tracheostomy Device, Percutaneous Approach (ICD-10-PCS; 2017-01-04 07:30)
DX: A41.9 Sepsis, unspecified organism (principal); R65.21 Severe sepsis with septic shock; J86.9 Pyothorax without fistula; J69.0 Pneumonitis due to inhalation of food and vomit; G93.41 Metabolic encephalopathy; J13 Pneumonia due to Streptococcus pneumoniae; J96.01 Acute respiratory failure with hypoxia; J15.6 Pneumonia due to other Gram-negative bacteria; G62.81 Critical illness polyneuropathy; B37.89 Other sites of candidiasis; J91.8 Pleural effusion in other conditions classified elsewhere; G72.81 Critical illness myopathy; E87.3 Alkalosis; E87.0 Hyperosmolality and hypernatremia; B37.0 Candidal stomatitis; J44.0 Chronic obstructive pulmonary disease with (acute) lower respiratory infection; J44.1 Chronic obstructive pulmonary disease with (acute) exacerbation; J98.11 Atelectasis; N17.9 Acute kidney failure, unspecified; F17.200 Nicotine dependence, unspecified, uncomplicated; F43.10 Post-traumatic stress disorder, unspecified; G89.29 Other chronic pain; M54.2 Cervicalgia; M54.9 Dorsalgia, unspecified; I10 Essential (primary) hypertension; K04.7 Periapical abscess without sinus; M10.9 Gout, unspecified; M19.90 Unspecified osteoarthritis, unspecified site; R19.7 Diarrhea, unspecified; R91.1 Solitary pulmonary nodule; F41.9 Anxiety disorder, unspecified; F32.9 Major depressive disorder, single episode, unspecified; T38.0X5A Adverse effect of glucocorticoids and synthetic analogues, initial encounter; Z79.01 Long term (current) use of anticoagulants; Z79.82 Long term (current) use of aspirin; Z79.899 Other long term (current) drug therapy; Z86.711 Personal history of pulmonary embolism; Y92.239 Unspecified place in hospital as the place of occurrence of the external cause
CPT/HCPCS: 31500; 32551; 36415; 36600; 43246; 70486; 71010; 71020; 71250; 71275; 74000; 74176; 74230; 75635; 76942; 80048; 80053; 80202; 81001; 82103; 82150; 82465; 82550; 82553; 82805; 82945; 83036; 83605; 83615; 83735; 84100; 84132; 84157; 84311; 84478; 84484; 84550; 85025; 85027; 85379; 85610; 85730; 86738; 87040; 87070; 87086; 87116; 87205; 87206; 87324; 87449; 88108; 88305; 89050; 93005; 93306; 93970; 94002; 94003; 94640; 94660; 94760; 96361; 96365; 96368; 99291

== ENCOUNTER 2017-02-04 10:54 | Day surgery (SDC) | payer OTHER ==
[2017-02-03 11:43] VITALS: BMI 25.8
[~2017-02-04 10:54] MED LIST: ALBUTEROL NEB (CONC) 2.5 MG/0.5 ML INHALATION ONE; LACTATED RINGERS 1,000 ML IV ONE; LACTATED RINGERS 1,000 ML IV SCH; LIDOCAINE 1% 20 ML VIAL (10MG/ML) FOR IV START INTRADERMA PRN; LIDOCAINE 2% (PF) 20 MG/ML 10ML INHALATION ONE
[2017-02-04 11:22] VITALS: RESP 16; TEMP 99.5
--- NOTE | 2017-02-04 12:40 | P.PCN ---
Date of Procedure: 02/04/17 Preoperative Diagnosis: respiratory failure/ tracheostomy Postoperative Diagnosis: respiratory failure/ tracheostomy Procedure(s) Performed: tracheostomy tube exchange Implants: Anesthesia: none Surgeon: Jennifer Riley Estimated Blood Loss (ml): 0 Pathology: none sent Condition: stable Disposition: same day Indications for Procedure: Operative Findings: Patient is presenting for a tracheostomy tube exchange. The patient is postop prolonged ventilator dependent respiratory failure due to COPD exacerbation/ right lung pneumonia. The patient is currently in the process of recovering. He currently has a #6 fenestrated cuffed Shiley tracheostomy tube. The previously inserted tracheostomy tube was easily removed. The stoma was inspected. There was 2 sutures of the site of the stoma the toilet removed. Following that a #4 fenestrated non-cuffed tracheostomy tube, Shiley, was inserted without any major difficulties. The obturator was removed and the inner cannula was placed. The patient's pulse ox remained above 90% throughout the procedure. Addendum procedure the trachea and the tracheostomy tube was suctioned. No bedside complications. Tracheostomy tube will be secured in place and the patient was discharged home at a later stage. The plan is to ultimately remove the tracheostomy tube in 2- 3 weeks once the patient is fully recovered and de-cannulate the patient. Description of Procedure:
[2017-02-04 13:06] VITALS: BP 155/96; PULSE 92
== END 2017-02-04 13:20 | disposition home or self-care (01) ==
LOC: ORWHC2ENDO 10:54
PROVIDERS: ATTEND Internal Medicine Critical Care Medicine
DX: J96.90 Respiratory failure, unspecified, unspecified whether with hypoxia or hypercapnia (principal); Z43.0 Encounter for attention to tracheostomy; Z99.11 Dependence on respirator [ventilator] status; J18.9 Pneumonia, unspecified organism; J91.8 Pleural effusion in other conditions classified elsewhere; F17.200 Nicotine dependence, unspecified, uncomplicated; F43.10 Post-traumatic stress disorder, unspecified; F41.9 Anxiety disorder, unspecified; M10.9 Gout, unspecified; Z86.73 Personal history of transient ischemic attack (TIA), and cerebral infarction without residual deficits; Z79.01 Long term (current) use of anticoagulants; Z79.899 Other long term (current) drug therapy
CPT/HCPCS: 31502

== ENCOUNTER 2017-02-09 09:55 | Emergency (ER) | payer OTHER ==
[2017-02-09 09:59] VITALS: BP 147/81; PULSE 96; RESP 20; TEMP 97.2
--- NOTE | 2017-02-09 10:33 | ED ---
General Adult HPI - General Chief complaint: Recheck/Abnormal Lab/Rx Stated complaint: poss infected trach Time Seen by Provider: 02/09/17 10:12 Source: patient Mode of arrival: ambulatory Limitations: no limitations - History of Present Illness Initial comments: 76-year-old white male presents with with a complaint of some irritation around his tracheostomy site. He states that he had at tracheostomy placed about a month ago well an inpatient at our hospital. He apparently had pneumonia, and empyema, and exacerbation of COPD at that time. He spent 21 days in the hospital. They apparently changed his trach approximately 5 days ago from a size 6 to a size 4 with plans on eventual removal. He developed some erythema around the site and some yellowish drainage 2 days ago. He denies any shortness of breath or fever. 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 He has had a scant amount of blood from the tracheostomy and mild pain. No other complaints or modifying factors. - Related Data Home Medications Medication Instructions Recorded Confirmed Baclofen 10 mg PO BID 07/16/16 02/04/17 Citalopram Hydrobromide [CeleXA] 40 mg PO DAILY 07/16/16 02/04/17 Esomeprazole Magnesium [NexIUM] 40 mg PO DAILY 07/16/16 02/04/17 HYDROcodone/APAP 10-325MG [[place] 1 tab PO Q8H PRN 07/16/16 02/04/17 10-325] Mirtazapine [Remeron] 30 mg PO HS 12/29/16 02/04/17 Rivaroxaban [Xarelto] 20 mg PO DAILY 12/29/16 02/04/17 Ipratropium-Albuterol Nebulize 3 ml INHALATION BID 02/03/17 02/04/17 [Duoneb 0.5 mg-3 mg/3 ml Soln] Multivitamin [Multivitamins Adult 2 each PO DAILY 02/03/17 02/04/17 Gummies] Previous Rx's Medication Instructions Recorded Gabapentin [Neurontin] 200 mg PO BID #0 01/19/17 Levofloxacin [Levaquin] 750 mg PO DAILY #7 tab 02/09/17 Allergies Allergy/AdvReac Type Severity Reaction Status Date / Time No Known Allergies Allergy Verified 02/09/17 09:59 Review of Systems ROS Statement: Those systems with pertinent positive or pertinent negative responses have been documented in the HPI. ROS Other: All systems not noted in ROS Statement are negative. Past Medical History Past Medical History: COPD, CVA/TIA, Deep Vein Thrombosis (DVT), GERD/Reflux, Pneumonia Additional Past Medical History / Comment(s): HX OF TIA X6 ( 6 years ago without any residual deficits), DVT FOLLOWING RIGHT FOOT SURGERY ( 07/2016)., HX OF TOOTH ABSCESS AND TOOTH PULLED 02/02/17., CHRONIC BACK & NECK PAIN . , PT ADMITTED TO [facility] 12/29/16 FOR PNEUMONIA & RESPIRATORY FAILURE WAS PUT ON VENTILATOR WITH TRACHEOSTOMY AND PEG TUBE INSERTION., DISCHARGED 01/19/17. , PEG TUBE NOT IN USE-FLUSHES IT BID . History of Any Multi-Drug Resistant Organisms: None Reported Past Surgical History: Orthopedic Surgery Additional Past Surgical History / Comment(s): Bilateral surgery for plantar fasciitis., cervical and lumbar nerve ablation, injection for pain control. , Right foot surgery (07/2016). Past Anesthesia/Blood Transfusion Reactions: No Reported Reaction Past Psychological History: Anxiety, Depression, PTSD Smoking Status: Former smoker Past Alcohol Use History: None Reported, Occasional Past Drug Use History: None Reported - Past Family History Father Family Medical History: Cancer Additional Family Medical History / Comment(s): lung Ca Mother Additional Family Medical History / Comment(s): irregular heart beat General Exam - General Exam Comments Initial Comments: GENERAL: The patient is well nourished and well hydrated. VITAL SIGNS: Heart rate, blood pressure, respiratory rate reviewed as recorded in nurse's notes. EYES: Pupils are round and reactive. Extraocular movements are intact. No conjunctival / lid redness or swelling. ENT: No external evidence of injury, swelling, or ecchymosis. Airway is patent. Throat is clear. NECK: Nontender. No swelling or evidence of injury. No subcutaneous emphysema. Trachea is midline. No thyroid mass. There is some mild erythema noted to the skin around the tracheostomy site. There is no current drainage or bleeding noted. HEART: Regular rate and rhythm. Good peripheral pulses. LUNGS/CHEST: Breath sounds clear and equal bilaterally. No rales, rhonchi, or wheezes. No ecchymosis, subcutaneous emphysema, or tenderness. ABDOMEN: Abdomen soft without tenderness. No palpable masses or organomegaly. No peritoneal signs. No abdominal wall swelling or ecchymosis. EXTREMITIES: No extremity tenderness. Normal muscle tone and function. No thoracolumbar tenderness. NEUROLOGIC: Sensation is grossly intact. Cranial nerve exam reveals face is symmetrical, tongue is midline, speech is clear. SKIN: No abrasions or ecchymosis is noted. No induration or masses noted. PSYCHIATRIC: Alert and oriented. Appropriate behavior and judgment. Limitations: no limitations Course Vital Signs 02/09/17 09:57 Temperature 97.2 F L Pulse Rate 96 Respiratory 20 Rate Blood Pressure 147/81 O2 Sat by Pulse 98 Oximetry Medical Decision Making - Medical Decision Making The patient was seen and examined. Old records were reviewed. The case is discussed with Dr. Stephenson and he would like the patient placed on Levaquin and have him follow-up with Dr. maurice Riley in 2 days as scheduled. It is felt as though this is quite reasonable. The patient will be discharged. Disposition Clinical Impression: Cellulitis Disposition: HOME SELF-CARE Condition: Good Instructions: Cellulitis (ED) Prescriptions: Levofloxacin [Levaquin] 750 mg PO DAILY #7 tab Referrals: Jaspal Kay DO [Primary Care Provider] - 1-2 days Jennifer Riley MD [STAFF PHYSICIAN] - 02/11/17 Time of Disposition: 10:33
== END 2017-02-09 10:39 | disposition home or self-care (01) ==
LOC: EC 09:55
DX: J95.02 Infection of tracheostomy stoma (principal); T81.4XXA Infection following a procedure, initial encounter; J44.9 Chronic obstructive pulmonary disease, unspecified; K21.9 Gastro-esophageal reflux disease without esophagitis; F32.9 Major depressive disorder, single episode, unspecified; F41.9 Anxiety disorder, unspecified; Z86.73 Personal history of transient ischemic attack (TIA), and cerebral infarction without residual deficits; Z86.718 Personal history of other venous thrombosis and embolism; Z87.891 Personal history of nicotine dependence; Z79.01 Long term (current) use of anticoagulants; Z79.899 Other long term (current) drug therapy; Z93.0 Tracheostomy status; Y83.8 Other surgical procedures as the cause of abnormal reaction of the patient, or of later complication, without mention of misadventure at the time of the procedure
CPT/HCPCS: 99283

== ENCOUNTER → 2018-03-29 | Outpatient (CLI) | payer OTHER ==
--- NOTE | 2018-03-30 17:22 | MR ---
EXAMINATION TYPE: MR cspine/lspine wo con DATE OF EXAM: 03/29/2018 COMPARISON: None HISTORY: Osteoarthritis, pain and stiffness TECHNIQUE: Multiplanar, multisequence imaging of the lumbar and cervical spine is performed without I V contrast. FINDINGS: Cervical spine MRI: Cervical vertebral bodies show preserved height and alignment. There is multileve l spondylosis, there is associated loss of disc height and signal at intervertebral levels with endpl ate discogenic marrow signal change compatible with disc desiccation and degenerative disc disease. C ervical cord signal is maintained. C2-3: Unremarkable C3-4: Mild left-sided foraminal encroachment due to hypertrophic change, posterior broad-based disc b ulge, endplate disc complex causes minimal anterior mass effect on the thecal. 4 5: Posterior broad-based disc bulge causes minimal anterior mass effect on the thecal sac. No spina l stenosis or foraminal encroachment C5-6: Posterior broad-based disc bulge causes mild anterior mass effect on the thecal sac. No signifi cant central stenosis. Hypertrophic changes results in some foraminal encroachment on the right. C6-7: Posterior extension of endplate disc complex causes mild anterior mass effect on the thecal sac . Circumferential extension of endplate disc complex results in some bilateral foraminal encroachment C7-T1: Small posterior central disc herniation causes minimal anterior mass effect on the thecal sac. No significant central stenosis or foraminal encroachment. IMPRESSION: Degenerative disc disease as described. Lumbar MRI: Sagittal images of the lumbar spine show vertebral body heights and alignment to appear s atisfactory. Loss of disc height and signal present L3-4, loss of disc signal L4-5, L5-S1 compatible disc desiccation and degenerative disc disease. The conus medullaris is normal in position and signal . There is an S-shaped thoracic lumbar spinal curvature. L5-S1: Spinal curvature may contribute to cause some anterolateral mass effect on the thecal sac. Pos terior broad-based disc bulge is mild somewhat eccentric towards the left there is no significant for aminal encroachment. No central stenosis. Facet arthropathy changes present. L4-5: Posterior broad-based disc bulge causes mild anterior mass effect on the thecal sac. Facet arth ropathy with hypertrophy of the ligamentum flavum causes posterior lateral mass effect on the thecal sac. Circumferential extension of disc bulge and endplate encroaches somewhat on the right neural for amen more than left. No significant central stenosis. L3-4: Posterior broad-based disc bulge causes minimal anterior mass effect on the thecal sac. No sign ificant central canal stenosis. L2-3: No significant abnormality. L1-2: Unremarkable. IMPRESSION: S-shaped thoracic lumbar scoliosis. Mild degenerative disc disease, foraminal encroachmen t, facet arthropathy as described. No significant spinal stenosis.
== END | disposition home or self-care (01) ==
LOC: RADMRIMAIN 19:38
DX: M51.36 Other intervertebral disc degeneration, lumbar region (principal); M51.37 Other intervertebral disc degeneration, lumbosacral region; M46.96 Unspecified inflammatory spondylopathy, lumbar region; M46.97 Unspecified inflammatory spondylopathy, lumbosacral region; M41.85 Other forms of scoliosis, thoracolumbar region
CPT/HCPCS: 72141; 72148

== ENCOUNTER 2021-02-23 10:28 | Emergency (ER) | payer OTHER ==
[2021-02-23 10:49] VITALS: TEMP 98.4
[2021-02-23] MEDS ORDERED: LIDOCAINE/EPINEPHR/TETRACAINE 5 ML BOTTLE TOPICAL STA ×2 (11:11→11:16)
[2021-02-23] MEDS ORDERED: OXYMETAZOLINE 0.05% NASL SPRAY 1 SPRAY BOTTLE NASAL STA ×2 (11:11→11:20)
[2021-02-23] MEDS ORDERED: SILVER NITRATE APPLICATOR 1 EACH STICK..EA. TOPICAL STA (11:15)
--- NOTE | 2021-02-23 11:26 | ED ---
General Adult HPI - General Chief complaint: ENT Stated complaint: nose bleed/blood thinners Time Seen by Provider: 02/23/21 11:01 Source: patient, RN notes reviewed Mode of arrival: ambulatory Limitations: no limitations - History of Present Illness Initial comments: 50-year-old male with a past medical history of DVT on Xarelto presents to the emergency room for a chief complaint of nosebleed. Patient states he is having a small area of bleeding that started about an hour ago on the right nare. He states that he blew his nose earlier and it started. He could not get it to stop.Patient has no other complaints at this time including shortness of breath, chest pain, abdominal pain, nausea or vomiting, headache, or visual changes. - Related Data Home Medications Medication Instructions Recorded Confirmed Baclofen 10 mg PO BID 07/16/16 02/09/17 Citalopram Hydrobromide [CeleXA] 40 mg PO DAILY 07/16/16 02/09/17 Esomeprazole Magnesium [NexIUM] 40 mg PO DAILY 07/16/16 02/09/17 HYDROcodone/APAP 10-325MG [[place] 1 tab PO Q8H PRN 07/16/16 02/09/17 10-325] Mirtazapine [Remeron] 30 mg PO HS 12/29/16 02/09/17 Rivaroxaban [Xarelto] 20 mg PO DAILY 12/29/16 02/09/17 Ipratropium-Albuterol Nebulize 3 ml INHALATION BID 02/03/17 02/09/17 [Duoneb 0.5 mg-3 mg/3 ml Soln] Multivitamin [Multivitamins Adult 2 tab PO DAILY 02/03/17 02/09/17 Gummies] Gabapentin [Neurontin] 200 mg PO TID 02/09/17 02/09/17 SUMAtriptan SUCCINATE [Imitrex] 50 mg PO DAILY PRN 02/09/17 02/09/17 Previous Rx's Medication Instructions Recorded Levofloxacin [Levaquin] 750 mg PO DAILY #7 tab 02/09/17 Allergies Allergy/AdvReac Type Severity Reaction Status Date / Time No Known Allergies Allergy Verified 02/23/21 10:49 Review of Systems ROS Statement: Those systems with pertinent positive or pertinent negative responses have been documented in the HPI. ROS Other: All systems not noted in ROS Statement are negative. Past Medical History Past Medical History: COPD, CVA/TIA, Deep Vein Thrombosis (DVT), GERD/Reflux, Pneumonia Additional Past Medical History / Comment(s): HX OF TIA X6 ( 6 years ago without any residual deficits), DVT FOLLOWING RIGHT FOOT SURGERY ( 07/2016)., HX OF TOOTH ABSCESS AND TOOTH PULLED 02/02/17., CHRONIC BACK & NECK PAIN . , PT ADMITTED TO [facility] 12/29/16 FOR PNEUMONIA & RESPIRATORY FAILURE WAS PUT ON VENTILATOR WITH TRACHEOSTOMY AND PEG TUBE INSERTION., DISCHARGED 01/19/17. , PEG TUBE NOT IN USE-FLUSHES IT BID . History of Any Multi-Drug Resistant Organisms: None Reported Past Surgical History: Orthopedic Surgery Additional Past Surgical History / Comment(s): Bilateral surgery for plantar fasciitis., cervical and lumbar nerve ablation, injection for pain control. ,Right foot surgery (07/2016). Past Anesthesia/Blood Transfusion Reactions: No Reported Reaction Past Psychological History: Anxiety, Depression, PTSD Smoking Status: Current every day smoker Past Alcohol Use History: Occasional Past Drug Use History: None Reported - Past Family History Father Family Medical History: Cancer Additional Family Medical History / Comment(s): lung Ca Mother Additional Family Medical History / Comment(s): irregular heart beat General Exam Limitations: no limitations General appearance: alert, in no apparent distress Head exam: Present: atraumatic Eye exam: Present: normal appearance, PERRL, EOMI. Absent: scleral icterus, conjunctival injection ENT exam: Present: normal exam, mucous membranes moist Neck exam: Present: normal inspection, full ROM. Absent: tenderness Respiratory exam: Present: normal lung sounds bilaterally. Absent: respiratory distress, wheezes Cardiovascular Exam: Present: regular rate, normal rhythm, normal heart sounds Course Vital Signs 02/23/21 10:45 Temperature 98.4 F Pulse Rate 82 Respiratory 18 Rate Blood Pressure 126/87 O2 Sat by Pulse 95 Oximetry Medical Decision Making - Medical Decision Making On exam patient has a pinpoint area of bleeding just inside the medial aspect of the right nare. TXA was applied and this did ultimately stop the bleeding. Cautery was used just on the area of bleeding. Patient can be discharged to follow-up with primary care. Will return for any worsening symptoms Disposition Clinical Impression: Nosebleed Disposition: HOME SELF-CARE Condition: Good Instructions (If sedation given, give patient instructions): Nosebleed (ED) Additional Instructions: Please follow-up with your doctor in one to 2 days. Return to the emergency room for any worsening symptoms. Is patient prescribed a controlled substance at d/c from ED?: No Referrals: [facility],Clinic [Primary Care Provider] - 1-2 days Time of Disposition: 12:50
[2021-02-23] MEDS ORDERED: TRANEXAMIC ACID 1,000 MG/10 ML VIAL IRRIGATION STA (11:33)
[2021-02-23] MEDS ORDERED: LIDOCAINE/EPINEPHR/TETRACAINE 5 ML BOTTLE TOPICAL ONE (12:43)
[2021-02-23 13:22] VITALS: BP 130/80; PULSE 85; RESP 16
== END 2021-02-23 13:22 | disposition home or self-care (01) ==
LOC: EC 10:28
DX: R04.0 Epistaxis (principal); J44.9 Chronic obstructive pulmonary disease, unspecified; K21.9 Gastro-esophageal reflux disease without esophagitis; F17.200 Nicotine dependence, unspecified, uncomplicated; Z86.718 Personal history of other venous thrombosis and embolism; Z79.01 Long term (current) use of anticoagulants; Z86.73 Personal history of transient ischemic attack (TIA), and cerebral infarction without residual deficits; Z79.899 Other long term (current) drug therapy
CPT/HCPCS: 30901; 99283

== ENCOUNTER → 2021-10-31 | Outpatient (CLI) | payer OTHER ==
--- NOTE | 2021-10-31 13:45 | CT ---
EXAMINATION TYPE: CT angio chest DATE OF EXAM: 10/31/2021 9:40 AM COMPARISON: 12/31/2016 HISTORY: Thoracic aortic aneursym. CT DLP: 1012 mGycm Automated exposure control for dose reduction was used. CONTRAST: CTA scan of the thorax is performed without and with IV Contrast, patient injected with 100ml mL of I sovue 370, pulmonary embolism protocol. 3-D postprocessing was performed.. FINDINGS: There are marked emphysematous changes particularly involving the upper lobes, right greater than lef t. The large pleural effusion and right lower lobe consolidation has resolved in the interval. Curren tly there is no airspace consolidation or interstitial lung density There is no pleural effusion, pleural thickening or pneumothorax. The ascending thoracic aorta is mildly aneurysmal measuring approximate 4.2 cm. This was seen previou sly and is stable. There is satisfactory contrast opacification of pulmonary artery and branches and there are no fillin g defects to suggest pulmonary embolism. There is no mediastinal, hilar or axillary adenopathy. Limited scanning through the upper abdomen reveals no gross abnormality. The osseous structures are intact. IMPRESSION: 1. Marked emphysematous changes as described above. 2. No acute cardiopulmonary disease. 3. Mild aneurysmal dilatation of the ascending thoracic aorta measuring 4.2 cm. The aneurysm is stabl e compared to the previous study. 4. No evidence of pulmonary embolism.
== END | disposition home or self-care (01) ==
LOC: RADCTMAIN 08:41
PROVIDERS: ATTEND Thoracic Surgery (Cardiothoracic Vascular Surgery)
DX: I71.2 Thoracic aortic aneurysm, without rupture (principal)
CPT/HCPCS: 71275; Q9967

== ENCOUNTER → 2022-11-03 | Outpatient (CLI) | payer OTHER ==
--- NOTE | 2022-11-03 14:44 | CT ---
EXAMINATION TYPE: CT angio chest DATE OF EXAM: 11/03/2022 COMPARISON: 10/31/2021 HISTORY: f/u aneurysm CT DLP: 933.6 mGycm CONTRAST: CTA thoracic aorta with 3-D reconstruction is performed and without and with IV Contrast, patient inj ected with 100 mL of Isovue 370. Contrast CTA of the thoracic aorta was performed from the lung apex through the upper abdomen. 3D re construction imaging obtained at a separate workstation. CT Chest: THORACIC AORTA: Ascending thoracic aortic aneurysm measuring 4 cm AP dimension versus 4.2 cm previous ly. The remainder of the thoracic aorta is of normal caliber. Mild atheromatous changes seen. There is no evidence for dissection or periaortic collection. LUNGS: There are marked emphysematous changes particularly involving the upper lobes, right greater t leonard left. The large pleural effusion and right lower lobe consolidation has resolved in the interval. Currently there is no airspace consolidation or interstitial lung density MEDIASTINUM: No evidence for mediastinal hematoma. The heart is not enlarged. No evidence for med iastinal mass or adenopathy. HILAR STRUCTURES: No evidence for mass. No hilar adenopathy is appreciated. OTHER: No significant abnormality. IMPRESSION- 1. Ascending thoracic aortic aneurysm pressure although measure slightly smaller in size relative to prior study. 2. Severe emphysematous change.
== END | disposition home or self-care (01) ==
LOC: RADCTMAIN 13:04
PROVIDERS: ATTEND Thoracic Surgery (Cardiothoracic Vascular Surgery)
DX: J43.9 Emphysema, unspecified (principal); I71.21 Aneurysm of the ascending aorta, without rupture
CPT/HCPCS: 71275; Q9967

== ENCOUNTER → 2023-10-11 | Outpatient (CLI) | payer OTHER ==
--- NOTE | 2023-10-11 11:52 | CT ---
EXAMINATION TYPE: CT angio chest CT DLP: 1107.3 mGycm, Automated exposure control for dose reduction was used. DATE OF EXAM: 10/11/2023 11:24 AM COMPARISON: 11/03/2022, 10/31/2021 and dating back to . CLINICAL INDICATION:Male, 52 years old with history of I71.20 Thoracic aneurysm; thoracic aortic aneu rysm TECHNIQUE/CONTRAST: CTA scan of the thorax is performed with IV Contrast, patient injected with 100 mL of Isovue 370, MIP images are created and reviewed these are created on a separate workstation.. FINDINGS: Lungs/Pleura: Severe bullous emphysema changes right greater than left. No evidence of focal consolid ation, pleural effusion or pneumothorax. Airway: Large airways are patent. Heart: Heart is within normal limits for size. Vasculature: No evidence for intramural hematoma on noncontrast imaging. No evidence of intimal flap to suggest dissection. No aneurysm identified. Scattered atherosclerotic disease. Mild ectasia of th e ascending thoracic aorta measuring up to 41 mm. Origins of the major vessels of the aorta are patent. Mediastinum: No gross evidence of adenopathy. Musculoskeletal: No acute osseous abnormalities Soft Tissues: Unremarkable. Lower neck: No significant findings. Upper Abdomen: Multiple gallstones in the gallbladder lumen. IMPRESSION: 1. No evidence for aortic aneurysm. The ascending thoracic aorta is mildly ectatic measuring up to 41 mm. This is unchanged dating back to 11/03/2016. 2. Severe bullous emphysema changes right greater than left. 3. Cholelithiasis.
== END | disposition home or self-care (01) ==
LOC: RADCTMAIN 09:31
PROVIDERS: ATTEND Thoracic Surgery (Cardiothoracic Vascular Surgery)
DX: K80.20 Calculus of gallbladder without cholecystitis without obstruction (principal); J43.8 Other emphysema; I77.810 Thoracic aortic ectasia
CPT/HCPCS: 71275; Q9967